=== PATIENT | female | born 1950 | race Caucasian/White ===

== ENCOUNTER 2017-03-01 23:53 | Emergency (ER) | payer SELFPAY ==
[2017-03-02 00:12] VITALS: BP 168/86; BMI 38.9
[2017-03-02] MEDS ORDERED: ZOFRAN TAB 4 MG PO ONE (00:45)
[2017-03-02] MEDS ORDERED: DUONEB 0.5 MG/3 MG NEB ONE (00:45)
--- NOTE | 2017-03-02 00:54 | DR.GENAD ---
HPI - PCP Primary Care Physician: beni - Complaint/Symptoms Chief Complaint Doctors Comments: Patient denies a history of cardiopulmonary disease. Denies fever but admits to nausea. Chief Complaint:: cough cold congestion, short of breath Self Treatment fo Chief Complaint: tussin dm, tylenol for fever - Source History Provided: Patient, Family Member - Mode of Arrival Mode of Arrival: Ambulatory - Timing Onset of Chief Complaint: 02/27/17 PMH - PMH Past Medical History: No Past Surgical History: Yes Surgical History: Appendectomy, Bowel Resection, Hysterectomy - Family History History of Family Medical Conditions: Yes Family Medical History: Diabetes Mellitus, Cancer, [place], Coronary Artery Disease, Hypertension - Social History Does patient currently use any type of tobacco product: No Have you used tobacco products in the last 12 months: No Type of Tobacco Use: Cigarettes Does any household member use tobacco: No Alcohol Use: None Do you use any recreational Drugs:: No Lives With: Family Lives Where: Home - infectious screening In the last 2 months have you had wt loss of >10#?: NO Have you had fever, night sweats or hemotysis?: No Have you traveled outside the country in the last 6 months?: No Isolation: Standard ROS - Review of Systems Eyes: No Symptoms Reported ENTM: No Symptoms Reported Respiratoy: No Symptoms Reported Cardiovascular: No Symptoms Reported Gastrointestinal/Abdominal: No Symptoms Reported Genitourinary: No Symptoms Reported Neurological: No Symptoms Reported Musculoskeletal: No Symptoms Reported Integumentary: No Symptoms Reported Hematologic/Lymphatic: No Symptoms Reported Endocrine: No Symptoms Reported Psychiatric: No Symptoms Reported All Other Systems: Reviewed and Negative PE - Vital Signs Vitals: Temperature 98.7 F Pulse Rate 84 Respiratory Rate 18 Blood Pressure 168/86 O2 Sat by Pulse Oximetry 96 - General Limitations: No Limitations General Appearance: Alert, In No Apparent Distress - Head Head Exam: Normal Inspection, Atraumatic - Eyes Eye exam: Normal Appearance, PERRL, Scleral Icterus - ENT ENT Exam: Normal Exam External Ear Exam: Normal External Inspection TM/Canal Exam: Bilateral Normal Nose Exam: Normal Nose Exam, Sinus Tenderness Mouth Exam: Normal Inspection, Drooling Throat Exam: Normal Inspection - Neck Neck Exam: Normal Inspection, Full ROM - Chest Chest Inspection: Normal Inspection - Respiratory Respiratory Exam: Normal Lung Sounds Bilat Respiratory Exam: Bilateral Rhonchi - Cardiovascular Cardiovascular Exam: Regular Rate, Normal Rhythm - Abdominal Exam Abdominal Exam: Normal Inspection Abdominal Tenderness: negative: RUQ, RLQ, LUQ, LLQ, Epigastrium, Suprapubic, Diffuse, Mild, Moderate, Severe, Other - Extremities Extremities Exam: Normal Inspection, Full ROM - Back Back Exam: Normal Inspection - Neurologic Neurological Exam: Alert, Oriented X3, CN II-XII Intact - Psychiatric Psychiatric Exam: Normal Affect, Normal Mood - Skin Skin Exam: Warm, Dry, Intact MDM - Differential Diagnosis Differential Diagnosis: CHF,COPD,PE ROR - Labs Reviewed Result Diagrams: 03/02/17 01:00 03/02/17 01:00 Laboratory: WBC 7.9 X10^3/uL (3.6-10.0) 03/02/17 01:00 RBC 4.58 X10^6/uL (3.5-5.4) 03/02/17 01:00 Hgb 10.7 g/dL (12.0-16.0) L 03/02/17 01:00 Hct 33.4 % (36.0-47.0) L 03/02/17 01:00 MCV 72.9 fL (80.0-100.0) L 03/02/17 01:00 MCH 23.4 pg (27.0-34.0) L 03/02/17 01:00 MCHC 32.0 g/dL (33.0-35.0) L 03/02/17 01:00 RDW 16.5 % (11.6-16.5) 03/02/17 01:00 Plt Count 114 X10^3/uL (150.0-450.0) L 03/02/17 01:00 Plt Count Comment Adequate (ADEQUATE) 03/02/17 01:00 MPV 9.2 fL (7.4-11.0) 03/02/17 01:00 Neut % 70.5 % (42.0-75.0) 03/02/17 01:00 Lymph % 19.2 % (21.0-51.0) L 03/02/17 01:00 [place] % 7.9 % (0.0-13.0) 03/02/17 01:00 Eos % 1.6 % (0.9-2.9) 03/02/17 01:00 Baso % 0.8 % (0.2-1.0) 03/02/17 01:00 Neut # 5.6 x10^3/uL (2.2-4.8) H 03/02/17 01:00 Lymph # 1.5 X10^3/uL (1.3-2.9) 03/02/17 01:00 [place] # 0.6 x10^3/uL (0.3-0.8) 03/02/17 01:00 Eos # 0.1 x10^3/uL (0.0-0.2) 03/02/17 01:00 Baso # 0.1 X10^3/uL (0.0-0.1) 03/02/17 01:00 Absolute Nucleated RBC 0.0 /100WBC 03/02/17 01:00 Plt Morphology Comment Normal (NORMAL) 03/02/17 01:00 RBC Morphology Abnormal (NORMAL) A 03/02/17 01:00 Hypochromasia 1+ A 03/02/17 01:00 Sodium 138 mmol/L (136-145) 03/02/17 01:00 Corrected Sodium TNP 03/02/17 01:00 Potassium 4.3 mmol/L (3.5-5.1) 03/02/17 01:00 Chloride 102 mmol/L (98-107) 03/02/17 01:00 Carbon Dioxide 27.7 mmol/L (21-32) 03/02/17 01:00 BUN 6 mg/dL (7-18) L 03/02/17 01:00 Creatinine 0.59 mg/dL (0.55-1.02) 03/02/17 01:00 Est GFR (MDRD) Af Amer > 60 (>60) 03/02/17 01:00 Est GFR (MDRD) Non-Af > 60 (>60) 03/02/17 01:00 Glucose 104 mg/dL (65-99) H 03/02/17 01:00 Calcium 9.2 mg/dL (8.5-10.1) 03/02/17 01:00 - XRAY XRAY Interpreted by: Radiologist (Chest: The trachea is midline. The cardiac silhouette is unremarkable. The lungs are clear without focal infiltrate or effusion. The bony thorax is unremarkable. Impression: No acute cardiopulmonary abnormality.) - Diagnosis Discharge Problem: Upper respiratory disease - Discharge Plan Condition: Stable - Follow ups/Referrals Follow ups/Referrals: YOLANDA NARAYAN [Primary Care Provider] - 3 days - Instructions
[2017-03-02] MEDS ORDERED: ZOFRAN TAB 4 MG PO PRN (00:55)
[2017-03-02] MEDS ORDERED: DUONEB 0.5 MG/3 MG NEB SCH (01:00)
[2017-03-02] MEDS ORDERED: DUONEB 0.5 MG/3 MG ONE (01:00)
[2017-03-02] MEDS ORDERED: ZOFRAN TAB 4 MG ONE (01:02)
[2017-03-02 01:09] LABS: BASOPHILS # (AUTO) 0.1 X10^3/uL (0.0-0.1); BASOPHILS % (AUTO) 0.8 % (0.2-1.0); EOSINOPHILS # (AUTO) 0.1 x10^3/uL (0.0-0.2); EOSINOPHILS % (AUTO) 1.6 % (0.9-2.9); HEMATOCRIT 33.4 % (36.0-47.0); HEMOGLOBIN 10.7 g/dL (12.0-16.0); LYMPHOCYTES # (AUTO) 1.5 X10^3/uL (1.3-2.9); LYMPHOCYTES % (AUTO) 19.2 % (21.0-51.0); MEAN CORPUSCULAR HEMOGLOBIN 23.4 pg (27.0-34.0); MEAN CORPUSCULAR VOLUME 72.9 fL (80.0-100.0); MEAN PLATELET VOLUME 9.2 fL (7.4-11.0); MONOCYTES # (AUTO) 0.6 x10^3/uL (0.3-0.8); MONOCYTES % (AUTO) 7.9 % (0.0-13.0); NEUTROPHILS # (AUTO) 5.6 x10^3/uL (2.2-4.8); NEUTROPHILS % (AUTO) 70.5 % (42.0-75.0); PLATELET COUNT 114 X10^3/uL (150.0-450.0); RED BLOOD COUNT 4.58 X10^6/uL (3.5-5.4); RED CELL DISTRIBUTION WIDTH 16.5 % (11.6-16.5); WHITE BLOOD COUNT 7.9 X10^3/uL (3.6-10.0)
[2017-03-02 01:16] LABS: BLOOD UREA NITROGEN 6 mg/dL (7-18); CALCIUM 9.2 mg/dL (8.5-10.1); CARBON DIOXIDE 27.7 mmol/L (21-32); CHLORIDE 102 mmol/L (98-107); CREATININE 0.59 mg/dL (0.55-1.02); SODIUM 138 mmol/L (136-145); eGFR BLACK RACES > 60 (>60); eGFR NON BLACK RACES > 60 (>60)
[2017-03-02 01:18] LABS: PLATELET MORPHOLOGY COMMENT NORMAL (NORMAL)
[2017-03-02 01:21] LABS: HYPOCHROMASIA 1+
--- NOTE | 2017-03-02 01:26 | RAD ---
AP Chest Indication: Cough Comparison: None available Findings: The trachea is midline. The cardiac silhouette is unremarkable. The lungs are clear without focal i nfiltrate or effusion. The bony thorax is unremarkable. IMPRESSION: 1. No acute cardiopulmonary abnormality. Reported By:
== END 2017-03-02 01:33 | disposition home or self-care (01) ==
LOC: ER 23:53
DX: J06.9 Acute upper respiratory infection, unspecified (principal)
CPT/HCPCS: 36415; 71010; 80048; 85025; 94640; 99281; 99282; 99283; S0181; J7620

== ENCOUNTER 2019-02-16 14:58 | Inpatient (IN) ==
[2019-02-16] MEDS ORDERED: NS 500 ML IV 500 ML IV ONE (18:33)
[2019-02-16 19:03] LABS: BASOPHILS % (AUTO) 0.7 % (0.2-1.0); EOSINOPHILS # (AUTO) 0.3 x10^3/uL (0.0-0.2); EOSINOPHILS % (AUTO) 5.2 % (0.9-2.9); HEMATOCRIT 22.2 % (36.0-47.0); HEMOGLOBIN 7.3 g/dL (12.0-16.0); LYMPHOCYTES # (AUTO) 1.2 X10^3/uL (1.3-2.9); LYMPHOCYTES % (AUTO) 23.9 % (21.0-51.0); MEAN CORPUSCULAR HEMOGLOBIN 25.5 pg (27.0-34.0); MEAN CORPUSCULAR VOLUME 77.3 fL (80.0-100.0); MEAN PLATELET VOLUME 8.6 fL (7.4-11.0); MONOCYTES # (AUTO) 0.4 x10^3/uL (0.3-0.8); NEUTROPHILS % (AUTO) 61.2 % (42.0-75.0); PLATELET COUNT 86 X10^3/uL (150.0-450.0); RED BLOOD COUNT 2.87 X10^6/uL (3.5-5.4); RED CELL DISTRIBUTION WIDTH 15.6 % (11.6-16.5); WHITE BLOOD COUNT 4.9 X10^3/uL (3.6-10.0)
[2019-02-16 19:12] LABS: PLATELET MORPHOLOGY COMMENT NORMAL (NORMAL)
[2019-02-16 19:13] LABS: ANISOCYTOSIS SLIGHT; HYPOCHROMASIA SLIGHT; MICROCYTOSIS SLIGHT
[2019-02-16 19:18] LABS: ALANINE AMINOTRANSFERASE 19 Units/L (12-78); ALBUMIN 2.9 g/dL (3.4-5.0); ALKALINE PHOSPHATASE 156 Units/L (46-116); ASPARTATE AMINO TRANSFERASE 39 Units/L (15-37); BLOOD UREA NITROGEN 11 mg/dL (7-18); CALCIUM 8.4 mg/dL (8.5-10.1); CARBON DIOXIDE 24.6 mmol/L (21-32); CHLORIDE 104 mmol/L (98-107); COR CA(FOR HYPOALB) 9.3 mg/dL (8.5-10.1); CREATININE 0.65 mg/dL (0.55-1.02); SODIUM 139 mmol/L (136-145); TOTAL PROTEIN 7.1 g/dL (6.4-8.2); eGFR NON BLACK RACES > 60 (>60)
[2019-02-16] MEDS: NS 1000 ML 1,000 ML IV SCH (19:35)
[2019-02-16 19:39] LABS: ERYTHROCYTE SEDIMENTATION RATE 62 MM/HOUR (0-20)
[2019-02-16] MEDS: PROTONIX INJ 40 MG VIAL IVP SCH (20:33)
[2019-02-16] MEDS: PEPCID 20 MG IV PREMIX* 20 MG/50 ML BAG IV SCH (20:33)
[2019-02-16] MEDS: TYLENOL 325 MG TAB PO PRN (21:24)
[2019-02-16] MEDS: BENADRYL INJ 50 MG VIAL IVP PRN (21:24)
[2019-02-16 21:35] VITALS: BMI 38.0
[2019-02-17 05:24] LABS: BASOPHILS % (AUTO) 0.8 % (0.2-1.0); EOSINOPHILS # (AUTO) 0.2 x10^3/uL (0.0-0.2); EOSINOPHILS % (AUTO) 5.8 % (0.9-2.9); HEMATOCRIT 24.8 % (36.0-47.0); HEMOGLOBIN 8.3 g/dL (12.0-16.0); LYMPHOCYTES % (AUTO) 27.6 % (21.0-51.0); MEAN CORPUSCULAR HEMOGLOBIN 26.3 pg (27.0-34.0); MEAN CORPUSCULAR HGB CONC 33.4 g/dL (33.0-35.0); MEAN PLATELET VOLUME 8.8 fL (7.4-11.0); MONOCYTES # (AUTO) 0.3 x10^3/uL (0.3-0.8); MONOCYTES % (AUTO) 9.1 % (0.0-13.0); NEUTROPHILS % (AUTO) 56.7 % (42.0-75.0); PLATELET COUNT 70 X10^3/uL (150.0-450.0); RED BLOOD COUNT 3.14 X10^6/uL (3.5-5.4); RED CELL DISTRIBUTION WIDTH 15.8 % (11.6-16.5); WHITE BLOOD COUNT 3.5 X10^3/uL (3.6-10.0)
[2019-02-17 05:41] LABS: ALANINE AMINOTRANSFERASE 19 Units/L (12-78); ALBUMIN 2.6 g/dL (3.4-5.0); ALKALINE PHOSPHATASE 140 Units/L (46-116); ASPARTATE AMINO TRANSFERASE 42 Units/L (15-37); BLOOD UREA NITROGEN 8 mg/dL (7-18); CALCIUM 8.3 mg/dL (8.5-10.1); CARBON DIOXIDE 25.8 mmol/L (21-32); CHLORIDE 107 mmol/L (98-107); COR CA(FOR HYPOALB) 9.4 mg/dL (8.5-10.1); CREATININE 0.59 mg/dL (0.55-1.02); SODIUM 142 mmol/L (136-145); TOTAL PROTEIN 6.6 g/dL (6.4-8.2); eGFR NON BLACK RACES > 60 (>60)
[2019-02-17] MEDS: PROTONIX INJ 40 MG VIAL IVP SCH ×2 (08:18→20:15)
[2019-02-17] MEDS: PEPCID 20 MG IV PREMIX* 20 MG/50 ML BAG IV SCH ×2 (08:18→20:15)
[2019-02-17] MEDS ORDERED: PHARMACY CONSULT - DOSE _____ XX SCH (09:00)
[2019-02-17 11:38] LABS: HEMATOCRIT 25.3 % (36.0-47.0); HEMOGLOBIN 8.4 g/dL (12.0-16.0)
[2019-02-17 14:24] LABS: IRON 22 ug/dL (50-175)
[2019-02-17 17:32] LABS: HEMATOCRIT 27.8 % (36.0-47.0); HEMOGLOBIN 9.2 g/dL (12.0-16.0)
[2019-02-17] MEDS: NS 1000 ML 1,000 ML IV SCH (20:16)
--- NOTE | 2019-02-17 20:51 | DR.CONSULT ---
Consult - Consultation for Day of: Date: 02/17/19 - Chief Complaint Chief Complaint: Patient referrred for anemia. Patient with no GI complaints. - History of Present Illness History of Present Illness: Patient is a 68 yo female who was referrred for anemia. Patient with no GI complaints. Patient denies dysphagia, dyspepsia, nausea, vomiting, abdominal pain, constipation, diarrhea, melena and hematochezia. Patinet states she had a colonoscopy in october of this year in [place] with 8 adenomatous polyps. PAtient states she had an EGD in 2011. Patient with a 7.3 hgb on arrival up to 8.4 after PRBC transfusion, Hct 25.3, Plt 70, BUN 8, Creatinine 0.59, Iron 22, T. Bili 0.5, AST 42, ALT 19, Alk Phos 140. Hemoccult negative. Patient states she does have a history of fatty liver. Patient has also had a colon resection due to diverticulitis. 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 Additional Surgical History: Colon resection, Partial hysterectomy - Family History Family Medical History: Diabetes Mellitus, Cancer, [place], Coronary Artery Disease, Heart Failure, Sudden Cardiac , Hypertension - Social History Does patient currently use any type of tobacco product: No Have you used tobacco products in the last 12 months: No Type of Tobacco Use: Cigarettes How many years tobacco product used: 40 Does any household member use tobacco: No Alcohol Use: None - Medications Home Medications: codeine Allergy (Verified 03/01/17 23:55) levofloxacin [From Levaquin] Allergy (Verified 03/01/17 23:55) Penicillins Allergy (Verified 03/01/17 23:55) Sulfa (Sulfonamide Antibiotics) [SULFA] Allergy (Verified 03/01/17 23:55) CONTINUE taking the following medications cyanocobalamin (vitamin B-12) 1,000 mcg IM .EVERY TWO WEEKS 02/17/19 [History] ergocalciferol (vitamin D2) 50,000 unit PO .TWICE WEEKLY 02/17/19 [History] meloxicam 15 mg PO DAILY 02/17/19 [History] - Review of Systems Gastrointestinal: denies: No Symptoms Reported, See HPI, Nausea, Vomiting, Abdominal Pain, Diarrhea, Constipation, Melena, Hematochezia, Other - Physical Exam Vital Signs: Temperature 98.1 F Pulse Rate [Right Brachial] 80 Pulse Rate 84 Respiratory Rate 24 Blood Pressure [Right Arm] 146/67 Blood Pressure 150/66 O2 Sat by Pulse Oximetry 97 Oriented: Normal Eyes: Normal Ear: Normal Nose: Normal Throat: Normal Respiratory: Clear Throughout Cardiovascular: Normal : Normal Auscultation: Bowel Sounds: Normal Palpation: Normal, Other (no distention). negative: Spleen Enlarged, Liver Enlarged, Mass Pulsatile Tenderness: Normal Skin: Normal Musculoskeletal: Normal Psychiatric: Normal Mood Description: Calm Affect: Normal Speech Pattern: Clear, Appropriate - Plan Plan: Assessment. 1. Anemia r/o GI loss. 2. Abnormal LFTs, Thrombocytopenia. Plan. 1. EGD in am, Monitor Hgb, Transfuse as needed. 2. Hepatitis Profile, Abnormal LFT Panel, Liver US. Plan reviewed with - Allergies Allergies/Adverse Reactions: Allergies Allergy/AdvReac Type Severity Reaction Status Date / Time codeine Allergy Verified 03/01/17 23:55 levofloxacin [From Levaquin] Allergy Verified 03/01/17 23:55 Penicillins Allergy Verified 03/01/17 23:55 Sulfa (Sulfonamide Allergy Verified 03/01/17 23:55 Antibiotics) [SULFA]
[2019-02-17] MEDS: REQUIP PO SCH (20:59)
[2019-02-17 22:56] LABS: HEMATOCRIT 24.3 % (36.0-47.0); HEMOGLOBIN 8.2 g/dL (12.0-16.0)
[2019-02-18 05:19] LABS: BASOPHILS % (AUTO) 0.7 % (0.2-1.0); EOSINOPHILS # (AUTO) 0.3 x10^3/uL (0.0-0.2); EOSINOPHILS % (AUTO) 5.4 % (0.9-2.9); HEMATOCRIT 25.8 % (36.0-47.0); HEMOGLOBIN 8.6 g/dL (12.0-16.0); MEAN CORPUSCULAR HEMOGLOBIN 26.1 pg (27.0-34.0); MEAN CORPUSCULAR HGB CONC 33.2 g/dL (33.0-35.0); MEAN CORPUSCULAR VOLUME 78.6 fL (80.0-100.0); MEAN PLATELET VOLUME 8.8 fL (7.4-11.0); MONOCYTES # (AUTO) 0.4 x10^3/uL (0.3-0.8); MONOCYTES % (AUTO) 8.2 % (0.0-13.0); NEUTROPHILS # (AUTO) 3.4 x10^3/uL (2.2-4.8); NEUTROPHILS % (AUTO) 66.7 % (42.0-75.0); PLATELET COUNT 84 X10^3/uL (150.0-450.0); RED BLOOD COUNT 3.29 X10^6/uL (3.5-5.4); RED CELL DISTRIBUTION WIDTH 15.8 % (11.6-16.5)
[2019-02-18 05:33] LABS: ALANINE AMINOTRANSFERASE 18 Units/L (12-78); ALBUMIN 2.8 g/dL (3.4-5.0); ALKALINE PHOSPHATASE 149 Units/L (46-116); ASPARTATE AMINO TRANSFERASE 44 Units/L (15-37); BLOOD UREA NITROGEN 6 mg/dL (7-18); CALCIUM 8.2 mg/dL (8.5-10.1); CARBON DIOXIDE 23.5 mmol/L (21-32); CHLORIDE 106 mmol/L (98-107); COR CA(FOR HYPOALB) 9.2 mg/dL (8.5-10.1); CREATININE 0.53 mg/dL (0.55-1.02); SODIUM 140 mmol/L (136-145); TOTAL PROTEIN 6.9 g/dL (6.4-8.2); eGFR NON BLACK RACES > 60 (>60)
--- NOTE | 2019-02-18 08:10 | US ---
HISTORY: Elevated LFTs Study: Ultrasound of the abdomen complete Comparison: No priors Technique: Multiple colon scale and color flow Doppler images of the abdomen were obtained. Findings: The liver is prominent in size measuring 17 cm in length. There is diffuse hepatic steatosis. No intraparenchymal mass or intrahepatic biliary ductal dilatation can be identified. The gallbladder is unremarkable in its appearance. The common bile duct is normal measuring 5.1 mm. Doppler studies of portal vein, hepatic vein and hepatic artery are all normal. The pancreas is normal. The spleen is enlarged measuring 18 cm in length. The right and left kidney are normal in echotexture and size. The right kidney measures 4.6 x 5.8 x 11 cm. Cortical thickness is 1.7 cm. Resistive index is 0.77.. The left kidney measures 4.6 x 6.0 x 14 cm. Cortical thickness is 1.8 cm. Resistive index is 0.76.. No mass, hydronephrosis, or stone can be identified. The visualized portions of the abdominal aorta are normal in size without aneurysmal dilatation. The inferior vena cava is unremarkable as well. IMPRESSION: Prominent liver with diffuse steatosis. No mass or ductal ectasia is seen. Splenomegaly. Elevated resistive indices of both kidneys. Reported By:
[2019-02-18] MEDS: PROTONIX INJ 40 MG VIAL IVP SCH (08:34)
[2019-02-18] MEDS: PEPCID 20 MG IV PREMIX* 20 MG/50 ML BAG IV SCH ×2 (08:34→20:15)
[2019-02-18] MEDS ORDERED: DIPRIVAN VIAL 20 ML ONE (13:41)
[2019-02-18] MEDS: HEMOCYTE-PLUS PO SCH (14:56)
[2019-02-18] MEDS: PROTONIX TAB 40 MG PO SCH ×2 (14:57→20:15)
[2019-02-18] MEDS: REQUIP PO SCH (20:16)
--- NOTE | 2019-02-18 20:53 | PCM.PROG ---
Progress Note - Progress Note for Day of Date of Exam: 02/17/19 - Subjective Subjective: WAS ADMITTED FOR TREATMENT OF ANEMIA. SHE RECEIVED TWO UNITS OF PACKED RED BLOOD CELLS ON ADMISSION. TODAY, SHE IS ALERT AND ORIENTED, LYING IN BED ON MORNING ROUNDS. SHE IS NOTED WITH COMPLAINTS OF GENERALIZED WEAKNESS. SHE REPORTS ABDOMINAL PAIN OVER THE PAST SEVERAL WEEKS, BUT DENIES PAIN AT THE PRESENT TIME. ON EXAMINATION, HEART IS REGULAR IN RATE AND RHYTHM. BILATERAL LUNGS ARE NOTED WITH DIMINISHED LUNG SOUNDS THROUGHOUT. ABDOMEN IS ROUND, SOFT, AND NON-TENDER WITH NORMAL BOWEL SOUNDS NOTED IN ALL QUADRANTS. HER VITALS THIS MORNING ARE: WBC 3.5, RBC 3.14, HGB 8.3, HCT 24.8, PLT COUNT 70, CALCIUM 8.3, AST 42, ALK PHOS 140, ALBUMIN 2.6. AN ANEMIA PANEL WAS OBTAINED AND REVEALED: IRON 22, FERRITIN 7. STOOLS WERE TESTED FOR OCCULT BLOOD AND WERE NEGATIVE. SHE IS CURRENTLY RECEIVING IV FLUIDS, IV PEPCID, AND IV PROTONIX. TODAY, WE WILL OBTAIN A PERIPHERAL SMEAR, ANTI-PLATELET ANTIBODIES, JAMARCUS PANEL, CEA LEVEL, AND AN ECHO. WE WILL MONITOR H&H Q6H. 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 OTHERWISE, WE WILL FOLLOW UP WITH AM LABS AND CONTINUE TO MONITOR. - Past Medical Family Social History Past Med/Fam/Surg Hx: No changes since H&P Allergies: Allergies codeine Allergy (Verified 03/01/17 23:55) levofloxacin [From Levaquin] Allergy (Verified 03/01/17 23:55) Penicillins Allergy (Verified 03/01/17 23:55) Sulfa (Sulfonamide Antibiotics) [SULFA] Allergy (Verified 03/01/17 23:55) - Review of Systems ROS: No change since H&P - Vital Signs and I&O's Vital Signs: Temperature 98.1 F Pulse Rate [Right Brachial] 80 Pulse Rate 74 Respiratory Rate 17 Blood Pressure [Right Arm] 146/67 Blood Pressure 127/60 O2 Sat by Pulse Oximetry 99 Intake and Output: Intake & Output 02/16/19 02/17/19 02/18/19 02/19/19 11:59 11:59 11:59 11:59 Intake Total 1979 2730 / 2730 1112 / 1112 Balance 1979 2730 / 2730 1112 / 1112 - Physical Exam Oriented: Normal Eyes: Normal Ear: Normal Nose: Normal Throat: Normal Respiratory: Generalized, Diminished Cardiovascular: Normal : Normal Auscultation: Bowel Sounds: Normal Palpation: Normal Tenderness: Normal Skin: Normal Musculoskeletal: Normal Psychiatric: Normal Mood Description: Calm Affect: Normal Speech Pattern: Clear, Appropriate - Laboratory and Diagnostics Result Diagrams: 02/18/19 04:50 02/18/19 04:50 Labs: Laboratory WBC 5.0 X10^3/uL (3.6-10.0) 02/18/19 04:50 RBC 3.29 X10^6/uL (3.5-5.4) L 02/18/19 04:50 Hgb 8.6 g/dL (12.0-16.0) L 02/18/19 04:50 Hct 25.8 % (36.0-47.0) L 02/18/19 04:50 MCV 78.6 fL (80.0-100.0) L 02/18/19 04:50 MCH 26.1 pg (27.0-34.0) L 02/18/19 04:50 MCHC 33.2 g/dL (33.0-35.0) 02/18/19 04:50 RDW 15.8 % (11.6-16.5) 02/18/19 04:50 Plt Count 84 X10^3/uL (150.0-450.0) L 02/18/19 04:50 Plt Count Comment Decreased (ADEQUATE) A 02/16/19 18:48 MPV 8.8 fL (7.4-11.0) 02/18/19 04:50 Neut % (Auto) 66.7 % (42.0-75.0) 02/18/19 04:50 Lymph % (Auto) 19.0 % (21.0-51.0) L 02/18/19 04:50 [place] % (Auto) 8.2 % (0.0-13.0) 02/18/19 04:50 Eos % (Auto) 5.4 % (0.9-2.9) H 02/18/19 04:50 Baso % (Auto) 0.7 % (0.2-1.0) 02/18/19 04:50 Neut # (Auto) 3.4 x10^3/uL (2.2-4.8) 02/18/19 04:50 Lymph # (Auto) 1.0 X10^3/uL (1.3-2.9) L 02/18/19 04:50 [place] # (Auto) 0.4 x10^3/uL (0.3-0.8) 02/18/19 04:50 Eos # (Auto) 0.3 x10^3/uL (0.0-0.2) H 02/18/19 04:50 Baso # (Auto) 0.0 X10^3/uL (0.0-0.1) 02/18/19 04:50 Absolute Nucleated RBC 0.0 /100WBC 02/18/19 04:50 Plt Morphology Comment Normal (NORMAL) 02/16/19 18:48 RBC Morphology Abnormal (NORMAL) A 02/16/19 18:48 Hypochromasia Slight A 02/16/19 18:48 Anisocytosis Slight A 02/16/19 18:48 Microcytosis Slight A 02/16/19 18:48 ESR 62 MM/HOUR (0-20) H 02/16/19 18:48 Sodium 140 mmol/L (136-145) 02/18/19 04:50 Corrected Sodium TNP 02/18/19 04:50 Potassium 4.0 mmol/L (3.5-5.1) 02/18/19 04:50 Chloride 106 mmol/L (98-107) 02/18/19 04:50 Carbon Dioxide 23.5 mmol/L (21-32) 02/18/19 04:50 BUN 6 mg/dL (7-18) L 02/18/19 04:50 Creatinine 0.53 mg/dL (0.55-1.02) L 02/18/19 04:50 Est GFR (MDRD) Af Amer > 60 (>60) 02/18/19 04:50 Est GFR (MDRD) Non-Af > 60 (>60) 02/18/19 04:50 Glucose 99 mg/dL (65-99) 02/18/19 04:50 Calcium 8.2 mg/dL (8.5-10.1) L 02/18/19 04:50 Corrected Calcium 9.2 mg/dL (8.5-10.1) 02/18/19 04:50 Iron 22 ug/dL (50-175) L 02/16/19 18:48 Transferrin 275 mg/dL (202-364) 02/16/19 18:48 Ferritin 7 ng/mL (8-252) L 02/16/19 18:48 Total Bilirubin 0.60 mg/dL (0.2-1.0) 02/18/19 04:50 AST 44 Units/L (15-37) H 02/18/19 04:50 ALT 18 Units/L (12-78) 02/18/19 04:50 Alkaline Phosphatase 149 Units/L (46-116) H 02/18/19 04:50 Total Protein 6.9 g/dL (6.4-8.2) 02/18/19 04:50 Albumin 2.8 g/dL (3.4-5.0) L 02/18/19 04:50 Globulin 4.1 g/dL (2.5-4.5) 02/18/19 04:50 Albumin/Globulin Ratio 0.7 Ratio (1.1-2.1) L 02/18/19 04:50 Vitamin B12 352 pg/mL (193-986) 02/16/19 18:48 Folate > 20.0 ng/mL (>8.6) 02/16/19 18:48 Stool Description 200g formed brown 02/17/19 10:25 Stl Occult Blood (IFOB) Negative (NEGATIVE) 02/17/19 10:25 Tissue Pathology To follow 02/18/19 13:51 Blood Type O POSITIVE 02/16/19 18:48 Antibody Screen Negative 02/16/19 18:48 Crossmatch See Detail 02/16/19 18:48 - Plan (1) Anemia Status: Acute Qualifiers: Anemia type: iron deficiency Iron deficiency anemia 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
--- NOTE | 2019-02-18 21:06 | DR.UPDATE ---
H&P Update History and Physical Update: History and Physical reviewed and patient examined. Changes noted: Yes with the following: WAS SEEN IN THE OFFICE FOR COMPLAINTS OF GENERALIZED WEAKNESS AND FATIGUE. OUTPATIENT LABS WERE OBTAINED AND REVEALED A HEMOGLOBIN OF 7.4. WE ADMITTED PATIENT FOR FURTHER EVALUATION AND TREATMENT OF ANEMIA. ON ADMISSION, WE WILL TYPE AND SCREEN FOR 2 UNITS OF PACKED RED BLOOD CELLS AND TRANSFUSE WHEN AVAILABLE. OTHERWISE, WE WILL FOLLOW UP WITH AM LABS AND CONTINUE TO MONITOR.
[2019-02-18] MEDS: NS 1000 ML 1,000 ML IV SCH (21:50)
[2019-02-19 06:37] LABS: BASOPHILS # (AUTO) 0.1 X10^3/uL (0.0-0.1); BASOPHILS % (AUTO) 1.2 % (0.2-1.0); EOSINOPHILS # (AUTO) 0.3 x10^3/uL (0.0-0.2); EOSINOPHILS % (AUTO) 6.2 % (0.9-2.9); HEMATOCRIT 24.7 % (36.0-47.0); HEMOGLOBIN 8.1 g/dL (12.0-16.0); LYMPHOCYTES % (AUTO) 22.2 % (21.0-51.0); MEAN CORPUSCULAR HEMOGLOBIN 26.2 pg (27.0-34.0); MEAN CORPUSCULAR HGB CONC 32.8 g/dL (33.0-35.0); MEAN CORPUSCULAR VOLUME 80.1 fL (80.0-100.0); MEAN PLATELET VOLUME 9.9 fL (7.4-11.0); MONOCYTES # (AUTO) 0.4 x10^3/uL (0.3-0.8); MONOCYTES % (AUTO) 9.9 % (0.0-13.0); NEUTROPHILS # (AUTO) 2.7 x10^3/uL (2.2-4.8); NEUTROPHILS % (AUTO) 60.5 % (42.0-75.0); PLATELET COUNT 74 X10^3/uL (150.0-450.0); RED BLOOD COUNT 3.09 X10^6/uL (3.5-5.4); RED CELL DISTRIBUTION WIDTH 16.1 % (11.6-16.5); WHITE BLOOD COUNT 4.4 X10^3/uL (3.6-10.0)
[2019-02-19 06:41] LABS: ALANINE AMINOTRANSFERASE 17 Units/L (12-78); ALBUMIN 2.5 g/dL (3.4-5.0); ALKALINE PHOSPHATASE 139 Units/L (46-116); ASPARTATE AMINO TRANSFERASE 39 Units/L (15-37); BLOOD UREA NITROGEN 5 mg/dL (7-18); CALCIUM 8.1 mg/dL (8.5-10.1); CARBON DIOXIDE 25.5 mmol/L (21-32); CHLORIDE 107 mmol/L (98-107); COR CA(FOR HYPOALB) 9.3 mg/dL (8.5-10.1); CREATININE 0.47 mg/dL (0.55-1.02); SODIUM 141 mmol/L (136-145); TOTAL PROTEIN 6.4 g/dL (6.4-8.2); eGFR NON BLACK RACES > 60 (>60)
[2019-02-19] MEDS: NS 1000 ML 1,000 ML IV SCH ×2 (08:04→13:32)
[2019-02-19] MEDS: HEMOCYTE-PLUS PO SCH (09:58)
[2019-02-19] MEDS: PROTONIX TAB 40 MG PO SCH ×2 (09:58→20:25)
[2019-02-19] MEDS: PEPCID 20 MG IV PREMIX* 20 MG/50 ML BAG IV SCH ×2 (09:58→20:25)
[2019-02-19] MEDS: ZOFRAN INJ 4 MG VIAL IVP PRN (12:23)
[2019-02-19] MEDS ORDERED: NS 250 ML IV 250 ML IV ONE (15:52)
[2019-02-19] MEDS: BENADRYL INJ 50 MG VIAL IVP PRN (15:58)
[2019-02-19] MEDS: TYLENOL 325 MG TAB PO PRN (15:58)
[2019-02-19] MEDS: REQUIP PO SCH (20:25)
[2019-02-20 01:09] LABS: HEMATOCRIT 30.1 % (36.0-47.0)
[2019-02-20] MEDS: NS 1000 ML 1,000 ML IV SCH ×2 (02:59→14:40)
[2019-02-20 06:29] LABS: BASOPHILS % (AUTO) 1.1 % (0.2-1.0); EOSINOPHILS # (AUTO) 0.3 x10^3/uL (0.0-0.2); EOSINOPHILS % (AUTO) 7.4 % (0.9-2.9); HEMATOCRIT 28.7 % (36.0-47.0); HEMOGLOBIN 9.5 g/dL (12.0-16.0); LYMPHOCYTES % (AUTO) 23.9 % (21.0-51.0); MEAN CORPUSCULAR HEMOGLOBIN 26.6 pg (27.0-34.0); MEAN CORPUSCULAR HGB CONC 33.1 g/dL (33.0-35.0); MEAN CORPUSCULAR VOLUME 80.3 fL (80.0-100.0); MEAN PLATELET VOLUME 9.4 fL (7.4-11.0); MONOCYTES # (AUTO) 0.4 x10^3/uL (0.3-0.8); MONOCYTES % (AUTO) 10.3 % (0.0-13.0); NEUTROPHILS # (AUTO) 2.3 x10^3/uL (2.2-4.8); NEUTROPHILS % (AUTO) 57.3 % (42.0-75.0); PLATELET COUNT 73 X10^3/uL (150.0-450.0); RED BLOOD COUNT 3.58 X10^6/uL (3.5-5.4); RED CELL DISTRIBUTION WIDTH 15.9 % (11.6-16.5)
[2019-02-20 06:38] LABS: ALANINE AMINOTRANSFERASE 16 Units/L (12-78); ALBUMIN 2.5 g/dL (3.4-5.0); ALKALINE PHOSPHATASE 141 Units/L (46-116); ASPARTATE AMINO TRANSFERASE 37 Units/L (15-37); BLOOD UREA NITROGEN 5 mg/dL (7-18); CALCIUM 8.3 mg/dL (8.5-10.1); CARBON DIOXIDE 25.7 mmol/L (21-32); CHLORIDE 107 mmol/L (98-107); COR CA(FOR HYPOALB) 9.5 mg/dL (8.5-10.1); CREATININE 0.55 mg/dL (0.55-1.02); SODIUM 141 mmol/L (136-145); TOTAL PROTEIN 6.4 g/dL (6.4-8.2); eGFR NON BLACK RACES > 60 (>60)
[2019-02-20] MEDS ORDERED: POTASSIUM CHL 60 MEQ/NS 0.45% 500 ML IV PRN (09:09)
[2019-02-20] MEDS ORDERED: KLOR-CON PO PRN (09:09)
[2019-02-20] MEDS ORDERED: K-DUR TAB 20 MEQ PO PRN (09:09)
[2019-02-20] MEDS ORDERED: K-RIDER 10 MEQ/NS 100 ML 10 MEQ/100 ML BAG IV PRN (09:09)
[2019-02-20] MEDS ORDERED: POTASSIUM CHLORIDE LIQ 20 MEQ UDC PO PRN (09:09)
[2019-02-20] MEDS ORDERED: POTASSIUM CHL 40 MEQ/NS 0.45% 500 ML IV PRN (09:09)
[2019-02-20] MEDS ORDERED: MICRO K EXTEN CAP 10 MEQ PO PRN (09:09)
[2019-02-20] MEDS: PEPCID 20 MG IV PREMIX* 20 MG/50 ML BAG IV SCH ×2 (09:17→21:00)
[2019-02-20] MEDS: PROTONIX TAB 40 MG PO SCH ×2 (09:18→20:59)
[2019-02-20] MEDS: HEMOCYTE-PLUS PO SCH (09:18)
[2019-02-20] MEDS: ZOFRAN INJ 4 MG VIAL IVP PRN (10:40)
[2019-02-20 10:59] LABS: HEPATITIS B SURFACE ANTIGEN Negative (Negative)
[2019-02-20 11:00] LABS: ANTI-NUCLEAR ANTIBODY TEST Detected (None Detected)
--- NOTE | 2019-02-20 13:32 | PCM.PROG ---
Progress Note - Progress Note for Day of Date of Exam: 02/18/19 - Subjective Subjective: WAS ADMITTED FOR TREATMENT OF ANEMIA. SHE RECEIVED TWO UNITS OF PACKED RED BLOOD CELLS ON ADMISSION. TODAY, SHE IS ALERT AND ORIENTED, LYING IN BED ON MORNING ROUNDS. SHE CONTINUES WITH COMPLAINTS OF GENERALIZED WEAKNESS TODAY. SHE ALSO REPORTS MILD ABDOMINAL PAIN TODAY. ON EXAMINATION, HEART IS REGULAR IN RATE AND RHYTHM. BILATERAL LUNGS ARE NOTED WITH DIMINISHED LUNG SOUNDS THROUGHOUT. ABDOMEN IS ROUND, SOFT, AND NON-TENDER WITH NORMAL BOWEL SOUNDS NOTED IN ALL QUADRANTS. HER VITALS THIS MORNING ARE: 98.7-76-21-98%-173/67. LABS WERE OBTAINED. ABNORMAL LAB VALUES INCLUDE THE FOLLOWING: RBC 3.29, HGB 8.6, HCT 25.8, PLT COUNT 84, BUN 6, CREATININE 0.53, CALCIUM 8.2, AST 44, ALK PHOS 149, ALBUMIN 2.8. SHE IS CURRENTLY RECEIVING IV FLUIDS, IV PEPCID, AND IV PROTONIX. CONSULTED AND PLANS FOR AN EGD TODAY. WE ARE IN AGREEMENT WITH PLAN. OTHERWISE, WE WILL CONTINUE WITH CURRENT PLAN OF CARE TODAY. WE WILL FOLLOW UP WITH AM LABS AND CONTINUE TO MONITOR. - Past Medical Family Social History Past Med/Fam/Surg Hx: No changes since H&P Allergies: Allergies codeine Allergy (Verified 03/01/17 23:55) levofloxacin [From Levaquin] Allergy (Verified 03/01/17 23:55) Penicillins Allergy (Verified 03/01/17 23:55) Sulfa (Sulfonamide Antibiotics) [SULFA] Allergy (Verified 03/01/17 23:55) - Review of Systems ROS: No change since H&P - Vital Signs and I&O's Vital Signs: Temperature 97.7 F Pulse Rate [Right Brachial] 80 Pulse Rate 73 Respiratory Rate 22 Blood Pressure [Right Arm] 146/67 Blood Pressure 143/63 O2 Sat by Pulse Oximetry 97 Intake and Output: Intake & Output 02/18/19 02/19/19 02/20/19 02/21/19 11:59 11:59 11:59 11:59 Intake Total 2730 / 2730 2752 / 2752 3629 / 3629 Balance 2730 / 2730 2752 / 2752 3629 / 3629 - Physical Exam Oriented: Normal Eyes: Normal Ear: Normal Nose: Normal Throat: Normal Respiratory: Generalized, Diminished Cardiovascular: Normal : Normal Auscultation: Bowel Sounds: Normal Palpation: Normal Tenderness: Normal Skin: Normal Musculoskeletal: Normal Psychiatric: Normal Mood Description: Calm Affect: Normal Speech Pattern: Clear, Appropriate - Laboratory and Diagnostics Result Diagrams: 02/20/19 05:14 02/20/19 05:14 Labs: Laboratory WBC 4.0 X10^3/uL (3.6-10.0) 02/20/19 05:14 RBC 3.58 X10^6/uL (3.5-5.4) 02/20/19 05:14 Hgb 9.5 g/dL (12.0-16.0) L 02/20/19 05:14 Hct 28.7 % (36.0-47.0) L 02/20/19 05:14 MCV 80.3 fL (80.0-100.0) 02/20/19 05:14 MCH 26.6 pg (27.0-34.0) L 02/20/19 05:14 MCHC 33.1 g/dL (33.0-35.0) 02/20/19 05:14 RDW 15.9 % (11.6-16.5) 02/20/19 05:14 Plt Count 73 X10^3/uL (150.0-450.0) L 02/20/19 05:14 Plt Count Comment Decreased (ADEQUATE) A 02/16/19 18:48 MPV 9.4 fL (7.4-11.0) 02/20/19 05:14 Neut % (Auto) 57.3 % (42.0-75.0) 02/20/19 05:14 Lymph % (Auto) 23.9 % (21.0-51.0) 02/20/19 05:14 [place] % (Auto) 10.3 % (0.0-13.0) 02/20/19 05:14 Eos % (Auto) 7.4 % (0.9-2.9) H 02/20/19 05:14 Baso % (Auto) 1.1 % (0.2-1.0) H 02/20/19 05:14 Neut # (Auto) 2.3 x10^3/uL (2.2-4.8) 02/20/19 05:14 Lymph # (Auto) 1.0 X10^3/uL (1.3-2.9) L 02/20/19 05:14 [place] # (Auto) 0.4 x10^3/uL (0.3-0.8) 02/20/19 05:14 Eos # (Auto) 0.3 x10^3/uL (0.0-0.2) H 02/20/19 05:14 Baso # (Auto) 0.0 X10^3/uL (0.0-0.1) 02/20/19 05:14 Absolute Nucleated RBC 0.1 /100WBC 02/20/19 05:14 Plt Morphology Comment Normal (NORMAL) 02/16/19 18:48 RBC Morphology Abnormal (NORMAL) A 02/16/19 18:48 Hypochromasia Slight A 02/16/19 18:48 Anisocytosis Slight A 02/16/19 18:48 Microcytosis Slight A 02/16/19 18:48 ESR 34 MM/HOUR (0-20) H 02/19/19 05:19 Sodium 141 mmol/L (136-145) 02/20/19 05:14 Corrected Sodium TNP 02/20/19 05:14 Potassium 3.7 mmol/L (3.5-5.1) 02/20/19 05:14 Chloride 107 mmol/L (98-107) 02/20/19 05:14 Carbon Dioxide 25.7 mmol/L (21-32) 02/20/19 05:14 BUN 5 mg/dL (7-18) L 02/20/19 05:14 Creatinine 0.55 mg/dL (0.55-1.02) 02/20/19 05:14 Est GFR (MDRD) Af Amer > 60 (>60) 02/20/19 05:14 Est GFR (MDRD) Non-Af > 60 (>60) 02/20/19 05:14 Glucose 90 mg/dL (65-99) 02/20/19 05:14 Calcium 8.3 mg/dL (8.5-10.1) L 02/20/19 05:14 Corrected Calcium 9.5 mg/dL (8.5-10.1) 02/20/19 05:14 Iron 22 ug/dL (50-175) L 02/16/19 18:48 Transferrin 275 mg/dL (202-364) 02/16/19 18:48 Ferritin 7 ng/mL (8-252) L 02/16/19 18:48 Total Bilirubin 0.50 mg/dL (0.2-1.0) 02/20/19 05:14 AST 37 Units/L (15-37) 02/20/19 05:14 ALT 16 Units/L (12-78) 02/20/19 05:14 Alkaline Phosphatase 141 Units/L (46-116) H 02/20/19 05:14 C-Reactive Protein 5.00 mg/L (0-3.0) H 02/19/19 05:19 Total Protein 6.4 g/dL (6.4-8.2) 02/20/19 05:14 Albumin 2.5 g/dL (3.4-5.0) L 02/20/19 05:14 Globulin 3.9 g/dL (2.5-4.5) 02/20/19 05:14 Albumin/Globulin Ratio 0.6 Ratio (1.1-2.1) L 02/20/19 05:14 Ozgyg-0-Nynroxmmrhi 169 mg/dL (90-200) 02/18/19 04:50 Ceruloplasmin 25 mg/dL (17-54) 02/18/19 04:50 Carcinoembryonic Ag 1.4 ng/mL (0.0-3.0) 02/17/19 11:18 Vitamin B12 352 pg/mL (193-986) 02/16/19 18:48 Folate > 20.0 ng/mL (>8.6) 02/16/19 18:48 Stool Description 200g formed brown 02/17/19 10:25 Stl Occult Blood (IFOB) Negative (NEGATIVE) 02/17/19 10:25 Copper 90.0 ug/dL (80.0-155.0) 02/18/19 04:50 JAMARCUS Screen Detected (None Detected) H 02/17/19 11:18 Anti-Mitochondrial Ab 3.4 Units (0.0-20.0) 02/18/19 04:50 Hepatitis A IgM Ab Negative (Negative) 02/18/19 04:50 Hep Bs Antigen Negative (Negative) 02/18/19 04:50 Hep Bs Ag Confirmation TNP 02/18/19 04:50 Hep B Core IgM Ab Negative (Negative) 02/18/19 04:50 Hepatitis C Ab Index 0.16 IV 02/18/19 04:50 Hepatitis C Interp Negative (Negative) 02/18/19 04:50 Hepatitis Interpret See note 02/18/19 04:50 Tissue Pathology To follow 02/18/19 13:51 Blood Type O POSITIVE 02/16/19 18:48 Antibody Screen Negative 02/16/19 18:48 Crossmatch See Detail 02/16/19 18:48 - Plan (1) Anemia Status: Acute Qualifiers: Anemia type: iron deficiency Iron deficiency anemia type: chronic blood loss 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
--- NOTE | 2019-02-20 15:20 | PCM.PROG ---
Progress Note - Progress Note for Day of Date of Exam: 02/19/19 - Subjective Subjective: WAS ADMITTED FOR TREATMENT OF ANEMIA. SHE RECEIVED TWO UNITS OF PACKED RED BLOOD CELLS ON ADMISSION. TODAY, SHE IS ALERT AND ORIENTED, LYING IN BED ON MORNING ROUNDS. SHE CONTINUES WITH COMPLAINTS OF GENERALIZED WEAKNESS TODAY. SHE ALSO CONTINUES WITH MILD ABDOMINAL PAIN TODAY. ON EXAMINATION, HEART IS REGULAR IN RATE AND RHYTHM. BILATERAL LUNGS ARE NOTED WITH DIMINISHED LUNG SOUNDS THROUGHOUT. ABDOMEN IS ROUND, SOFT, AND NON-TENDER WITH NORMAL BOWEL SOUNDS NOTED IN ALL QUADRANTS. HER VITALS THIS MORNING ARE: 97.7-74-21-95%-115/69. LABS WERE OBTAINED. ABNORMAL LAB VALUES INCLUDE THE FOLLOWING: RBC 3.09, HGB 8.1, HCT 24.7, PLT COUNT 74, BUN 5, CREATININE 0.47, AST 39, ALK PHOS 139, CRP 5.00, ALBUMIN 2.5. AN EGD WAS PERFORMED YESTERDAY AND REVEALED DISTAL ESOPHAGITIS, GASTRIC POLYPS, AND MODERATE GASTRITIS WITH EROSIONS. SHE IS CURRENTLY RECEIVING IV FLUIDS, IV PEPCID, AND IV PROTONIX. WE WILL TRANSFUSE 2 ADDITIONAL UNITS OF PRBC TODAY. OTHERWISE, WE WILL CONTINUE WITH CURRENT PLAN OF CARE. WE WILL FOLLOW UP WITH AM LABS AND CONTINUE TO MONITOR. - Past Medical Family Social History Past Med/Fam/Surg Hx: No changes since H&P Allergies: Allergies codeine Allergy (Verified 03/01/17 23:55) levofloxacin [From Levaquin] Allergy (Verified 03/01/17 23:55) Penicillins Allergy (Verified 03/01/17 23:55) Sulfa (Sulfonamide Antibiotics) [SULFA] Allergy (Verified 03/01/17 23:55) - Review of Systems ROS: No change since H&P - Vital Signs and I&O's Vital Signs: Temperature 97.7 F Pulse Rate [Right Brachial] 80 Pulse Rate 68 Respiratory Rate 15 Blood Pressure [Right Arm] 146/67 Blood Pressure 129/63 O2 Sat by Pulse Oximetry 97 Intake and Output: Intake & Output 02/18/19 02/19/19 02/20/19 02/21/19 11:59 11:59 11:59 11:59 Intake Total 2730 / 2730 2752 / 2752 3629 / 3629 Balance 2730 / 2730 2752 / 2752 3629 / 3629 - Physical Exam Oriented: Normal Eyes: Normal Ear: Normal Nose: Normal Throat: Normal Respiratory: Generalized, Diminished Cardiovascular: Normal : Normal Auscultation: Bowel Sounds: Normal Tenderness: Normal Skin: Normal Musculoskeletal: Normal Psychiatric: Normal Mood Description: Calm Affect: Normal Speech Pattern: Clear, Appropriate - Laboratory and Diagnostics Result Diagrams: 02/20/19 05:14 02/20/19 05:14 Labs: Laboratory WBC 4.0 X10^3/uL (3.6-10.0) 02/20/19 05:14 RBC 3.58 X10^6/uL (3.5-5.4) 02/20/19 05:14 Hgb 9.5 g/dL (12.0-16.0) L 02/20/19 05:14 Hct 28.7 % (36.0-47.0) L 02/20/19 05:14 MCV 80.3 fL (80.0-100.0) 02/20/19 05:14 MCH 26.6 pg (27.0-34.0) L 02/20/19 05:14 MCHC 33.1 g/dL (33.0-35.0) 02/20/19 05:14 RDW 15.9 % (11.6-16.5) 02/20/19 05:14 Plt Count 73 X10^3/uL (150.0-450.0) L 02/20/19 05:14 Plt Count Comment Decreased (ADEQUATE) A 02/16/19 18:48 MPV 9.4 fL (7.4-11.0) 02/20/19 05:14 Neut % (Auto) 57.3 % (42.0-75.0) 02/20/19 05:14 Lymph % (Auto) 23.9 % (21.0-51.0) 02/20/19 05:14 [place] % (Auto) 10.3 % (0.0-13.0) 02/20/19 05:14 Eos % (Auto) 7.4 % (0.9-2.9) H 02/20/19 05:14 Baso % (Auto) 1.1 % (0.2-1.0) H 02/20/19 05:14 Neut # (Auto) 2.3 x10^3/uL (2.2-4.8) 02/20/19 05:14 Lymph # (Auto) 1.0 X10^3/uL (1.3-2.9) L 02/20/19 05:14 [place] # (Auto) 0.4 x10^3/uL (0.3-0.8) 02/20/19 05:14 Eos # (Auto) 0.3 x10^3/uL (0.0-0.2) H 02/20/19 05:14 Baso # (Auto) 0.0 X10^3/uL (0.0-0.1) 02/20/19 05:14 Absolute Nucleated RBC 0.1 /100WBC 02/20/19 05:14 Plt Morphology Comment Normal (NORMAL) 02/16/19 18:48 RBC Morphology Abnormal (NORMAL) A 02/16/19 18:48 Hypochromasia Slight A 02/16/19 18:48 Anisocytosis Slight A 02/16/19 18:48 Microcytosis Slight A 02/16/19 18:48 ESR 34 MM/HOUR (0-20) H 02/19/19 05:19 Sodium 141 mmol/L (136-145) 02/20/19 05:14 Corrected Sodium TNP 02/20/19 05:14 Potassium 3.7 mmol/L (3.5-5.1) 02/20/19 05:14 Chloride 107 mmol/L (98-107) 02/20/19 05:14 Carbon Dioxide 25.7 mmol/L (21-32) 02/20/19 05:14 BUN 5 mg/dL (7-18) L 02/20/19 05:14 Creatinine 0.55 mg/dL (0.55-1.02) 02/20/19 05:14 Est GFR (MDRD) Af Amer > 60 (>60) 02/20/19 05:14 Est GFR (MDRD) Non-Af > 60 (>60) 02/20/19 05:14 Glucose 90 mg/dL (65-99) 02/20/19 05:14 Calcium 8.3 mg/dL (8.5-10.1) L 02/20/19 05:14 Corrected Calcium 9.5 mg/dL (8.5-10.1) 02/20/19 05:14 Iron 22 ug/dL (50-175) L 02/16/19 18:48 Transferrin 275 mg/dL (202-364) 02/16/19 18:48 Ferritin 7 ng/mL (8-252) L 02/16/19 18:48 Total Bilirubin 0.50 mg/dL (0.2-1.0) 02/20/19 05:14 AST 37 Units/L (15-37) 02/20/19 05:14 ALT 16 Units/L (12-78) 02/20/19 05:14 Alkaline Phosphatase 141 Units/L (46-116) H 02/20/19 05:14 C-Reactive Protein 5.00 mg/L (0-3.0) H 02/19/19 05:19 Total Protein 6.4 g/dL (6.4-8.2) 02/20/19 05:14 Albumin 2.5 g/dL (3.4-5.0) L 02/20/19 05:14 Globulin 3.9 g/dL (2.5-4.5) 02/20/19 05:14 Albumin/Globulin Ratio 0.6 Ratio (1.1-2.1) L 02/20/19 05:14 Avnrb-4-Hlriwxxeomj 169 mg/dL (90-200) 02/18/19 04:50 Ceruloplasmin 25 mg/dL (17-54) 02/18/19 04:50 Carcinoembryonic Ag 1.4 ng/mL (0.0-3.0) 02/17/19 11:18 Vitamin B12 352 pg/mL (193-986) 02/16/19 18:48 Folate > 20.0 ng/mL (>8.6) 02/16/19 18:48 Stool Description 200g formed brown 02/17/19 10:25 Stl Occult Blood (IFOB) Negative (NEGATIVE) 02/17/19 10:25 Copper 90.0 ug/dL (80.0-155.0) 02/18/19 04:50 JAMARCUS Screen Detected (None Detected) H 02/17/19 11:18 Anti-Mitochondrial Ab 3.4 Units (0.0-20.0) 02/18/19 04:50 Hepatitis A IgM Ab Negative (Negative) 02/18/19 04:50 Hep Bs Antigen Negative (Negative) 02/18/19 04:50 Hep Bs Ag Confirmation TNP 02/18/19 04:50 Hep B Core IgM Ab Negative (Negative) 02/18/19 04:50 Hepatitis C Ab Index 0.16 IV 02/18/19 04:50 Hepatitis C Interp Negative (Negative) 02/18/19 04:50 Hepatitis Interpret See note 02/18/19 04:50 Tissue Pathology To follow 02/18/19 13:51 Blood Type O POSITIVE 02/16/19 18:48 Antibody Screen Negative 02/16/19 18:48 Crossmatch See Detail 02/16/19 18:48 - Plan (1) Anemia Status: Acute Qualifiers: Anemia type: iron deficiency Iron deficiency anemia type: chronic blood loss Qualified Code(s): D50.0 - Iron deficiency anemia secondary to blood loss (chronic) Plan: TRANSFUSE 2 UNITS PRBC, IV PEPCID, IV PROTONIX, PERIPHERAL SMEAR FOR PATHOLOGY, CONTINUE TO MONITOR
[2019-02-20 17:46] LABS: HEMATOCRIT 31.1 % (36.0-47.0); HEMOGLOBIN 10.4 g/dL (12.0-16.0)
[2019-02-20] MEDS: REQUIP PO SCH (21:00)
[2019-02-21] MEDS: NS 1000 ML 1,000 ML IV SCH ×2 (00:15→20:55)
[2019-02-21 05:39] LABS: BASOPHILS % (AUTO) 0.7 % (0.2-1.0); EOSINOPHILS # (AUTO) 0.2 x10^3/uL (0.0-0.2); EOSINOPHILS % (AUTO) 5.5 % (0.9-2.9); HEMATOCRIT 29.3 % (36.0-47.0); HEMOGLOBIN 9.7 g/dL (12.0-16.0); LYMPHOCYTES % (AUTO) 24.6 % (21.0-51.0); MEAN CORPUSCULAR HEMOGLOBIN 26.8 pg (27.0-34.0); MEAN CORPUSCULAR HGB CONC 33.1 g/dL (33.0-35.0); MEAN PLATELET VOLUME 9.9 fL (7.4-11.0); MONOCYTES # (AUTO) 0.4 x10^3/uL (0.3-0.8); MONOCYTES % (AUTO) 9.5 % (0.0-13.0); NEUTROPHILS # (AUTO) 2.5 x10^3/uL (2.2-4.8); NEUTROPHILS % (AUTO) 59.7 % (42.0-75.0); PLATELET COUNT 70 X10^3/uL (150.0-450.0); RED BLOOD COUNT 3.62 X10^6/uL (3.5-5.4); RED CELL DISTRIBUTION WIDTH 16.5 % (11.6-16.5); WHITE BLOOD COUNT 4.1 X10^3/uL (3.6-10.0)
[2019-02-21 05:56] LABS: ALANINE AMINOTRANSFERASE 18 Units/L (12-78); ALBUMIN 2.6 g/dL (3.4-5.0); ALKALINE PHOSPHATASE 144 Units/L (46-116); ASPARTATE AMINO TRANSFERASE 39 Units/L (15-37); BLOOD UREA NITROGEN 5 mg/dL (7-18); CALCIUM 8.3 mg/dL (8.5-10.1); CARBON DIOXIDE 26.3 mmol/L (21-32); CHLORIDE 104 mmol/L (98-107); COR CA(FOR HYPOALB) 9.4 mg/dL (8.5-10.1); COR NA(FOR HYPERGLY) 138 mmol/L (136-145); CREATININE 0.58 mg/dL (0.55-1.02); SODIUM 138 mmol/L (136-145); TOTAL PROTEIN 6.5 g/dL (6.4-8.2); eGFR NON BLACK RACES > 60 (>60)
[2019-02-21] MEDS: HEMOCYTE-PLUS PO SCH (08:12)
[2019-02-21] MEDS: PROTONIX TAB 40 MG PO SCH ×2 (08:13→20:53)
[2019-02-21] MEDS: PEPCID 20 MG IV PREMIX* 20 MG/50 ML BAG IV SCH ×2 (08:13→20:54)
[2019-02-21 09:54] LABS: HEMATOCRIT 31.2 % (36.0-47.0); HEMOGLOBIN 10.2 g/dL (12.0-16.0)
--- NOTE | 2019-02-21 20:05 | PCM.PROG ---
Progress Note - Progress Note for Day of Date of Exam: 02/20/19 - Subjective Subjective: WAS ADMITTED FOR TREATMENT OF ANEMIA. SHE RECEIVED TWO UNITS OF PACKED RED BLOOD CELLS ON ADMISSION. TODAY, SHE IS ALERT AND ORIENTED, LYING IN BED ON MORNING ROUNDS. SHE CONTINUES WITH COMPLAINTS OF GENERALIZED WEAKNESS TODAY. SHE ALSO CONTINUES WITH MILD ABDOMINAL PAIN TODAY. ON EXAMINATION, HEART IS REGULAR IN RATE AND RHYTHM. BILATERAL LUNGS ARE NOTED WITH DIMINISHED LUNG SOUNDS THROUGHOUT. ABDOMEN IS ROUND, SOFT, AND NON-TENDER WITH NORMAL BOWEL SOUNDS NOTED IN ALL QUADRANTS. HER VITALS THIS MORNING ARE: 97.2-69-22-97%-127/55. LABS WERE OBTAINED. ABNORMAL LAB VALUES INCLUDE THE FOLLOWING: RBC 9.7, HCT 29.3, PLT COUNT 70, BUN 5, CALCIUM 8.3, ALK PHOS 141, ALBUMIN 2.5. JAMARCUS PANEL, HEPATITIS PANEL, AND ANTI-PLATELET ANTIBODIES LABS ARE PENDING. SHE IS CURRENTLY RECEIVING IV FLUIDS, IV PEPCID, AND IV PROTONIX. WE WILL MONITOR H&H AND TRANSFUSE 2 ADDITIONAL UNITS OF PRBC TODAY IF HEMOGLOBIN CONTINUES TO FALL. OTHERWISE, WE WILL CONTINUE WITH CURRENT PLAN OF CARE. WE W ILL FOLLOW UP WITH AM LABS AND CONTINUE TO MONITOR. - Past Medical Family Social History Past Med/Fam/Surg Hx: No changes since H&P Allergies: Allergies codeine Allergy (Verified 03/01/17 23:55) levofloxacin [From Levaquin] Allergy (Verified 03/01/17 23:55) Penicillins Allergy (Verified 03/01/17 23:55) Sulfa (Sulfonamide Antibiotics) [SULFA] Allergy (Verified 03/01/17 23:55) - Review of Systems ROS: No change since H&P - Vital Signs and I&O's Vital Signs: Temperature 98.6 F Pulse Rate [Right Brachial] 80 Pulse Rate 72 Respiratory Rate 21 Blood Pressure [Right Arm] 146/67 Blood Pressure 136/63 O2 Sat by Pulse Oximetry 100 Intake and Output: Intake & Output 02/19/19 02/20/19 02/21/19 02/22/19 11:59 11:59 11:59 11:59 Intake Total 2752 / 2752 3629 / 3629 3228 / 3228 196 / 196 Balance 2752 / 2752 3629 / 3629 3228 / 3228 / 196 - Physical Exam Oriented: Normal Eyes: Normal Ear: Normal Nose: Normal Throat: Normal Respiratory: Generalized, Diminished Cardiovascular: Normal : Normal Auscultation: Bowel Sounds: Normal Palpation: Normal Tenderness: Normal Skin: Normal Musculoskeletal: Normal Psychiatric: Normal Mood Description: Calm Affect: Normal Speech Pattern: Clear, Appropriate - Laboratory and Diagnostics Result Diagrams: 02/21/19 09:44 02/21/19 09:44 Labs: Laboratory WBC 4.1 X10^3/uL (3.6-10.0) 02/21/19 04:05 RBC 3.62 X10^6/uL (3.5-5.4) 02/21/19 04:05 Hgb 10.2 g/dL (12.0-16.0) L 02/21/19 09:44 Hct 31.2 % (36.0-47.0) L 02/21/19 09:44 MCV 81.0 fL (80.0-100.0) 02/21/19 04:05 MCH 26.8 pg (27.0-34.0) L 02/21/19 04:05 MCHC 33.1 g/dL (33.0-35.0) 02/21/19 04:05 RDW 16.5 % (11.6-16.5) 02/21/19 04:05 Plt Count 70 X10^3/uL (150.0-450.0) L 02/21/19 04:05 Plt Count Comment Decreased (ADEQUATE) A 02/16/19 18:48 MPV 9.9 fL (7.4-11.0) 02/21/19 04:05 Neut % (Auto) 59.7 % (42.0-75.0) 02/21/19 04:05 Lymph % (Auto) 24.6 % (21.0-51.0) 02/21/19 04:05 [place] % (Auto) 9.5 % (0.0-13.0) 02/21/19 04:05 Eos % (Auto) 5.5 % (0.9-2.9) H 02/21/19 04:05 Baso % (Auto) 0.7 % (0.2-1.0) 02/21/19 04:05 Neut # (Auto) 2.5 x10^3/uL (2.2-4.8) 02/21/19 04:05 Lymph # (Auto) 1.0 X10^3/uL (1.3-2.9) L 02/21/19 04:05 [place] # (Auto) 0.4 x10^3/uL (0.3-0.8) 02/21/19 04:05 Eos # (Auto) 0.2 x10^3/uL (0.0-0.2) 02/21/19 04:05 Baso # (Auto) 0.0 X10^3/uL (0.0-0.1) 02/21/19 04:05 Absolute Nucleated RBC 0.1 /100WBC 02/21/19 04:05 Plt Morphology Comment Normal (NORMAL) 02/16/19 18:48 RBC Morphology Abnormal (NORMAL) A 02/16/19 18:48 Hypochromasia Slight A 02/16/19 18:48 Anisocytosis Slight A 02/16/19 18:48 Microcytosis Slight A 02/16/19 18:48 ESR 34 MM/HOUR (0-20) H 02/19/19 05:19 Sodium 138 mmol/L (136-145) 02/21/19 04:05 Corrected Sodium 138 mmol/L (136-145) 02/21/19 04:05 Potassium 4.0 mmol/L (3.5-5.1) 02/21/19 09:44 Chloride 104 mmol/L (98-107) 02/21/19 04:05 Carbon Dioxide 26.3 mmol/L (21-32) 02/21/19 04:05 BUN 5 mg/dL (7-18) L 02/21/19 04:05 Creatinine 0.58 mg/dL (0.55-1.02) 02/21/19 04:05 Est GFR (MDRD) Af Amer > 60 (>60) 02/21/19 04:05 Est GFR (MDRD) Non-Af > 60 (>60) 02/21/19 04:05 Glucose 114 mg/dL (65-99) H 02/21/19 04:05 Calcium 8.3 mg/dL (8.5-10.1) L 02/21/19 04:05 Corrected Calcium 9.4 mg/dL (8.5-10.1) 02/21/19 04:05 Iron 22 ug/dL (50-175) L 02/16/19 18:48 Transferrin 275 mg/dL (202-364) 02/16/19 18:48 Ferritin 7 ng/mL (8-252) L 02/16/19 18:48 Total Bilirubin 0.50 mg/dL (0.2-1.0) 02/21/19 04:05 AST 39 Units/L (15-37) H 02/21/19 04:05 ALT 18 Units/L (12-78) 02/21/19 04:05 Alkaline Phosphatase 144 Units/L (46-116) H 02/21/19 04:05 C-Reactive Protein 5.00 mg/L (0-3.0) H 02/19/19 05:19 Total Protein 6.5 g/dL (6.4-8.2) 02/21/19 04:05 Albumin 2.6 g/dL (3.4-5.0) L 02/21/19 04:05 Globulin 3.9 g/dL (2.5-4.5) 02/21/19 04:05 Albumin/Globulin Ratio 0.7 Ratio (1.1-2.1) L 02/21/19 04:05 Opzji-3-Zkmuvdhpiel 169 mg/dL (90-200) 02/18/19 04:50 Ceruloplasmin 25 mg/dL (17-54) 02/18/19 04:50 Carcinoembryonic Ag 1.4 ng/mL (0.0-3.0) 02/17/19 11:18 Vitamin B12 352 pg/mL (193-986) 02/16/19 18:48 Folate > 20.0 ng/mL (>8.6) 02/16/19 18:48 Stool Description 200g formed brown 02/17/19 10:25 Stl Occult Blood (IFOB) Negative (NEGATIVE) 02/17/19 10:25 Copper 90.0 ug/dL (80.0-155.0) 02/18/19 04:50 JAMARCUS Screen Detected (None Detected) H 02/17/19 11:18 Anti-Mitochondrial Ab 3.4 Units (0.0-20.0) 02/18/19 04:50 Hepatitis A IgM Ab Negative (Negative) 02/18/19 04:50 Hep Bs Antigen Negative (Negative) 02/18/19 04:50 Hep Bs Ag Confirmation TNP 02/18/19 04:50 Hep B Core IgM Ab Negative (Negative) 02/18/19 04:50 Hepatitis C Ab Index 0.16 IV 02/18/19 04:50 Hepatitis C Interp Negative (Negative) 02/18/19 04:50 Hepatitis Interpret See note 02/18/19 04:50 Tissue Pathology To follow 02/18/19 13:51 Blood Type O POSITIVE 02/16/19 18:48 Antibody Screen Negative 02/16/19 18:48 Crossmatch See Detail 02/16/19 18:48 - Plan (1) Anemia Status: Acute Qualifiers: Anemia type: iron deficiency Iron deficiency 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
[2019-02-21 20:20] LABS: HEMATOCRIT 31.4 % (36.0-47.0); HEMOGLOBIN 10.4 g/dL (12.0-16.0)
[2019-02-21] MEDS: REQUIP PO SCH (20:54)
[2019-02-22 06:11] LABS: BASOPHILS # (AUTO) 0.1 X10^3/uL (0.0-0.1); BASOPHILS % (AUTO) 1.2 % (0.2-1.0); EOSINOPHILS # (AUTO) 0.3 x10^3/uL (0.0-0.2); EOSINOPHILS % (AUTO) 5.8 % (0.9-2.9); HEMATOCRIT 32.6 % (36.0-47.0); HEMOGLOBIN 10.8 g/dL (12.0-16.0); LYMPHOCYTES # (AUTO) 1.1 X10^3/uL (1.3-2.9); LYMPHOCYTES % (AUTO) 21.8 % (21.0-51.0); MEAN CORPUSCULAR HEMOGLOBIN 26.6 pg (27.0-34.0); MEAN CORPUSCULAR HGB CONC 33.2 g/dL (33.0-35.0); MEAN CORPUSCULAR VOLUME 80.1 fL (80.0-100.0); MONOCYTES # (AUTO) 0.5 x10^3/uL (0.3-0.8); MONOCYTES % (AUTO) 8.7 % (0.0-13.0); NEUTROPHILS # (AUTO) 3.3 x10^3/uL (2.2-4.8); NEUTROPHILS % (AUTO) 62.5 % (42.0-75.0); PLATELET COUNT 79 X10^3/uL (150.0-450.0); RED BLOOD COUNT 4.07 X10^6/uL (3.5-5.4); RED CELL DISTRIBUTION WIDTH 17.3 % (11.6-16.5); WHITE BLOOD COUNT 5.3 X10^3/uL (3.6-10.0)
[2019-02-22 06:35] LABS: ALANINE AMINOTRANSFERASE 17 Units/L (12-78); ALBUMIN 2.8 g/dL (3.4-5.0); ALKALINE PHOSPHATASE 162 Units/L (46-116); ASPARTATE AMINO TRANSFERASE 51 Units/L (15-37); BLOOD UREA NITROGEN 4 mg/dL (7-18); CALCIUM 8.8 mg/dL (8.5-10.1); CARBON DIOXIDE 25.6 mmol/L (21-32); CHLORIDE 103 mmol/L (98-107); COR CA(FOR HYPOALB) 9.8 mg/dL (8.5-10.1); CREATININE 0.51 mg/dL (0.55-1.02); SODIUM 137 mmol/L (136-145); TOTAL PROTEIN 7.1 g/dL (6.4-8.2); eGFR NON BLACK RACES > 60 (>60)
[2019-02-22] MEDS: NS 1000 ML 1,000 ML IV SCH ×2 (07:56→08:06)
[2019-02-22] MEDS ORDERED: ZOFRAN TAB 4 MG PO PRN (08:39)
[2019-02-22] MEDS: HEMOCYTE-PLUS PO SCH (09:22)
[2019-02-22] MEDS: PROTONIX TAB 40 MG PO SCH (09:22)
[2019-02-22] MEDS: PEPCID 20 MG IV PREMIX* 20 MG/50 ML BAG IV SCH (09:24)
[2019-02-22 11:16] VITALS: BP 132/63
--- NOTE | 2019-02-22 20:44 | PCM.PROG ---
Progress Note - Progress Note for Day of Date of Exam: 02/21/19 - Subjective Subjective: WAS ADMITTED FOR TREATMENT OF ANEMIA. SHE RECEIVED TWO UNITS OF PACKED RED BLOOD CELLS ON ADMISSION. TODAY, SHE IS ALERT AND ORIENTED, LYING IN BED ON MORNING ROUNDS. SHE CONTINUES WITH COMPLAINTS OF GENERALIZED WEAKNESS. ON EXAMINATION, HEART IS REGULAR IN RATE AND RHYTHM. BILATERAL LUNGS ARE NOTED WITH DIMINISHED LUNG SOUNDS THROUGHOUT. ABDOMEN IS ROUND, SOFT, AND NON-TENDER WITH NORMAL BOWEL SOUNDS NOTED IN ALL QUADRANTS. HER VITALS THIS MORNING ARE: 98.6-75-17-97%-116/56. LABS WERE OBTAINED. ABNORMAL LAB VALUES INCLUDE THE FOLLOWING: HGB 9.7, HCT 29.3, PLT COUNT 70, BUN 5, GLUCOSE 114, CALCIUM 8.3, AST 39, ALK PHOS 144, ALBUMIN 2.6. JAMARCUS PANEL, HEPATITIS PANEL, AND ANTI-PLATELET ANTIBODIES LABS ARE PENDING. SHE IS CURRENTLY RECEIVING IV FLUIDS, IV PEPCID, AND IV PROTONIX. WE WILL MONITOR H&H AND TRANSFUSE ADDITIONAL UNITS OF PRBC TODAY IF HEMOGLOBIN CONTINUES TO FALL. OTHERWISE, WE WILL CONTINUE WITH CURRENT PLAN OF CARE. WE WILL FOLLOW UP WITH AM LABS AND CONTINUE TO MONITOR. - Past Medical Family Social History Past Med/Fam/Surg Hx: No changes since H&P Allergies: Allergies codeine Allergy (Verified 03/01/17 23:55) levofloxacin [From Levaquin] Allergy (Verified 03/01/17 23:55) Penicillins Allergy (Verified 03/01/17 23:55) Sulfa (Sulfonamide Antibiotics) [SULFA] Allergy (Verified 03/01/17 23:55) - Review of Systems ROS: No change since H&P - Vital Signs and I&O's Vital Signs: Temperature 97.7 F Pulse Rate [Right Brachial] 80 Pulse Rate 74 Respiratory Rate 18 Blood Pressure [Right Arm] 146/67 Blood Pressure 132/63 O2 Sat by Pulse Oximetry 98 Intake and Output: Intake & Output 02/20/19 02/21/19 02/22/19 02/23/19 11:59 11:59 11:59 11:59 Intake Total 3629 / 3629 3228 / 3228 1382 / 1382 Balance 3629 / 3629 3228 / 3228 1382 / 1382 - Physical Exam Oriented: Normal Eyes: Normal Ear: Normal Nose: Normal Throat: Normal Respiratory: Generalized, Diminished Cardiovascular: Normal : Normal Auscultation: Bowel Sounds: Normal Tenderness: Normal Skin: Normal Musculoskeletal: Normal Psychiatric: Normal Mood Description: Calm Affect: Normal Speech Pattern: Clear, Appropriate - Laboratory and Diagnostics Result Diagrams: 02/22/19 05:50 02/22/19 05:50 Labs: Laboratory WBC 5.3 X10^3/uL (3.6-10.0) 02/22/19 05:50 RBC 4.07 X10^6/uL (3.5-5.4) 02/22/19 05:50 Hgb 10.8 g/dL (12.0-16.0) L 02/22/19 05:50 Hct 32.6 % (36.0-47.0) L 02/22/19 05:50 MCV 80.1 fL (80.0-100.0) 02/22/19 05:50 MCH 26.6 pg (27.0-34.0) L 02/22/19 05:50 MCHC 33.2 g/dL (33.0-35.0) 02/22/19 05:50 RDW 17.3 % (11.6-16.5) H 02/22/19 05:50 Plt Count 79 X10^3/uL (150.0-450.0) L 02/22/19 05:50 Plt Count Comment Decreased (ADEQUATE) A 02/16/19 18:48 MPV 9.0 fL (7.4-11.0) 02/22/19 05:50 Neut % (Auto) 62.5 % (42.0-75.0) 02/22/19 05:50 Lymph % (Auto) 21.8 % (21.0-51.0) 02/22/19 05:50 [place] % (Auto) 8.7 % (0.0-13.0) 02/22/19 05:50 Eos % (Auto) 5.8 % (0.9-2.9) H 02/22/19 05:50 Baso % (Auto) 1.2 % (0.2-1.0) H 02/22/19 05:50 Neut # (Auto) 3.3 x10^3/uL (2.2-4.8) 02/22/19 05:50 Lymph # (Auto) 1.1 X10^3/uL (1.3-2.9) L 02/22/19 05:50 [place] # (Auto) 0.5 x10^3/uL (0.3-0.8) 02/22/19 05:50 Eos # (Auto) 0.3 x10^3/uL (0.0-0.2) H 02/22/19 05:50 Baso # (Auto) 0.1 X10^3/uL (0.0-0.1) 02/22/19 05:50 Absolute Nucleated RBC 0.0 /100WBC 02/22/19 05:50 Plt Morphology Comment Normal (NORMAL) 02/16/19 18:48 RBC Morphology Abnormal (NORMAL) A 02/16/19 18:48 Hypochromasia Slight A 02/16/19 18:48 Anisocytosis Slight A 02/16/19 18:48 Microcytosis Slight A 02/16/19 18:48 Smear Path Review See note 02/17/19 11:18 ESR 34 MM/HOUR (0-20) H 02/19/19 05:19 Sodium 137 mmol/L (136-145) 02/22/19 05:50 Corrected Sodium TNP 02/22/19 05:50 Potassium 4.3 mmol/L (3.5-5.1) 02/22/19 05:50 Chloride 103 mmol/L (98-107) 02/22/19 05:50 Carbon Dioxide 25.6 mmol/L (21-32) 02/22/19 05:50 BUN 4 mg/dL (7-18) L 02/22/19 05:50 Creatinine 0.51 mg/dL (0.55-1.02) L 02/22/19 05:50 Est GFR (MDRD) Af Amer > 60 (>60) 02/22/19 05:50 Est GFR (MDRD) Non-Af > 60 (>60) 02/22/19 05:50 Glucose 91 mg/dL (65-99) 02/22/19 05:50 Calcium 8.8 mg/dL (8.5-10.1) 02/22/19 05:50 Corrected Calcium 9.8 mg/dL (8.5-10.1) 02/22/19 05:50 Iron 22 ug/dL (50-175) L 02/16/19 18:48 Transferrin 275 mg/dL (202-364) 02/16/19 18:48 Ferritin 7 ng/mL (8-252) L 02/16/19 18:48 Total Bilirubin 0.60 mg/dL (0.2-1.0) 02/22/19 05:50 AST 51 Units/L (15-37) H 02/22/19 05:50 ALT 17 Units/L (12-78) 02/22/19 05:50 Alkaline Phosphatase 162 Units/L (46-116) H 02/22/19 05:50 C-Reactive Protein 5.00 mg/L (0-3.0) H 02/19/19 05:19 Total Protein 7.1 g/dL (6.4-8.2) 02/22/19 05:50 Albumin 2.8 g/dL (3.4-5.0) L 02/22/19 05:50 Globulin 4.3 g/dL (2.5-4.5) 02/22/19 05:50 Albumin/Globulin Ratio 0.7 Ratio (1.1-2.1) L 02/22/19 05:50 Yjhnw-5-Wojwatjtcfb 169 mg/dL (90-200) 02/18/19 04:50 Ceruloplasmin 25 mg/dL (17-54) 02/18/19 04:50 Carcinoembryonic Ag 1.4 ng/mL (0.0-3.0) 02/17/19 11:18 Vitamin B12 352 pg/mL (193-986) 02/16/19 18:48 Folate > 20.0 ng/mL (>8.6) 02/16/19 18:48 Stool Description 200g formed brown 02/17/19 10:25 Stl Occult Blood (IFOB) Negative (NEGATIVE) 02/17/19 10:25 [place] 90.0 ug/dL (80.0-155.0) 02/18/19 04:50 JAMARCUS Screen Detected (None Detected) H 02/17/19 11:18 Anti-Mitochondrial Ab 3.4 Units (0.0-20.0) 02/18/19 04:50 Smooth Muscle Ab Titer 1:20 (<1:20) H 02/18/19 04:50 Hepatitis A IgM Ab Negative (Negative) 02/18/19 04:50 Hep Bs Antigen Negative (Negative) 02/18/19 04:50 Hep Bs Ag Confirmation TNP 02/18/19 04:50 Hep B Core IgM Ab Negative (Negative) 02/18/19 04:50 Hepatitis C Ab Index 0.16 IV 02/18/19 04:50 Hepatitis C Interp Negative (Negative) 02/18/19 04:50 Hepatitis Interpret See note 02/18/19 04:50 Tissue Pathology To follow 02/18/19 13:51 Blood Type O POSITIVE 02/16/19 18:48 Antibody Screen Negative 02/16/19 18:48 Crossmatch See Detail 02/16/19 18:48 - Plan (1) Anemia Status: Acute Qualifiers: Anemia type: iron deficiency Iron deficiency 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
[2019-03-02 07:20] LABS: ANA PATTERN SPECKLED
== END 2019-02-22 11:25 | disposition home or self-care (01) | DRG 812 ==
LOC: ICU 17:57
PROVIDERS: ADMIT Internal Medicine; ATTEND Internal Medicine
DX: K20.8 Other esophagitis; D50.0 Iron deficiency anemia secondary to blood loss (chronic); D69.6 Thrombocytopenia, unspecified; K29.00 Acute gastritis without bleeding; R79.82 Elevated C-reactive protein (CRP); K31.7 Polyp of stomach and duodenum; R94.5 Abnormal results of liver function studies; K76.0 Fatty (change of) liver, not elsewhere classified; R53.1 Weakness; E78.2 Mixed hyperlipidemia; R53.83 Other fatigue
CPT/HCPCS: 36415; 36430; 76700; 80053; 80074; 82103; 82270; 82378; 82390; 82525; 82607; 82728; 82746; 83516; 83540; 84132; 84466; 85014; 85018; 85025; 85060; 85652; 86022; 86038; 86039; 86140; 86256; 86308; 86850; 86900; 86901; 86922; 93306; A4216; A4222; C9113; P9016; S0028; J1200; J2405; J2704; J3490; J7030; J7040; J7050; S0119; S0181

== ENCOUNTER 2021-06-04 11:40 | Inpatient (IN) ==
[2021-06-04 11:48] VITALS: BMI 36.1
[2021-06-04] MEDS ORDERED: NS 500 ML IV 500 ML IV ONE ×2 (12:34→12:58)
--- NOTE | 2021-06-04 12:40 | DR.DIZZY ---
HPI Time seen Time Seen by Provider: 06/04/21 11:54 PCP Primary Care Physician: LEELA Complaint Chief Complaint Doctor Comments: 70 y/o female brought in via EMS with generalized weakness. Not feeling well for awhile. Was having lower ext edema, had her lasix/spironolactone increased. Edema better, but now weaker. Fell 3 days ago. Hurt low back. Pain of lumbar region. Pain dull, constant, does not radiate. Worse with moving , nothing makes it better. Denies head injury, LOC or neck pain. No cough, URI symptoms. Denies N/V, diarrhea or urinary issues. + malaise and fatigue. Chief Complaint:: PT STATES SHE FELL FRIDAY NIGHT D/T WEAKNESS AND HAS CONT TO HAVE WEAKNESS AND LETHARGY "THE LAST FEW WEEKS". PT STATES SHE IS "TREMBLING" FREQUENTLY AND DOESN'T KNOW WHY. 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 Family History History of Family Medical Conditions: Yes Family Medical History: Diabetes Mellitus, Cancer, DC, Coronary Artery Disease, Heart Failure, Sudden Cardiac and Hypertension Social History Type of Tobacco Use: None Alcohol Use: None Do you use any recreational Drugs:: No Lives With: Family Lives Where: Home Travel Risk Coronavirus risk:travel/contact w/high risk person: No Has patient experienced Coronavirus symptoms: No Infectious screening In the last 2 months have you had wt loss of >10#?: NO Have you had fever, night sweats or hemotysis?: No Have you traveled outside the country in the last 6 months?: No Isolation: Standard ROS Review of Systems Constitutional: Malaise, Weakness and Fatigue Eyes: No Symptoms Reported ENTM: No Symptoms Reported Respiratoy: No Symptoms Reported Cardiovascular: No Symptoms Reported Gastrointestinal/Abdominal: No Symptoms Reported Genitourinary: No Symptoms Reported Neurological: Weakness, Dizziness and Problems Walking Musculoskeletal: Back Pain Integumentary: No Symptoms Reported Hematologic/Lymphatic: No Symptoms Reported Psychiatric: No Symptoms Reported All Other Systems: Reviewed and Negative PE Vital Signs Vitals: Temperature 97.2 F Pulse Rate 77 Respiratory Rate 16 Blood Pressure [Right Arm] 146/67 Blood Pressure 116/56 O2 Sat by Pulse Oximetry 94 General Limitations: No Limitations General Appearance: Alert and In No Apparent Distress Head Head Exam: Normal Inspection, Atraumatic and Normocephalic Eyes Eye exam: Normal Appearance, PERRL and EOMI ENT ENT Exam: Normal Exam and Mucous Membranes Moist Neck Neck Exam: Normal Inspection and Full ROM; negative Tenderness Chest Chest Inspection: Normal Inspection Respiratory Respiratory Exam: Normal Lung Sounds Bilat; negative Accessory Muscle Use and Respiratory Distress Respiratory Exam: Bilateral: Clear to Auscultation Cardiovascular Cardiovascular Exam: Regular Rate, Normal Rhythm and Normal Heart Sounds Abdominal Exam Abdominal Exam: Normal Inspection, Normal Bowel Sounds and Soft; negative Tenderness Extremeties Extremities Exam: Normal Inspection; negative Tenderness and Edema Back Back Exam: Tenderness (lumbar midline) Neurologic Neurological Exam: Alert, Oriented X3, CN II-XII Intact and Other (symmetrical weakness, legs > arms.) Skin Skin Exam: Warm and Dry MDM Differential Diagnosis Differential Diagnosis: Dehydration and Electrolyte disorder Differential Diagnosis Comment: UTI, lumbar strain, compression fracture. COURSE Treatment Treatment: 70 y/o female having increasing malaise, fatigue since increasing diuretics. Also low back pain from fall 3 days ago. W/u initiated. 1531 - w/u shows labs to be acceptable. No significant dehydration. U/A with 1+ ketones, carmencita est. CXR without acute abnormalities. Lumbar spine - compression of T12, questionable age. Discussed with pt, family. Son concerned she has been weak, falling. He recalled she has had a prior compression fx. Will admit for observation, further hydration. Dr Dao approved. ROR Labs Reviewed Laboratory Results Reviewed?: Yes Result Diagrams: 06/04/21 13:08 06/04/21 13:08 Laboratory: WBC 3.7 X10^3/uL (3.6-10.0) 06/04/21 13:08 RBC 3.53 X10^6/uL (3.5-5.4) 06/04/21 13:08 Hgb 11.3 g/dL (12.0-16.0) L 06/04/21 13:08 Hct 33.3 % (36.0-47.0) L 06/04/21 13:08 MCV 94.3 fL (80.0-100.0) 06/04/21 13:08 MCH 32.1 pg (27.0-34.0) 06/04/21 13:08 MCHC 34.0 g/dL (33.0-35.0) 06/04/21 13:08 RDW 14.2 % (11.6-16.5) 06/04/21 13:08 Plt Count 50 X10^3/uL (150.0-450.0) L 06/04/21 13:08 MPV 9.5 fL (7.4-11.0) 06/04/21 13:08 Neut % (Auto) 67.6 % (42.0-75.0) 06/04/21 13:08 Lymph % (Auto) 17.3 % (21.0-51.0) L 06/04/21 13:08 [place] % (Auto) 11.1 % (0.0-13.0) 06/04/21 13:08 Eos % (Auto) 3.0 % (0.9-2.9) H 06/04/21 13:08 Baso % (Auto) 1.0 % (0.2-1.0) 06/04/21 13:08 Neut # (Auto) 2.5 x10^3/uL (2.2-4.8) 06/04/21 13:08 Lymph # (Auto) 0.6 X10^3/uL (1.3-2.9) L 06/04/21 13:08 [place] # (Auto) 0.4 x10^3/uL (0.3-0.8) 06/04/21 13:08 Eos # (Auto) 0.1 x10^3/uL (0.0-0.2) 06/04/21 13:08 Baso # (Auto) 0.0 X10^3/uL (0.0-0.1) 06/04/21 13:08 Absolute Nucleated RBC 0.1 /100WBC 06/04/21 13:08 Sodium 135 mmol/L (136-145) L 06/04/21 13:08 Corrected Sodium TNP 06/04/21 13:08 Potassium 4.6 mmol/L (3.5-5.1) 06/04/21 13:08 Chloride 101 mmol/L (98-107) 06/04/21 13:08 Carbon Dioxide 28.1 mmol/L (21-32) 06/04/21 13:08 BUN 17 mg/dL (7-18) 06/04/21 13:08 Creatinine 0.70 mg/dL (0.55-1.02) 06/04/21 13:08 Est GFR (MDRD) Af Amer > 60 (>60) 06/04/21 13:08 Est GFR (MDRD) Non-Af > 60 (>60) 06/04/21 13:08 Glucose 94 mg/dL (65-99) 06/04/21 13:08 Calcium 9.3 mg/dL (8.5-10.1) 06/04/21 13:08 Corrected Calcium 10.3 mg/dL (8.5-10.1) H 06/04/21 13:08 Total Bilirubin 2.00 mg/dL (0.2-1.0) H 06/04/21 13:08 AST 48 Units/L (15-37) H 06/04/21 13:08 ALT 14 Units/L (12-78) 06/04/21 13:08 Alkaline Phosphatase 136 Units/L (46-116) H 06/04/21 13:08 Creatine Kinase 59 Units/L (26-192) 06/04/21 13:08 CK-MB (CK-2) 1.0 ng/mL (0-4.0) 06/04/21 13:08 CK/CKMB % Calc 1.7 % (<4) 06/04/21 13:08 Troponin I < 0.02 ng/mL (0-1.5) 06/04/21 13:08 Total Protein 7.3 g/dL (6.4-8.2) 06/04/21 13:08 Albumin 2.8 g/dL (3.4-5.0) L 06/04/21 13:08 Globulin 4.5 g/dL (2.5-4.5) 06/04/21 13:08 Albumin/Globulin Ratio 0.6 Ratio (1.1-2.1) L 06/04/21 13:08 Lipase 183 Units/L (73-393) 06/04/21 13:08 Specimen Type Clean catch urine 06/04/21 14:55 Urine Color Yellow (YELLOW) 06/04/21 14:55 Urine Appearance Hazy (CLEAR) 06/04/21 14:55 Urine pH 6.0 (5.0 - 8.0) 06/04/21 14:55 Ur Specific [place] 1.020 (1.000-1.030) 06/04/21 14:55 Urine Protein 2+ (NEGATIVE) 06/04/21 14:55 Urine Glucose (UA) Negative (NEGATIVE) 06/04/21 14:55 Urine Ketones 1+ (NEGATIVE) 06/04/21 14:55 Urine Occult Blood 1+ (NEGATIVE) 06/04/21 14:55 Urine Nitrite Negative (NEGATIVE) 06/04/21 14:55 Urine Bilirubin 1+ (NEGATIVE) 06/04/21 14:55 Urine Urobilinogen 3+ (NORMAL) 06/04/21 14:55 Ur Leukocyte Esterase 1+ (NEGATIVE) 06/04/21 14:55 Other Results Comments: Labs overall acceptable. XRAY XRAY Interpreted by: Radiologist X-ray Results: + T12 compression fracture, questionable age. Opioid Opioid Risk Tool Age (Grupo box if 16-45): No History of Preadolescent Sexual Abuse: No Total: 0 Total Score Risk Category: Low Risk Copyright: John SIMON predicting aberrant behaviors Diagnosis Discharge Problem: Generalized weakness Compression fx, thoracic spine Qualifiers: Encounter type: initial encounter Thoracic vertebra fracture level: T12 Qualified Code(s): S22.080A - Wedge compression fracture of T11-T12 vertebra, initial encounter for closed fracture
[2021-06-04] MEDS ORDERED: NS 500 ML IV 0 ML IV ONE (13:00)
--- NOTE | 2021-06-04 13:19 | RAD ---
HISTORYWEAKNESS Relevant Clinical InformationSTUDYCHEST, 1 VIEWCOMPARISONNoneFINDINGSThe trachea is midline. The cardiac silhouette is unremarkable. There is elevation the right hemidiaphragm. The lungs are clear without focal infiltrate or effusion. The bony thorax is unremarkable.IMPRESSIONNo acute cardiopulmonary findings .Electronically signed by: RUDDY CONTRERAS (Jun 04, 2021 13:17:35)
[2021-06-04 13:28] LABS: EOSINOPHILS # (AUTO) 0.1 x10^3/uL (0.0-0.2); HEMATOCRIT 33.3 % (36.0-47.0); HEMOGLOBIN 11.3 g/dL (12.0-16.0); LYMPHOCYTES # (AUTO) 0.6 X10^3/uL (1.3-2.9); LYMPHOCYTES % (AUTO) 17.3 % (21.0-51.0); MEAN CORPUSCULAR HEMOGLOBIN 32.1 pg (27.0-34.0); MEAN CORPUSCULAR VOLUME 94.3 fL (80.0-100.0); MEAN PLATELET VOLUME 9.5 fL (7.4-11.0); MONOCYTES # (AUTO) 0.4 x10^3/uL (0.3-0.8); MONOCYTES % (AUTO) 11.1 % (0.0-13.0); NEUTROPHILS # (AUTO) 2.5 x10^3/uL (2.2-4.8); NEUTROPHILS % (AUTO) 67.6 % (42.0-75.0); PLATELET COUNT 50 X10^3/uL (150.0-450.0); RED BLOOD COUNT 3.53 X10^6/uL (3.5-5.4); RED CELL DISTRIBUTION WIDTH 14.2 % (11.6-16.5); WHITE BLOOD COUNT 3.7 X10^3/uL (3.6-10.0)
--- NOTE | 2021-06-04 13:40 | CT ---
HISTORYFall, back painSTUDYCT lumbar spine without contrastTechnique: Axial noncontrast images with coronal and sagittal reformats. Dose reduction procedures were used with mA/kv adjusted for body size.COMPARISONNoneFINDINGSThe alignment is normal. The lumbar vertebral bodies are of average height. There is a mild compression of T12 age indeterminate. The pedicles, spinous processes, and posterior elements appear intact. The sacrum is intact as are the SI joints. The disc levels are evaluated as follows:T12-L1 level: No evidence for compressive disc disease. The neural foramina are patent. Mild bilateral facet arthropathy is present.L1-2 level: There is loss of disc height with concentric disc bulging which effaces the thecal sac the neural foramina are patent. Mild facet arthropathy is present.L2-3 level: There is disc degeneration with vacuum phenomenon present and loss of disc height. Concentric disc bulging effaces the thecal sac. The neural foramina are patent. Mild bilateral facet arthropathy is present.L3-4 level: Concentric disc bulging effaces the thecal sac and contributes along with ligamentous hypertrophy and facet arthropathy to a relative spinal stenosis with lateral recess and foraminal narrowing bilaterally.L4-5 level: Concentric disc bulging effaces the thecal sac and contributes along with pedicular shortening, ligamentous hypertrophy, and facet arthropathy to a more severe spinal stenosis and at the level above with more severe lateral recess and foraminal narrowing bilaterally than at the level above.L5-S1 level: There is disc degeneration with vacuum phenomenon present. Broad-based disc protrusion partially calcified effaces the thecal sac and contributes along with spondylitic change and facet arthropathy to lateral recess and foraminal narrowing bilaterally more prominent than at the levels noted above and left worse than right.IMPRESSIONMild compression fracture of T12, age indeterminateEvaluation of the disc levels given in detail aboveElectronically signed by: BEN SPENCER (Jun 04, 2021 13:38:29)
[2021-06-04 13:55] LABS: ALANINE AMINOTRANSFERASE 14 Units/L (12-78); ALBUMIN 2.8 g/dL (3.4-5.0); ALKALINE PHOSPHATASE 136 Units/L (46-116); ASPARTATE AMINO TRANSFERASE 48 Units/L (15-37); BLOOD UREA NITROGEN 17 mg/dL (7-18); CALCIUM 9.3 mg/dL (8.5-10.1); CARBON DIOXIDE 28.1 mmol/L (21-32); CHLORIDE 101 mmol/L (98-107); CKMB % 1.7 % (<4); COR CA(FOR HYPOALB) 10.3 mg/dL (8.5-10.1); CREATINE KINASE 59 Units/L (26-192); LIPASE 183 Units/L (73-393); SODIUM 135 mmol/L (136-145); TOTAL PROTEIN 7.3 g/dL (6.4-8.2); TROPONIN I < 0.02 ng/mL (0-1.5); eGFR NON BLACK RACES > 60 (>60)
[2021-06-04 15:06] LABS: BILIRUBIN,URINE 1+ (NEGATIVE); BLOOD/HEMOGLOBIN,URINE 1+ (NEGATIVE); GLUCOSE, URINE NEGATIVE (NEGATIVE); KETONES,URINE 1+ (NEGATIVE); LEUKOCYTE ESTERASE ,URINE 1+ (NEGATIVE); NITRITES,URINE NEGATIVE (NEGATIVE); PROTEIN,URINE 2+ (NEGATIVE); UROBILINOGEN,URINE 3+ (NORMAL)
[2021-06-04 15:15] LABS: APPEARANCE,URINE HAZY (CLEAR); COLOR,URINE YELLOW (YELLOW)
[2021-06-05 05:25] LABS: EOSINOPHILS # (AUTO) 0.1 x10^3/uL (0.0-0.2); HEMATOCRIT 27.7 % (36.0-47.0); HEMOGLOBIN 9.7 g/dL (12.0-16.0); LYMPHOCYTES # (AUTO) 0.7 X10^3/uL (1.3-2.9); LYMPHOCYTES % (AUTO) 22.3 % (21.0-51.0); MEAN CORPUSCULAR HEMOGLOBIN 32.3 pg (27.0-34.0); MEAN CORPUSCULAR VOLUME 92.4 fL (80.0-100.0); MEAN PLATELET VOLUME 9.7 fL (7.4-11.0); MONOCYTES # (AUTO) 0.4 x10^3/uL (0.3-0.8); MONOCYTES % (AUTO) 12.1 % (0.0-13.0); NEUTROPHILS # (AUTO) 1.8 x10^3/uL (2.2-4.8); NEUTROPHILS % (AUTO) 60.6 % (42.0-75.0); PLATELET COUNT 46 X10^3/uL (150.0-450.0); RED CELL DISTRIBUTION WIDTH 14.4 % (11.6-16.5); WHITE BLOOD COUNT 2.9 X10^3/uL (3.6-10.0)
[2021-06-05 05:32] LABS: ALANINE AMINOTRANSFERASE 14 Units/L (12-78); ALBUMIN 2.4 g/dL (3.4-5.0); ALKALINE PHOSPHATASE 121 Units/L (46-116); ASPARTATE AMINO TRANSFERASE 48 Units/L (15-37); BLOOD UREA NITROGEN 15 mg/dL (7-18); CALCIUM 8.6 mg/dL (8.5-10.1); CARBON DIOXIDE 25.8 mmol/L (21-32); CHLORIDE 104 mmol/L (98-107); COR CA(FOR HYPOALB) 9.9 mg/dL (8.5-10.1); CREATININE 0.58 mg/dL (0.55-1.02); SODIUM 136 mmol/L (136-145); TOTAL PROTEIN 6.5 g/dL (6.4-8.2); eGFR NON BLACK RACES > 60 (>60)
[2021-06-05] MEDS ORDERED: NS 1,000 ML IV 1,000 ML IV SCH (10:00)
--- NOTE | 2021-06-05 14:19 | DR.H&P ---
H&P - History & Physical for Day of: H&P Date: 06/04/21 - Chief Complaint Chief Complaint: AMS, WEAKNESS, FATIGUE, FREQUENT FALL, LOWER BACK PAIN - History of Present Illness History of Present Illness: IS A 70 YEAR OLD PATIENT OF OURS. SHE PRESENTED TO THE ER VIA EMS WITH COMPLAINTS OF ALTERED MENTAL STATUS, GENERALIZED WEAKNESS, FATIGUE, FREQUENT FALLS, AND LOWER BACK PAIN. PATIENTS SPOUSE REPORTS THAT PATIENT HAS FALLEN MULTIPLE TIMES OVER THE PAST FEW WEEKS. HE REPORTS THAT PATIENT HAS HAD LOWER EXTREMITY WEAKNESS AND SWELLING. HER LASIX AND SPIRONOLACTONE WAS APPARENTLY INCREASED LAST WEEK. PATIENT DESCRIBES BACK PAIN CONSTANT, DULL, AND RATED IT A 6/10. PAIN DOES NOT RADIATE. IT IS WORSE WHEN MOVING. PATIENT DENIES HEAD INJURY, LOC, NECK PAIN, URI SYMPTOMS, COUGH, N/V. HER PMH INCLUDES CIRRHOSIS, ARTHRITIS, GERD, DYSLIPIDEMIA, BOWEL RESECTION, APPENDECTOMY, HYSTERECTOMY. PATIENT IS CURRENTLY BEING EVALUATED BY LIVER SPECIALIST TO DETERMINE IF SHE IS AN ELIGIBLE CANDIDATE FOR LIVER TRANSPLANT. ON ARRIVAL TO THE ER, VITALS WERE 97.2-77-16-94%-116/56. LABS WERE OBTAINED. ABNORMAL LAB VALUES INCLUDE THE FOLLOWING: HGB 11.3, HCT 33.3, PLT COUNT 50, SODIUM 135, TOTAL BILI 2.0, AST 48, ALK PHOS 136, ALBUMIN 2.8, AMMONIA 103. URINALYSIS (DIP) REVEALED: LEUKOCYTES 1+, OCCULT BLOOD 1+, BILIRUBIN 1+. COVID- [address]UM[address] SP[address] WITHOUT CONTRAST WAS OBTAINED AND REVEALED: Mild compression fracture of T12, age indeterminate. A CHEST XRAY WAS OBTAINED AND REVEALED: No acute cardiopulmonary findings. IN THE ER, SHE WAS GIVEN A NORMAL SALINE BOLUS. SHE WAS ADMITTED TO THE HOSPITAL FOR FURTHER EVALUATION AND TREATMENT OF HEPATIC ENCEPHALOPATHY, CIRRHOSIS, T12 COMPRESSION FRACTURE, UTI, AND GENERALIZED WEAKNESS. SHE WAS STARTED ON INVANZ 1G IV DAILY, LACTULOSE 30ML PO QID, TORADOL 15MG IV Q8H, FUROSEMIDE 40MG IV BID, SPIRONOLACTONE DAILY, PROTONIX 40MG PO DAILY, POTASSIUM CHLORIDE 10MEQ PO DAILY, ZOLOFT 50MG PO DAILY, AND TRAMADOL 50MG PO TID. FAMILY IS REQUESTING PLACEMENT AT HOSPITAL STAFF PHARMACIST CARE FOR PHYSICAL THERAPY AND REHAB. WE WILL DISCUSS WITH CASE MANAGEMENT. OTHERWISE, WE PLAN TO FOLLOW UP WITH AM LABS AND CONTINUE TO MONITOR. TIME SPENT ON CLINICAL ASSESSMENT, REVIEWING LABS AND IMAGING, DECISION MAKING, AND DOCUMENTATION GREATER THAN 75 MINUTES. - Past Medical History Past Medical History: Arthritis, Dyslipidemia, GERD Additional Medical History: CIRRHOSIS, Fatty liver, Diverticulitis - Past Surgical History Surgical History: Appendectomy, Bowel Resection, Hysterectomy Additional Surgical History: Colon resection, Partial hysterectomy - Family History Family Medical History: Diabetes Mellitus, Coronary Artery Disease - Social History Does patient currently use any type of tobacco product: No Have you used tobacco products in the last 12 months: No Type of Tobacco Use: Cigarettes How many years tobacco product used: 10 Does any household member use tobacco: No Alcohol Use: None Drug Use: None - Medications Home Medications: codeine Allergy (Verified 03/01/17 23:55) levofloxacin [From Levaquin] Allergy (Verified 03/01/17 23:55) Penicillins Allergy (Verified 03/01/17 23:55) Sulfa (Sulfonamide Antibiotics) [SULFA] Allergy (Verified 03/01/17 23:55) CONTINUE taking the following medications furosemide 60 mg PO DAILY 06/05/21 [History] pantoprazole 40 mg PO DAILY 06/05/21 [History] potassium chloride 10 meq PO DAILY 06/05/21 [History] sertraline 50 mg PO DAILY 06/05/21 [History] spironolactone 100 mg PO DAILY 06/05/21 [History] tramadol 50 mg PO TID 06/05/21 [History] - Review of Systems Constitutional: Weakness, Malaise Eyes: No Symptoms Reported ENT: No Symptoms Reported Respiratory: No Symptoms Reported Cardiovascular: No Symptoms Reported Gastrointestinal: No Symptoms Reported Genitourinary: No Symptoms Reported Musculoskeletal: Back Pain Skin: No Symptoms Reported Neurological: See HPI, Weakness, Confusion - Physical Exam Vital Signs: Temperature 98.2 F Pulse Rate [Bilateral Radial] 66 Pulse Rate 77 Respiratory Rate 18 Blood Pressure [Right Arm] 134/63 Blood Pressure 116/56 O2 Sat by Pulse Oximetry 93 Oriented: Person Eyes: Normal Ear: Normal Nose: Normal Throat: Normal Respiratory: Diminished Throughout Cardiovascular: Normal : Normal Auscultation: Bowel Sounds: Normal Palpation: Normal Tenderness: Normal Skin: Normal Musculoskeletal: Back:Lumbar Psychiatric: Other (DISORIENTED/CONFUSED ) Mood Description: Calm Affect: Normal Speech Pattern: Inappropriate - Assessment/Plan (1) Hepatic encephalopathy Status: Acute Plan: ADMIT, INVANZ 1G IV DAILY, LACTULOSE 30ML PO QID, TORADOL 15MG IV Q8H, FUROSEMIDE 40MG IV BID, SPIRONOLACTONE DAILY, PROTONIX 40MG PO DAILY, POTASSIUM CHLORIDE 10MEQ PO DAILY, ZOLOFT 50MG PO DAILY, AND TRAMADOL 50MG PO TID. 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 Status: Acute (3) Urinary tract infection Qualifiers: Urinary tract infection type: site unspecified Status: Acute (4) Compression fx, thoracic spine Qualifiers: Encounter type: initial encounter Thoracic vertebra fracture level: T12 Qualified Code(s): S22.080A - Wedge compression fracture of T11-T12 vertebra, initial encounter for closed fracture Status: Acute (5) Generalized weakness Status: Acute - Allergies Allergies/Adverse Reactions: Allergies Allergy/AdvReac Type Severity Reaction Status Date / Time codeine Allergy Verified 03/01/17 23:55 levofloxacin [From Levaquin] Allergy Verified 03/01/17 23:55 Penicillins Allergy Verified 03/01/17 23:55 Sulfa (Sulfonamide Allergy Verified 03/01/17 23:55 Antibiotics) [SULFA]
[2021-06-05] MEDS ORDERED: MICRO K EXTEN CAP 10 MEQ PO SCH (15:00)
[2021-06-05] MEDS ORDERED: LASIX PO SCH (15:00)
[2021-06-05] MEDS: ULTRAM PO SCH (15:00)
[2021-06-05] MEDS: INVANZ INJ 1 GM VIAL 1 GM in NS 100 ML IV + SPIKE MINIBAG* 100 ML IV SCH (15:00)
[2021-06-05] MEDS: ZOLOFT PO SCH (15:00)
[2021-06-05] MEDS: PROTONIX TAB 40 MG PO SCH (15:00)
[2021-06-05] MEDS: TORADOL 15 MG VIAL IVP SCH ×2 (15:06→17:26)
[2021-06-05] MEDS: CHRONULAC PO SCH ×2 (15:37→16:00)
[2021-06-05] MEDS: ALDACTONE TAB 25 MG PO SCH (16:00)
[2021-06-05] MEDS: LASIX IVP SCH (17:00)
[2021-06-05 20:23] LABS: APPEARANCE,URINE CLOUDY (CLEAR); BILIRUBIN,URINE NEGATIVE (NEGATIVE); BLOOD/HEMOGLOBIN,URINE 5+ (NEGATIVE); COLOR,URINE RED (YELLOW); GLUCOSE, URINE NEGATIVE (NEGATIVE); KETONES,URINE 1+ (NEGATIVE); LEUKOCYTE ESTERASE ,URINE 1+ (NEGATIVE); NITRITES,URINE NEGATIVE (NEGATIVE); PROTEIN,URINE 4+ (NEGATIVE); UROBILINOGEN,URINE NORMAL (NORMAL)
[2021-06-05 20:24] LABS: BACTERIA,URINE TRACE /HPF (NEGATIVE); RBC,URINE TNTC /HPF (0-3); SQUAMOUS EPITHELIAL CELL,UR FEW /HPF (NEGATIVE)
[2021-06-06] MEDS: CHRONULAC PO SCH ×5 (00:08→21:32)
[2021-06-06] MEDS: ULTRAM PO SCH ×4 (00:08→21:32)
[2021-06-06] MEDS: TORADOL 15 MG VIAL IVP SCH ×4 (02:12→17:03)
[2021-06-06 06:11] LABS: BASOPHILS % (AUTO) 0.9 % (0.2-1.0); EOSINOPHILS # (AUTO) 0.1 x10^3/uL (0.0-0.2); EOSINOPHILS % (AUTO) 3.9 % (0.9-2.9); HEMATOCRIT 30.6 % (36.0-47.0); HEMOGLOBIN 10.4 g/dL (12.0-16.0); LYMPHOCYTES # (AUTO) 0.6 X10^3/uL (1.3-2.9); LYMPHOCYTES % (AUTO) 18.8 % (21.0-51.0); MEAN CORPUSCULAR HEMOGLOBIN 32.1 pg (27.0-34.0); MEAN CORPUSCULAR VOLUME 94.4 fL (80.0-100.0); MEAN PLATELET VOLUME 9.3 fL (7.4-11.0); MONOCYTES # (AUTO) 0.3 x10^3/uL (0.3-0.8); MONOCYTES % (AUTO) 10.9 % (0.0-13.0); NEUTROPHILS % (AUTO) 65.5 % (42.0-75.0); PLATELET COUNT 42 X10^3/uL (150.0-450.0); RED BLOOD COUNT 3.24 X10^6/uL (3.5-5.4); RED CELL DISTRIBUTION WIDTH 14.3 % (11.6-16.5); WHITE BLOOD COUNT 3.1 X10^3/uL (3.6-10.0)
[2021-06-06 06:25] LABS: ALANINE AMINOTRANSFERASE 15 Units/L (12-78); ALBUMIN 2.6 g/dL (3.4-5.0); ALKALINE PHOSPHATASE 126 Units/L (46-116); ASPARTATE AMINO TRANSFERASE 48 Units/L (15-37); BLOOD UREA NITROGEN 17 mg/dL (7-18); CALCIUM 9.3 mg/dL (8.5-10.1); CARBON DIOXIDE 25.3 mmol/L (21-32); CHLORIDE 103 mmol/L (98-107); COR CA(FOR HYPOALB) 10.4 mg/dL (8.5-10.1); CREATININE 0.81 mg/dL (0.55-1.02); SODIUM 135 mmol/L (136-145); TOTAL PROTEIN 6.8 g/dL (6.4-8.2); eGFR NON BLACK RACES > 60 (>60)
[2021-06-06 06:27] LABS: AMMONIA 94 umol/L (11-32)
[2021-06-06] MEDS: ALDACTONE TAB 25 MG PO SCH (09:28)
[2021-06-06] MEDS: PROTONIX TAB 40 MG PO SCH (09:29)
[2021-06-06] MEDS: INVANZ INJ 1 GM VIAL 1 GM in NS 100 ML IV + SPIKE MINIBAG* 100 ML IV SCH (09:29)
[2021-06-06] MEDS: ZOLOFT PO SCH (09:30)
[2021-06-06] MEDS: LASIX IVP SCH ×2 (09:31→16:43)
--- NOTE | 2021-06-06 15:44 | PCM.PROG ---
Progress Note - Progress Note for Day of Date of Exam: 06/06/21 - Subjective Subjective: WAS ADMITTED FOR TREATMENT OF HEPATIC ENCEPHALOPATHY, NON-ALCOHOLIC CIRRHOSIS, UTI, T12 COMPRESSION FX, AND GENERALIZED WEAKNESS. TODAY, SHE IS ALERT, SITTING UP IN BED ON MORNING ROUNDS. STAFF REPORTS THAT SHE CONTINUES WITH CONFUSION AT TIMES. SHE DOES ANSWER QUESTIONS APPROPRIATELY THIS MORNING. ON EXAMINATION, HEART IS REGULAR IN RATE AND RHYTHM. BILATERAL LUNGS NOTED WITH DIMINISHED LUNG SOUNDS THOUGHOUT. ABDOMEN ROUND, SOFT, AND NON-TENDER WITH NORMAL BOWEL SOUNDS NOTED IN ALL QUADRANTS. TENDERNESS NOTED TO THORACIC SPINE. HER VITALS THIS MORNING ARE: 98.0-71-20-91%-115/58. LABS WERE OBTAINED. ABNORMAL LAB VALUES INCLUDE THE FOLLOWING: WBC 3.1, RBC 3.24, HGB 10.4, HCT 30.6, PLT COUNT 42, SODIUM 135, GLUCOSE 101, TOTAL BILIRUBIN 1.70, AST 48, ALK PHOS 126, AMMONIA 94, ALBUMIN 2.6. URINALYSIS REVEALED: RBC TNTC, WBC 3-5, LEUKOCYTES 1+, BACTERIA TRACE. URINE CULTURE IS PENDING. SHE IS CURRENTLY RECEIVING INVANZ 1G IV DAILY, LACTULOSE 30ML PO QID, TORADOL 15MG IV Q8H, FUROSEMIDE 40MG IV BID, SPIRONOLACTONE DAILY, PROTONIX 40MG PO DAILY, POTASSIUM CHLORIDE 10MEQ PO DAILY, ZOLOFT 50MG PO DAILY, AND TRAMADOL 50MG PO TID. PHYSICAL THERAPY HAS BEEN WORKING WITH PATIENT. WE WILL CONTINUE WITH CURRENT PLAN OF CARE TODAY. OTHERWISE, WE PLAN TO FOLLOW UP WITH AM LABS AND CONTINUE TO MONITOR. TIME SPENT ON CLINICAL ASSESSMENT, REVIEWING LABS AND IMAGING, DECISION MAKING, AND DOCUMENTATION GREATER THAN 45 MINUTES. - Past Medical Family Social History Past Med/Fam/Surg Hx: No changes since H&P Allergies: Allergies codeine Allergy (Verified 03/01/17 23:55) levofloxacin [From Levaquin] Allergy (Verified 03/01/17 23:55) Penicillins Allergy (Verified 03/01/17 23:55) Sulfa (Sulfonamide Antibiotics) [SULFA] Allergy (Verified 03/01/17 23:55) - Review of Systems ROS: No change since H&P - Vital Signs and I&O's Vital Signs: Temperature 97.9 F Pulse Rate [Bilateral Radial] 69 Pulse Rate 77 Respiratory Rate 20 Blood Pressure [Right Arm] 116/53 Blood Pressure 116/56 O2 Sat by Pulse Oximetry 92 Intake and Output: Intake & Output 06/04/21 06/05/21 06/06/21 06/07/21 11:59 11:59 11:59 11:59 Intake Total 980 / 980 1715 / 1715 Balance 980 / 980 1715 / 1715 - Physical Exam Oriented: Person Eyes: Normal Ear: Normal Nose: Normal Throat: Normal Respiratory: Generalized, Diminished Cardiovascular: Normal : Normal Auscultation: Bowel Sounds: Normal Palpation: Normal Tenderness: Normal Skin: Normal Musculoskeletal: Back:Lumbar Psychiatric: Other (DISORIENTED/CONFUSED ) Mood Description: Calm Affect: Normal Speech Pattern: Clear, Appropriate - Laboratory and Diagnostics Result Diagrams: 06/06/21 05:43 06/06/21 05:43 Labs: 06/05/21 19:30 Urine,Clean Catch Urine Culture - Preliminary Laboratory WBC 3.1 X10^3/uL (3.6-10.0) L 06/06/21 05:43 RBC 3.24 X10^6/uL (3.5-5.4) L 06/06/21 05:43 Hgb 10.4 g/dL (12.0-16.0) L 06/06/21 05:43 Hct 30.6 % (36.0-47.0) L 06/06/21 05:43 MCV 94.4 fL (80.0-100.0) 06/06/21 05:43 MCH 32.1 pg (27.0-34.0) 06/06/21 05:43 MCHC 34.0 g/dL (33.0-35.0) 06/06/21 05:43 RDW 14.3 % (11.6-16.5) 06/06/21 05:43 Plt Count 42 X10^3/uL (150.0-450.0) L 06/06/21 05:43 MPV 9.3 fL (7.4-11.0) 06/06/21 05:43 Neut % (Auto) 65.5 % (42.0-75.0) 06/06/21 05:43 Lymph % (Auto) 18.8 % (21.0-51.0) L 06/06/21 05:43 [place] % (Auto) 10.9 % (0.0-13.0) 06/06/21 05:43 Eos % (Auto) 3.9 % (0.9-2.9) H 06/06/21 05:43 Baso % (Auto) 0.9 % (0.2-1.0) 06/06/21 05:43 Neut # (Auto) 2.0 x10^3/uL (2.2-4.8) L 06/06/21 05:43 Lymph # (Auto) 0.6 X10^3/uL (1.3-2.9) L 06/06/21 05:43 [place] # (Auto) 0.3 x10^3/uL (0.3-0.8) 06/06/21 05:43 Eos # (Auto) 0.1 x10^3/uL (0.0-0.2) 06/06/21 05:43 Baso # (Auto) 0.0 X10^3/uL (0.0-0.1) 06/06/21 05:43 Absolute Nucleated RBC 0.0 /100WBC 06/06/21 05:43 Sodium 135 mmol/L (136-145) L 06/06/21 05:43 Corrected Sodium TNP 06/06/21 05:43 Potassium 4.4 mmol/L (3.5-5.1) 06/06/21 05:43 Chloride 103 mmol/L (98-107) 06/06/21 05:43 Carbon Dioxide 25.3 mmol/L (21-32) 06/06/21 05:43 BUN 17 mg/dL (7-18) 06/06/21 05:43 Creatinine 0.81 mg/dL (0.55-1.02) 06/06/21 05:43 Est GFR (MDRD) Af Amer > 60 (>60) 06/06/21 05:43 Est GFR (MDRD) Non-Af > 60 (>60) 06/06/21 05:43 Glucose 101 mg/dL (65-99) H 06/06/21 05:43 Calcium 9.3 mg/dL (8.5-10.1) 06/06/21 05:43 Corrected Calcium 10.4 mg/dL (8.5-10.1) H 06/06/21 05:43 Total Bilirubin 1.70 mg/dL (0.2-1.0) H 06/06/21 05:43 AST 48 Units/L (15-37) H 06/06/21 05:43 ALT 15 Units/L (12-78) 06/06/21 05:43 Alkaline Phosphatase 126 Units/L (46-116) H 06/06/21 05:43 Ammonia 94 umol/L (11-32) H 06/06/21 05:43 Creatine Kinase 59 Units/L (26-192) 06/04/21 13:08 CK-MB (CK-2) 1.0 ng/mL (0-4.0) 06/04/21 13:08 CK/CKMB % Calc 1.7 % (<4) 06/04/21 13:08 Troponin I < 0.02 ng/mL (0-1.5) 06/04/21 13:08 Total Protein 6.8 g/dL (6.4-8.2) 06/06/21 05:43 Albumin 2.6 g/dL (3.4-5.0) L 06/06/21 05:43 Globulin 4.2 g/dL (2.5-4.5) 06/06/21 05:43 Albumin/Globulin Ratio 0.6 Ratio (1.1-2.1) L 06/06/21 05:43 Lipase 183 Units/L (73-393) 06/04/21 13:08 Specimen Type Clean catch urine 06/05/21 19:30 Urine Color Red (YELLOW) 06/05/21 19: Urine Appearance Cloudy (CLEAR) 06/05/21 19:30 Urine pH 5.0 (5.0 - 8.0) 06/05/21 19:30 Ur Specific [place] 1.010 (1.000-1.030) 06/05/21 19:30 Urine Protein 4+ (NEGATIVE) 06/05/21 19: Urine Glucose (UA) Negative (NEGATIVE) 06/05/21 19: Urine Ketones 1+ (NEGATIVE) 06/05/21 19: Urine Occult Blood 5+ (NEGATIVE) 06/05/21 19: Urine Nitrite Negative (NEGATIVE) 06/05/21 19: Urine Bilirubin Negative (NEGATIVE) 06/05/21 19: Urine Urobilinogen Normal (NORMAL) 06/05/21 19:30 Ur Leukocyte Esterase 1+ (NEGATIVE) 06/05/21 19:30 Urine RBC Tntc /HPF (0-3) A 06/05/21 19:30 Urine WBC 3-5 /HPF (0-5) 06/05/21 19:30 Ur Squamous Epith Cells Few /HPF (NEGATIVE) 06/05/21 19:30 Urine Bacteria Trace /HPF (NEGATIVE) 06/05/21 19:30 Ur Culture Indicated? No/not indicated 06/05/21 19:30 Stool Description 100g brown formed 06/06/21 00:21 Stl Occult Blood (IFOB) Negative (NEGATIVE) 06/06/21 00:21 SARS CoV-2 RNA Rapid PRAVEENA Negative (NEGATIVE) 06/04/21 15:48 - Plan (1) Hepatic encephalopathy Status: Acute Plan: INVANZ 1G IV DAILY, LACTULOSE 30ML PO QID, TORADOL 15MG IV Q8H, FUROSEMIDE 40MG IV BID, SPIRONOLACTONE DAILY, PROTONIX 40MG PO DAILY, POTASSIUM CHLORIDE 10MEQ PO DAILY, ZOLOFT 50MG PO DAILY, AND TRAMADOL 50MG PO TID. 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
[2021-06-07] MEDS: TORADOL 15 MG VIAL IVP SCH ×3 (02:32→18:24)
[2021-06-07 05:02] LABS: BASOPHILS % (AUTO) 0.8 % (0.2-1.0); EOSINOPHILS # (AUTO) 0.2 x10^3/uL (0.0-0.2); EOSINOPHILS % (AUTO) 4.5 % (0.9-2.9); HEMATOCRIT 30.1 % (36.0-47.0); HEMOGLOBIN 10.4 g/dL (12.0-16.0); LYMPHOCYTES # (AUTO) 0.7 X10^3/uL (1.3-2.9); LYMPHOCYTES % (AUTO) 16.3 % (21.0-51.0); MEAN CORPUSCULAR HEMOGLOBIN 32.2 pg (27.0-34.0); MEAN CORPUSCULAR HGB CONC 34.7 g/dL (33.0-35.0); MEAN CORPUSCULAR VOLUME 92.8 fL (80.0-100.0); MEAN PLATELET VOLUME 9.6 fL (7.4-11.0); MONOCYTES # (AUTO) 0.4 x10^3/uL (0.3-0.8); MONOCYTES % (AUTO) 10.4 % (0.0-13.0); NEUTROPHILS # (AUTO) 2.8 x10^3/uL (2.2-4.8); PLATELET COUNT 57 X10^3/uL (150.0-450.0); RED BLOOD COUNT 3.24 X10^6/uL (3.5-5.4); RED CELL DISTRIBUTION WIDTH 14.3 % (11.6-16.5); WHITE BLOOD COUNT 4.2 X10^3/uL (3.6-10.0)
[2021-06-07 05:04] LABS: AMMONIA 61 umol/L (11-32)
[2021-06-07 05:20] LABS: ALANINE AMINOTRANSFERASE 15 Units/L (12-78); ALBUMIN 2.6 g/dL (3.4-5.0); ALKALINE PHOSPHATASE 129 Units/L (46-116); ASPARTATE AMINO TRANSFERASE 47 Units/L (15-37); BLOOD UREA NITROGEN 18 mg/dL (7-18); CARBON DIOXIDE 26.1 mmol/L (21-32); CHLORIDE 101 mmol/L (98-107); COR CA(FOR HYPOALB) 10.1 mg/dL (8.5-10.1); CREATININE 0.85 mg/dL (0.55-1.02); SODIUM 133 mmol/L (136-145); TOTAL PROTEIN 7.1 g/dL (6.4-8.2); eGFR NON BLACK RACES > 60 (>60)
[2021-06-07] MEDS: ULTRAM PO SCH ×3 (06:10→21:30)
[2021-06-07] MEDS: INVANZ INJ 1 GM VIAL 1 GM in NS 100 ML IV + SPIKE MINIBAG* 100 ML IV SCH (09:22)
[2021-06-07] MEDS: ALDACTONE TAB 25 MG PO SCH (09:22)
[2021-06-07] MEDS: CHRONULAC PO SCH ×4 (09:22→20:58)
[2021-06-07] MEDS: PROTONIX TAB 40 MG PO SCH (09:22)
[2021-06-07] MEDS: ZOLOFT PO SCH (09:23)
--- NOTE | 2021-06-07 10:11 | PCM.PROG ---
Progress Note - Progress Note for Day of Date of Exam: 06/07/21 - Subjective Subjective: WAS ADMITTED FOR TREATMENT OF HEPATIC ENCEPHALOPATHY, NON-ALCOHOLIC CIRRHOSIS, UTI, T12 COMPRESSION FX, AND GENERALIZED WEAKNESS. TODAY, SHE IS ALERT, SITTING UP IN BED ON MORNING ROUNDS. STAFF REPORTS THAT SHE CONTINUES WITH CONFUSION AT TIMES. SHE DOES ANSWER QUESTIONS AND FOLLOW COMMANDS APPROPRIATELY THIS MORNING. STAFF REPORTS THAT SHE REQUIRES ASSISTANCE WITH AMBULATION. ON EXAMINATION, HEART IS REGULAR IN RATE AND RHYTHM. BILATERAL LUNGS NOTED WITH DIMINISHED LUNG SOUNDS THOUGHOUT. ABDOMEN ROUND, SOFT, AND NON-TENDER WITH NORMAL BOWEL SOUNDS NOTED IN ALL QUADRANTS. TENDERNESS NOTED TO THORACIC SPINE. HER VITALS THIS MORNING ARE: 98.2-70-20-93%-113/56. LABS WERE OBTAINED. ABNORMAL LAB VALUES INCLUDE THE FOLLOWING: RBC 3.24, HGB 10.4, HCT 30.1, PLT COUNT 57, SODIUM 133, TOTAL BILI 1.90, ALK PHOS 129, AMMONIA 61, ALBUMIN 2.6. URINE CULTURE IS PENDING. SHE IS CURRENTLY RECEIVING INVANZ 1G IV DAILY, LACTULOSE 30ML PO QID, TORADOL 15MG IV Q8H, FUROSEMIDE 40MG IV BID, SPIRONOLACTONE DAILY, PROTONIX 40MG PO DAILY, POTASSIUM CHLORIDE 10MEQ PO DAILY, ZOLOFT 50MG PO DAILY, AND TRAMADOL 50MG PO TID. PHYSICAL THERAPY HAS BEEN WORKING WITH PATIENT. WE WILL CONTINUE WITH CURRENT PLAN OF CARE TODAY. OTHERWISE, WE PLAN TO FOLLOW UP WITH AM LABS AND CONTINUE TO MONITOR. TIME SPENT ON CLINICAL ASSESSMENT, REVIEWING LABS AND IMAGING, DECISION MAKING, AND DOCUMENTATION GREATER THAN 45 MINUTES. - Past Medical Family Social History Past Med/Fam/Surg Hx: No changes since H&P Allergies: Allergies codeine Allergy (Verified 03/01/17 23:55) levofloxacin [From Levaquin] Allergy (Verified 03/01/17 23:55) Penicillins Allergy (Verified 03/01/17 23:55) Sulfa (Sulfonamide Antibiotics) [SULFA] Allergy (Verified 03/01/17 23:55) - Review of Systems ROS: No change since H&P - Vital Signs and I&O's Vital Signs: Temperature 98.2 F Pulse Rate [Bilateral Radial] 70 Pulse Rate 77 Respiratory Rate 20 Blood Pressure [Right Arm] 113/56 Blood Pressure 116/56 O2 Sat by Pulse Oximetry 93 Intake and Output: Intake & Output 06/04/21 06/05/21 06/06/21 06/07/21 11:59 11:59 11:59 11:59 Intake Total 980 / 980 5 / 1715 1869 Balance 980 / 980 1715 / 1715 1869 - Physical Exam Oriented: Person Eyes: Normal Ear: Normal Nose: Normal Throat: Normal Respiratory: Generalized, Diminished Cardiovascular: Normal : Normal Auscultation: Bowel Sounds: Normal Tenderness: Normal Skin: Normal Musculoskeletal: Back:Lumbar Psychiatric: Other (DISORIENTED/CONFUSED ) Mood Description: Calm Affect: Normal Speech Pattern: Clear, Appropriate - Laboratory and Diagnostics Result Diagrams: 06/07/21 03:45 06/07/21 03:45 Labs: 06/05/21 19:30 Urine,Clean Catch Urine Culture - Final Laboratory WBC 4.2 X10^3/uL (3.6-10.0) 06/07/21 03:45 RBC 3.24 X10^6/uL (3.5-5.4) L 06/07/21 03:45 Hgb 10.4 g/dL (12.0-16.0) L 06/07/21 03:45 Hct 30.1 % (36.0-47.0) L 06/07/21 03:45 MCV 92.8 fL (80.0-100.0) 06/07/21 03:45 MCH 32.2 pg (27.0-34.0) 06/07/21 03:45 MCHC 34.7 g/dL (33.0-35.0) 06/07/21 03:45 RDW 14.3 % (11.6-16.5) 06/07/21 03:45 Plt Count 57 X10^3/uL (150.0-450.0) L 06/07/21 03:45 MPV 9.6 fL (7.4-11.0) 06/07/21 03:45 Neut % (Auto) 68.0 % (42.0-75.0) 06/07/21 03:45 Lymph % (Auto) 16.3 % (21.0-51.0) L 06/07/21 03:45 [place] % (Auto) 10.4 % (0.0-13.0) 06/07/21 03:45 Eos % (Auto) 4.5 % (0.9-2.9) H 06/07/21 03:45 Baso % (Auto) 0.8 % (0.2-1.0) 06/07/21 03:45 Neut # (Auto) 2.8 x10^3/uL (2.2-4.8) 06/07/21 03:45 Lymph # (Auto) 0.7 X10^3/uL (1.3-2.9) L 06/07/21 03:45 [place] # (Auto) 0.4 x10^3/uL (0.3-0.8) 06/07/21 03:45 Eos # (Auto) 0.2 x10^3/uL (0.0-0.2) 06/07/21 03:45 Baso # (Auto) 0.0 X10^3/uL (0.0-0.1) 06/07/21 03:45 Absolute Nucleated RBC 0.0 /100WBC 06/07/21 03:45 Sodium 133 mmol/L (136-145) L 06/07/21 03:45 Corrected Sodium TNP 06/07/21 03:45 Potassium 4.3 mmol/L (3.5-5.1) 06/07/21 03:45 Chloride 101 mmol/L (98-107) 06/07/21 03:45 Carbon Dioxide 26.1 mmol/L (21-32) 06/07/21 03:45 BUN 18 mg/dL (7-18) 06/07/21 03:45 Creatinine 0.85 mg/dL (0.55-1.02) 06/07/21 03:45 Est GFR (MDRD) Af Amer > 60 (>60) 06/07/21 03:45 Est GFR (MDRD) Non-Af > 60 (>60) 06/07/21 03:45 Glucose 92 mg/dL (65-99) 06/07/21 03:45 Calcium 9.0 mg/dL (8.5-10.1) 06/07/21 03:45 Corrected Calcium 10.1 mg/dL (8.5-10.1) 06/07/21 03:45 Total Bilirubin 1.90 mg/dL (0.2-1.0) H 06/07/21 03:45 AST 47 Units/L (15-37) H 06/07/21 03:45 ALT 15 Units/L (12-78) 06/07/21 03:45 Alkaline Phosphatase 129 Units/L (46-116) H 06/07/21 03:45 Ammonia 61 umol/L (11-32) H 06/07/21 03:45 Creatine Kinase 59 Units/L (26-192) 06/04/21 13:08 CK-MB (CK-2) 1.0 ng/mL (0-4.0) 06/04/21 13:08 CK/CKMB % Calc 1.7 % (<4) 06/04/21 13:08 Troponin I < 0.02 ng/mL (0-1.5) 06/04/21 13:08 Total Protein 7.1 g/dL (6.4-8.2) 06/07/21 03:45 Albumin 2.6 g/dL (3.4-5.0) L 06/07/21 03:45 Globulin 4.5 g/dL (2.5-4.5) 06/07/21 03:45 Albumin/Globulin Ratio 0.6 Ratio (1.1-2.1) L 06/07/21 03:45 Lipase 183 Units/L (73-393) 06/04/21 13:08 Specimen Type Clean catch urine 06/05/21 19:30 Urine Color Red (YELLOW) 06/05/21 19:30 Urine Appearance Cloudy (CLEAR) 06/05/21 19:30 Urine pH 5.0 (5.0 - 8.0) 06/05/21 19: Ur Specific [place] 1.010 (1.000-1.030) 06/05/21 19: Urine Protein 4+ (NEGATIVE) 06/05/21 19: Urine Glucose (UA) Negative (NEGATIVE) 06/05/21 19: Urine Ketones 1+ (NEGATIVE) 06/05/21 19: Urine Occult Blood 5+ (NEGATIVE) 06/05/21 19: Urine Nitrite Negative (NEGATIVE) 06/05/21 19: Urine Bilirubin Negative (NEGATIVE) 06/05/21 19: Urine Urobilinogen Normal (NORMAL) 06/05/21 19:30 Ur Leukocyte Esterase 1+ (NEGATIVE) 06/05/21 19:30 Urine RBC Tntc /HPF (0-3) A 06/05/21 19:30 Urine WBC 3-5 /HPF (0-5) 06/05/21 19:30 Ur Squamous Epith Cells Few /HPF (NEGATIVE) 06/05/21 19:30 Urine Bacteria Trace /HPF (NEGATIVE) 06/05/21 19:30 Ur Culture Indicated? No/not indicated 06/05/21 19:30 Stool Description 100g brown formed 06/06/21 00:21 Stl Occult Blood (IFOB) Negative (NEGATIVE) 06/06/21 00:21 SARS CoV-2 RNA Rapid PRAVEENA Negative (NEGATIVE) 06/04/21 15:48 - Plan (1) Hepatic encephalopathy Status: Acute Plan: INVANZ 1G IV DAILY, LACTULOSE 30ML PO QID, TORADOL 15MG IV Q8H, FUROSEMIDE 40MG IV BID, SPIRONOLACTONE DAILY, PROTONIX 40MG PO DAILY, POTASSIUM CHLORIDE 10MEQ PO DAILY, ZOLOFT 50MG PO DAILY, AND TRAMADOL 50MG PO TID. 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
[2021-06-08] MEDS: TORADOL 15 MG VIAL IVP SCH ×4 (03:08→16:27)
[2021-06-08 05:26] LABS: BASOPHILS % (AUTO) 0.9 % (0.2-1.0); EOSINOPHILS # (AUTO) 0.2 x10^3/uL (0.0-0.2); EOSINOPHILS % (AUTO) 4.4 % (0.9-2.9); HEMATOCRIT 29.6 % (36.0-47.0); HEMOGLOBIN 10.2 g/dL (12.0-16.0); LYMPHOCYTES # (AUTO) 0.7 X10^3/uL (1.3-2.9); LYMPHOCYTES % (AUTO) 17.6 % (21.0-51.0); MEAN CORPUSCULAR HGB CONC 34.6 g/dL (33.0-35.0); MEAN CORPUSCULAR VOLUME 92.4 fL (80.0-100.0); MEAN PLATELET VOLUME 9.7 fL (7.4-11.0); MONOCYTES # (AUTO) 0.4 x10^3/uL (0.3-0.8); MONOCYTES % (AUTO) 11.3 % (0.0-13.0); NEUTROPHILS # (AUTO) 2.6 x10^3/uL (2.2-4.8); NEUTROPHILS % (AUTO) 65.8 % (42.0-75.0); PLATELET COUNT 36 X10^3/uL (150.0-450.0); RED BLOOD COUNT 3.21 X10^6/uL (3.5-5.4); RED CELL DISTRIBUTION WIDTH 14.5 % (11.6-16.5); WHITE BLOOD COUNT 3.9 X10^3/uL (3.6-10.0)
[2021-06-08 05:32] LABS: AMMONIA 45 umol/L (11-32)
[2021-06-08 05:49] LABS: ALANINE AMINOTRANSFERASE 14 Units/L (12-78); ALBUMIN 2.6 g/dL (3.4-5.0); ALKALINE PHOSPHATASE 125 Units/L (46-116); ASPARTATE AMINO TRANSFERASE 45 Units/L (15-37); BLOOD UREA NITROGEN 24 mg/dL (7-18); CALCIUM 8.9 mg/dL (8.5-10.1); CARBON DIOXIDE 25.6 mmol/L (21-32); CHLORIDE 101 mmol/L (98-107); CREATININE 1.12 mg/dL (0.55-1.02); SODIUM 134 mmol/L (136-145); TOTAL PROTEIN 6.9 g/dL (6.4-8.2); eGFR NON BLACK RACES 51 (>60)
[2021-06-08] MEDS: ULTRAM PO SCH ×3 (05:59→21:11)
[2021-06-08] MEDS: INVANZ INJ 1 GM VIAL 1 GM in NS 100 ML IV + SPIKE MINIBAG* 100 ML IV SCH (08:39)
[2021-06-08] MEDS: CHRONULAC PO SCH ×4 (08:39→21:11)
[2021-06-08] MEDS: ALDACTONE TAB 25 MG PO SCH (08:39)
[2021-06-08] MEDS: PROTONIX TAB 40 MG PO SCH (08:40)
[2021-06-08] MEDS: ZOLOFT PO SCH (08:41)
[2021-06-08] MEDS ORDERED: ZOFRAN INJ 4 MG VIAL IVP PRN (08:46)
[2021-06-09] MEDS: TORADOL 15 MG VIAL IVP SCH (02:03)
[2021-06-09 05:23] LABS: AMMONIA 33 umol/L (11-32); BASOPHILS % (AUTO) 1.1 % (0.2-1.0); EOSINOPHILS # (AUTO) 0.3 x10^3/uL (0.0-0.2); HEMATOCRIT 30.2 % (36.0-47.0); HEMOGLOBIN 10.5 g/dL (12.0-16.0); LYMPHOCYTES # (AUTO) 0.7 X10^3/uL (1.3-2.9); MEAN CORPUSCULAR HEMOGLOBIN 32.3 pg (27.0-34.0); MEAN CORPUSCULAR HGB CONC 34.6 g/dL (33.0-35.0); MEAN CORPUSCULAR VOLUME 93.2 fL (80.0-100.0); MEAN PLATELET VOLUME 9.5 fL (7.4-11.0); MONOCYTES # (AUTO) 0.5 x10^3/uL (0.3-0.8); MONOCYTES % (AUTO) 12.6 % (0.0-13.0); NEUTROPHILS # (AUTO) 2.7 x10^3/uL (2.2-4.8); NEUTROPHILS % (AUTO) 63.3 % (42.0-75.0); PLATELET COUNT 33 X10^3/uL (150.0-450.0); RED BLOOD COUNT 3.24 X10^6/uL (3.5-5.4); RED CELL DISTRIBUTION WIDTH 14.4 % (11.6-16.5); WHITE BLOOD COUNT 4.3 X10^3/uL (3.6-10.0)
[2021-06-09 05:31] LABS: ALANINE AMINOTRANSFERASE 15 Units/L (12-78); ALBUMIN 2.6 g/dL (3.4-5.0); ALKALINE PHOSPHATASE 130 Units/L (46-116); ASPARTATE AMINO TRANSFERASE 45 Units/L (15-37); BLOOD UREA NITROGEN 32 mg/dL (7-18); CALCIUM 9.1 mg/dL (8.5-10.1); CARBON DIOXIDE 25.4 mmol/L (21-32); CHLORIDE 101 mmol/L (98-107); COR CA(FOR HYPOALB) 10.2 mg/dL (8.5-10.1); CREATININE 1.77 mg/dL (0.55-1.02); SODIUM 132 mmol/L (136-145); eGFR NON BLACK RACES 30 (>60)
[2021-06-09] MEDS: ULTRAM PO SCH ×3 (06:42→21:17)
[2021-06-09] MEDS: CHRONULAC PO SCH ×2 (08:15→21:17)
[2021-06-09] MEDS: INVANZ INJ 1 GM VIAL 1 GM in NS 100 ML IV + SPIKE MINIBAG* 100 ML IV SCH (08:15)
[2021-06-09] MEDS: ALDACTONE TAB 25 MG PO SCH (08:15)
[2021-06-09] MEDS: ZOLOFT PO SCH (08:16)
[2021-06-09] MEDS: PROTONIX TAB 40 MG PO SCH (08:16)
[2021-06-09] MEDS: NS 1,000 ML IV 1,000 ML IV SCH (13:14)
[2021-06-10 05:54] LABS: EOSINOPHILS # (AUTO) 0.2 x10^3/uL (0.0-0.2); EOSINOPHILS % (AUTO) 5.2 % (0.9-2.9); HEMATOCRIT 30.7 % (36.0-47.0); HEMOGLOBIN 10.7 g/dL (12.0-16.0); LYMPHOCYTES # (AUTO) 0.5 X10^3/uL (1.3-2.9); LYMPHOCYTES % (AUTO) 14.7 % (21.0-51.0); MEAN CORPUSCULAR HEMOGLOBIN 32.3 pg (27.0-34.0); MEAN CORPUSCULAR HGB CONC 34.9 g/dL (33.0-35.0); MEAN CORPUSCULAR VOLUME 92.8 fL (80.0-100.0); MONOCYTES # (AUTO) 0.4 x10^3/uL (0.3-0.8); MONOCYTES % (AUTO) 12.8 % (0.0-13.0); NEUTROPHILS # (AUTO) 2.3 x10^3/uL (2.2-4.8); NEUTROPHILS % (AUTO) 66.3 % (42.0-75.0); PLATELET COUNT 25 X10^3/uL (150.0-450.0); RED BLOOD COUNT 3.31 X10^6/uL (3.5-5.4); RED CELL DISTRIBUTION WIDTH 14.2 % (11.6-16.5); WHITE BLOOD COUNT 3.4 X10^3/uL (3.6-10.0)
[2021-06-10 05:58] LABS: ALANINE AMINOTRANSFERASE 14 Units/L (12-78); ALBUMIN 2.5 g/dL (3.4-5.0); ALKALINE PHOSPHATASE 130 Units/L (46-116); ASPARTATE AMINO TRANSFERASE 44 Units/L (15-37); BLOOD UREA NITROGEN 32 mg/dL (7-18); CARBON DIOXIDE 27.5 mmol/L (21-32); CHLORIDE 100 mmol/L (98-107); COR CA(FOR HYPOALB) 10.2 mg/dL (8.5-10.1); CREATININE 1.08 mg/dL (0.55-1.02); SODIUM 130 mmol/L (136-145); TOTAL PROTEIN 6.7 g/dL (6.4-8.2); eGFR NON BLACK RACES 54 (>60)
[2021-06-10] MEDS: ULTRAM PO SCH ×2 (06:01→13:04)
[2021-06-10] MEDS: NS 1,000 ML IV 1,000 ML IV SCH ×2 (06:01→15:51)
[2021-06-10 06:03] LABS: AMMONIA 36 umol/L (11-32)
[2021-06-10] MEDS: ALDACTONE TAB 25 MG PO SCH (08:13)
[2021-06-10] MEDS: INVANZ INJ 1 GM VIAL 1 GM in NS 100 ML IV + SPIKE MINIBAG* 100 ML IV SCH (08:17)
[2021-06-10] MEDS: CHRONULAC PO SCH ×2 (08:18→20:40)
[2021-06-10] MEDS: ZOLOFT PO SCH (08:18)
[2021-06-10] MEDS: PROTONIX TAB 40 MG PO SCH (08:18)
[2021-06-10] MEDS ORDERED: ULTRAM PO PRN (16:37)
[2021-06-11] MEDS ORDERED: NS 500 ML IV 500 ML IV SCH (02:01)
[2021-06-11 05:08] LABS: BASOPHILS % (AUTO) 0.8 % (0.2-1.0); EOSINOPHILS # (AUTO) 0.2 x10^3/uL (0.0-0.2); EOSINOPHILS % (AUTO) 5.2 % (0.9-2.9); HEMATOCRIT 28.8 % (36.0-47.0); HEMOGLOBIN 9.9 g/dL (12.0-16.0); LYMPHOCYTES # (AUTO) 0.6 X10^3/uL (1.3-2.9); LYMPHOCYTES % (AUTO) 21.7 % (21.0-51.0); MEAN CORPUSCULAR HEMOGLOBIN 32.2 pg (27.0-34.0); MEAN CORPUSCULAR HGB CONC 34.3 g/dL (33.0-35.0); MEAN CORPUSCULAR VOLUME 93.8 fL (80.0-100.0); MEAN PLATELET VOLUME 9.4 fL (7.4-11.0); MONOCYTES # (AUTO) 0.3 x10^3/uL (0.3-0.8); MONOCYTES % (AUTO) 11.7 % (0.0-13.0); NEUTROPHILS # (AUTO) 1.8 x10^3/uL (2.2-4.8); NEUTROPHILS % (AUTO) 60.6 % (42.0-75.0); PLATELET COUNT 26 X10^3/uL (150.0-450.0); RED BLOOD COUNT 3.08 X10^6/uL (3.5-5.4); RED CELL DISTRIBUTION WIDTH 14.2 % (11.6-16.5); WHITE BLOOD COUNT 2.9 X10^3/uL (3.6-10.0)
[2021-06-11 05:19] LABS: ALANINE AMINOTRANSFERASE 15 Units/L (12-78); ALBUMIN 2.3 g/dL (3.4-5.0); ALKALINE PHOSPHATASE 122 Units/L (46-116); ASPARTATE AMINO TRANSFERASE 46 Units/L (15-37); BLOOD UREA NITROGEN 21 mg/dL (7-18); CALCIUM 8.7 mg/dL (8.5-10.1); CARBON DIOXIDE 27.2 mmol/L (21-32); CHLORIDE 101 mmol/L (98-107); COR CA(FOR HYPOALB) 10.1 mg/dL (8.5-10.1); CREATININE 0.65 mg/dL (0.55-1.02); SODIUM 130 mmol/L (136-145); TOTAL PROTEIN 6.3 g/dL (6.4-8.2); eGFR NON BLACK RACES > 60 (>60)
[2021-06-11 05:30] LABS: AMMONIA 47 umol/L (11-32)
[2021-06-11] MEDS: CHRONULAC PO SCH (09:20)
[2021-06-11] MEDS: ALDACTONE TAB 25 MG PO SCH (09:20)
[2021-06-11] MEDS: INVANZ INJ 1 GM VIAL 1 GM in NS 100 ML IV + SPIKE MINIBAG* 100 ML IV SCH (09:20)
[2021-06-11] MEDS: PROTONIX TAB 40 MG PO SCH (09:21)
[2021-06-11] MEDS: ZOLOFT PO SCH (09:21)
[2021-06-11 12:48] VITALS: BP 108/55
== END 2021-06-11 12:39 | disposition swing bed (61) | DRG 442 ==
LOC: ER 11:40 → MED/SURG 11:40
PROVIDERS: ADMIT Internal Medicine; ATTEND Internal Medicine
DX: W18.39XA Other fall on same level, initial encounter; R62.7 Adult failure to thrive; N28.9 Disorder of kidney and ureter, unspecified; R29.6 Repeated falls; K72.90 Hepatic failure, unspecified without coma; S22.080A Wedge compression fracture of T11-T12 vertebra, initial encounter for closed fracture; M54.59 Other low back pain; K74.69 Other cirrhosis of liver; K21.9 Gastro-esophageal reflux disease without esophagitis; E86.0 Dehydration; E78.2 Mixed hyperlipidemia; R26.89 Other abnormalities of gait and mobility; N39.0 Urinary tract infection, site not specified; R53.1 Weakness

== ENCOUNTER 2021-06-11 12:52 | Inpatient (IN) ==
[2021-06-11] MEDS ORDERED: ULTRAM PO PRN (13:39)
--- NOTE | 2021-06-11 15:49 | PT/OTEVAL ---
PT/OT OBJECTIVES - HISTORY Prescription: OT consult Diagnosis: Weakness, Compression fx Precautions: fall risk PMH: Arthritis, dyslipidemia Prior Level of Function: Independent Other, comment: Lives with 2 daughters - COGNITION Mental Status: Alert, Oriented, Name, Place, Purpose Communication Status: Verbal Ability to Follow Directions: 1 Step - PAIN Back Pain Scale: No Pain - BED MOBILITY Rolling: Supervision Scooting: Supervision Bridging: Supervision - TRANSFERS Supine to Sit: Minimal Sit to Stand: Minimal Sit or Stand Pivot: Minimal - ADL'S Feeding: Setup Grooming: Setup Upper Body ADL: Minimum Lower Body ADL: N/A Toileting: Setup - BALANCE Dynamic Sitting: Good Standing: Fair Static Sitting: Good Standing: Good - NEUROMOTOR/SENSATION Javier. Lower Ext Sensation: WFL Coordination: WFL Javier. Upper Ext Sensation: WFL Coordination: WFL Proprioception: WFL - ROM Bilateral UE Muscle Tone: WFL - STRENGTH Bilateral UE Strength Number: 3 Other comment: 3+/5 Bilateral LE Strength Number: 3 Other comment: 3+/5 PT/OT ASSESSMENT - OT Problem List: Decreased Mobility ADL's, Decreased Dressing, Decreased UE Strength, Other Other, comment: Decreased activity tolerance - OT GOALS Short Term Goals Days: 5 Mobility for ADL's: Will improve functional transfers around room to Supv. Dressing: Will don UB and LB clothing with Mod. Ind. Upper Ext. Strength/Use: Will improve BUE strength to +1/2 MMT grade. Other: Will demonstrate F.A.T. to at least 10 minutes for BADLs. 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 Dressing: Will don UB and LB clothing Ind. Upper Ext. Strength/Use: Will improve BUE strength to +1 MMT grade. Other: Will demonstrate F.A.T. to at least 15 minutes for BADLs. - PATIENT GOALS Patient/Family Goals: To go home Goals Discussed with Patient/Family: Yes Rehabilitation Potential: Good Justification for Potential: Motivated, good caregiver support Weakness and Barriers: None - PLAN Suggested Treatment Plan: Therapeutic Activity, Self Care Training, Therapeutic Ex with HEP, Patient Education - FREQUENCY AND DURATION OT: 5x/wk x hospital stay Expected Continuation of Care at Discharge: Home
--- NOTE | 2021-06-11 16:40 | PT/OTEVAL ---
PT/OT OBJECTIVES - HISTORY Prescription: PT consult Diagnosis: Weakness, Compression fx Precautions: Falls PMH: Arthritis, dyslipidemia Prior Level of Function: Independent - COGNITION Mental Status: Alert, Oriented, Name, Place, Purpose, Decreased Safety Awarenes Communication Status: Verbal Ability to Follow Directions: 2 Step - PAIN Back Pain Scale: No Pain Comments: 08/16 no change in reports of pain throughout session - BED MOBILITY Rolling: Moderate Scooting: Moderate Bridging: Moderate - TRANSFERS Supine to Sit: Moderate Sit to Stand: Moderate Sit or Stand Pivot: Moderate - BALANCE Dynamic Sitting: Fair Standing: Poor Static Sitting: Fair Standing: Poor - NEUROMOTOR/SENSATION Javier. Lower Ext Sensation: WFL Coordination: WFL Javier. Upper Ext Sensation: WFL Coordination: WFL Proprioception: WFL - STRENGTH Bilateral UE Strength Number: 3 Other comment: 3+/5 Bilateral LE Strength Number: 3 Other comment: 3-/5 - GAIT Comments: NA d/t safety concerns PT/OT ASSESSMENT - PT Problem List: Decreased Bed Mobility, Decreased Transfers, Decreased Gait, Decreased Balance, Decreased Safety, Decreased LE Strength - OT GOALS Short Term Goals Days: 5 Mobility for ADL's: Will improve functional transfers around room to Supv. Dressing: Will don UB and LB clothing with Mod. Ind. Upper Ext. Strength/Use: Will improve BUE strength to +1/2 MMT grade. Other: Will demonstrate F.A.T. to at least 10 minutes for BADLs. Sewer Hand Goals Days: 10 Mobility for ADL's: Will improve functional transfers around room to Ind. Dressing: Will don UB and LB clothing Ind. Upper Ext. Strength/Use: Will improve BUE strength to +1 MMT grade. Other: Will demonstrate F.A.T. to at least 15 minutes for BADLs. - PATIENT GOALS Goals Discussed with Patient/Family: Yes Rehabilitation Potential: Good - PLAN Suggested Treatment Plan: Bed Mobility Training, Therapeutic Activity, Gait Training, Neuro Re-education, Therapeutic Ex with HEP, Home Management, Patient Education, Family Education - FREQUENCY AND DURATION PT: 5x Expected Continuation of Care at Discharge: Determined on Progress
[2021-06-11] MEDS: CHRONULAC PO SCH (20:13)
[2021-06-12] MEDS: NS 500 ML IV 500 ML IV SCH ×2 (04:07→04:34)
[2021-06-12] MEDS ORDERED: ZOLOFT PO ONE (07:00)
[2021-06-12] MEDS ORDERED: ALDACTONE TAB 25 MG ONE (07:00)
[2021-06-12] MEDS ORDERED: PROTONIX TAB 40 MG PO ONE (07:00)
[2021-06-12] MEDS ORDERED: INVanz INJ 1 GRAM VIAL ONE (07:01)
[2021-06-12] MEDS ORDERED: NS 100 ML IV + SPIKE MINIBAG* 100 ML IV ONE (07:01)
[2021-06-12] MEDS: INVanz INJ 1 GRAM VIAL 1 G in NS 100 ML IV + SPIKE MINIBAG* 100 ML IV SCH (08:28)
[2021-06-12] MEDS: CHRONULAC PO SCH ×2 (08:28→20:14)
[2021-06-12] MEDS: PROTONIX TAB 40 MG PO SCH (08:28)
[2021-06-12] MEDS: ZOLOFT PO SCH (08:28)
[2021-06-12] MEDS: ALDACTONE TAB 25 MG PO SCH (08:29)
--- NOTE | 2021-06-12 09:28 | SP.EVAL ---
SPEECH EVALUATION - History Prescription: Refer to EMR PMH: Refer to EMR hx - Objective Prior level of function: Independent - Cognition Mental Status: Alert, Oriented Ability to Follow Directions: 3 Step Memory Loss: None - Communication Status Communication Status: Verbal Automatized Sequences: Within Functional Limit Sentence Completion: Within Functional Limit Produces Sentences: Within Functional Limit - Verbal Expression Names Objects: WFL Names Pictures: WFL Names Body Parts: WFL - Oral/Motor Examination Comments: Patient reports having some coughing and behaviors her entire lifetime; daughter at bedside confirming. - Rehabilitation Weakness and Barriers: None - Suggested Treatment Plan Treatment Comment: No tx at this date; refer back with any changes - Discharge Plan Expected Discharge Disposition: To Be Determined Comments: Nsg to downgrade as needed; pt reported to have symptoms since lifetime.
--- NOTE | 2021-06-12 09:59 | DR.UPDATE ---
H&P Update History and Physical Update: History and Physical reviewed and patient examined. PATIENT WAS CHANGED TO SWINGBED STATUS FOR PHYSICAL THERAPY. Changes noted: No Yes with the following: H&P Reviewed: Yes Patient was examined?: Yes
[2021-06-13 06:44] LABS: EOSINOPHILS # (AUTO) 0.1 x10^3/uL (0.0-0.2); HEMATOCRIT 28.2 % (36.0-47.0); HEMOGLOBIN 9.8 g/dL (12.0-16.0); LYMPHOCYTES # (AUTO) 0.7 X10^3/uL (1.3-2.9); LYMPHOCYTES % (AUTO) 23.3 % (21.0-51.0); MEAN CORPUSCULAR HEMOGLOBIN 32.3 pg (27.0-34.0); MEAN CORPUSCULAR HGB CONC 34.8 g/dL (33.0-35.0); MEAN CORPUSCULAR VOLUME 92.8 fL (80.0-100.0); MEAN PLATELET VOLUME 8.8 fL (7.4-11.0); MONOCYTES # (AUTO) 0.3 x10^3/uL (0.3-0.8); MONOCYTES % (AUTO) 10.6 % (0.0-13.0); NEUTROPHILS # (AUTO) 1.7 x10^3/uL (2.2-4.8); NEUTROPHILS % (AUTO) 60.1 % (42.0-75.0); RED BLOOD COUNT 3.04 X10^6/uL (3.5-5.4); RED CELL DISTRIBUTION WIDTH 13.9 % (11.6-16.5); WHITE BLOOD COUNT 2.9 X10^3/uL (3.6-10.0)
[2021-06-13 07:02] LABS: ALANINE AMINOTRANSFERASE 18 Units/L (12-78); ALBUMIN 2.2 g/dL (3.4-5.0); ALKALINE PHOSPHATASE 125 Units/L (46-116); ASPARTATE AMINO TRANSFERASE 59 Units/L (15-37); BLOOD UREA NITROGEN 10 mg/dL (7-18); CALCIUM 8.9 mg/dL (8.5-10.1); CARBON DIOXIDE 25.5 mmol/L (21-32); CHLORIDE 104 mmol/L (98-107); COR CA(FOR HYPOALB) 10.3 mg/dL (8.5-10.1); CREATININE 0.58 mg/dL (0.55-1.02); SODIUM 135 mmol/L (136-145); eGFR NON BLACK RACES > 60 (>60)
[2021-06-13 07:14] LABS: AMMONIA 35 umol/L (11-32)
[2021-06-13] MEDS: INVanz INJ 1 GRAM VIAL 1 G in NS 100 ML IV + SPIKE MINIBAG* 100 ML IV SCH (08:22)
[2021-06-13] MEDS: CHRONULAC PO SCH ×2 (08:22→20:55)
[2021-06-13] MEDS: ALDACTONE TAB 25 MG PO SCH (08:22)
[2021-06-13] MEDS: ZOLOFT PO SCH (08:22)
[2021-06-13] MEDS: PROTONIX TAB 40 MG PO SCH (08:22)
[2021-06-13] MEDS: NS 500 ML IV 500 ML IV SCH (08:26)
[2021-06-14] MEDS: ALDACTONE TAB 25 MG PO SCH (08:19)
[2021-06-14] MEDS: CHRONULAC PO SCH ×2 (08:19→21:29)
[2021-06-14] MEDS: INVanz INJ 1 GRAM VIAL 1 G in NS 100 ML IV + SPIKE MINIBAG* 100 ML IV SCH (08:19)
[2021-06-14] MEDS: PROTONIX TAB 40 MG PO SCH (08:20)
[2021-06-14] MEDS: ZOLOFT PO SCH (08:22)
--- NOTE | 2021-06-14 11:53 | PCM.PROG ---
Progress Note - Progress Note for Day of Date of Exam: 06/14/21 - Subjective Subjective: WAS ADMITTED TO [facility] FOR PHYSICAL THERAPY AND REHAB. SHE IS ALSO STILL RECEIVING TREATMENT FOR UTI, PAIN MANAGEMENT FOR COMPRESSION FRACTURE, AND FOR NON-ALCOHOLIC CIRRHOSIS. TODAY, SHE IS ALERT, SITTING UP IN BED ON MORNING ROUNDS. STAFF REPORTS THAT SHE CONTINUES WITH CONFUSION AT TIMES. SHE DOES ANSWER QUESTIONS AND FOLLOW COMMANDS APPROPRIATELY THIS MORNING. STAFF REPORTS THAT SHE REQUIRES ASSISTANCE WITH AMBULATION. PATIENT HAS BEEN COMPLIANT WITH PHYSICAL THERAPY. ON EXAMINATION, HEART IS REGULAR IN RATE AND RHYTHM. BILATERAL LUNGS NOTED WITH DIMINISHED LUNG SOUNDS THOUGHOUT. ABDOMEN ROUND, SOFT, AND NON-TENDER WITH NORMAL BOWEL SOUNDS NOTED IN ALL QUADRANTS. TENDERNESS NOTED TO THORACIC SPINE. HER VITALS THIS MORNING ARE: 98.6-73-20-92%-113/56. LABS WERE OBTAINED YESTERDAY. ABNORMAL LAB VALUES INCLUDE THE FOLLOWING: WBC 2.9, RBC 3.04, HGB 9.8, HCT 28.2, PLT COUNT 29, SODIUM 135, TOTAL BILI 1.40, AST 59, ALK PHOS 125, AMMONIA 35, TOTAL PRTOEIN 6.0, ALBUMIN 2.2. URINE CULTURE IS PENDING. SHE IS CURRENTLY RECEIVING INVANZ 1G IV DAILY, LACTULOSE 30ML PO QID, SPIRONOLACTONE DAILY, PROTONIX 40MG PO DAILY, ZOLOFT 50MG PO DAILY, AND TRAMADOL 50MG PO TID. WE WILL CONTINUE WITH CURRENT PLAN OF CARE TODAY. TIME SPENT ON CLINICAL ASSESSMENT, REVIEWING LABS AND IMAGING, DECISION MAKING, AND DOCUMENTATION GREATER THAN 45 MINUTES. - Past Medical Family Social History Past Med/Fam/Surg Hx: No changes since H&P Allergies: Allergies codeine Allergy (Verified 03/01/17 23:55) levofloxacin [From Levaquin] Allergy (Verified 03/01/17 23:55) Penicillins Allergy (Verified 03/01/17 23:55) Sulfa (Sulfonamide Antibiotics) [SULFA] Allergy (Verified 03/01/17 23:55) - Review of Systems ROS: No change since H&P - Vital Signs and I&O's Vital Signs: Temperature 98.6 F Pulse Rate [Right Brachial] 73 Respiratory Rate 20 Blood Pressure [Right Arm] 113/56 O2 Sat by Pulse Oximetry 92 Intake and Output: Intake & Output 01/03/06/12/21 06/13/21 06/14/21 11:59 11:59 11:59 11:59 Intake Total 0 / 0 810 / 810 1490 / 1490 Balance 2200 / 2200 810 / 810 1490 / 1490 - Physical Exam Oriented: Normal Eyes: Normal Ear: Normal Nose: Normal Throat: Normal Respiratory: Generalized, Diminished Cardiovascular: Normal : Normal Auscultation: Bowel Sounds: Normal Palpation: Normal Tenderness: Normal Skin: Normal Musculoskeletal: Back:Thoracic, Tender Psychiatric: Normal Mood Description: Calm Affect: Normal Speech Pattern: Clear, Appropriate - Laboratory and Diagnostics Result Diagrams: 06/13/21 06:00 06/13/21 06:00 Labs: Laboratory WBC 2.9 X10^3/uL (3.6-10.0) L 06/13/21 06:00 RBC 3.04 X10^6/uL (3.5-5.4) L 06/13/21 06:00 Hgb 9.8 g/dL (12.0-16.0) L 06/13/21 06:00 Hct 28.2 % (36.0-47.0) L 06/13/21 06:00 MCV 92.8 fL (80.0-100.0) 06/13/21 06:00 MCH 32.3 pg (27.0-34.0) 06/13/21 06:00 MCHC 34.8 g/dL (33.0-35.0) 06/13/21 06:00 RDW 13.9 % (11.6-16.5) 06/13/21 06:00 Plt Count 29 X10^3/uL (150.0-450.0) L 06/13/21 06:00 MPV 8.8 fL (7.4-11.0) 06/13/21 06:00 Neut % (Auto) 60.1 % (42.0-75.0) 06/13/21 06:00 Lymph % (Auto) 23.3 % (21.0-51.0) 06/13/21 06:00 [place] % (Auto) 10.6 % (0.0-13.0) 06/13/21 06:00 Eos % (Auto) 5.0 % (0.9-2.9) H 06/13/21 06:00 Baso % (Auto) 1.0 % (0.2-1.0) 06/13/21 06:00 Neut # (Auto) 1.7 x10^3/uL (2.2-4.8) L 06/13/21 06:00 Lymph # (Auto) 0.7 X10^3/uL (1.3-2.9) L 06/13/21 06:00 [place] # (Auto) 0.3 x10^3/uL (0.3-0.8) 06/13/21 06:00 Eos # (Auto) 0.1 x10^3/uL (0.0-0.2) 06/13/21 06:00 Baso # (Auto) 0.0 X10^3/uL (0.0-0.1) 06/13/21 06:00 Absolute Nucleated RBC 0.2 /100WBC 06/13/21 06:00 Sodium 135 mmol/L (136-145) L 06/13/21 06:00 Corrected Sodium TNP 06/13/21 06:00 Potassium 4.3 mmol/L (3.5-5.1) 06/13/21 06:00 Chloride 104 mmol/L (98-107) 06/13/21 06:00 Carbon Dioxide 25.5 mmol/L (21-32) 06/13/21 06:00 BUN 10 mg/dL (7-18) 06/13/21 06:00 Creatinine 0.58 mg/dL (0.55-1.02) 06/13/21 06:00 Est GFR (MDRD) Af Amer > 60 (>60) 06/13/21 06:00 Est GFR (MDRD) Non-Af > 60 (>60) 06/13/21 06:00 Glucose 77 mg/dL (65-99) 06/13/21 06:00 Calcium 8.9 mg/dL (8.5-10.1) 06/13/21 06:00 Corrected Calcium 10.3 mg/dL (8.5-10.1) H 06/13/21 06:00 Total Bilirubin 1.40 mg/dL (0.2-1.0) H 06/13/21 06:00 AST 59 Units/L (15-37) H 06/13/21 06:00 ALT 18 Units/L (12-78) 06/13/21 06:00 Alkaline Phosphatase 125 Units/L (46-116) H 06/13/21 06:00 Ammonia 35 umol/L (11-32) H 06/13/21 06:00 Total Protein 6.0 g/dL (6.4-8.2) L 06/13/21 06:00 Albumin 2.2 g/dL (3.4-5.0) L 06/13/21 06:00 Globulin 3.8 g/dL (2.5-4.5) 06/13/21 06:00 Albumin/Globulin Ratio 0.6 Ratio (1.1-2.1) L 06/13/21 06:00 - Plan (1) Urinary tract infection Status: Acute Qualifiers: Urinary tract infection type: acute cystitis Hematuria presence: without hematuria Qualified Code(s): N30.00 - Acute cystitis without hematuria (2) Compression fx, thoracic spine Status: Acute Qualifiers: Thoracic vertebra fracture level: T12 Fracture healing: with routine healing (3) Generalized weakness Status: Acute (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
[2021-06-14] MEDS: NS 500 ML IV 500 ML IV SCH (13:59)
[2021-06-15 06:24] LABS: BASOPHILS % (AUTO) 0.7 % (0.2-1.0); EOSINOPHILS # (AUTO) 0.1 x10^3/uL (0.0-0.2); EOSINOPHILS % (AUTO) 4.2 % (0.9-2.9); HEMATOCRIT 27.1 % (36.0-47.0); HEMOGLOBIN 9.5 g/dL (12.0-16.0); LYMPHOCYTES # (AUTO) 0.7 X10^3/uL (1.3-2.9); LYMPHOCYTES % (AUTO) 22.7 % (21.0-51.0); MEAN CORPUSCULAR HEMOGLOBIN 32.8 pg (27.0-34.0); MEAN CORPUSCULAR HGB CONC 34.9 g/dL (33.0-35.0); MEAN PLATELET VOLUME 9.6 fL (7.4-11.0); MONOCYTES # (AUTO) 0.3 x10^3/uL (0.3-0.8); MONOCYTES % (AUTO) 10.5 % (0.0-13.0); NEUTROPHILS # (AUTO) 1.9 x10^3/uL (2.2-4.8); NEUTROPHILS % (AUTO) 61.9 % (42.0-75.0); RED BLOOD COUNT 2.88 X10^6/uL (3.5-5.4); RED CELL DISTRIBUTION WIDTH 14.1 % (11.6-16.5); WHITE BLOOD COUNT 3.1 X10^3/uL (3.6-10.0)
[2021-06-15 06:43] LABS: ALANINE AMINOTRANSFERASE 23 Units/L (12-78); ALBUMIN 2.1 g/dL (3.4-5.0); ALKALINE PHOSPHATASE 128 Units/L (46-116); ASPARTATE AMINO TRANSFERASE 72 Units/L (15-37); BLOOD UREA NITROGEN 8 mg/dL (7-18); CALCIUM 8.4 mg/dL (8.5-10.1); CARBON DIOXIDE 24.8 mmol/L (21-32); CHLORIDE 106 mmol/L (98-107); COR CA(FOR HYPOALB) 9.9 mg/dL (8.5-10.1); CREATININE 0.54 mg/dL (0.55-1.02); SODIUM 135 mmol/L (136-145); TOTAL PROTEIN 5.8 g/dL (6.4-8.2); eGFR NON BLACK RACES > 60 (>60)
[2021-06-15 07:17] LABS: AMMONIA 40 umol/L (11-32)
[2021-06-15] MEDS: NS 500 ML IV 500 ML IV SCH ×2 (09:42→22:20)
[2021-06-15] MEDS: CHRONULAC PO SCH ×2 (09:43→20:40)
[2021-06-15] MEDS: ZOLOFT PO SCH (09:43)
[2021-06-15] MEDS: ALDACTONE TAB 25 MG PO SCH (09:43)
[2021-06-15] MEDS: PROTONIX TAB 40 MG PO SCH (09:44)
[2021-06-15] MEDS: INVanz INJ 1 GRAM VIAL 1 G in NS 100 ML IV + SPIKE MINIBAG* 100 ML IV SCH (09:44)
[2021-06-16] MEDS: NS 500 ML IV 500 ML IV SCH (05:11)
[2021-06-16] MEDS: ALDACTONE TAB 25 MG PO SCH (07:59)
[2021-06-16] MEDS: INVanz INJ 1 GRAM VIAL 1 G in NS 100 ML IV + SPIKE MINIBAG* 100 ML IV SCH (08:00)
[2021-06-16] MEDS: ZOLOFT PO SCH (08:00)
[2021-06-16] MEDS: PROTONIX TAB 40 MG PO SCH (08:00)
[2021-06-16] MEDS: CHRONULAC PO SCH ×2 (08:01→21:55)
[2021-06-17] MEDS: NS 500 ML IV 500 ML IV SCH ×2 (06:18→06:35)
[2021-06-17] MEDS: PROTONIX TAB 40 MG PO SCH (08:54)
[2021-06-17] MEDS: ALDACTONE TAB 25 MG PO SCH (08:54)
[2021-06-17] MEDS: ZOLOFT PO SCH (08:54)
[2021-06-17] MEDS: INVanz INJ 1 GRAM VIAL 1 G in NS 100 ML IV + SPIKE MINIBAG* 100 ML IV SCH (08:55)
[2021-06-17] MEDS: CHRONULAC PO SCH ×2 (09:00→20:06)
--- NOTE | 2021-06-17 10:52 | PCM.PROG ---
Progress Note Progress Note for Day of Date of Exam: 06/17/21 Subjective Subjective: WAS ADMITTED TO [facility] FOR PHYSICAL THERAPY AND REHAB. SHE IS ALSO STILL RECEIVING TREATMENT FOR UTI, PAIN MANAGEMENT FOR COMPRESSION FRACTURE, AND FOR NON-ALCOHOLIC CIRRHOSIS. THIS MORNING SHE IS SITTING COMFORTABLY IN THE RECLINER. NO ACUTE CONCERNS OR QUESTIONS. STAFF REPORTS THAT SHE REQUIRES ASSISTANCE WITH AMBULATION. PATIENT HAS BEEN COMPLIANT WITH PHYSICAL THERAPY. ON EXAMINATION, HEART IS REGULAR IN RATE AND RHYTHM. BILATERAL LUNGS NOTED WITH DIMINISHED LUNG SOUNDS THOUGHOUT. ABDOMEN ROUND, SOFT, AND NON-TENDER WITH NORMAL BOWEL SOUNDS NOTED IN ALL QUADRANTS. TENDERNESS NOTED TO THORACIC SPINE. URINE CULTURE INCONCLUSIVE. SHE IS CURRENTLY RECEIVING INVANZ 1G IV DAILY, LACTULOSE 30ML PO QID, SPIRONOLACTONE DAILY, PROTONIX 40MG PO DAILY, ZOLOFT 50MG PO DAILY, AND TRAMADOL 50MG PO TID. WE WILL CONTINUE WITH CURRENT PLAN OF CARE TODAY. Past Medical Family Social History Past Med/Fam/Surg Hx: No changes since H&P Allergies: Allergies codeine Allergy (Verified 03/01/17 23:55) levofloxacin [From Levaquin] Allergy (Verified 03/01/17 23:55) Penicillins Allergy (Verified 03/01/17 23:55) Sulfa (Sulfonamide Antibiotics) [SULFA] Allergy (Verified 03/01/17 23:55) Review of Systems ROS: No change since H&P Vital Signs and I&O's Vital Signs: Temperature 98.5 F Pulse Rate [Left Brachial] 79 Pulse Rate [Right Brachial] 77 Respiratory Rate 18 Blood Pressure [Left Arm] 125/58 Blood Pressure [Right Arm] 123/58 O2 Sat by Pulse Oximetry 92 Intake and Output: Intake & Output 06/14/21 06/15/21 06/16/21 06/17/21 23:59 23:59 23:59 23:59 Intake Total 1060 / 1060 1562 / 1562 934 / 934 990 / 990 Balance 1060 / 1060 1562 / 1562 934 / 934 990 / 990 Physical Exam Oriented: Normal Eyes: Normal Ear: Normal Nose: Normal Throat: Normal Respiratory: Generalized and Diminished Cardiovascular: Normal : Normal Auscultation: Bowel Sounds: Normal Tenderness: Normal Skin: Normal Musculoskeletal: Back:Thoracic and Tender Psychiatric: Normal Mood Description: Calm Affect: Normal Speech Pattern: Clear and Appropriate Laboratory and Diagnostics Result Diagrams: 06/15/21 05:00 06/15/21 05:51 Labs: Laboratory WBC 3.1 X10^3/uL (3.6-10.0) L 06/15/21 05:00 RBC 2.88 X10^6/uL (3.5-5.4) L 06/15/21 05:00 Hgb 9.5 g/dL (12.0-16.0) L 06/15/21 05:00 Hct 27.1 % (36.0-47.0) L 06/15/21 05:00 MCV 94.0 fL (80.0-100.0) 06/15/21 05:00 MCH 32.8 pg (27.0-34.0) 06/15/21 05:00 MCHC 34.9 g/dL (33.0-35.0) 06/15/21 05:00 RDW 14.1 % (11.6-16.5) 06/15/21 05:00 Plt Count 32 X10^3/uL (150.0-450.0) L 06/15/21 05:00 MPV 9.6 fL (7.4-11.0) 06/15/21 05:00 Neut % (Auto) 61.9 % (42.0-75.0) 06/15/21 05:00 Lymph % (Auto) 22.7 % (21.0-51.0) 06/15/21 05:00 [place] % (Auto) 10.5 % (0.0-13.0) 06/15/21 05:00 Eos % (Auto) 4.2 % (0.9-2.9) H 06/15/21 05:00 Baso % (Auto) 0.7 % (0.2-1.0) 06/15/21 05:00 Neut # (Auto) 1.9 x10^3/uL (2.2-4.8) L 06/15/21 05:00 Lymph # (Auto) 0.7 X10^3/uL (1.3-2.9) L 06/15/21 05:00 [place] # (Auto) 0.3 x10^3/uL (0.3-0.8) 06/15/21 05:00 Eos # (Auto) 0.1 x10^3/uL (0.0-0.2) 06/15/21 05:00 Baso # (Auto) 0.0 X10^3/uL (0.0-0.1) 06/15/21 05:00 Absolute Nucleated RBC 0.0 /100WBC 06/15/21 05:00 Sodium 135 mmol/L (136-145) L 06/15/21 05:51 Corrected Sodium TNP 06/15/21 05:51 Potassium 4.2 mmol/L (3.5-5.1) 06/15/21 05:51 Chloride 106 mmol/L (98-107) 06/15/21 05:51 Carbon Dioxide 24.8 mmol/L (21-32) 06/15/21 05:51 BUN 8 mg/dL (7-18) 06/15/21 05:51 Creatinine 0.54 mg/dL (0.55-1.02) L 06/15/21 05:51 Est GFR (MDRD) Af Amer > 60 (>60) 06/15/21 05:51 Est GFR (MDRD) Non-Af > 60 (>60) 06/15/21 05:51 Glucose 78 mg/dL (65-99) 06/15/21 05:51 Calcium 8.4 mg/dL (8.5-10.1) L 06/15/21 05:51 Corrected Calcium 9.9 mg/dL (8.5-10.1) 06/15/21 05:51 Total Bilirubin 1.40 mg/dL (0.2-1.0) H 06/15/21 05:51 AST 72 Units/L (15-37) H 06/15/21 05:51 ALT 23 Units/L (12-78) 06/15/21 05:51 Alkaline Phosphatase 128 Units/L (46-116) H 06/15/21 05:51 Ammonia 40 umol/L (11-32) H 06/15/21 05:51 Total Protein 5.8 g/dL (6.4-8.2) L 06/15/21 05:51 Albumin 2.1 g/dL (3.4-5.0) L 06/15/21 05:51 Globulin 3.7 g/dL (2.5-4.5) 06/15/21 05:51 Albumin/Globulin Ratio 0.6 Ratio (1.1-2.1) L 06/15/21 05:51 Plan (1) Urinary tract infection: Status: Acute Qualifiers: Hematuria presence: without hematuria Urinary tract infection type: acute cystitis Qualified Code(s): N30.00 - Acute cystitis without hematuria (2) Compression fx, thoracic spine: Status: Acute Qualifiers: Fracture healing: with routine healing Thoracic vertebra fracture level: T12 (3) Generalized weakness: Status: Acute (4) Cirrhosis of liver not due to alcohol: Status: Acute
[2021-06-18] MEDS: NS 500 ML IV 500 ML IV SCH (05:08)
[2021-06-18 06:27] LABS: BASOPHILS % (AUTO) 0.9 % (0.2-1.0); EOSINOPHILS # (AUTO) 0.1 x10^3/uL (0.0-0.2); EOSINOPHILS % (AUTO) 4.3 % (0.9-2.9); HEMATOCRIT 26.6 % (36.0-47.0); HEMOGLOBIN 9.5 g/dL (12.0-16.0); LYMPHOCYTES # (AUTO) 0.7 X10^3/uL (1.3-2.9); LYMPHOCYTES % (AUTO) 23.8 % (21.0-51.0); MEAN CORPUSCULAR HEMOGLOBIN 33.3 pg (27.0-34.0); MEAN CORPUSCULAR HGB CONC 35.8 g/dL (33.0-35.0); MEAN CORPUSCULAR VOLUME 93.1 fL (80.0-100.0); MEAN PLATELET VOLUME 9.2 fL (7.4-11.0); MONOCYTES # (AUTO) 0.3 x10^3/uL (0.3-0.8); MONOCYTES % (AUTO) 9.5 % (0.0-13.0); NEUTROPHILS # (AUTO) 1.8 x10^3/uL (2.2-4.8); NEUTROPHILS % (AUTO) 61.5 % (42.0-75.0); RED BLOOD COUNT 2.86 X10^6/uL (3.5-5.4); RED CELL DISTRIBUTION WIDTH 14.3 % (11.6-16.5); WHITE BLOOD COUNT 2.9 X10^3/uL (3.6-10.0)
[2021-06-18 06:41] LABS: AMMONIA 38 umol/L (11-32)
[2021-06-18 06:43] LABS: ALANINE AMINOTRANSFERASE 32 Units/L (12-78); ALKALINE PHOSPHATASE 132 Units/L (46-116); ASPARTATE AMINO TRANSFERASE 81 Units/L (15-37); BLOOD UREA NITROGEN 8 mg/dL (7-18); CALCIUM 8.3 mg/dL (8.5-10.1); CARBON DIOXIDE 25.4 mmol/L (21-32); CHLORIDE 107 mmol/L (98-107); COR CA(FOR HYPOALB) 9.9 mg/dL (8.5-10.1); CREATININE 0.55 mg/dL (0.55-1.02); SODIUM 139 mmol/L (136-145); TOTAL PROTEIN 5.8 g/dL (6.4-8.2); eGFR NON BLACK RACES > 60 (>60)
[2021-06-18] MEDS: ALDACTONE TAB 25 MG PO SCH (08:58)
[2021-06-18] MEDS: PROTONIX TAB 40 MG PO SCH (08:59)
[2021-06-18] MEDS: ZOLOFT PO SCH (08:59)
[2021-06-18] MEDS: INVanz INJ 1 GRAM VIAL 1 G in NS 100 ML IV + SPIKE MINIBAG* 100 ML IV SCH (08:59)
[2021-06-18] MEDS: CHRONULAC PO SCH ×2 (09:00→20:40)
[2021-06-18 14:51] VITALS: BMI 35.9
[2021-06-18] MEDS ORDERED: ULTRAM ONE (19:21)
[2021-06-18] MEDS: ULTRAM PO SCH ×2 (20:20→20:40)
[2021-06-18] MEDS: ZOFRAN INJ 4 MG VIAL IVP PRN (20:30)
[2021-06-19] MEDS: NS 500 ML IV 500 ML IV SCH (05:12)
[2021-06-19] MEDS: INVanz INJ 1 GRAM VIAL 1 G in NS 100 ML IV + SPIKE MINIBAG* 100 ML IV SCH (10:03)
[2021-06-19] MEDS: ALDACTONE TAB 25 MG PO SCH (10:05)
[2021-06-19] MEDS: ULTRAM PO SCH ×2 (10:06→20:08)
[2021-06-19] MEDS: PROTONIX TAB 40 MG PO SCH (10:06)
[2021-06-19] MEDS: CHRONULAC PO SCH ×2 (10:07→20:07)
[2021-06-19] MEDS: ZOLOFT PO SCH (10:07)
[2021-06-19] MEDS: ZOFRAN INJ 4 MG VIAL IVP PRN (20:19)
[2021-06-20] MEDS: NS 500 ML IV 500 ML IV SCH (02:58)
[2021-06-20 06:58] LABS: BASOPHILS % (AUTO) 0.9 % (0.2-1.0); EOSINOPHILS # (AUTO) 0.1 x10^3/uL (0.0-0.2); EOSINOPHILS % (AUTO) 4.1 % (0.9-2.9); HEMATOCRIT 26.4 % (36.0-47.0); HEMOGLOBIN 9.2 g/dL (12.0-16.0); LYMPHOCYTES # (AUTO) 0.6 X10^3/uL (1.3-2.9); LYMPHOCYTES % (AUTO) 23.9 % (21.0-51.0); MEAN CORPUSCULAR HEMOGLOBIN 32.2 pg (27.0-34.0); MEAN CORPUSCULAR HGB CONC 34.7 g/dL (33.0-35.0); MEAN PLATELET VOLUME 8.9 fL (7.4-11.0); MONOCYTES # (AUTO) 0.2 x10^3/uL (0.3-0.8); MONOCYTES % (AUTO) 9.3 % (0.0-13.0); NEUTROPHILS # (AUTO) 1.6 x10^3/uL (2.2-4.8); NEUTROPHILS % (AUTO) 61.8 % (42.0-75.0); RED BLOOD COUNT 2.84 X10^6/uL (3.5-5.4); RED CELL DISTRIBUTION WIDTH 14.1 % (11.6-16.5); WHITE BLOOD COUNT 2.7 X10^3/uL (3.6-10.0)
[2021-06-20 07:21] LABS: ALANINE AMINOTRANSFERASE 34 Units/L (12-78); ALKALINE PHOSPHATASE 130 Units/L (46-116); ASPARTATE AMINO TRANSFERASE 75 Units/L (15-37); BLOOD UREA NITROGEN 8 mg/dL (7-18); CALCIUM 8.1 mg/dL (8.5-10.1); CARBON DIOXIDE 27.1 mmol/L (21-32); CHLORIDE 106 mmol/L (98-107); COR CA(FOR HYPOALB) 9.7 mg/dL (8.5-10.1); SODIUM 138 mmol/L (136-145); TOTAL PROTEIN 5.8 g/dL (6.4-8.2); eGFR NON BLACK RACES > 60 (>60)
[2021-06-20] MEDS: INVanz INJ 1 GRAM VIAL 1 G in NS 100 ML IV + SPIKE MINIBAG* 100 ML IV SCH (09:42)
[2021-06-20] MEDS: PROTONIX TAB 40 MG PO SCH (09:43)
[2021-06-20] MEDS: ZOLOFT PO SCH (09:43)
[2021-06-20] MEDS: ALDACTONE TAB 25 MG PO SCH (09:48)
[2021-06-20] MEDS: CHRONULAC PO SCH ×2 (09:49→20:52)
[2021-06-20] MEDS: ULTRAM PO SCH ×2 (09:49→20:52)
--- NOTE | 2021-06-20 12:29 | PCM.PROG ---
Progress Note - Progress Note for Day of Date of Exam: 06/20/21 - Subjective Subjective: WAS ADMITTED TO [facility] FOR PHYSICAL THERAPY AND REHAB. SHE IS ALSO STILL RECEIVING TREATMENT FOR UTI, PAIN MANAGEMENT FOR COMPRESSION FRACTURE, AND FOR NON-ALCOHOLIC CIRRHOSIS. TODAY, SHE IS ALERT, AMBULATING IN THE ROOM WITH ASSISTANCE OF PHYSICAL THERAPIST. SHE DOES ANSWER QUESTIONS AND FOLLOW COMMANDS APPROPRIATELY THIS MORNING. STAFF REPORTS THAT SHE REQUIRES ASSISTANCE WITH AMBULATION. PATIENT HAS BEEN COMPLIANT WITH PHYSICAL THERAPY. ON EXAMINATION, HEART IS REGULAR IN RATE AND RHYTHM. BILATERAL LUNGS NOTED WITH DIMINISHED LUNG SOUNDS THOUGHOUT. ABDOMEN ROUND, SOFT, AND NON-TENDER WITH NORMAL BOWEL SOUNDS NOTED IN ALL QUADRANTS. TENDERNESS NOTED TO THORACIC S [place]. HER VITALS THIS MORNING ARE: 98.5-76-18-92%-119/51. LABS WERE OBTAINED THIS MORNING. ABNORMAL LAB VALUES INCLUDE THE FOLLOWING: WBC 2.7, RBC 2.84, HGB 9.2, HCT 26.4, PLT COUNT 27, CALCIUM 8.1, TOTAL BILI 1.20, AST 75, ALK PHOS 130, TOTAL PROTEIN 5.8, ALBUMIN 2.0. URINE CULTURE IS PENDING. SHE IS CURRENTLY RECEIVING INVANZ 1G IV DAILY, LACTULOSE 30ML PO BID, SPIRONOLACTONE 100MG PO DAILY, PROTONIX 40MG PO DAILY, ZOLOFT 50MG PO DAILY, AND TRAMADOL 50MG PO BID. WE WILL CONTINUE WITH CURRENT PLAN OF CARE TODAY. TIME SPENT ON CLINICAL ASSESSMENT, REVIEWING LABS AND IMAGING, DECISION MAKING, AND DOCUMENTATION GREATER THAN 45 MINUTES. - Past Medical Family Social History Past Med/Fam/Surg Hx: No changes since H&P Allergies: Allergies codeine Allergy (Verified 03/01/17 23:55) levofloxacin [From Levaquin] Allergy (Verified 03/01/17 23:55) Penicillins Allergy (Verified 03/01/17 23:55) Sulfa (Sulfonamide Antibiotics) [SULFA] Allergy (Verified 03/01/17 23:55) - Review of Systems ROS: No change since H&P - Vital Signs and I&O's Vital Signs: Temperature 98.5 F Pulse Rate [Left Brachial] 76 Pulse Rate [Right Brachial] 77 Respiratory Rate 20 Blood Pressure [Left Arm] 119/51 Blood Pressure [Right Arm] 123/58 O2 Sat by Pulse Oximetry 92 Intake and Output: Intake & Output 06/18/21 06/19/21 06/20/21 06/21/21 11:59 11:59 11:59 11:59 Intake Total 1410 / 1410 1130 / 1130 1821 Balance 1410 / 1410 1130 / 1130 1821 - Physical Exam Oriented: Normal Eyes: Normal Ear: Normal Nose: Normal Throat: Normal Respiratory: Generalized, Diminished Cardiovascular: Normal : Normal Auscultation: Bowel Sounds: Normal Tenderness: Normal Skin: Normal Musculoskeletal: Back:Thoracic, Tender Psychiatric: Normal Mood Description: Calm Affect: Normal Speech Pattern: Clear, Appropriate - Laboratory and Diagnostics Result Diagrams: 06/20/21 05:26 06/20/21 05:26 Labs: Laboratory WBC 2.7 X10^3/uL (3.6-10.0) L 06/20/21 05:26 RBC 2.84 X10^6/uL (3.5-5.4) L 06/20/21 05:26 Hgb 9.2 g/dL (12.0-16.0) L 06/20/21 05:26 Hct 26.4 % (36.0-47.0) L 06/20/21 05:26 MCV 93.0 fL (80.0-100.0) 06/20/21 05:26 MCH 32.2 pg (27.0-34.0) 06/20/21 05:26 MCHC 34.7 g/dL (33.0-35.0) 06/20/21 05:26 RDW 14.1 % (11.6-16.5) 06/20/21 05:26 Plt Count 27 X10^3/uL (150.0-450.0) L 06/20/21 05:26 MPV 8.9 fL (7.4-11.0) 06/20/21 05:26 Neut % (Auto) 61.8 % (42.0-75.0) 06/20/21 05:26 Lymph % (Auto) 23.9 % (21.0-51.0) 06/20/21 05:26 [place] % (Auto) 9.3 % (0.0-13.0) 06/20/21 05:26 Eos % (Auto) 4.1 % (0.9-2.9) H 06/20/21 05:26 Baso % (Auto) 0.9 % (0.2-1.0) 06/20/21 05:26 Neut # (Auto) 1.6 x10^3/uL (2.2-4.8) L 06/20/21 05:26 Lymph # (Auto) 0.6 X10^3/uL (1.3-2.9) L 06/20/21 05:26 [place] # (Auto) 0.2 x10^3/uL (0.3-0.8) L 06/20/21 05:26 Eos # (Auto) 0.1 x10^3/uL (0.0-0.2) 06/20/21 05:26 Baso # (Auto) 0.0 X10^3/uL (0.0-0.1) 06/20/21 05:26 Absolute Nucleated RBC 0.2 /100WBC 06/20/21 05:26 Sodium 138 mmol/L (136-145) 06/20/21 05:26 Corrected Sodium TNP 06/20/21 05:26 Potassium 4.2 mmol/L (3.5-5.1) 06/20/21 05:26 Chloride 106 mmol/L (98-107) 06/20/21 05:26 Carbon Dioxide 27.1 mmol/L (21-32) 06/20/21 05:26 BUN 8 mg/dL (7-18) 06/20/21 05:26 Creatinine 0.60 mg/dL (0.55-1.02) 06/20/21 05:26 Est GFR (MDRD) Af Amer > 60 (>60) 06/20/21 05:26 Est GFR (MDRD) Non-Af > 60 (>60) 06/20/21 05:26 Glucose 72 mg/dL (65-99) 06/20/21 05:26 Calcium 8.1 mg/dL (8.5-10.1) L 06/20/21 05:26 Corrected Calcium 9.7 mg/dL (8.5-10.1) 06/20/21 05:26 Total Bilirubin 1.20 mg/dL (0.2-1.0) H 06/20/21 05:26 AST 75 Units/L (15-37) H 06/20/21 05:26 ALT 34 Units/L (12-78) 06/20/21 05:26 Alkaline Phosphatase 130 Units/L (46-116) H 06/20/21 05:26 Ammonia 38 umol/L (11-32) H 06/18/21 06:00 Total Protein 5.8 g/dL (6.4-8.2) L 06/20/21 05:26 Albumin 2.0 g/dL (3.4-5.0) L 06/20/21 05:26 Globulin 3.8 g/dL (2.5-4.5) 06/20/21 05:26 Albumin/Globulin Ratio 0.5 Ratio (1.1-2.1) L 06/20/21 05:26 - Plan (1) Urinary tract infection Status: Acute Qualifiers: Urinary tract infection type: acute cystitis Hematuria presence: without hematuria Qualified Code(s): N30.00 - Acute cystitis without hematuria (2) Compression fx, thoracic spine Status: Acute Qualifiers: Thoracic vertebra fracture level: T12 Fracture healing: with routine healing (3) Generalized weakness Status: Acute (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
[2021-06-21] MEDS: NS 500 ML IV 500 ML IV SCH (02:11)
[2021-06-21] MEDS: ZOLOFT PO SCH (09:58)
[2021-06-21] MEDS: PROTONIX TAB 40 MG PO SCH (09:59)
[2021-06-21] MEDS: ALDACTONE TAB 25 MG PO SCH (09:59)
[2021-06-21] MEDS: ULTRAM PO SCH ×2 (09:59→20:30)
[2021-06-21] MEDS: CHRONULAC PO SCH ×2 (10:00→20:30)
[2021-06-21] MEDS: INVanz INJ 1 GRAM VIAL 1 G in NS 100 ML IV + SPIKE MINIBAG* 100 ML IV SCH (10:01)
[2021-06-21] MEDS ORDERED: MORPHINE SULFATE INJ 2 MG INJ IVP PRN (12:25)
--- NOTE | 2021-06-21 13:48 | RAD ---
HISTORYNontraumatic right knee painSTUDYRight knee two viewsCOMPARISONNoneFINDINGSThere is no acute bone or acute joint abnormality. No fracture, lytic, or blastic lesion is identified. No joint effusion or joint erosion is present. No periarticular soft tissue swelling is identified. There is moderate tricompartmental degenerative joint disease in the form of tricompartmental joint space narrowing. Calcific densities medial to the medial femoral condyle could be ligamentous in origin or could be intra-articular loose bodies.IMPRESSIONModerate tricompartmental degenerative joint diseaseCalcific densities medial to the medial femoral condyle could be within the joint or could be ligamentous in locationElectronically signed by: BEN SPENCER (Jun 21, 2021 13:47:11)
[2021-06-22] MEDS: NS 500 ML IV 500 ML IV SCH ×2 (02:44→05:00)
[2021-06-22 06:06] LABS: BASOPHILS % (AUTO) 0.8 % (0.2-1.0); EOSINOPHILS # (AUTO) 0.1 x10^3/uL (0.0-0.2); EOSINOPHILS % (AUTO) 4.2 % (0.9-2.9); HEMATOCRIT 26.5 % (36.0-47.0); HEMOGLOBIN 9.2 g/dL (12.0-16.0); LYMPHOCYTES # (AUTO) 0.7 X10^3/uL (1.3-2.9); LYMPHOCYTES % (AUTO) 26.4 % (21.0-51.0); MEAN CORPUSCULAR HEMOGLOBIN 32.3 pg (27.0-34.0); MEAN CORPUSCULAR HGB CONC 34.6 g/dL (33.0-35.0); MEAN CORPUSCULAR VOLUME 93.4 fL (80.0-100.0); MEAN PLATELET VOLUME 9.8 fL (7.4-11.0); MONOCYTES # (AUTO) 0.3 x10^3/uL (0.3-0.8); MONOCYTES % (AUTO) 10.6 % (0.0-13.0); NEUTROPHILS # (AUTO) 1.5 x10^3/uL (2.2-4.8); RED BLOOD COUNT 2.84 X10^6/uL (3.5-5.4); WHITE BLOOD COUNT 2.5 X10^3/uL (3.6-10.0)
[2021-06-22 06:12] LABS: AMMONIA 33 umol/L (11-32)
[2021-06-22 06:20] LABS: ALANINE AMINOTRANSFERASE 33 Units/L (12-78); ALBUMIN 2.1 g/dL (3.4-5.0); ALKALINE PHOSPHATASE 132 Units/L (46-116); ASPARTATE AMINO TRANSFERASE 66 Units/L (15-37); BLOOD UREA NITROGEN 6 mg/dL (7-18); CALCIUM 8.3 mg/dL (8.5-10.1); CARBON DIOXIDE 27.1 mmol/L (21-32); CHLORIDE 105 mmol/L (98-107); COR CA(FOR HYPOALB) 9.8 mg/dL (8.5-10.1); CREATININE 0.56 mg/dL (0.55-1.02); SODIUM 135 mmol/L (136-145); TOTAL PROTEIN 5.8 g/dL (6.4-8.2); eGFR NON BLACK RACES > 60 (>60)
[2021-06-22] MEDS: INVanz INJ 1 GRAM VIAL 1 G in NS 100 ML IV + SPIKE MINIBAG* 100 ML IV SCH (08:11)
[2021-06-22] MEDS: PROTONIX TAB 40 MG PO SCH (08:11)
[2021-06-22] MEDS: ALDACTONE TAB 25 MG PO SCH (08:11)
[2021-06-22] MEDS: ZOLOFT PO SCH (08:12)
[2021-06-22] MEDS: ULTRAM PO SCH ×2 (08:12→20:36)
[2021-06-22] MEDS: CHRONULAC PO SCH ×2 (08:12→20:35)
[2021-06-22] MEDS: TAB-A-VITE PO SCH (13:22)
[2021-06-22] MEDS: ZINC SULFATE PO SCH (13:23)
[2021-06-22] MEDS: VITAMIN D3 125 mcg (5,000 UNITS) PO SCH (13:23)
[2021-06-23] MEDS: NS 500 ML IV 500 ML IV SCH ×2 (06:13→20:26)
[2021-06-23] MEDS: ALDACTONE TAB 25 MG PO SCH (09:47)
[2021-06-23] MEDS: ZINC SULFATE PO SCH (09:50)
[2021-06-23] MEDS: VITAMIN D3 125 mcg (5,000 UNITS) PO SCH (09:51)
[2021-06-23] MEDS: ZOLOFT PO SCH (09:51)
[2021-06-23] MEDS: ULTRAM PO SCH ×2 (09:51→20:23)
[2021-06-23] MEDS: TAB-A-VITE PO SCH (09:52)
[2021-06-23] MEDS: INVanz INJ 1 GRAM VIAL 1 G in NS 100 ML IV + SPIKE MINIBAG* 100 ML IV SCH (09:53)
[2021-06-23] MEDS: PROTONIX TAB 40 MG PO SCH (09:53)
[2021-06-23] MEDS: CHRONULAC PO SCH ×2 (09:53→20:22)
[2021-06-24] MEDS: NS 500 ML IV 500 ML IV SCH (06:20)
[2021-06-24] MEDS: VITAMIN D3 125 mcg (5,000 UNITS) PO SCH (08:04)
[2021-06-24] MEDS: TAB-A-VITE PO SCH (08:05)
[2021-06-24] MEDS: ZINC SULFATE PO SCH (08:05)
[2021-06-24] MEDS: PROTONIX TAB 40 MG PO SCH (08:05)
[2021-06-24] MEDS: ALDACTONE TAB 25 MG PO SCH (08:05)
[2021-06-24] MEDS: ZOLOFT PO SCH (08:07)
[2021-06-24] MEDS: ULTRAM PO SCH ×2 (08:07→20:48)
[2021-06-24] MEDS: CHRONULAC PO SCH ×3 (08:10→20:48)
[2021-06-24] MEDS: OMNICEF CAP 300 MG PO SCH ×2 (10:38→20:47)
[2021-06-25 05:37] LABS: BASOPHILS % (AUTO) 0.7 % (0.2-1.0); EOSINOPHILS # (AUTO) 0.1 x10^3/uL (0.0-0.2); EOSINOPHILS % (AUTO) 4.9 % (0.9-2.9); HEMOGLOBIN 9.2 g/dL (12.0-16.0); LYMPHOCYTES # (AUTO) 0.6 X10^3/uL (1.3-2.9); LYMPHOCYTES % (AUTO) 23.2 % (21.0-51.0); MEAN CORPUSCULAR HEMOGLOBIN 31.7 pg (27.0-34.0); MEAN CORPUSCULAR HGB CONC 34.1 g/dL (33.0-35.0); MEAN CORPUSCULAR VOLUME 92.8 fL (80.0-100.0); MEAN PLATELET VOLUME 9.8 fL (7.4-11.0); MONOCYTES # (AUTO) 0.3 x10^3/uL (0.3-0.8); MONOCYTES % (AUTO) 11.5 % (0.0-13.0); NEUTROPHILS # (AUTO) 1.5 x10^3/uL (2.2-4.8); NEUTROPHILS % (AUTO) 59.7 % (42.0-75.0); RED BLOOD COUNT 2.91 X10^6/uL (3.5-5.4); RED CELL DISTRIBUTION WIDTH 14.2 % (11.6-16.5); WHITE BLOOD COUNT 2.4 X10^3/uL (3.6-10.0)
[2021-06-25 05:43] LABS: ALANINE AMINOTRANSFERASE 29 Units/L (12-78); ALKALINE PHOSPHATASE 139 Units/L (46-116); ASPARTATE AMINO TRANSFERASE 56 Units/L (15-37); BLOOD UREA NITROGEN 7 mg/dL (7-18); CALCIUM 8.3 mg/dL (8.5-10.1); CARBON DIOXIDE 27.3 mmol/L (21-32); CHLORIDE 105 mmol/L (98-107); COR CA(FOR HYPOALB) 9.9 mg/dL (8.5-10.1); CREATININE 0.52 mg/dL (0.55-1.02); SODIUM 137 mmol/L (136-145); TOTAL PROTEIN 5.7 g/dL (6.4-8.2); eGFR NON BLACK RACES > 60 (>60)
[2021-06-25 05:58] LABS: PLATELET MORPHOLOGY COMMENT NORMAL (NORMAL)
[2021-06-25] MEDS: PROTONIX TAB 40 MG PO SCH (08:54)
[2021-06-25] MEDS: ALDACTONE TAB 25 MG PO SCH (08:54)
[2021-06-25] MEDS: TAB-A-VITE PO SCH (08:54)
[2021-06-25] MEDS: OMNICEF CAP 300 MG PO SCH ×2 (08:55→20:37)
[2021-06-25] MEDS: CHRONULAC PO SCH ×2 (08:55→20:37)
[2021-06-25] MEDS: ZOLOFT PO SCH (08:55)
[2021-06-25] MEDS: ZINC SULFATE PO SCH (08:55)
[2021-06-25] MEDS: ULTRAM PO SCH ×2 (08:55→20:37)
[2021-06-25] MEDS: VITAMIN D3 125 mcg (5,000 UNITS) PO SCH (08:55)
--- NOTE | 2021-06-25 09:31 | PCM.PROG ---
Progress Note - Progress Note for Day of Date of Exam: 06/25/21 - Subjective Subjective: WAS ADMITTED TO [facility] FOR PHYSICAL THERAPY AND REHAB. SHE IS ALSO STILL RECEIVING TREATMENT FOR UTI, PAIN MANAGEMENT FOR COMPRESSION FRACTURE, AND FOR NON-ALCOHOLIC CIRRHOSIS. TODAY, SHE IS ALERT AND ORIENTED, SITTING UP IN BED ON MORNING ROUNDS. SHE DOES ANSWER QUESTIONS AND FOLLOW COMMANDS APPROPRIATELY THIS MORNING. STAFF REPORTS THAT SHE REQUIRES ASSISTANCE WITH AMBULATION. PATIENT HAS BEEN COMPLIANT WITH PHYSICAL THERAPY. ON EXAMINATION, HEART IS REGULAR IN RATE AND RHYTHM. BILATERAL LUNGS NOTED WITH DIMINISHED LUNG SOUNDS THOUGHOUT. ABDOMEN ROUND, SOFT, AND NON-TENDER WITH NORMAL BOWEL SOUNDS NOTED IN ALL QUADRANTS. TENDERNESS NOTED TO THORACIC SPINE. HER VITALS THIS MORNING ARE: 98.5-66-18-92%-108/51. LABS WERE OBTAINED THIS MORNING. ABNORMAL LAB VALUES INCLUDE THE FOLLOWING: WBC 2.4, RBC 2.91, HGB 9.2, HCT 27.0, PLT COUNT 27, CREATININE 0.52, CALCIUM 8.3, TOTAL BILI 1.40, ALK PHOS 139, TOTAL PROTEIN 5.7, ALBUMIN 2.0. URINE CULTURE IS PENDING. SHE IS CURRENTLY RECEIVING CEFDINIR 300MG PO Q12H, LACTULOSE 30ML PO BID, SPIRONOLACTONE 100MG PO DAILY, PROTONIX 40MG PO DAILY, ZOLOFT 50MG PO DAILY, AND TRAMADOL 50MG PO BID. WE WILL CONTINUE WITH CURRENT PLAN OF CARE TODAY. TIME SPENT ON CLINICAL ASSESSMENT, REVIEWING LABS AND IMAGING, DECISION MAKING, AND DOCUMENTATION GREATER THAN 45 MINUTES. - Past Medical Family Social History Past Med/Fam/Surg Hx: No changes since H&P Allergies: Allergies codeine Allergy (Verified 03/01/17 23:55) levofloxacin [From Levaquin] Allergy (Verified 03/01/17 23:55) Penicillins Allergy (Verified 03/01/17 23:55) Sulfa (Sulfonamide Antibiotics) [SULFA] Allergy (Verified 03/01/17 23:55) - Review of Systems ROS: No change since H&P - Vital Signs and I&O's Vital Signs: Temperature 98.5 F Pulse Rate [Left Brachial] 66 Pulse Rate [Right Brachial] 69 Respiratory Rate 20 Blood Pressure [Left Arm] 108/51 Blood Pressure [Right Arm] 123/58 O2 Sat by Pulse Oximetry 92 Intake and Output: Intake & Output 06/22/21 06/23/21 06/24/21 06/25/21 11:59 11:59 11:59 11:59 Intake Total 1620 / 1620 2471 / 2471 1176 / 1176 1360 / 1360 Balance 1620 / 1620 2471 / 2471 1176 / 1176 1360 / 1360 - Physical Exam Oriented: Normal Eyes: Normal Ear: Normal Nose: Normal Throat: Normal Respiratory: Generalized, Diminished Cardiovascular: Normal : Normal Auscultation: Bowel Sounds: Normal Palpation: Normal Tenderness: Normal Skin: Normal Musculoskeletal: Back:Thoracic, Tender Psychiatric: Normal Mood Description: Calm Affect: Normal Speech Pattern: Clear, Appropriate - Laboratory and Diagnostics Result Diagrams: 06/25/21 04:55 06/25/21 04:55 Labs: Laboratory WBC 2.4 X10^3/uL (3.6-10.0) L 06/25/21 04:55 RBC 2.91 X10^6/uL (3.5-5.4) L 06/25/21 04:55 Hgb 9.2 g/dL (12.0-16.0) L 06/25/21 04:55 Hct 27.0 % (36.0-47.0) L 06/25/21 04:55 MCV 92.8 fL (80.0-100.0) 06/25/21 04:55 MCH 31.7 pg (27.0-34.0) 06/25/21 04:55 MCHC 34.1 g/dL (33.0-35.0) 06/25/21 04:55 RDW 14.2 % (11.6-16.5) 06/25/21 04:55 Plt Count 27 X10^3/uL (150.0-450.0) L 06/25/21 04:55 Plt Count Comment Decreased (ADEQUATE) A 06/25/21 04:55 MPV 9.8 fL (7.4-11.0) 06/25/21 04:55 Neut % (Auto) 59.7 % (42.0-75.0) 06/25/21 04:55 Lymph % (Auto) 23.2 % (21.0-51.0) 06/25/21 04:55 [place] % (Auto) 11.5 % (0.0-13.0) 06/25/21 04:55 Eos % (Auto) 4.9 % (0.9-2.9) H 06/25/21 04:55 Baso % (Auto) 0.7 % (0.2-1.0) 06/25/21 04:55 Neut # (Auto) 1.5 x10^3/uL (2.2-4.8) L 06/25/21 04:55 Lymph # (Auto) 0.6 X10^3/uL (1.3-2.9) L 06/25/21 04:55 [place] # (Auto) 0.3 x10^3/uL (0.3-0.8) 06/25/21 04:55 Eos # (Auto) 0.1 x10^3/uL (0.0-0.2) 06/25/21 04:55 Baso # (Auto) 0.0 X10^3/uL (0.0-0.1) 06/25/21 04:55 Absolute Nucleated RBC 0.1 /100WBC 06/25/21 04:55 Total Counted 100 06/25/21 04:55 Neutrophils % (Manual) 62 % (39-76) 06/25/21 04:55 Lymphocytes % (Manual) 26 % (13-43) 06/25/21 04:55 Monocytes % (Manual) 8 % (4-9) 06/25/21 04:55 Eosinophils % (Manual) 4 % (0-6) 06/25/21 04:55 Plt Morphology Comment Normal (NORMAL) 06/25/21 04:55 RBC Morphology Normal (NORMAL) 06/25/21 04:55 Sodium 137 mmol/L (136-145) 06/25/21 04:55 Corrected Sodium TNP 06/25/21 04:55 Potassium 4.5 mmol/L (3.5-5.1) 06/25/21 04:55 Chloride 105 mmol/L (98-107) 06/25/21 04:55 Carbon Dioxide 27.3 mmol/L (21-32) 06/25/21 04:55 BUN 7 mg/dL (7-18) 06/25/21 04:55 Creatinine 0.52 mg/dL (0.55-1.02) L 06/25/21 04:55 Est GFR (MDRD) Af Amer > 60 (>60) 06/25/21 04:55 Est GFR (MDRD) Non-Af > 60 (>60) 06/25/21 04:55 Glucose 74 mg/dL (65-99) 06/25/21 04:55 Calcium 8.3 mg/dL (8.5-10.1) L 06/25/21 04:55 Corrected Calcium 9.9 mg/dL (8.5-10.1) 06/25/21 04:55 Total Bilirubin 1.40 mg/dL (0.2-1.0) H 06/25/21 04:55 AST 56 Units/L (15-37) H 06/25/21 04:55 ALT 29 Units/L (12-78) 06/25/21 04:55 Alkaline Phosphatase 139 Units/L (46-116) H 06/25/21 04:55 Ammonia 33 umol/L (11-32) H 06/22/21 05:16 Total Protein 5.7 g/dL (6.4-8.2) L 06/25/21 04:55 Albumin 2.0 g/dL (3.4-5.0) L 06/25/21 04:55 Globulin 3.7 g/dL (2.5-4.5) 06/25/21 04:55 Albumin/Globulin Ratio 0.5 Ratio (1.1-2.1) L 06/25/21 04:55 - Plan (1) Urinary tract infection Status: Acute Qualifiers: Urinary tract infection type: acute cystitis Hematuria presence: without hematuria Qualified Code(s): N30.00 - Acute cystitis without hematuria (2) Compression fx, thoracic spine Status: Acute Qualifiers: Thoracic vertebra fracture level: T12 Fracture healing: with routine healing (3) Generalized weakness Status: Acute (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
[2021-06-26] MEDS: OMNICEF CAP 300 MG PO SCH ×2 (10:00→20:53)
[2021-06-26] MEDS: VITAMIN D3 125 mcg (5,000 UNITS) PO SCH (10:00)
[2021-06-26] MEDS: ZOLOFT PO SCH (10:00)
[2021-06-26] MEDS: ULTRAM PO SCH ×2 (10:00→20:52)
[2021-06-26] MEDS: ZINC SULFATE PO SCH (10:00)
[2021-06-26] MEDS: ALDACTONE TAB 25 MG PO SCH (10:00)
[2021-06-26] MEDS: PROTONIX TAB 40 MG PO SCH (10:00)
[2021-06-26] MEDS: CHRONULAC PO SCH ×2 (10:00→20:52)
[2021-06-26] MEDS: TAB-A-VITE PO SCH (10:00)
[2021-06-27 06:11] LABS: BASOPHILS % (AUTO) 0.8 % (0.2-1.0); EOSINOPHILS # (AUTO) 0.1 x10^3/uL (0.0-0.2); EOSINOPHILS % (AUTO) 5.1 % (0.9-2.9); HEMATOCRIT 26.7 % (36.0-47.0); HEMOGLOBIN 9.2 g/dL (12.0-16.0); LYMPHOCYTES # (AUTO) 0.6 X10^3/uL (1.3-2.9); LYMPHOCYTES % (AUTO) 25.9 % (21.0-51.0); MEAN CORPUSCULAR HEMOGLOBIN 32.1 pg (27.0-34.0); MEAN CORPUSCULAR HGB CONC 34.4 g/dL (33.0-35.0); MEAN CORPUSCULAR VOLUME 93.3 fL (80.0-100.0); MONOCYTES # (AUTO) 0.3 x10^3/uL (0.3-0.8); MONOCYTES % (AUTO) 13.1 % (0.0-13.0); NEUTROPHILS # (AUTO) 1.3 x10^3/uL (2.2-4.8); NEUTROPHILS % (AUTO) 55.1 % (42.0-75.0); RED BLOOD COUNT 2.86 X10^6/uL (3.5-5.4); RED CELL DISTRIBUTION WIDTH 14.5 % (11.6-16.5); WHITE BLOOD COUNT 2.4 X10^3/uL (3.6-10.0)
[2021-06-27 06:40] LABS: ALANINE AMINOTRANSFERASE 29 Units/L (12-78); ALBUMIN 2.1 g/dL (3.4-5.0); ALKALINE PHOSPHATASE 146 Units/L (46-116); ASPARTATE AMINO TRANSFERASE 55 Units/L (15-37); BLOOD UREA NITROGEN 9 mg/dL (7-18); CALCIUM 8.3 mg/dL (8.5-10.1); CARBON DIOXIDE 28.8 mmol/L (21-32); CHLORIDE 106 mmol/L (98-107); COR CA(FOR HYPOALB) 9.8 mg/dL (8.5-10.1); CREATININE 0.64 mg/dL (0.55-1.02); SODIUM 139 mmol/L (136-145); TOTAL PROTEIN 5.8 g/dL (6.4-8.2); eGFR NON BLACK RACES > 60 (>60)
[2021-06-27 07:00] LABS: PLATELET MORPHOLOGY COMMENT NORMAL (NORMAL)
[2021-06-27] MEDS: ZOLOFT PO SCH (09:10)
[2021-06-27] MEDS: ULTRAM PO SCH (09:10)
[2021-06-27] MEDS: ZINC SULFATE PO SCH (09:10)
[2021-06-27] MEDS: OMNICEF CAP 300 MG PO SCH ×2 (09:10→20:43)
[2021-06-27] MEDS: TAB-A-VITE PO SCH (09:10)
[2021-06-27] MEDS: VITAMIN D3 125 mcg (5,000 UNITS) PO SCH (09:10)
[2021-06-27] MEDS: ALDACTONE TAB 25 MG PO SCH (09:10)
[2021-06-27] MEDS: PROTONIX TAB 40 MG PO SCH (09:10)
[2021-06-27] MEDS: CHRONULAC PO SCH ×2 (09:10→20:42)
[2021-06-27] MEDS ORDERED: BUTT CREAM (COMPOUND) ONE (15:37)
[2021-06-27] MEDS ORDERED: BUTT CREAM (COMPOUND) TOP PRN (16:30)
[2021-06-27] MEDS ORDERED: ULTRAM PO PRN (19:53)
[2021-06-28] MEDS: TAB-A-VITE PO SCH (08:48)
[2021-06-28] MEDS: PROTONIX TAB 40 MG PO SCH (08:48)
[2021-06-28] MEDS: CHRONULAC PO SCH ×2 (08:48→22:08)
[2021-06-28] MEDS: OMNICEF CAP 300 MG PO SCH ×2 (08:48→22:08)
[2021-06-28] MEDS: ALDACTONE TAB 25 MG PO SCH (08:48)
[2021-06-28] MEDS: VITAMIN D3 125 mcg (5,000 UNITS) PO SCH (08:49)
[2021-06-28] MEDS: ZINC SULFATE PO SCH (08:49)
[2021-06-28] MEDS: ZOLOFT PO SCH (08:49)
--- NOTE | 2021-06-28 08:51 | PCM.PROG ---
Progress Note - Progress Note for Day of Date of Exam: 06/28/21 - Subjective Subjective: WAS ADMITTED TO [facility] FOR PHYSICAL THERAPY AND REHAB. SHE IS ALSO STILL RECEIVING TREATMENT FOR UTI, PAIN MANAGEMENT FOR COMPRESSION FRACTURE, AND FOR NON-ALCOHOLIC CIRRHOSIS. TODAY, SHE IS ALERT AND ORIENTED, SITTING UP IN BED ON MORNING ROUNDS. SHE DOES ANSWER QUESTIONS AND FOLLOW COMMANDS APPROPRIATELY THIS MORNING. STAFF REPORTS THAT SHE CONTINUES TO REQUIRES ASSISTANCE WITH AMBULATION. PATIENT HAS BEEN COMPLIANT WITH PHYSICAL THERAPY. ON EXAMINATION, HEART IS REGULAR IN RATE AND RHYTHM. BILATERAL LUNGS NOTED WITH DIMINISHED LUNG SOUNDS THOUGHOUT. ABDOMEN ROUND, SOFT, AND NON-TENDER WITH NORMAL BOWEL SOUNDS NOTED IN ALL QUADRANTS. TENDERNESS NOTED TO THORACIC SPINE. HER VITALS THIS MORNING ARE: 98.4-68-18-93%-99/50. LABS WERE OBTAINED THIS MORNING. ABNORMAL LAB VALUES INCLUDE THE FOLLOWING: WBC 2.4, RBC 2.86, HGB 9.2, HCT 26.7, PLT COUNT 27, CALCIUM 8.3, TOTAL BILI 1.40, AST 55, ALK PHOS 146, TOTAL PROTEIN 5.8, ALBUMIN 2.1. URINE CULTURE IS PENDING. SHE IS CURRENTLY RECEIVING CEFDINIR 300MG PO Q12H, LACTULOSE 30ML PO BID, SPIRONOLACTONE 100MG PO DAILY, PROTONIX 40MG PO DAILY, ZOLOFT 50MG PO DAILY, AND TRAMADOL 50MG PO BID PRN. WE WILL CONTINUE WITH CURRENT PLAN OF CARE TODAY. TIME SPENT ON CLINICAL ASSESSMENT, REVIEWING LABS AND IMAGING, DECISION MAKING, AND DOCUMENTATION GREATER THAN 45 MINUTES. - Past Medical Family Social History Past Med/Fam/Surg Hx: No changes since H&P Allergies: Allergies codeine Allergy (Verified 03/01/17 23:55) levofloxacin [From Levaquin] Allergy (Verified 03/01/17 23:55) Penicillins Allergy (Verified 03/01/17 23:55) Sulfa (Sulfonamide Antibiotics) [SULFA] Allergy (Verified 03/01/17 23:55) - Review of Systems ROS: No change since H&P - Vital Signs and I&O's Vital Signs: Temperature 98.4 F Pulse Rate [Left Brachial] 68 Pulse Rate [Right Brachial] 69 Respiratory Rate 18 Blood Pressure [Left Arm] 99/50 Blood Pressure [Right Arm] 123/58 O2 Sat by Pulse Oximetry 93 Intake and Output: Intake & Output 01/17/22 01/18/22 01/19/22 01/20/22 11:59 11:59 11:59 11:59 Intake Total 1360 / 1360 1380 / 1380 2019 1440 / 1440 Balance 1360 / 1360 1380 / 1380 2019 1440 / 1440 - Physical Exam Oriented: Normal Eyes: Normal Ear: Normal Nose: Normal Throat: Normal Respiratory: Generalized, Diminished Cardiovascular: Normal : Normal Auscultation: Bowel Sounds: Normal Palpation: Normal Tenderness: Normal Skin: Normal Musculoskeletal: Back:Thoracic, Tender Psychiatric: Normal Mood Description: Calm Affect: Normal Speech Pattern: Clear, Appropriate - Laboratory and Diagnostics Result Diagrams: 06/27/21 05:09 06/27/21 05:09 Labs: Laboratory WBC 2.4 X10^3/uL (3.6-10.0) L 06/27/21 05:09 RBC 2.86 X10^6/uL (3.5-5.4) L 06/27/21 05:09 Hgb 9.2 g/dL (12.0-16.0) L 06/27/21 05:09 Hct 26.7 % (36.0-47.0) L 06/27/21 05:09 MCV 93.3 fL (80.0-100.0) 06/27/21 05:09 MCH 32.1 pg (27.0-34.0) 06/27/21 05:09 MCHC 34.4 g/dL (33.0-35.0) 06/27/21 05:09 RDW 14.5 % (11.6-16.5) 06/27/21 05:09 Plt Count 27 X10^3/uL (150.0-450.0) L 06/27/21 05:09 Plt Count Comment Decreased (ADEQUATE) A 06/27/21 05:09 MPV 10.0 fL (7.4-11.0) 06/27/21 05:09 Neut % (Auto) 55.1 % (42.0-75.0) 06/27/21 05:09 Lymph % (Auto) 25.9 % (21.0-51.0) 06/27/21 05:09 [place] % (Auto) 13.1 % (0.0-13.0) H 06/27/21 05:09 Eos % (Auto) 5.1 % (0.9-2.9) H 06/27/21 05:09 Baso % (Auto) 0.8 % (0.2-1.0) 06/27/21 05:09 Neut # (Auto) 1.3 x10^3/uL (2.2-4.8) L 06/27/21 05:09 Lymph # (Auto) 0.6 X10^3/uL (1.3-2.9) L 06/27/21 05:09 [place] # (Auto) 0.3 x10^3/uL (0.3-0.8) 06/27/21 05:09 Eos # (Auto) 0.1 x10^3/uL (0.0-0.2) 06/27/21 05:09 Baso # (Auto) 0.0 X10^3/uL (0.0-0.1) 06/27/21 05:09 Absolute Nucleated RBC 0.0 /100WBC 06/27/21 05:09 Total Counted 25 06/27/21 05:09 Neutrophils % (Manual) 54 % (39-76) 06/27/21 05:09 Lymphocytes % (Manual) 35 % (13-43) 06/27/21 05:09 Monocytes % (Manual) 12 % (4-9) H 06/27/21 05:09 Eosinophils % (Manual) 4 % (0-6) 06/25/21 04:55 Plt Morphology Comment Normal (NORMAL) 06/27/21 05:09 RBC Morphology Normal (NORMAL) 06/27/21 05:09 Sodium 139 mmol/L (136-145) 06/27/21 05:09 Corrected Sodium TNP 06/27/21 05:09 Potassium 4.5 mmol/L (3.5-5.1) 06/27/21 05:09 Chloride 106 mmol/L (98-107) 06/27/21 05:09 Carbon Dioxide 28.8 mmol/L (21-32) 06/27/21 05:09 BUN 9 mg/dL (7-18) 06/27/21 05:09 Creatinine 0.64 mg/dL (0.55-1.02) 06/27/21 05:09 Est GFR (MDRD) Af Amer > 60 (>60) 06/27/21 05:09 Est GFR (MDRD) Non-Af > 60 (>60) 06/27/21 05:09 Glucose 72 mg/dL (65-99) 06/27/21 05:09 Calcium 8.3 mg/dL (8.5-10.1) L 06/27/21 05:09 Corrected Calcium 9.8 mg/dL (8.5-10.1) 06/27/21 05:09 Total Bilirubin 1.40 mg/dL (0.2-1.0) H 06/27/21 05:09 AST 55 Units/L (15-37) H 06/27/21 05:09 ALT 29 Units/L (12-78) 06/27/21 05:09 Alkaline Phosphatase 146 Units/L (46-116) H 06/27/21 05:09 Ammonia 33 umol/L (11-32) H 06/22/21 05:16 Total Protein 5.8 g/dL (6.4-8.2) L 06/27/21 05:09 Albumin 2.1 g/dL (3.4-5.0) L 06/27/21 05:09 Globulin 3.7 g/dL (2.5-4.5) 06/27/21 05:09 Albumin/Globulin Ratio 0.6 Ratio (1.1-2.1) L 06/27/21 05:09 - Plan (1) Urinary tract infection Status: Acute Qualifiers: Urinary tract infection type: acute cystitis Hematuria presence: without hematuria Qualified Code(s): N30.00 - Acute cystitis without hematuria (2) Compression fx, thoracic spine Status: Acute Qualifiers: Thoracic vertebra fracture level: T12 Fracture healing: with routine healing (3) Generalized weakness Status: Acute (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
[2021-06-29] MEDS: TAB-A-VITE PO SCH (08:59)
[2021-06-29] MEDS: PROTONIX TAB 40 MG PO SCH (08:59)
[2021-06-29] MEDS: OMNICEF CAP 300 MG PO SCH ×2 (08:59→21:28)
[2021-06-29] MEDS: ALDACTONE TAB 25 MG PO SCH (08:59)
[2021-06-29] MEDS: ZINC SULFATE PO SCH (08:59)
[2021-06-29] MEDS: CHRONULAC PO SCH ×2 (09:00→21:27)
[2021-06-29] MEDS: ZOLOFT PO SCH (09:00)
[2021-06-29] MEDS: VITAMIN D3 125 mcg (5,000 UNITS) PO SCH (09:00)
[2021-06-30] MEDS ORDERED: TAB-A-VITE PO ONE (09:00)
[2021-06-30] MEDS ORDERED: VITAMIN D3 125 mcg (5,000 UNITS) PO ONE (09:00)
[2021-06-30] MEDS ORDERED: OMNICEF CAP 300 MG PO ONE (09:00)
[2021-06-30] MEDS: ALDACTONE TAB 25 MG PO SCH (14:59)
[2021-06-30] MEDS: CHRONULAC PO SCH ×2 (14:59→21:47)
[2021-06-30] MEDS: OMNICEF CAP 300 MG PO SCH ×2 (14:59→21:48)
[2021-06-30] MEDS: ZOLOFT PO SCH (15:00)
[2021-06-30] MEDS: VITAMIN D3 125 mcg (5,000 UNITS) PO SCH (15:00)
[2021-06-30] MEDS: PROTONIX TAB 40 MG PO SCH (15:00)
[2021-06-30] MEDS: TAB-A-VITE PO SCH (15:00)
[2021-06-30] MEDS: ZINC SULFATE PO SCH (15:00)
[2021-07-01] MEDS: ALDACTONE TAB 25 MG PO SCH (08:12)
[2021-07-01] MEDS: TAB-A-VITE PO SCH (08:13)
[2021-07-01] MEDS: OMNICEF CAP 300 MG PO SCH ×2 (08:13→20:52)
[2021-07-01] MEDS: CHRONULAC PO SCH ×2 (08:13→20:52)
[2021-07-01] MEDS: ZOLOFT PO SCH (08:13)
[2021-07-01] MEDS: PROTONIX TAB 40 MG PO SCH (08:13)
[2021-07-01] MEDS: VITAMIN D3 125 mcg (5,000 UNITS) PO SCH (08:13)
[2021-07-01] MEDS: ZINC SULFATE PO SCH (08:13)
[2021-07-02 06:01] LABS: BASOPHILS % (AUTO) 1.1 % (0.2-1.0); EOSINOPHILS # (AUTO) 0.1 x10^3/uL (0.0-0.2); EOSINOPHILS % (AUTO) 5.4 % (0.9-2.9); HEMATOCRIT 26.4 % (36.0-47.0); HEMOGLOBIN 9.2 g/dL (12.0-16.0); LYMPHOCYTES # (AUTO) 0.7 X10^3/uL (1.3-2.9); LYMPHOCYTES % (AUTO) 26.4 % (21.0-51.0); MEAN CORPUSCULAR HEMOGLOBIN 32.1 pg (27.0-34.0); MEAN CORPUSCULAR HGB CONC 34.6 g/dL (33.0-35.0); MEAN CORPUSCULAR VOLUME 92.8 fL (80.0-100.0); MEAN PLATELET VOLUME 10.6 fL (7.4-11.0); MONOCYTES # (AUTO) 0.4 x10^3/uL (0.3-0.8); MONOCYTES % (AUTO) 13.6 % (0.0-13.0); NEUTROPHILS # (AUTO) 1.4 x10^3/uL (2.2-4.8); NEUTROPHILS % (AUTO) 53.5 % (42.0-75.0); RED BLOOD COUNT 2.85 X10^6/uL (3.5-5.4); RED CELL DISTRIBUTION WIDTH 14.6 % (11.6-16.5); WHITE BLOOD COUNT 2.6 X10^3/uL (3.6-10.0)
[2021-07-02 06:03] LABS: AMMONIA 79 umol/L (11-32)
[2021-07-02 06:05] LABS: BLOOD UREA NITROGEN 11 mg/dL (7-18); CALCIUM 8.4 mg/dL (8.5-10.1); CARBON DIOXIDE 26.5 mmol/L (21-32); CHLORIDE 106 mmol/L (98-107); CREATININE 0.65 mg/dL (0.55-1.02); SODIUM 138 mmol/L (136-145); eGFR NON BLACK RACES > 60 (>60)
[2021-07-02 06:44] LABS: ALANINE AMINOTRANSFERASE 28 Units/L (12-78); ALKALINE PHOSPHATASE 146 Units/L (46-116); ASPARTATE AMINO TRANSFERASE 60 Units/L (15-37); TOTAL PROTEIN 5.7 g/dL (6.4-8.2)
[2021-07-02] MEDS: ALDACTONE TAB 25 MG PO SCH (09:11)
[2021-07-02] MEDS: CHRONULAC PO SCH ×2 (09:11→20:28)
[2021-07-02] MEDS: OMNICEF CAP 300 MG PO SCH ×2 (09:12→20:28)
[2021-07-02] MEDS: VITAMIN D3 125 mcg (5,000 UNITS) PO SCH (09:12)
[2021-07-02] MEDS: ZINC SULFATE PO SCH (09:12)
[2021-07-02] MEDS: ZOLOFT PO SCH (09:12)
[2021-07-02] MEDS: TAB-A-VITE PO SCH (09:12)
[2021-07-02] MEDS: PROTONIX TAB 40 MG PO SCH (09:12)
--- NOTE | 2021-07-02 15:11 | PCM.PROG ---
Progress Note - Progress Note for Day of Date of Exam: 07/02/21 - Subjective Subjective: WAS ADMITTED TO [facility] FOR PHYSICAL THERAPY AND REHAB. SHE IS ALSO RECEIVING TREATMENT FOR PAIN MANAGEMENT FOR COMPRESSION FRACTURE, AND FOR NON-ALCOHOLIC CIRRHOSIS. TODAY, SHE IS ALERT AND ORIENTED, SITTING UP IN BED ON MORNING ROUNDS. SHE DOES ANSWER QUESTIONS AND FOLLOW COMMANDS APPROPRIATELY THIS MORNING. STAFF REPORTS THAT SHE CONTINUES TO REQUIRES ASSISTANCE WITH AMBULATION. PATIENT HAS BEEN COMPLIANT WITH PHYSICAL THERAPY. ON EXAMINATION, HEART IS REGULAR IN RATE AND RHYTHM. BILATERAL LUNGS NOTED WITH DIMINISHED LUNG SOUNDS THOUGHOUT. ABDOMEN ROUND, SOFT, AND NON-TENDER WITH NORMAL BOWEL SOUNDS NOTED IN ALL QUADRANTS. TENDERNESS NOTED TO THORACIC SPINE. HER VITALS THIS MORNING ARE: 98.2-72-20-93%-115/58. LABS WERE OBTAINED THIS MORNING. ABNORMAL LAB VALUES INCLUDE THE FOLLOWING: WBC 2.6, RBC 2.85, HGB 9.2, HCT 26.4, PLT COUNT 35, CALCIUM 8.4, TOTAL BILI 1.50, AST 60, ALK PHOS 146, AMMONIA 79, TOTAL PROTEIN 5.7, ALBUMIN 2.0. URINE CULTURE IS PENDING. SHE IS CURRENTLY RECEIVING CEFDINIR 300MG PO Q12H, LACTULOSE 30ML PO BID, SPIRONOLACTONE 100MG PO DAILY, PROTONIX 40MG PO DAILY, ZOLOFT 50MG PO DAILY, AND TRAMADOL 50MG PO BID PRN. WE WILL CONTINUE WITH CURRENT PLAN OF CARE TODAY. TIME SPENT ON CLINICAL ASSESSMENT, REVIEWING LABS AND IMAGING, DECISION MAKING, AND DOCUMENTATION GREATER THAN 45 MINUTES. - Past Medical Family Social History Past Med/Fam/Surg Hx: No changes since H&P Allergies: Allergies codeine Allergy (Verified 03/01/17 23:55) levofloxacin [From Levaquin] Allergy (Verified 03/01/17 23:55) Penicillins Allergy (Verified 03/01/17 23:55) Sulfa (Sulfonamide Antibiotics) [SULFA] Allergy (Verified 03/01/17 23:55) - Review of Systems ROS: No change since H&P - Vital Signs and I&O's Vital Signs: Temperature 98.2 F Pulse Rate [Left Brachial] 72 Pulse Rate [Right Brachial] 68 Respiratory Rate 20 Blood Pressure [Left Arm] 115/58 Blood Pressure [Right Arm] 102/50 O2 Sat by Pulse Oximetry 93 Intake and Output: Intake & Output 01/22/22 01/23/22 01/24/22 01/25/22 11:59 11:59 11:59 11:59 Intake Total 480 / 480 1440 / 1440 1040 / 1040 Balance 480 / 480 1440 / 1440 1040 / 1040 - Physical Exam Oriented: Normal Eyes: Normal Ear: Normal Nose: Normal Throat: Normal Respiratory: Generalized, Diminished Cardiovascular: Normal : Normal Auscultation: Bowel Sounds: Normal Tenderness: Normal Skin: Normal Musculoskeletal: Back:Thoracic, Tender Psychiatric: Normal Mood Description: Calm Affect: Normal Speech Pattern: Clear, Appropriate - Laboratory and Diagnostics Result Diagrams: 07/02/21 05:30 07/02/21 05:30 Labs: Laboratory WBC 2.6 X10^3/uL (3.6-10.0) L 07/02/21 05:30 RBC 2.85 X10^6/uL (3.5-5.4) L 07/02/21 05:30 Hgb 9.2 g/dL (12.0-16.0) L 07/02/21 05:30 Hct 26.4 % (36.0-47.0) L 07/02/21 05:30 MCV 92.8 fL (80.0-100.0) 07/02/21 05:30 MCH 32.1 pg (27.0-34.0) 07/02/21 05:30 MCHC 34.6 g/dL (33.0-35.0) 07/02/21 05:30 RDW 14.6 % (11.6-16.5) 07/02/21 05:30 Plt Count 35 X10^3/uL (150.0-450.0) L 07/02/21 05:30 Plt Count Comment Decreased (ADEQUATE) A 06/27/21 05:09 MPV 10.6 fL (7.4-11.0) 07/02/21 05:30 Neut % (Auto) 53.5 % (42.0-75.0) 07/02/21 05:30 Lymph % (Auto) 26.4 % (21.0-51.0) 07/02/21 05:30 [place] % (Auto) 13.6 % (0.0-13.0) H 07/02/21 05:30 Eos % (Auto) 5.4 % (0.9-2.9) H 07/02/21 05:30 Baso % (Auto) 1.1 % (0.2-1.0) H 07/02/21 05:30 Neut # (Auto) 1.4 x10^3/uL (2.2-4.8) L 07/02/21 05:30 Lymph # (Auto) 0.7 X10^3/uL (1.3-2.9) L 07/02/21 05:30 [place] # (Auto) 0.4 x10^3/uL (0.3-0.8) 07/02/21 05:30 Eos # (Auto) 0.1 x10^3/uL (0.0-0.2) 07/02/21 05:30 Baso # (Auto) 0.0 X10^3/uL (0.0-0.1) 07/02/21 05:30 Absolute Nucleated RBC 0.4 /100WBC 07/02/21 05:30 Total Counted 25 06/27/21 05:09 Neutrophils % (Manual) 54 % (39-76) 06/27/21 05:09 Lymphocytes % (Manual) 35 % (13-43) 06/27/21 05:09 Monocytes % (Manual) 12 % (4-9) H 06/27/21 05:09 Eosinophils % (Manual) 4 % (0-6) 06/25/21 04:55 Plt Morphology Comment Normal (NORMAL) 06/27/21 05:09 RBC Morphology Normal (NORMAL) 06/27/21 05:09 Sodium 138 mmol/L (136-145) 07/02/21 05:30 Corrected Sodium TNP 07/02/21 05:30 Potassium 4.9 mmol/L (3.5-5.1) 07/02/21 05:30 Chloride 106 mmol/L (98-107) 07/02/21 05:30 Carbon Dioxide 26.5 mmol/L (21-32) 07/02/21 05:30 BUN 11 mg/dL (7-18) 07/02/21 05:30 Creatinine 0.65 mg/dL (0.55-1.02) 07/02/21 05:30 Est GFR (MDRD) Af Amer > 60 (>60) 07/02/21 05:30 Est GFR (MDRD) Non-Af > 60 (>60) 07/02/21 05:30 Glucose 80 mg/dL (65-99) 07/02/21 05:30 Calcium 8.4 mg/dL (8.5-10.1) L 07/02/21 05:30 Corrected Calcium 10.0 mg/dL (8.5-10.1) 07/02/21 05:30 Total Bilirubin 1.50 mg/dL (0.2-1.0) H 07/02/21 05:30 AST 60 Units/L (15-37) H 07/02/21 05:30 ALT 28 Units/L (12-78) 07/02/21 05:30 Alkaline Phosphatase 146 Units/L (46-116) H 07/02/21 05:30 Ammonia 79 umol/L (11-32) H 07/02/21 05:30 Total Protein 5.7 g/dL (6.4-8.2) L 07/02/21 05:30 Albumin 2.0 g/dL (3.4-5.0) L 07/02/21 05:30 Globulin 3.7 g/dL (2.5-4.5) 07/02/21 05:30 Albumin/Globulin Ratio 0.5 Ratio (1.1-2.1) L 07/02/21 05:30 - Plan (1) Urinary tract infection Status: Acute Qualifiers: Urinary tract infection type: acute cystitis Hematuria presence: without hematuria Qualified Code(s): N30.00 - Acute cystitis without hematuria (2) Compression fx, thoracic spine Status: Acute Qualifiers: Thoracic vertebra fracture level: T12 Fracture healing: with routine healing (3) Generalized weakness Status: Acute (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
[2021-07-03] MEDS: VITAMIN D3 125 mcg (5,000 UNITS) PO SCH (09:31)
[2021-07-03] MEDS: TAB-A-VITE PO SCH (09:32)
[2021-07-03] MEDS: ZINC SULFATE PO SCH (09:32)
[2021-07-03] MEDS: ZOLOFT PO SCH (09:32)
[2021-07-03] MEDS: PROTONIX TAB 40 MG PO SCH (09:33)
[2021-07-03] MEDS: OMNICEF CAP 300 MG PO SCH (09:33)
[2021-07-03] MEDS: CHRONULAC PO SCH ×3 (09:33→21:09)
[2021-07-03] MEDS: ALDACTONE TAB 25 MG PO SCH (09:34)
[2021-07-04] MEDS: CHRONULAC PO SCH ×2 (06:23→13:11)
[2021-07-04 06:37] LABS: BASOPHILS % (AUTO) 0.9 % (0.2-1.0); EOSINOPHILS # (AUTO) 0.1 x10^3/uL (0.0-0.2); HEMATOCRIT 26.9 % (36.0-47.0); HEMOGLOBIN 9.5 g/dL (12.0-16.0); LYMPHOCYTES # (AUTO) 0.7 X10^3/uL (1.3-2.9); LYMPHOCYTES % (AUTO) 22.9 % (21.0-51.0); MEAN CORPUSCULAR HEMOGLOBIN 32.1 pg (27.0-34.0); MEAN CORPUSCULAR HGB CONC 35.1 g/dL (33.0-35.0); MEAN CORPUSCULAR VOLUME 91.4 fL (80.0-100.0); MEAN PLATELET VOLUME 9.5 fL (7.4-11.0); MONOCYTES # (AUTO) 0.5 x10^3/uL (0.3-0.8); MONOCYTES % (AUTO) 14.2 % (0.0-13.0); NEUTROPHILS # (AUTO) 1.9 x10^3/uL (2.2-4.8); RED BLOOD COUNT 2.94 X10^6/uL (3.5-5.4); RED CELL DISTRIBUTION WIDTH 14.4 % (11.6-16.5); WHITE BLOOD COUNT 3.2 X10^3/uL (3.6-10.0)
[2021-07-04 06:55] LABS: AMMONIA 43 umol/L (11-32)
[2021-07-04 07:07] LABS: ALANINE AMINOTRANSFERASE 26 Units/L (12-78); ALKALINE PHOSPHATASE 145 Units/L (46-116); ASPARTATE AMINO TRANSFERASE 61 Units/L (15-37); BLOOD UREA NITROGEN 10 mg/dL (7-18); CALCIUM 8.3 mg/dL (8.5-10.1); CARBON DIOXIDE 25.9 mmol/L (21-32); CHLORIDE 107 mmol/L (98-107); COR CA(FOR HYPOALB) 9.9 mg/dL (8.5-10.1); CREATININE 0.66 mg/dL (0.55-1.02); SODIUM 140 mmol/L (136-145); TOTAL PROTEIN 5.8 g/dL (6.4-8.2); eGFR NON BLACK RACES > 60 (>60)
[2021-07-04 08:41] VITALS: BP 119/56
[2021-07-04] MEDS ORDERED: MEGACE PO SCH (09:00)
[2021-07-04] MEDS: ZOLOFT PO SCH (10:05)
[2021-07-04] MEDS: ALDACTONE TAB 25 MG PO SCH (10:32)
[2021-07-04] MEDS: TAB-A-VITE PO SCH (10:33)
[2021-07-04] MEDS: VITAMIN D3 125 mcg (5,000 UNITS) PO SCH (10:33)
[2021-07-04] MEDS: ZINC SULFATE PO SCH (10:33)
[2021-07-04] MEDS: PROTONIX TAB 40 MG PO SCH (10:33)
== END 2021-07-04 16:20 | DRG 552 ==
LOC: MED/SURG 13:03
PROVIDERS: ADMIT Internal Medicine; ATTEND Internal Medicine

== ENCOUNTER 2021-09-04 14:57 | Inpatient (IN) ==
[2021-09-04 17:56] LABS: EOSINOPHILS # (AUTO) 0.2 x10^3/uL (0.0-0.2); HEMOGLOBIN 9.9 g/dL (12.0-16.0); MEAN CORPUSCULAR HGB CONC 34.6 g/dL (33.0-35.0); MONOCYTES # (AUTO) 0.5 x10^3/uL (0.3-0.8); RED CELL DISTRIBUTION WIDTH 17.7 % (11.6-16.5)
[2021-09-04 18:00] LABS: BASOPHILS % (AUTO) 0.6 % (0.2-1.0); EOSINOPHILS % (AUTO) 2.8 % (0.9-2.9); HEMATOCRIT 28.6 % (36.0-47.0); LYMPHOCYTES # (AUTO) 1.9 X10^3/uL (1.3-2.9); LYMPHOCYTES % (AUTO) 29.3 % (21.0-51.0); MEAN CORPUSCULAR VOLUME 89.6 fL (80.0-100.0); MEAN PLATELET VOLUME 9.3 fL (7.4-11.0); MONOCYTES % (AUTO) 7.4 % (0.0-13.0); NEUTROPHILS # (AUTO) 3.8 x10^3/uL (2.2-4.8); NEUTROPHILS % (AUTO) 59.9 % (42.0-75.0); RED BLOOD COUNT 3.19 X10^6/uL (3.5-5.4); WHITE BLOOD COUNT 6.4 X10^3/uL (3.6-10.0)
[2021-09-04 18:09] LABS: ALANINE AMINOTRANSFERASE 18 Units/L (12-78); ALBUMIN 2.4 g/dL (3.4-5.0); ALKALINE PHOSPHATASE 185 Units/L (46-116); ASPARTATE AMINO TRANSFERASE 66 Units/L (15-37); BLOOD UREA NITROGEN 13 mg/dL (7-18); CALCIUM 8.2 mg/dL (8.5-10.1); CARBON DIOXIDE 24.3 mmol/L (21-32); CHLORIDE 101 mmol/L (98-107); COR CA(FOR HYPOALB) 9.5 mg/dL (8.5-10.1); CREATININE 0.86 mg/dL (0.55-1.02); SODIUM 131 mmol/L (136-145); TOTAL PROTEIN 6.9 g/dL (6.4-8.2); eGFR NON BLACK RACES > 60 (>60)
[2021-09-04 18:14] LABS: AMMONIA 99 umol/L (11-32)
[2021-09-04 18:18] LABS: PLATELET MORPHOLOGY COMMENT NORMAL (NORMAL)
[2021-09-04 19:58] LABS: CKMB % 1.7 % (<4); CREATINE KINASE 59 Units/L (26-192); CREATINE KINASE MB < 1.0 ng/mL (0-4.0)
[2021-09-04] MEDS ORDERED: PHARMACY CONSULT - IVERMECTIN XX SCH (20:00)
[2021-09-04] MEDS: LASIX IVP SCH (21:43)
[2021-09-04] MEDS: LUVOX PO SCH (21:44)
[2021-09-04] MEDS: VITAMIN C PO SCH (21:44)
[2021-09-04] MEDS: ZINC SULFATE PO SCH (21:44)
[2021-09-04] MEDS: ALBUMIN HUMAN 25%- 100 ML 100 ML IV SCH (21:45)
[2021-09-05] MEDS: VITAMIN C PO SCH ×4 (04:13→21:04)
--- NOTE | 2021-09-05 05:45 | RAD ---
PROCEDURE: Chest X-ray 1 View .HISTORY: Dyspnea and COVID-19.TECHNIQUE: AP view .COMPARISON: 06/04/2021.TECHNICAL QUALITY: Satisfactory .FINDINGS:Normal size heart .Mediastinum and hilar regions show no masses or lymphadenopathy .Normal central vascularity .No pulmonary consolidation, masses, pleural fluid, or pneumothorax. Unchanged mildly elevated right hemidiaphragm.No acute bony abnormality .IMPRESSION:Unchanged elevated right hemidiaphragm with no other evidence of active disease.Electronically signed by: Dhruv Monreal (Sep 05, 2021 05:45:34)
[2021-09-05] MEDS ORDERED: NS 100 ML IV 100 ML ONE (06:14)
[2021-09-05 06:32] LABS: EOSINOPHILS # (AUTO) 0.1 x10^3/uL (0.0-0.2); HEMOGLOBIN 7.9 g/dL (12.0-16.0)
[2021-09-05 06:40] LABS: BASOPHILS % (AUTO) 0.5 % (0.2-1.0); HEMATOCRIT 23.8 % (36.0-47.0); LYMPHOCYTES # (AUTO) 0.6 X10^3/uL (1.3-2.9); MEAN CORPUSCULAR HEMOGLOBIN 29.6 pg (27.0-34.0); MEAN CORPUSCULAR HGB CONC 33.1 g/dL (33.0-35.0); MEAN CORPUSCULAR VOLUME 89.4 fL (80.0-100.0); MEAN PLATELET VOLUME 9.1 fL (7.4-11.0); MONOCYTES # (AUTO) 0.4 x10^3/uL (0.3-0.8); MONOCYTES % (AUTO) 11.5 % (0.0-13.0); NEUTROPHILS # (AUTO) 2.4 x10^3/uL (2.2-4.8); RED BLOOD COUNT 2.66 X10^6/uL (3.5-5.4); RED CELL DISTRIBUTION WIDTH 17.7 % (11.6-16.5); WHITE BLOOD COUNT 3.6 X10^3/uL (3.6-10.0)
[2021-09-05 07:03] LABS: ALANINE AMINOTRANSFERASE 13 Units/L (12-78); ALBUMIN 2.2 g/dL (3.4-5.0); ALKALINE PHOSPHATASE 143 Units/L (46-116); ASPARTATE AMINO TRANSFERASE 46 Units/L (15-37); BLOOD UREA NITROGEN 12 mg/dL (7-18); CALCIUM 8.3 mg/dL (8.5-10.1); CHLORIDE 103 mmol/L (98-107); COR CA(FOR HYPOALB) 9.7 mg/dL (8.5-10.1); CREATININE 0.79 mg/dL (0.55-1.02); SODIUM 135 mmol/L (136-145); TOTAL PROTEIN 5.8 g/dL (6.4-8.2); eGFR NON BLACK RACES > 60 (>60)
[2021-09-05] MEDS ORDERED: IVERMECTIN ONE (07:22)
--- NOTE | 2021-09-05 08:28 | CT ---
HISTORYBilateral lower extremity edemaSTUDYCTA chest with contrast for pulmonary emboliTechnique: Axial post-contrast images with coronal, sagittal, and 3 dimensional maximum intensity projection images obtained and evaluated. Dose reduction procedures were used with mA/kv adjusted for body size.COMPARISONNoneFINDINGSThere is no evidence for acute pulmonary thromboembolic disease. Examination of the mediastinum demonstrated no evidence for mediastinal masses, enlarged mediastinal or enlarged hilar adenopathy or significant aortic abnormality. Coronary artery calcifications are present. No pleural effusions are identified. No chest wall or axillary abnormality is identified. Those portions of the upper abdominal organs visualized demonstrated large amount of ascites to be present. The liver suggest a cirrhotic morphology and the spleen is prominent although not grossly enlarged. Portal hypertension may be present. No lytic or blastic skeletal lesions of significance are identified. The right hemidiaphragm is elevated. Examination of the lung chavarria demonstrated changes of centrilobular emphysema. No significant nodules, masses, alveolar infiltrates, areas of consolidation, peribronchial thickening, or bronchiectasis identified. There is a benign calcified granuloma in the right lower lobe.IMPRESSIONNo evidence for acute pulmonary thromboembolic diseaseLungs clearLarge amount of ascitesLiver suggests cirrhotic morphology and the spleen is prominent although not grossly enlarged. Portal hypertension may be present.Centrilobular emphysemaElectronically signed by: BEN SPENCER (Sep 05, 2021 08:28:14)
[2021-09-05] MEDS ORDERED: IVERMECTIN PO SCH (09:00)
[2021-09-05] MEDS: LUVOX PO SCH (10:48)
[2021-09-05] MEDS: ALBUMIN HUMAN 25%- 100 ML 100 ML IV SCH ×2 (10:48→21:02)
[2021-09-05] MEDS: ZINC SULFATE PO SCH ×2 (10:48→21:04)
[2021-09-05] MEDS: LASIX IVP SCH ×2 (10:49→16:52)
--- NOTE | 2021-09-05 12:58 | DR.H&P ---
H&P - History & Physical for Day of: H&P Date: 09/04/21 - Chief Complaint Chief Complaint: GENERALIZED SWELLING, SOB, FATIGUE, WEAKNESS - History of Present Illness History of Present Illness: IS A 71 YEAR OLD PATIENT OF OURS. SHE P RESENTED TO THE OFFICE WITH COMPLAINTS OF SWELLING ALL OVER, INCREASED SHORTNESS OF BREATH, FATIGUE, AND INCREASED WEAKNESS. PATIENT DOES HAVE A PMH OF CHF, CIRRHOSIS, LIVER DISEASE, ANEMIA, GERD, GI BLEED, DEPRESSION, APPENDECTOMY, HYSTERECTOMY, AND BOWEL RESECTION. EXAMINATION REVEALED DIFFUSE SWELLING OF UPPER AND LOWER EXTREMITIES AND ABDOMEN. SHE WAS ADMITTED TO THE HOSPITAL FOR FURTHER EVALUATION AND TREATMENT OF CHF, ANASARCA, AND CIRRHOSIS. ON ARRIVAL, VITALS WERE 97.7-82-20-100%-117/58. LABS WERE OBTAINED. WBC 6.4, RBC 3.19, HGB 9.9, HCT 28.6, PLT COUNT 68, D-DIMER 11.13, SODIUM 131, POTASSIUM 3.9, BUN 13, CREATININE 0.86, GLUCOSE 95, CALCIUM 8.2, TOTAL BILI 3.60, AST 66, ALK PHOS 185, AMMONIA 99, BNP 82.1, CRP 21.90, TOTAL PROTEIN 6.9, ALBUMIN 2.4. CARDIAC ENZYMES WERE WITHIN NORMAL LIMITS. EKG REVEALED: SINUS RHYTHM WITH HR 82. COVID-19 POSITIVE. A CHEST XRAY WAS OBTAINED AND REVEALED: Unchanged elevated right hemidiaphragm with no other evidence of active disease. A CHEST CTA WAS OBTAINED TO RULE OUT PE DUE TO ELEVATED D-DIMER. IT REVEALED: No evidence for acute pulmonary thromboembolic disease. Lungs clear. Large amount of ascites. Liver suggests cirrhotic morphology and the spleen is prominent although not grossly enlarged. Portal hypertension may be present. Centrilobular emphysema. PATIENT REPORT FIRST TESTING POSITIVE FOR COVID-19 3 WEEKS AGO. SHE WAS STARTED ON FUROSEMIDE 40MG IV BID, ALBUMIN 25% IV BID, ASCORBID ACID 1000MG PO Q6H, TESSALON PERLES 200MG PO TID, AND ZINC SULFATE 220MG PO BID. WE WILL RESUME HER HOME MEDICATIONS OF XIFAXAN, TRAMADOL, ROPINIROLE, MEGACE, PROTONIX, POTASSIUM CHLORIDE, FLONASE, AND LACTULOSE. OTHERWISE, WE PLAN TO FOLLOW UP WITH AM LABS AND CONTINUE TO MONITOR. TIME SPENT ON CLINICAL ASSESSMENT, REVIEWING LABS AND IMAGING, DECISION MAKING, AND DOCUMENTATION GREATER THAN 75 MINUTES. - Past Medical History Past Medical History: Anemia, Anxiety, Arthritis, CHF, Depression, Dyslipidemia, GERD Additional Medical History: CIRRHOSIS, Fatty liver, Diverticulitis - Past Surgical History Surgical History: Appendectomy, Bowel Resection, Hysterectomy Additional Surgical History: Colon resection, Partial hysterectomy - Family History Family Medical History: Diabetes Mellitus, Coronary Artery Disease - Social History Does patient currently use any type of tobacco product: No Have you used tobacco products in the last 12 months: No Type of Tobacco Use: None Does any household member use tobacco: No Alcohol Use: None Drug Use: None - Medications Home Medications: codeine Allergy (Verified 03/01/17 23:55) levofloxacin [From Levaquin] Allergy (Verified 03/01/17 23:55) Penicillins Allergy (Verified 03/01/17 23:55) Sulfa (Sulfonamide Antibiotics) [SULFA] Allergy (Verified 03/01/17 23:55) CONTINUE taking the following medications furosemide 60 mg PO DAILY 09/04/21 [History] rifaximin [Xifaxan] 550 mg PO BID 09/04/21 [History] fluticasone propionate [Flonase] 1 mcg INTRANASAL BID 09/05/21 [History] lactulose 20 g PO BID 09/05/21 [History] mometasone [Asmanex Twisthaler] 2 inh INHALATION HS 09/05/21 [History] potassium chloride 10 meq PO DAILY 09/05/21 [History] ropinirole 0.5 mg PO HS 09/05/21 [History] tramadol 50 mg PO TID MDD 2 09/05/21 [History] - Review of Systems Constitutional: Weakness, Other (FATIGUE) Eyes: No Symptoms Reported ENT: No Symptoms Reported Respiratory: See HPI, Cough, Shortness of Breath, SOB with Excertion Cardiovascular: Edema Gastrointestinal: No Symptoms Reported Genitourinary: No Symptoms Reported Musculoskeletal: No Symptoms Reported Skin: No Symptoms Reported Neurological: Weakness - Physical Exam Vital Signs: Temperature 98.2 F Pulse Rate [Right Brachial] 83 Respiratory Rate 22 Blood Pressure [Left Arm] 119/59 O2 Sat by Pulse Oximetry 98 Oriented: Normal Eyes: Normal Ear: Normal Nose: Normal Throat: Normal Respiratory: Diminished Throughout Cardiovascular: Edema (GENERALIZED EDEMA ) : Normal Auscultation: Bowel Sounds: Normal Palpation: Normal Tenderness: Normal Skin: Normal Musculoskeletal: Right, Left, Arm, Leg, Swelling Psychiatric: Normal Mood Description: Calm Affect: Normal Speech Pattern: Clear - Assessment/Plan (1) CHF (congestive heart failure) Qualifiers: Heart failure type: unspecified Heart failure chronicity: acute on chronic Qualified Code(s): I50.9 - Heart failure, unspecified Status: Acute Plan: ADMIT, FUROSEMIDE 40MG IV BID, ALBUMIN 25% IV BID, ASCORBID ACID 1000MG PO Q6H, TESSALON PERLES 200MG PO TID, AND ZINC SULFATE 220MG PO BID, RESUME HOME MEDS (2) Anasarca Status: Acute (3) Cirrhosis of liver Qualifiers: Hepatic cirrhosis type: unspecified hepatic cirrhosis Ascites presence: with ascites Qualified Code(s): K74.60 - Unspecified cirrhosis of liver; R18.8 - Other ascites Status: Acute (4) Hypoalbuminemia Status: Acute (5) COVID-19 Status: Acute (6) Anemia Qualifiers: Anemia type: unspecified type Qualified Code(s): D64.9 - Anemia, unspecified Status: Chronic (7) GERD (gastroesophageal reflux disease) Qualifiers: Esophagitis presence: esophagitis presence not specified Qualified Code(s): K21.9 - Gastro-esophageal reflux disease without esophagitis Status: Chronic - Allergies Allergies/Adverse Reactions: Allergies Allergy/AdvReac Type Severity Reaction Status Date / Time codeine Allergy Verified 03/01/17 23:55 levofloxacin [From Levaquin] Allergy Verified 03/01/17 23:55 Penicillins Allergy Verified 03/01/17 23:55 Sulfa (Sulfonamide Allergy Verified 03/01/17 23:55 Antibiotics) [SULFA]
[2021-09-05] MEDS: TESSALON PERLES PO SCH ×3 (14:00→21:04)
[2021-09-05] MEDS: MICRO K EXTEN CAP 10 MEQ PO SCH (14:00)
[2021-09-05] MEDS: PROTONIX TAB 40 MG PO SCH (14:00)
[2021-09-05] MEDS: ULTRAM PO SCH ×2 (14:00→21:04)
[2021-09-05] MEDS: XIFAXAN PO SCH ×2 (14:00→21:04)
[2021-09-05] MEDS: MEGACE PO SCH ×2 (14:00→21:03)
[2021-09-05] MEDS: CHRONULAC PO SCH ×2 (15:28→21:03)
[2021-09-05] MEDS: FLONASE NASAL SPRAY ENOSTRIL SCH ×2 (16:52→21:03)
[2021-09-05] MEDS ORDERED: MOMETASONE IN SCH (21:00)
[2021-09-05] MEDS ORDERED: [UNRECOGNIZED DRUG - OTHER] IN SCH (21:00)
[2021-09-05] MEDS: REQUIP PO SCH (21:03)
[2021-09-06] MEDS: ULTRAM PO SCH ×3 (05:08→21:25)
[2021-09-06] MEDS: TESSALON PERLES PO SCH ×3 (05:08→21:25)
[2021-09-06] MEDS: VITAMIN C PO SCH ×4 (05:08→20:44)
--- NOTE | 2021-09-06 05:53 | RAD ---
PROCEDURE: Chest X-ray 1 View .HISTORY: Dyspnea.TECHNIQUE: AP view .COMPARISON: 09/05/2021.TECHNICAL QUALITY: Satisfactory .FINDINGS:Normal size heart .Mediastinum and hilar regions show no masses or lymphadenopathy .Normal central vascularity .No pulmonary consolidation, masses, pleural fluid, or pneumothorax. Unchanged elevated right hemidiaphragm.No acute bony abnormality .IMPRESSION:Stable chest.Electronically signed by: Dhruv Monreal (Sep 06, 2021 05:53:20)
[2021-09-06 06:11] LABS: BASOPHILS % (AUTO) 0.9 % (0.2-1.0); EOSINOPHILS # (AUTO) 0.1 x10^3/uL (0.0-0.2); EOSINOPHILS % (AUTO) 3.4 % (0.9-2.9); HEMOGLOBIN 7.7 g/dL (12.0-16.0); LYMPHOCYTES # (AUTO) 0.6 X10^3/uL (1.3-2.9); LYMPHOCYTES % (AUTO) 17.6 % (21.0-51.0); MEAN CORPUSCULAR HEMOGLOBIN 31.4 pg (27.0-34.0); MEAN CORPUSCULAR VOLUME 89.5 fL (80.0-100.0); MEAN PLATELET VOLUME 9.2 fL (7.4-11.0); MONOCYTES # (AUTO) 0.3 x10^3/uL (0.3-0.8); MONOCYTES % (AUTO) 10.1 % (0.0-13.0); NEUTROPHILS # (AUTO) 2.3 x10^3/uL (2.2-4.8); RED BLOOD COUNT 2.46 X10^6/uL (3.5-5.4); RED CELL DISTRIBUTION WIDTH 17.5 % (11.6-16.5); WHITE BLOOD COUNT 3.4 X10^3/uL (3.6-10.0)
[2021-09-06 06:30] LABS: ALANINE AMINOTRANSFERASE 12 Units/L (12-78); ALBUMIN 2.8 g/dL (3.4-5.0); ALKALINE PHOSPHATASE 134 Units/L (46-116); ASPARTATE AMINO TRANSFERASE 44 Units/L (15-37); BLOOD UREA NITROGEN 10 mg/dL (7-18); CALCIUM 8.3 mg/dL (8.5-10.1); CARBON DIOXIDE 28.5 mmol/L (21-32); CHLORIDE 106 mmol/L (98-107); COR CA(FOR HYPOALB) 9.3 mg/dL (8.5-10.1); CREATININE 0.77 mg/dL (0.55-1.02); SODIUM 140 mmol/L (136-145); TOTAL PROTEIN 5.9 g/dL (6.4-8.2); eGFR NON BLACK RACES > 60 (>60)
[2021-09-06 06:56] LABS: AMMONIA 58 umol/L (11-32)
[2021-09-06] MEDS: ALBUMIN HUMAN 25%- 100 ML 100 ML IV SCH ×2 (08:21→20:43)
[2021-09-06] MEDS: LASIX IVP SCH ×2 (08:22→17:45)
[2021-09-06] MEDS: ZINC SULFATE PO SCH ×2 (08:23→20:45)
[2021-09-06] MEDS: MEGACE PO SCH ×2 (08:23→20:44)
[2021-09-06] MEDS: MICRO K EXTEN CAP 10 MEQ PO SCH (08:23)
[2021-09-06] MEDS: PROTONIX TAB 40 MG PO SCH (08:24)
[2021-09-06] MEDS: XIFAXAN PO SCH ×2 (08:24→20:44)
[2021-09-06] MEDS: FLONASE NASAL SPRAY ENOSTRIL SCH ×2 (10:00→20:44)
[2021-09-06] MEDS: CHRONULAC PO SCH ×2 (11:40→20:44)
--- NOTE | 2021-09-06 12:28 | PCM.PROG ---
Progress Note - Progress Note for Day of Date of Exam: 09/06/21 - Subjective Subjective: WAS ADMITTED FOR TREATMENT OF CHF, CIRRHOSIS OF LIVER, ANASARCA, THROMBOCYTOPENIA, HYPOALBUMINEMIA, COVID-19, ANEMIA, AND GERD. SHE FIRST TESTED POSITIVE FOR COVID APPROXIMATELY 3 WEEKS AGO. SHE CONTINUES WITH COMPLAINTS OF SHORTNESS OF BREATH, WEAKNESS, AND GENERALIZED SWELLING TODAY. SHE DENIES SIGNIFICANT SYMPTOMS SINCE ADMISSION. ON EXAMINATION, HEART IS REGULAR IN RATE AND RHYTHM. BILATERAL LUNGS NOTED WITH DIMINISHED LUNG SOUNDS THROUGHOUT. ABDOMEN IS ROUND, SOFT, AND NOTED WITH MILD DIFFUSE TENDERNESS. DIFFUSE 4+ PITTING EDEMA TO UPPER AND LOWER EXTREMITIES NOTED. HER VITALS THIS MORNING ARE: 98.1-79-20-95%-107/58. LABS WERE OBTAINED. WBC 3.4, RBC 2.46, HGB 7.7, HCT 22.0, PLT COUNT 44, SODIUM 140, POTASSIUM 4.0, CHLORIDE 106, BUN 10, CREATININE 0.77, GLUCOSE 85, CALCIUM 8.3, TOTAL BILI 3.10, ALK PHOS 134, AMMONIA 58, CRP 18.20, BNP 167, TOTAL PROTEIN 5.9, ALBUMIN 2.8. A CHEST XRAY WAS REPEATED THIS MORNING AND IS STABLE. SHE IS CURRENTLY RECEIVING FUROSEMIDE 40MG IV BID, ALBUMIN 25% IV BID, ASCORBID ACID 1000MG PO Q6H, TESSALON PERLES 200MG PO TID, AND ZINC SULFATE 220MG PO BID. WE WILL RESUME HER HOME MEDICATIONS OF XIFAXAN, TRAMADOL, ROPINIROLE, MEGACE, PROTONIX, POTASSIUM CHLORIDE, FLONASE, AND LACTULOSE. WE WILL CONTINUE WITH CURRENT PLAN OF CARE TODAY. OTHERWISE, WE PLAN TO FOLLOW UP WITH AM LABS AND CONTINUE TO MONITOR. TIME SPENT ON CLINICAL ASSESSMENT, REVIEWING LABS AND IMAGING, DECISION MAKING, AND DOCUMENTATION GREATER THAN 45 MINUTES. - Past Medical Family Social History Past Med/Fam/Surg Hx: No changes since H&P Allergies: Allergies codeine Allergy (Verified 03/01/17 23:55) levofloxacin [From Levaquin] Allergy (Verified 03/01/17 23:55) Penicillins Allergy (Verified 03/01/17 23:55) Sulfa (Sulfonamide Antibiotics) [SULFA] Allergy (Verified 03/01/17 23:55) - Review of Systems ROS: No change since H&P - Vital Signs and I&O's Vital Signs: Temperature 98.1 F Pulse Rate [Right Brachial] 79 Respiratory Rate 20 Blood Pressure [Left Arm] 107/58 O2 Sat by Pulse Oximetry 95 Intake and Output: Intake & Output 09/04/21 09/05/21 09/06/21 09/07/21 11:59 11:59 11:59 11:59 Intake Total 1220 / 1220 590 / 590 Output Total 100 / 100 Balance 1120 / 1120 590 / 590 - Physical Exam Oriented: Normal Eyes: Normal Ear: Normal Nose: Normal Throat: Normal Cardiovascular: Edema (GENERALIZED EDEMA, 4+ PITTING EDEMA TO UPPER AND LOWER EXTREMITIES) : Normal Auscultation: Bowel Sounds: Normal Palpation: Normal Tenderness: Normal Skin: Normal Musculoskeletal: Right, Left, Arm, Leg, Swelling Psychiatric: Normal Mood Description: Calm Affect: Normal Speech Pattern: Clear, Appropriate - Laboratory and Diagnostics Result Diagrams: 09/06/21 05:36 09/06/21 05:56 Labs: Laboratory WBC 3.4 X10^3/uL (3.6-10.0) L 09/06/21 05:36 RBC 2.46 X10^6/uL (3.5-5.4) L 09/06/21 05:36 Hgb 7.7 g/dL (12.0-16.0) L 09/06/21 05:36 Hct 22.0 % (36.0-47.0) L 09/06/21 05:36 MCV 89.5 fL (80.0-100.0) 09/06/21 05:36 MCH 31.4 pg (27.0-34.0) 09/06/21 05:36 MCHC 35.0 g/dL (33.0-35.0) 09/06/21 05:36 RDW 17.5 % (11.6-16.5) H 09/06/21 05:36 Plt Count 44 X10^3/uL (150.0-450.0) L 09/06/21 05:36 Plt Count Comment Decreased (ADEQUATE) A 09/04/21 17:46 MPV 9.2 fL (7.4-11.0) 09/06/21 05:36 Neut % (Auto) 68.0 % (42.0-75.0) 09/06/21 05:36 Lymph % (Auto) 17.6 % (21.0-51.0) L 09/06/21 05:36 [place] % (Auto) 10.1 % (0.0-13.0) 09/06/21 05:36 Eos % (Auto) 3.4 % (0.9-2.9) H 09/06/21 05:36 Baso % (Auto) 0.9 % (0.2-1.0) 09/06/21 05:36 Neut # (Auto) 2.3 x10^3/uL (2.2-4.8) 09/06/21 05:36 Lymph # (Auto) 0.6 X10^3/uL (1.3-2.9) L 09/06/21 05:36 [place] # (Auto) 0.3 x10^3/uL (0.3-0.8) 09/06/21 05:36 Eos # (Auto) 0.1 x10^3/uL (0.0-0.2) 09/06/21 05:36 Baso # (Auto) 0.0 X10^3/uL (0.0-0.1) 09/06/21 05:36 Absolute Nucleated RBC 0.2 /100WBC 09/06/21 05:36 Plt Morphology Comment Normal (NORMAL) 09/04/21 17:46 RBC Morphology Normal (NORMAL) 09/04/21 17:46 D-Dimer 11.13 ug/ml (0.0-0.57) H* 09/04/21 19:45 Sodium 140 mmol/L (136-145) 09/06/21 05:56 Corrected Sodium TNP 09/06/21 05:56 Potassium 4.0 mmol/L (3.5-5.1) 09/06/21 05:56 Chloride 106 mmol/L (98-107) 09/06/21 05:56 Carbon Dioxide 28.5 mmol/L (21-32) 09/06/21 05:56 BUN 10 mg/dL (7-18) 09/06/21 05:56 Creatinine 0.77 mg/dL (0.55-1.02) 09/06/21 05:56 Est GFR (MDRD) Af Amer > 60 (>60) 09/06/21 05:56 Est GFR (MDRD) Non-Af > 60 (>60) 09/06/21 05:56 Glucose 85 mg/dL (65-99) 09/06/21 05:56 Calcium 8.3 mg/dL (8.5-10.1) L 09/06/21 05:56 Corrected Calcium 9.3 mg/dL (8.5-10.1) 09/06/21 05:56 Total Bilirubin 3.10 mg/dL (0.2-1.0) H 09/06/21 05:56 AST 44 Units/L (15-37) H 09/06/21 05:56 ALT 12 Units/L (12-78) 09/06/21 05:56 Alkaline Phosphatase 134 Units/L (46-116) H 09/06/21 05:56 Ammonia 58 umol/L (11-32) H 09/06/21 05:56 Creatine Kinase 59 Units/L (26-192) 09/04/21 17:46 CK-MB (CK-2) < 1.0 ng/mL (0-4.0) 09/04/21 17:46 CK/CKMB % Calc 1.7 % (<4) 09/04/21 17:46 Troponin I High Sens 12.6 ng/L (4.0-60.0) 09/04/21 17:46 C-Reactive Protein 18.20 mg/L (0-3.0) H 09/06/21 05:56 B-Natriuretic Peptide 167 pg/mL (0-79) H 09/06/21 05:56 Total Protein 5.9 g/dL (6.4-8.2) L 09/06/21 05:56 Albumin 2.8 g/dL (3.4-5.0) L 09/06/21 05:56 Globulin 3.1 g/dL (2.5-4.5) 09/06/21 05:56 Albumin/Globulin Ratio 0.9 Ratio (1.1-2.1) L 09/06/21 05:56 SARS CoV-2 RNA Rapid PRAVEENA Positive (NEGATIVE) A 09/04/21 18:05 - Plan (1) CHF (congestive heart failure) Status: Acute Qualifiers: Heart failure type: unspecified Heart failure chronicity: acute on chronic Qualified Code(s): I50.9 - Heart failure, unspecified Plan: FUROSEMIDE 40MG IV BID, ALBUMIN 25% IV BID, ASCORBID ACID 1000MG PO Q6H, TESSALON PERLES 200MG PO TID, AND ZINC SULFATE 220MG PO BID, RESUME HOME MEDS (2) Anasarca Status: Acute (3) Cirrhosis of liver Status: Acute Qualifiers: Hepatic cirrhosis type: unspecified hepatic cirrhosis Ascites presence: with ascites Qualified Code(s): K74.60 - Unspecified cirrhosis of liver; R18.8 - Other ascites (4) Hypoalbuminemia Status: Acute (5) COVID-19 Status: Acute (6) Anemia Status: Chronic Qualifiers: Anemia type: unspecified type Qualified Code(s): D64.9 - Anemia, un specified (7) GERD (gastroesophageal reflux disease) Status: Chronic Qualifiers: Esophagitis presence: esophagitis presence not specified Qualified Code(s): K21.9 - Gastro-esophageal reflux disease without esophagitis
[2021-09-06] MEDS: REQUIP PO SCH (20:44)
[2021-09-07] MEDS: TESSALON PERLES PO SCH ×3 (05:31→23:06)
[2021-09-07] MEDS: VITAMIN C PO SCH ×4 (05:31→23:09)
[2021-09-07] MEDS: ULTRAM PO SCH ×3 (05:31→23:08)
--- NOTE | 2021-09-07 05:46 | RAD ---
PROCEDURE: Chest X-ray 1 View .HISTORY: Dyspnea.TECHNIQUE: AP view .COMPARISON: 09/06/2021.TECHNICAL QUALITY: Satisfactory .FINDINGS:Normal size heart .Mediastinum and hilar regions show no masses or lymphadenopathy .Normal central vascularity .Continued patchy consolidation left base suspicious for mild pneumonia. Unchanged elevated right hemidiaphragm. Remainder of the lungs are clear. No pleural fluid.No acute bony abnormality .IMPRESSION:Continued mild pneumonia left base.Electronically signed by: Dhruv Monreal (Sep 07, 2021 05:45:49)
[2021-09-07 06:33] LABS: AMMONIA 55 umol/L (11-32); BASOPHILS % (AUTO) 0.6 % (0.2-1.0); EOSINOPHILS # (AUTO) 0.1 x10^3/uL (0.0-0.2); EOSINOPHILS % (AUTO) 4.6 % (0.9-2.9); HEMATOCRIT 21.5 % (36.0-47.0); HEMOGLOBIN 7.6 g/dL (12.0-16.0); LYMPHOCYTES # (AUTO) 0.6 X10^3/uL (1.3-2.9); MEAN CORPUSCULAR HGB CONC 35.1 g/dL (33.0-35.0); MEAN CORPUSCULAR VOLUME 88.4 fL (80.0-100.0); MEAN PLATELET VOLUME 9.7 fL (7.4-11.0); MONOCYTES # (AUTO) 0.3 x10^3/uL (0.3-0.8); MONOCYTES % (AUTO) 10.2 % (0.0-13.0); NEUTROPHILS # (AUTO) 2.1 x10^3/uL (2.2-4.8); NEUTROPHILS % (AUTO) 66.6 % (42.0-75.0); RED BLOOD COUNT 2.43 X10^6/uL (3.5-5.4); RED CELL DISTRIBUTION WIDTH 17.7 % (11.6-16.5); WHITE BLOOD COUNT 3.1 X10^3/uL (3.6-10.0)
[2021-09-07 06:35] LABS: ALANINE AMINOTRANSFERASE 11 Units/L (12-78); ALKALINE PHOSPHATASE 129 Units/L (46-116); ASPARTATE AMINO TRANSFERASE 39 Units/L (15-37); BLOOD UREA NITROGEN 12 mg/dL (7-18); CALCIUM 8.5 mg/dL (8.5-10.1); CARBON DIOXIDE 28.5 mmol/L (21-32); CHLORIDE 105 mmol/L (98-107); COR CA(FOR HYPOALB) 9.3 mg/dL (8.5-10.1); CREATININE 0.81 mg/dL (0.55-1.02); SODIUM 141 mmol/L (136-145); TOTAL PROTEIN 6.1 g/dL (6.4-8.2); eGFR NON BLACK RACES > 60 (>60)
[2021-09-07] MEDS: ALBUMIN HUMAN 25%- 100 ML 100 ML IV SCH ×2 (08:19→23:03)
[2021-09-07] MEDS: MEGACE PO SCH ×2 (08:20→23:08)
[2021-09-07] MEDS: MICRO K EXTEN CAP 10 MEQ PO SCH (08:20)
[2021-09-07] MEDS: FLONASE NASAL SPRAY ENOSTRIL SCH ×2 (08:20→23:12)
[2021-09-07] MEDS: CHRONULAC PO SCH ×2 (08:20→23:06)
[2021-09-07] MEDS: PROTONIX TAB 40 MG PO SCH (08:21)
[2021-09-07] MEDS: ZINC SULFATE PO SCH ×2 (08:21→23:08)
[2021-09-07] MEDS: XIFAXAN PO SCH ×2 (08:21→23:11)
[2021-09-07] MEDS: LASIX IVP SCH ×2 (08:23→18:27)
--- NOTE | 2021-09-07 13:17 | PCM.PROG ---
Progress Note - Progress Note for Day of Date of Exam: 09/07/21 - Subjective Subjective: WAS ADMITTED FOR TREATMENT OF CHF, CIRRHOSIS OF LIVER, ANASARCA, THROMBOCYTOPENIA, HYPOALBUMINEMIA, COVID-19, ANEMIA, AND GERD. SHE FIRST TESTED POSITIVE FOR COVID APPROXIMATELY 3 WEEKS AGO. SHE CONTINUES WITH COMPLAINTS OF SHORTNESS OF BREATH, WEAKNESS, AND GENERALIZED SWELLING TODAY. SHE REPORTS SLIGHT IMPROVEMENT IN SYMPTOMS TODAY. ON EXAMINATION, HEART IS REGULAR IN RATE AND RHYTHM. BILATERAL LUNGS NOTED WITH DIMINISHED LUNG SOUNDS THROUGHOUT. ABDOMEN IS ROUND, SOFT, AND NOTED WITH MILD DIFFUSE TENDERNESS. DIFFUSE 3+ PITTING EDEMA TO UPPER AND LOWER EXTREMITIES NOTED. HER VITALS THIS MORNING ARE: 98.4-78-22-98%RA-117/57. LABS WERE OBTAINED. ABNORMAL LAB VALUES INCLUDE THE FOLLOWING: WBC 3.1, RBC 2.43, HGB 7.6, HCT 21.5, TOTAL BILI 2.80, AST 39, ALT 11, ALK PHOS 129, AMMONIA 55, CRP 20.20, BNP 223, TOTAL PROTEIN 6.1, ALBUMIN 3.0. A CHEST XRAY WAS REPEATED THIS MORNING AND IS STABLE. SHE IS CURRENTLY RECEIVING FUROSEMIDE 40MG IV BID, ALBUMIN 25% IV BID, ASCORBID ACID 1000MG PO Q6H, TESSALON PERLES 200MG PO TID, AND ZINC SULFATE 220MG PO BID. WE RESUMED HER HOME MEDICATIONS OF XIFAXAN, TRAMADOL, ROPINIROLE, MEGACE, PROTONIX, POTASSIUM CHLORIDE, FLONASE, AND LACTULOSE. WE WILL CONTINUE WITH CURRENT PLAN OF CARE TODAY. OTHERWISE, WE PLAN TO FOLLOW UP WITH AM LABS AND CONTINUE TO MONITOR. TIME SPENT ON CLINICAL ASSESSMENT, REVIEWING LABS AND IMAGING, DECISION MAKING, AND DOCUMENTATION GREATER THAN 45 MINUTES. - Past Medical Family Social History Past Med/Fam/Surg Hx: No changes since H&P Allergies: Allergies codeine Allergy (Verified 03/01/17 23:55) levofloxacin [From Levaquin] Allergy (Verified 03/01/17 23:55) Penicillins Allergy (Verified 03/01/17 23:55) Sulfa (Sulfonamide Antibiotics) [SULFA] Allergy (Verified 03/01/17 23:55) - Review of Systems ROS: No change since H&P - Vital Signs and I&O's Vital Signs: Temperature 98.1 F Pulse Rate [Right Brachial] 78 Respiratory Rate 20 Blood Pressure [Left Arm] 112/52 O2 Sat by Pulse Oximetry 97 Intake and Output: Intake & Output 09/05/21 09/06/21 09/07/21 09/08/21 11:59 11:59 11:59 11:59 Intake Total 1220 / 1220 590 / 590 1610 / 1610 Output Total 100 / 100 Balance 1120 / 1120 590 / 590 1610 / 1610 - Physical Exam Oriented: Normal Eyes: Normal Ear: Normal Nose: Normal Throat: Normal Cardiovascular: Edema (GENERALIZED EDEMA, 4+ PITTING EDEMA TO UPPER AND LOWER EXTREMITIES) : Normal Auscultation: Bowel Sounds: Normal Tenderness: Normal Skin: Normal Musculoskeletal: Right, Left, Arm, Leg, Swelling Psychiatric: Normal Mood Description: Calm Affect: Normal Speech Pattern: Clear, Appropriate - Laboratory and Diagnostics Result Diagrams: 09/07/21 05:48 09/07/21 05:48 Labs: Laboratory WBC 3.1 X10^3/uL (3.6-10.0) L 09/07/21 05:48 RBC 2.43 X10^6/uL (3.5-5.4) L 09/07/21 05:48 Hgb 7.6 g/dL (12.0-16.0) L 09/07/21 05:48 Hct 21.5 % (36.0-47.0) L 09/07/21 05:48 MCV 88.4 fL (80.0-100.0) 09/07/21 05:48 MCH 31.0 pg (27.0-34.0) 09/07/21 05:48 MCHC 35.1 g/dL (33.0-35.0) H 09/07/21 05:48 RDW 17.7 % (11.6-16.5) H 09/07/21 05:48 Plt Count 39 X10^3/uL (150.0-450.0) L 09/07/21 05:48 Plt Count Comment Decreased (ADEQUATE) A 09/04/21 17:46 MPV 9.7 fL (7.4-11.0) 09/07/21 05:48 Neut % (Auto) 66.6 % (42.0-75.0) 09/07/21 05:48 Lymph % (Auto) 18.0 % (21.0-51.0) L 09/07/21 05:48 [place] % (Auto) 10.2 % (0.0-13.0) 09/07/21 05:48 Eos % (Auto) 4.6 % (0.9-2.9) H 09/07/21 05:48 Baso % (Auto) 0.6 % (0.2-1.0) 09/07/21 05:48 Neut # (Auto) 2.1 x10^3/uL (2.2-4.8) L 09/07/21 05:48 Lymph # (Auto) 0.6 X10^3/uL (1.3-2.9) L 09/07/21 05:48 [place] # (Auto) 0.3 x10^3/uL (0.3-0.8) 09/07/21 05:48 Eos # (Auto) 0.1 x10^3/uL (0.0-0.2) 09/07/21 05:48 Baso # (Auto) 0.0 X10^3/uL (0.0-0.1) 09/07/21 05:48 Absolute Nucleated RBC 0.0 /100WBC 09/07/21 05:48 Plt Morphology Comment Normal (NORMAL) 09/04/21 17:46 RBC Morphology Normal (NORMAL) 09/04/21 17:46 D-Dimer 11.13 ug/ml (0.0-0.57) H* 09/04/21 19:45 Sodium 141 mmol/L (136-145) 09/07/21 05:48 Corrected Sodium TNP 09/07/21 05:48 Potassium 3.6 mmol/L (3.5-5.1) 09/07/21 05:48 Chloride 105 mmol/L (98-107) 09/07/21 05:48 Carbon Dioxide 28.5 mmol/L (21-32) 09/07/21 05:48 BUN 12 mg/dL (7-18) 09/07/21 05:48 Creatinine 0.81 mg/dL (0.55-1.02) 09/07/21 05:48 Est GFR (MDRD) Af Amer > 60 (>60) 09/07/21 05:48 Est GFR (MDRD) Non-Af > 60 (>60) 09/07/21 05:48 Glucose 87 mg/dL (65-99) 09/07/21 05:48 Calcium 8.5 mg/dL (8.5-10.1) 09/07/21 05:48 Corrected Calcium 9.3 mg/dL (8.5-10.1) 09/07/21 05:48 Total Bilirubin 2.80 mg/dL (0.2-1.0) H 09/07/21 05:48 AST 39 Units/L (15-37) H 09/07/21 05:48 ALT 11 Units/L (12-78) L 09/07/21 05:48 Alkaline Phosphatase 129 Units/L (46-116) H 09/07/21 05:48 Ammonia 55 umol/L (11-32) H 09/07/21 05:48 Creatine Kinase 59 Units/L (26-192) 09/04/21 17:46 CK-MB (CK-2) < 1.0 ng/mL (0-4.0) 09/04/21 17:46 CK/CKMB % Calc 1.7 % (<4) 09/04/21 17:46 Troponin I High Sens 12.6 ng/L (4.0-60.0) 09/04/21 17:46 C-Reactive Protein 20.20 mg/L (0-3.0) H 09/07/21 05:48 B-Natriuretic Peptide 223 pg/mL (0-79) H 09/07/21 05:48 Total Protein 6.1 g/dL (6.4-8.2) L 09/07/21 05:48 Albumin 3.0 g/dL (3.4-5.0) L 09/07/21 05:48 Globulin 3.1 g/dL (2.5-4.5) 09/07/21 05:48 Albumin/Globulin Ratio 1.0 Ratio (1.1-2.1) L 09/07/21 05:48 SARS CoV-2 RNA Rapid PRAVEENA Positive (NEGATIVE) A 09/04/21 18:05 - Plan (1) CHF (congestive heart failure) Status: Acute Qualifiers: Heart failure type: unspecified Heart failure chronicity: acute on chronic Qualified Code(s): I50.9 - Heart failure, unspecified Plan: FUROSEMIDE 40MG IV BID, ALBUMIN 25% IV BID, ASCORBID ACID 1000MG PO Q6H, TESSALON PERLES 200MG PO TID, AND ZINC SULFATE 220MG PO BID, RESUME HOME MEDS (2) Anasarca Status: Acute (3) Cirrhosis of liver Status: Acute Qualifiers: Hepatic cirrhosis type: unspecified hepatic cirrhosis Ascites presence: with ascites Qualified Code(s): K74.60 - Unspecified cirrhosis of liver; R18.8 - Other ascites (4) Hypoalbuminemia Status: Acute (5) COVID-19 Status: Acute (6) Anemia Status: Chronic Qualifiers: Anemia type: unspecified type Qualified Code(s): D64.9 - Anemia, unspecified (7) GERD (gastroesophageal reflux disease) Status: Chronic Qualifiers: Esophagitis presence: esophagitis presence not specified Qualified Code(s): K21.9 - Gastro-esophageal reflux disease without esophagitis
[2021-09-07] MEDS: REQUIP PO SCH (23:07)
[2021-09-08] MEDS: VITAMIN C PO SCH ×4 (03:07→21:03)
[2021-09-08 06:08] LABS: BASOPHILS % (AUTO) 1.1 % (0.2-1.0); EOSINOPHILS # (AUTO) 0.2 x10^3/uL (0.0-0.2); EOSINOPHILS % (AUTO) 5.2 % (0.9-2.9); HEMATOCRIT 20.8 % (36.0-47.0); HEMOGLOBIN 7.2 g/dL (12.0-16.0); LYMPHOCYTES # (AUTO) 0.6 X10^3/uL (1.3-2.9); LYMPHOCYTES % (AUTO) 19.2 % (21.0-51.0); MEAN CORPUSCULAR HEMOGLOBIN 31.1 pg (27.0-34.0); MEAN CORPUSCULAR HGB CONC 34.7 g/dL (33.0-35.0); MEAN CORPUSCULAR VOLUME 89.7 fL (80.0-100.0); MEAN PLATELET VOLUME 9.5 fL (7.4-11.0); MONOCYTES # (AUTO) 0.3 x10^3/uL (0.3-0.8); MONOCYTES % (AUTO) 10.2 % (0.0-13.0); NEUTROPHILS # (AUTO) 1.9 x10^3/uL (2.2-4.8); NEUTROPHILS % (AUTO) 64.3 % (42.0-75.0); RED BLOOD COUNT 2.32 X10^6/uL (3.5-5.4); RED CELL DISTRIBUTION WIDTH 17.6 % (11.6-16.5)
--- NOTE | 2021-09-08 06:11 | RAD ---
HISTORYSOB HX: COLON RESECTIONSTUDYCHEST, 1 [id number] trachea is midline. The cardiac silhouette is unremarkable. There is persistent elevation of the right hemidiaphragm. Patchy consolidation left lung base unchanged. No pneumothorax.. The bony thorax is unremarkable.IMPRESSIONStable portable chest.Electronically signed by: Darnell Lubin (Sep 08, 2021 06:11:45)
[2021-09-08 06:12] LABS: ALANINE AMINOTRANSFERASE 10 Units/L (12-78); ALBUMIN 3.1 g/dL (3.4-5.0); ALKALINE PHOSPHATASE 120 Units/L (46-116); ASPARTATE AMINO TRANSFERASE 41 Units/L (15-37); BLOOD UREA NITROGEN 12 mg/dL (7-18); CALCIUM 8.3 mg/dL (8.5-10.1); CARBON DIOXIDE 29.5 mmol/L (21-32); CHLORIDE 105 mmol/L (98-107); CREATININE 0.73 mg/dL (0.55-1.02); SODIUM 139 mmol/L (136-145); eGFR NON BLACK RACES > 60 (>60)
[2021-09-08] MEDS: ULTRAM PO SCH ×3 (06:18→21:04)
[2021-09-08] MEDS: TESSALON PERLES PO SCH ×3 (06:18→21:03)
[2021-09-08 06:34] LABS: AMMONIA 54 umol/L (11-32)
[2021-09-08] MEDS: ZINC SULFATE PO SCH ×2 (08:46→21:03)
[2021-09-08] MEDS: FLONASE NASAL SPRAY ENOSTRIL SCH ×2 (08:46→21:15)
[2021-09-08] MEDS: ALBUMIN HUMAN 25%- 100 ML 100 ML IV SCH ×2 (08:46→21:04)
[2021-09-08] MEDS: XIFAXAN PO SCH ×2 (08:47→21:03)
[2021-09-08] MEDS: PROTONIX TAB 40 MG PO SCH (08:47)
[2021-09-08] MEDS: MICRO K EXTEN CAP 10 MEQ PO SCH (08:48)
[2021-09-08] MEDS: MEGACE PO SCH ×2 (08:48→21:03)
[2021-09-08] MEDS: LASIX IVP SCH ×2 (08:48→16:35)
[2021-09-08] MEDS: CHRONULAC PO SCH ×2 (08:59→21:04)
--- NOTE | 2021-09-08 10:07 | PCM.PROG ---
Progress Note - Progress Note for Day of Date of Exam: 09/08/21 - Subjective Subjective: WAS ADMITTED FOR TREATMENT OF CHF, CIRRHOSIS OF LIVER, ANASARCA, THROMBOCYTOPENIA, HYPOALBUMINEMIA, COVID-19, ANEMIA, AND GERD. SHE FIRST TESTED POSITIVE FOR COVID APPROXIMATELY 3 WEEKS AGO. SHE CONTINUES WITH COMPLAINTS OF SHORTNESS OF BREATH, WEAKNESS, AND GENERALIZED SWELLING TODAY. ON EXAMINATION, HEART IS REGULAR IN RATE AND RHYTHM. BILATERAL LUNGS NOTED WITH DIMINISHED LUNG SOUNDS THROUGHOUT. ABDOMEN IS ROUND, SOFT, AND NOTED WITH MILD DIFFUSE TENDERNESS. DIFFUSE 3+ PITTING EDEMA TO UPPER AND LOWER EXTREMITIES NOTED. HER VITALS THIS MORNING ARE: 98.7-76-20-96%-110/55. LABS WERE OBTAINED. ABNORMAL LAB VALUES INCLUDE THE FOLLOWING: WBC 3.0, RBC 2.32, HGB 7.2, HCT 20.8, PLT COUNT 35, CALCIUM 8.3, TOTAL BILI 2.70, AST 41, ALT 10, ALK PHOS 120, AMMONIA 54, CRP 18.70, BNP 156, TOTAL PROTEIN 6.0, ALBUMIN 3.1. A CHEST XRAY WAS REPEATED THIS MORNING AND IS STABLE. SHE IS CURRENTLY RECEIVING FUROSEMIDE 40MG IV BID, ALBUMIN 25% IV BID, ASCORBID ACID 1000MG PO Q6H, TESSALON PERLES 200MG PO TID, AND ZINC SULFATE 220MG PO BID. WE RESUMED HER HOME MEDICATIONS OF XIFAXAN, TRAMADOL, ROPINIROLE, MEGACE, PROTONIX, POTASSIUM CHLORIDE, FLONASE, AND LACTULOSE. WE WILL CONTINUE WITH CURRENT PLAN OF CARE TODAY. OTHERWISE, WE PLAN TO FOLLOW UP WITH AM LABS AND CONTINUE TO MONITOR. TIME SPENT ON CLINICAL ASSESSMENT, REVIEWING LABS AND IMAGING, DECISION MAKING, AND DOCUMENTATION G REATER THAN 45 MINUTES. - Past Medical Family Social History Past Med/Fam/Surg Hx: No changes since H&P Allergies: Allergies codeine Allergy (Verified 03/01/17 23:55) levofloxacin [From Levaquin] Allergy (Verified 03/01/17 23:55) Penicillins Allergy (Verified 03/01/17 23:55) Sulfa (Sulfonamide Antibiotics) [SULFA] Allergy (Verified 03/01/17 23:55) - Review of Systems ROS: No change since H&P - Vital Signs and I&O's Vital Signs: Temperature 98.7 F Pulse Rate [Right Brachial] 76 Respiratory Rate 20 Blood Pressure [Left Arm] 110/55 O2 Sat by Pulse Oximetry 96 Intake and Output: Intake & Output 09/05/21 09/06/21 09/07/21 09/08/21 11:59 11:59 11:59 11:59 Intake Total 1220 / 1220 590 / 590 1610 / 1610 1590 / 1590 Output Total 100 / 100 Balance 1120 / 1120 590 / 590 1610 / 1610 1590 / 1590 - Physical Exam Oriented: Normal Eyes: Normal Ear: Normal Nose: Normal Throat: Normal Cardiovascular: Edema (GENERALIZED EDEMA, 4+ PITTING EDEMA TO UPPER AND LOWER EXTREMITIES) : Normal Auscultation: Bowel Sounds: Normal Tenderness: Normal Skin: Normal Musculoskeletal: Right, Left, Arm, Leg, Swelling Psychiatric: Normal Mood Description: Calm Affect: Normal Speech Pattern: Clear, Appropriate - Laboratory and Diagnostics Result Diagrams: 09/08/21 05:44 09/08/21 05:44 Labs: Laboratory WBC 3.0 X10^3/uL (3.6-10.0) L 09/08/21 05:44 RBC 2.32 X10^6/uL (3.5-5.4) L 09/08/21 05:44 Hgb 7.2 g/dL (12.0-16.0) L 09/08/21 05:44 Hct 20.8 % (36.0-47.0) L 09/08/21 05:44 MCV 89.7 fL (80.0-100.0) 09/08/21 05:44 MCH 31.1 pg (27.0-34.0) 09/08/21 05:44 MCHC 34.7 g/dL (33.0-35.0) 09/08/21 05:44 RDW 17.6 % (11.6-16.5) H 09/08/21 05:44 Plt Count 35 X10^3/uL (150.0-450.0) L 09/08/21 05:44 Plt Count Comment Decreased (ADEQUATE) A 09/04/21 17:46 MPV 9.5 fL (7.4-11.0) 09/08/21 05:44 Neut % (Auto) 64.3 % (42.0-75.0) 09/08/21 05:44 Lymph % (Auto) 19.2 % (21.0-51.0) L 09/08/21 05:44 [place] % (Auto) 10.2 % (0.0-13.0) 09/08/21 05:44 Eos % (Auto) 5.2 % (0.9-2.9) H 09/08/21 05:44 Baso % (Auto) 1.1 % (0.2-1.0) H 09/08/21 05:44 Neut # (Auto) 1.9 x10^3/uL (2.2-4.8) L 09/08/21 05:44 Lymph # (Auto) 0.6 X10^3/uL (1.3-2.9) L 09/08/21 05:44 [place] # (Auto) 0.3 x10^3/uL (0.3-0.8) 09/08/21 05:44 Eos # (Auto) 0.2 x10^3/uL (0.0-0.2) 09/08/21 05:44 Baso # (Auto) 0.0 X10^3/uL (0.0-0.1) 09/08/21 05:44 Absolute Nucleated RBC 0.0 /100WBC 09/08/21 05:44 Plt Morphology Comment Normal (NORMAL) 09/04/21 17:46 RBC Morphology Normal (NORMAL) 09/04/21 17:46 D-Dimer 11.13 ug/ml (0.0-0.57) H* 09/04/21 19:45 Sodium 139 mmol/L (136-145) 09/08/21 05:44 Corrected Sodium TNP 09/08/21 05:44 Potassium 3.5 mmol/L (3.5-5.1) 09/08/21 05:44 Chloride 105 mmol/L (98-107) 09/08/21 05:44 Carbon Dioxide 29.5 mmol/L (21-32) 09/08/21 05:44 BUN 12 mg/dL (7-18) 09/08/21 05:44 Creatinine 0.73 mg/dL (0.55-1.02) 09/08/21 05:44 Est GFR (MDRD) Af Amer > 60 (>60) 09/08/21 05:44 Est GFR (MDRD) Non-Af > 60 (>60) 09/08/21 05:44 Glucose 87 mg/dL (65-99) 09/08/21 05:44 Calcium 8.3 mg/dL (8.5-10.1) L 09/08/21 05:44 Corrected Calcium 9.0 mg/dL (8.5-10.1) 09/08/21 05:44 Total Bilirubin 2.70 mg/dL (0.2-1.0) H 09/08/21 05:44 AST 41 Units/L (15-37) H 09/08/21 05:44 ALT 10 Units/L (12-78) L 09/08/21 05:44 Alkaline Phosphatase 120 Units/L (46-116) H 09/08/21 05:44 Ammonia 54 umol/L (11-32) H 09/08/21 05:44 Creatine Kinase 59 Units/L (26-192) 09/04/21 17:46 CK-MB (CK-2) < 1.0 ng/mL (0-4.0) 09/04/21 17:46 CK/CKMB % Calc 1.7 % (<4) 09/04/21 17:46 Troponin I High Sens 12.6 ng/L (4.0-60.0) 09/04/21 17:46 C-Reactive Protein 18.70 mg/L (0-3.0) H 09/08/21 05:44 B-Natriuretic Peptide 156 pg/mL (0-79) H 09/08/21 05:44 Total Protein 6.0 g/dL (6.4-8.2) L 09/08/21 05:44 Albumin 3.1 g/dL (3.4-5.0) L 09/08/21 05:44 Globulin 2.9 g/dL (2.5-4.5) 09/08/21 05:44 Albumin/Globulin Ratio 1.1 Ratio (1.1-2.1) 09/08/21 05:44 SARS CoV-2 RNA Rapid PRAVEENA Positive (NEGATIVE) A 09/04/21 18:05 - Plan (1) CHF (congestive heart failure) Status: Acute Qualifiers: Heart failure type: unspecified Heart failure chronicity: acute on chronic Qualified Code(s): I50.9 - Heart failure, unspecified Plan: FUROSEMIDE 40MG IV BID, ALBUMIN 25% IV BID, ASCORBID ACID 1000MG PO Q6H, TESSALON PERLES 200MG PO TID, AND ZINC SULFATE 220MG PO BID, RESUME HOME MEDS (2) Anasarca Status: Acute (3) Cirrhosis of liver Status: Acute Qualifiers: Hepatic cirrhosis type: unspecified hepatic cirrhosis Ascites presence: with ascites Qualified Code(s): K74.60 - Unspecified cirrhosis of liver; R18.8 - Other ascites (4) Hypoalbuminemia Status: Acute (5) COVID-19 Status: Acute (6) Anemia Status: Chronic Qualifiers: Anemia type: unspecified type Qualified Code(s): D64.9 - Anemia, unspecified (7) GERD (gastroesophageal reflux disease) Status: Chronic Qualifiers: Esophagitis presence: esophagitis presence not specified Qualified Code(s): K21.9 - Gastro-esophageal reflux disease without esophagitis
[2021-09-08] MEDS: REQUIP PO SCH (21:03)
[2021-09-09 05:23] LABS: AMMONIA 68 umol/L (11-32)
[2021-09-09 05:26] LABS: EOSINOPHILS # (AUTO) 0.1 x10^3/uL (0.0-0.2); EOSINOPHILS % (AUTO) 5.4 % (0.9-2.9); HEMATOCRIT 20.5 % (36.0-47.0); HEMOGLOBIN 7.2 g/dL (12.0-16.0); LYMPHOCYTES # (AUTO) 0.5 X10^3/uL (1.3-2.9); MEAN CORPUSCULAR HEMOGLOBIN 31.6 pg (27.0-34.0); MEAN CORPUSCULAR HGB CONC 35.2 g/dL (33.0-35.0); MEAN CORPUSCULAR VOLUME 89.7 fL (80.0-100.0); MEAN PLATELET VOLUME 9.4 fL (7.4-11.0); MONOCYTES # (AUTO) 0.3 x10^3/uL (0.3-0.8); MONOCYTES % (AUTO) 9.8 % (0.0-13.0); NEUTROPHILS # (AUTO) 1.7 x10^3/uL (2.2-4.8); NEUTROPHILS % (AUTO) 63.8 % (42.0-75.0); RED BLOOD COUNT 2.28 X10^6/uL (3.5-5.4); RED CELL DISTRIBUTION WIDTH 17.3 % (11.6-16.5); WHITE BLOOD COUNT 2.7 X10^3/uL (3.6-10.0)
[2021-09-09] MEDS: VITAMIN C PO SCH ×4 (05:36→21:14)
[2021-09-09 05:37] LABS: ALANINE AMINOTRANSFERASE 13 Units/L (12-78); ALBUMIN 3.3 g/dL (3.4-5.0); ALKALINE PHOSPHATASE 115 Units/L (46-116); ASPARTATE AMINO TRANSFERASE 37 Units/L (15-37); BLOOD UREA NITROGEN 11 mg/dL (7-18); CALCIUM 8.3 mg/dL (8.5-10.1); CARBON DIOXIDE 29.8 mmol/L (21-32); CHLORIDE 105 mmol/L (98-107); COR CA(FOR HYPOALB) 8.9 mg/dL (8.5-10.1); SODIUM 139 mmol/L (136-145); eGFR NON BLACK RACES > 60 (>60)
[2021-09-09] MEDS: ULTRAM PO SCH ×3 (06:09→21:14)
[2021-09-09] MEDS: TESSALON PERLES PO SCH ×3 (06:09→21:14)
--- NOTE | 2021-09-09 06:27 | RAD ---
HISTORYSOB SX: COLON RESECTIONSTUDYCHEST, 1 [id number] trachea is midline. The cardiac silhouette is unremarkable. Suboptimal inspiratory effort. Patchy consolidation at the left lung base unchanged. No pneumothorax.. The bony thorax is unremarkable.IMPRESSIONStable portable chest.Electronically signed by: Darnell Lubin (Sep 09, 2021 06:27:12)
[2021-09-09] MEDS: MEGACE PO SCH ×2 (08:04→21:15)
[2021-09-09] MEDS: PROTONIX TAB 40 MG PO SCH (08:04)
[2021-09-09] MEDS: MICRO K EXTEN CAP 10 MEQ PO SCH (08:04)
[2021-09-09] MEDS: XIFAXAN PO SCH ×2 (08:04→21:14)
[2021-09-09] MEDS: ZINC SULFATE PO SCH ×2 (08:04→21:14)
[2021-09-09] MEDS: ALBUMIN HUMAN 25%- 100 ML 100 ML IV SCH ×2 (08:06→21:16)
[2021-09-09] MEDS: FLONASE NASAL SPRAY ENOSTRIL SCH ×2 (08:06→21:14)
[2021-09-09] MEDS: CHRONULAC PO SCH (08:06)
[2021-09-09] MEDS: LASIX IVP SCH ×2 (08:10→16:36)
[2021-09-09] MEDS ORDERED: NS 500 ML IV 500 ML IV ONE (08:51)
[2021-09-09] MEDS: TYLENOL 325 MG TAB PO PRN (11:45)
[2021-09-09] MEDS: BENADRYL INJ 50 MG VIAL IVP PRN (11:45)
[2021-09-09] MEDS ORDERED: NS 250 ML IV 250 ML IV ONE (11:59)
[2021-09-09] MEDS: REQUIP PO SCH (21:15)
[2021-09-09 22:17] LABS: HEMATOCRIT 26.9 % (36.0-47.0)
[2021-09-09 22:18] LABS: HEMOGLOBIN 9.3 g/dL (12.0-16.0)
[2021-09-10] MEDS: VITAMIN C PO SCH ×4 (03:35→21:37)
[2021-09-10] MEDS: TESSALON PERLES PO SCH ×3 (05:20→21:47)
[2021-09-10] MEDS: ULTRAM PO SCH ×2 (05:20→13:18)
[2021-09-10 05:54] LABS: AMMONIA 80 umol/L (11-32)
[2021-09-10 05:56] LABS: BASOPHILS % (AUTO) 0.5 % (0.2-1.0); EOSINOPHILS # (AUTO) 0.2 x10^3/uL (0.0-0.2); EOSINOPHILS % (AUTO) 4.8 % (0.9-2.9); HEMATOCRIT 26.9 % (36.0-47.0); HEMOGLOBIN 9.4 g/dL (12.0-16.0); LYMPHOCYTES # (AUTO) 0.6 X10^3/uL (1.3-2.9); LYMPHOCYTES % (AUTO) 19.4 % (21.0-51.0); MEAN CORPUSCULAR HEMOGLOBIN 30.8 pg (27.0-34.0); MEAN CORPUSCULAR HGB CONC 34.9 g/dL (33.0-35.0); MEAN CORPUSCULAR VOLUME 88.2 fL (80.0-100.0); MEAN PLATELET VOLUME 9.8 fL (7.4-11.0); MONOCYTES # (AUTO) 0.4 x10^3/uL (0.3-0.8); MONOCYTES % (AUTO) 11.2 % (0.0-13.0); NEUTROPHILS % (AUTO) 64.1 % (42.0-75.0); RED BLOOD COUNT 3.05 X10^6/uL (3.5-5.4); RED CELL DISTRIBUTION WIDTH 16.8 % (11.6-16.5); WHITE BLOOD COUNT 3.2 X10^3/uL (3.6-10.0)
[2021-09-10 06:04] LABS: ALANINE AMINOTRANSFERASE 10 Units/L (12-78); ALBUMIN 3.4 g/dL (3.4-5.0); ALKALINE PHOSPHATASE 109 Units/L (46-116); ASPARTATE AMINO TRANSFERASE 36 Units/L (15-37); BLOOD UREA NITROGEN 12 mg/dL (7-18); CALCIUM 8.6 mg/dL (8.5-10.1); CARBON DIOXIDE 28.7 mmol/L (21-32); CHLORIDE 104 mmol/L (98-107); CREATININE 0.62 mg/dL (0.55-1.02); SODIUM 140 mmol/L (136-145); eGFR NON BLACK RACES > 60 (>60)
[2021-09-10] MEDS: ALBUMIN HUMAN 25%- 100 ML 100 ML IV SCH ×2 (08:09→21:32)
[2021-09-10] MEDS: MEGACE PO SCH ×2 (08:10→21:41)
[2021-09-10] MEDS: ZINC SULFATE PO SCH ×2 (08:10→21:36)
[2021-09-10] MEDS: XIFAXAN PO SCH ×2 (08:10→21:36)
[2021-09-10] MEDS: MICRO K EXTEN CAP 10 MEQ PO SCH (08:10)
[2021-09-10] MEDS: LASIX IVP SCH ×2 (08:10→16:11)
[2021-09-10] MEDS: PROTONIX TAB 40 MG PO SCH (08:10)
[2021-09-10] MEDS: FLONASE NASAL SPRAY ENOSTRIL SCH ×2 (08:16→21:35)
--- NOTE | 2021-09-10 10:03 | PCM.PROG ---
Progress Note - Progress Note for Day of Date of Exam: 09/09/21 - Subjective Subjective: WAS ADMITTED FOR TREATMENT OF CHF, CIRRHOSIS OF LIVER, ANASARCA, THROMBOCYTOPENIA, HYPOALBUMINEMIA, COVID-19, ANEMIA, AND GERD. SHE FIRST TESTED POSITIVE FOR COVID APPROXIMATELY 3 WEEKS AGO. SHE CONTINUES WITH COMPLAINTS OF SHORTNESS OF BREATH, WEAKNESS, AND GENERALIZED SWELLING TODAY. ON EXAMINATION, HEART IS REGULAR IN RATE AND RHYTHM. BILATERAL LUNGS NOTED WITH DIMINISHED LUNG SOUNDS THROUGHOUT. ABDOMEN IS ROUND, SOFT, AND NOTED WITH MILD DIFFUSE TENDERNESS. DIFFUSE 2+ PITTING EDEMA TO UPPER AND LOWER EXTREMITIES NOTED. HER VITALS THIS MORNING ARE: 98.3-76-20-97%-123/54. LABS WERE OBTAINED. ABNORMAL LAB VALUES INCLUDE THE FOLLOWING: WBC 2.7, RB 2.28, HGB 7.2, HCT 20.5, CALCIUM 8.3, TOTAL BILI 2.80, AMMONIA 68, CRP 17.20, BNP 167, TOTAL PROTEIN 6.0, ALBUMIN 3.3. A CHEST XRAY WAS REPEATED THIS MORNING AND IS STABLE. SHE IS CURRENTLY RECEIVING FUROSEMIDE 40MG IV BID, ALBUMIN 25% IV BID, ASCORBID ACID 1000MG PO Q6H, TESSALON PERLES 200MG PO TID, AND ZINC SULFATE 220MG PO BID. WE RESUMED HER HOME MEDICATIONS OF XIFAXAN, TRAMADOL, ROPINIROLE, MEGACE, PROTONIX, POTASSIUM CHLORIDE, FLONASE. STAFF REPORTS THAT SHE HAS BEEN REFUSING THE LACTULOSE. DUE TO ANEMIA, WE WILL TRANSFUSE 2 UNITS OF PACKED RED BLOOD CELLS TODAY AND ADMINISTER LASIX 40MG IV X 1 DOSE IN BETWEEN UNITS. OTHERWISE, WE WILL CONTINUE WITH CURRENT PLAN OF CARE TODAY. WE PLAN TO FOLLOW UP WITH AM LABS AND CONTINUE TO MONITOR. TIME SPENT ON CLINICAL ASSESSMENT, REVIEWING LABS AND IMAGING, DECISION MAKING, AND DOCUMENTATION GREATER THAN 45 MINUTES. - Past Medical Family Social History Past Med/Fam/Surg Hx: No changes since H&P Allergies: Allergies codeine Allergy (Verified 03/01/17 23:55) levofloxacin [From Levaquin] Allergy (Verified 03/01/17 23:55) Penicillins Allergy (Verified 03/01/17 23:55) Sulfa (Sulfonamide Antibiotics) [SULFA] Allergy (Verified 03/01/17 23:55) - Review of Systems ROS: No change since H&P - Vital Signs and I&O's Vital Signs: Temperature 98.5 F Pulse Rate [Right Brachial] 78 Respiratory Rate 18 Blood Pressure [Right Arm] 114/54 Blood Pressure [Left Arm] 116/58 O2 Sat by Pulse Oximetry 96 Intake and Output: Intake & Output 09/07/21 09/08/21 09/09/21 09/10/21 11:59 11:59 11:59 11:59 Intake Total 1610 / 1610 1590 / 1590 1438 / 1438 1937 Balance 1610 / 1610 1590 / 1590 1438 / 1438 1937 - Physical Exam Oriented: Normal Eyes: Normal Ear: Normal Nose: Normal Throat: Normal Cardiovascular: Edema (GENERALIZED EDEMA, 2+ PITTING EDEMA TO UPPER AND LOWER EXTREMITIES) : Normal Auscultation: Bowel Sounds: Normal Tenderness: Normal Skin: Normal Musculoskeletal: Right, Left, Arm, Leg, Swelling Psychiatric: Normal Mood Description: Calm Affect: Normal Speech Pattern: Clear, Appropriate - Laboratory and Diagnostics Result Diagrams: 09/10/21 05:20 09/10/21 05:20 Labs: Laboratory WBC 3.2 X10^3/uL (3.6-10.0) L 09/10/21 05:20 RBC 3.05 X10^6/uL (3.5-5.4) L 09/10/21 05:20 Hgb 9.4 g/dL (12.0-16.0) L 09/10/21 05:20 Hct 26.9 % (36.0-47.0) L 09/10/21 05:20 MCV 88.2 fL (80.0-100.0) 09/10/21 05:20 MCH 30.8 pg (27.0-34.0) 09/10/21 05:20 MCHC 34.9 g/dL (33.0-35.0) 09/10/21 05:20 RDW 16.8 % (11.6-16.5) H 09/10/21 05:20 Plt Count 40 X10^3/uL (150.0-450.0) L 09/10/21 05:20 Plt Count Comment Decreased (ADEQUATE) A 09/04/21 17:46 MPV 9.8 fL (7.4-11.0) 09/10/21 05:20 Neut % (Auto) 64.1 % (42.0-75.0) 09/10/21 05:20 Lymph % (Auto) 19.4 % (21.0-51.0) L 09/10/21 05:20 [place] % (Auto) 11.2 % (0.0-13.0) 09/10/21 05:20 Eos % (Auto) 4.8 % (0.9-2.9) H 09/10/21 05:20 Baso % (Auto) 0.5 % (0.2-1.0) 09/10/21 05:20 Neut # (Auto) 2.0 x10^3/uL (2.2-4.8) L 09/10/21 05:20 Lymph # (Auto) 0.6 X10^3/uL (1.3-2.9) L 09/10/21 05:20 [place] # (Auto) 0.4 x10^3/uL (0.3-0.8) 09/10/21 05:20 Eos # (Auto) 0.2 x10^3/uL (0.0-0.2) 09/10/21 05:20 Baso # (Auto) 0.0 X10^3/uL (0.0-0.1) 09/10/21 05:20 Absolute Nucleated RBC 0.3 /100WBC 09/10/21 05:20 Plt Morphology Comment Normal (NORMAL) 09/04/21 17:46 RBC Morphology Normal (NORMAL) 09/04/21 17:46 D-Dimer 11.13 ug/ml (0.0-0.57) H* 09/04/21 19:45 Sodium 140 mmol/L (136-145) 09/10/21 05:20 Corrected Sodium TNP 09/10/21 05:20 Potassium 3.7 mmol/L (3.5-5.1) 09/10/21 05:20 Chloride 104 mmol/L (98-107) 09/10/21 05:20 Carbon Dioxide 28.7 mmol/L (21-32) 09/10/21 05:20 BUN 12 mg/dL (7-18) 09/10/21 05:20 Creatinine 0.62 mg/dL (0.55-1.02) 09/10/21 05:20 Est GFR (MDRD) Af Amer > 60 (>60) 09/10/21 05:20 Est GFR (MDRD) Non-Af > 60 (>60) 09/10/21 05:20 Glucose 85 mg/dL (65-99) 09/10/21 05:20 Calcium 8.6 mg/dL (8.5-10.1) 09/10/21 05:20 Corrected Calcium TNP 09/10/21 05:20 Total Bilirubin 5.10 mg/dL (0.2-1.0) H 09/10/21 05:20 AST 36 Units/L (15-37) 09/10/21 05:20 ALT 10 Units/L (12-78) L 09/10/21 05:20 Alkaline Phosphatase 109 Units/L (46-116) 09/10/21 05:20 Ammonia 80 umol/L (11-32) H 09/10/21 05:20 Creatine Kinase 59 Units/L (26-192) 09/04/21 17:46 CK-MB (CK-2) < 1.0 ng/mL (0-4.0) 09/04/21 17:46 CK/CKMB % Calc 1.7 % (<4) 09/04/21 17:46 Troponin I High Sens 12.6 ng/L (4.0-60.0) 09/04/21 17:46 C-Reactive Protein 17.20 mg/L (0-3.0) H 09/09/21 05:05 B-Natriuretic Peptide 167 pg/mL (0-79) H 09/09/21 05:05 Total Protein 6.0 g/dL (6.4-8.2) L 09/10/21 05:20 Albumin 3.4 g/dL (3.4-5.0) 09/10/21 05:20 Globulin 2.6 g/dL (2.5-4.5) 09/10/21 05:20 Albumin/Globulin Ratio 1.3 Ratio (1.1-2.1) 09/10/21 05:20 SARS CoV-2 RNA Rapid PRAVEENA Positive (NEGATIVE) A 09/04/21 18:05 Blood Type O POSITIVE 09/09/21 09:23 Antibody Screen Negative 09/09/21 09:23 Crossmatch See Detail 09/09/21 09:23 - Plan (1) CHF (congestive heart failure) Status: Acute Qualifiers: Heart failure type: unspecified Heart failure chronicity: acute on chronic Qualified Code(s): I50.9 - Heart failure, unspecified Plan: FUROSEMIDE 40MG IV BID, ALBUMIN 25% IV BID, ASCORBID ACID 1000MG PO Q6H, TESSALON PERLES 200MG PO TID, AND ZINC SULFATE 220MG PO BID, RESUME HOME MEDS (2) Anasarca Status: Acute (3) Cirrhosis of liver Status: Acute Qualifiers: Hepatic cirrhosis type: unspecified hepatic cirrhosis Ascites presence: with ascites Qualified Code(s): K74.60 - Unspecified cirrhosis of liver; R18.8 - Other ascites (4) Hypoalbuminemia Status: Acute (5) COVID-19 Status: Acute (6) Anemia Status: Chronic Qualifiers: Anemia type: unspecified type Qualified Code(s): D64.9 - Anemia, unspecified Plan: TRANSFUSE 2 UNITS PRBC (7) GERD (gastroesophageal reflux disease) Status: Chronic Qualifiers: Esophagitis presence: esophagitis presence not specified Qualified Code(s): K21.9 - Gastro-esophageal reflux disease without esophagitis
--- NOTE | 2021-09-10 10:10 | PCM.PROG ---
Progress Note - Progress Note for Day of Date of Exam: 09/10/21 - Subjective Subjective: WAS ADMITTED FOR TREATMENT OF CHF, CIRRHOSIS OF LIVER, ANASARCA, THROMBOCYTOPENIA, HYPOALBUMINEMIA, COVID-19, ANEMIA, AND GERD. SHE FIRST TESTED POSITIVE FOR COVID APPROXIMATELY 3 WEEKS AGO. SHE RECEIVED TWO UNITS OF PACKED RED BLOOD CELLS YESTERDAY. SHE CONTINUES WITH COMPLAINTS OF SHORTNESS OF BREATH, WEAKNESS, AND GENERALIZED SWELLING TODAY. ON EXAMINATION, HEART IS REGULAR IN RATE AND RHYTHM. BILATERAL LUNGS NOTED WITH DIMINISHED LUNG SOUNDS THROUGHOUT. ABDOMEN IS ROUND, SOFT, AND NOTED WITH MILD DIFFUSE TENDERNESS. DIFFUSE 2+ PITTING EDEMA TO UPPER AND LOWER EXTREMITIES NOTED. HER VITALS THIS MORNING ARE: 98.5-78-18-96%-114/54. LABS WERE OBTAINED. ABNORMAL LAB VALUES INCLUDE THE FOLLOWING: WBC 3.2. RBC 3.05, HGB 9.4, HCT 26.9, TOTAL BILI 5.10, ALT 10, AMMONIA 80, TOTAL PROTEIN 6.0. A CHEST XRAY WAS REPEATED THIS MORNING AND IS STABLE. SHE IS CURRENTLY RECEIVING FUROSEMIDE 40MG IV BID, ALBUMIN 25% IV BID, ASCORBID ACID 1000MG PO Q6H, TESSALON PERLES 200MG PO TID, AND ZINC SULFATE 220MG PO BID. WE RESUMED HER HOME MEDICATIONS OF XIFAXAN, TRAMADOL, ROPINIROLE, MEGACE, PROTONIX, POTASSIUM CHLORIDE, FLONASE. STAFF REPORTS THAT SHE HAS BEEN REFUSING THE LACTULOSE DUE TO NAUSEA. WE ENCOURAGED PATIENT TO TAKE LACTULOSE TODAY DUE TO INCREASED AMMONIA LEVELS. WE WILL ADD PROMETHAZINE 25MG IM Q6H PRN AND ZOFRAN 4MG IV Q4H PRN FOR NAUSEA. OTHERWISE, WE WILL CONTINUE WITH CURRENT PLAN OF CARE TODAY. WE PLAN TO FOLLOW UP WITH AM LABS AND CONTINUE TO MONITOR. TIME SPENT ON CLINICAL ASSESSMENT, REVIEWING LABS AND IMAGING, DECISION MAKING, AND DOCUMENTATION GREATER THAN 45 MINUTES. - Past Medical Family Social History Past Med/Fam/Surg Hx: No changes since H&P Allergies: Allergies codeine Allergy (Verified 03/01/17 23:55) levofloxacin [From Levaquin] Allergy (Verified 03/01/17 23:55) Penicillins Allergy (Verified 03/01/17 23:55) Sulfa (Sulfonamide Antibiotics) [SULFA] Allergy (Verified 03/01/17 23:55) - Review of Systems ROS: No change since H&P - Vital Signs and I&O's Vital Signs: Temperature 98.5 F Pulse Rate [Right Brachial] 78 Respiratory Rate 18 Blood Pressure [Right Arm] 114/54 Blood Pressure [Left Arm] 116/58 O2 Sat by Pulse Oximetry 96 Intake and Output: Intake & Output 09/07/21 09/08/21 09/09/21 09/10/21 11:59 11:59 11:59 11:59 Intake Total 1610 / 1610 1590 / 1590 1438 / 1438 1937 Balance 1610 / 1610 1590 / 1590 1438 / 1438 1937 - Physical Exam Oriented: Normal Eyes: Normal Ear: Normal Nose: Normal Throat: Normal Cardiovascular: Edema (GENERALIZED EDEMA, 2+ PITTING EDEMA TO UPPER AND LOWER EXTREMITIES) : Normal Auscultation: Bowel Sounds: Normal Tenderness: Normal Skin: Normal Musculoskeletal: Right, Left, Arm, Leg, Swelling Psychiatric: Normal Mood Description: Calm Affect: Normal Speech Pattern: Clear, Appropriate - Laboratory and Diagnostics Result Diagrams: 09/10/21 05:20 09/10/21 05:20 Labs: Laboratory WBC 3.2 X10^3/uL (3.6-10.0) L 09/10/21 05:20 RBC 3.05 X10^6/uL (3.5-5.4) L 09/10/21 05:20 Hgb 9.4 g/dL (12.0-16.0) L 09/10/21 05:20 Hct 26.9 % (36.0-47.0) L 09/10/21 05:20 MCV 88.2 fL (80.0-100.0) 09/10/21 05:20 MCH 30.8 pg (27.0-34.0) 09/10/21 05:20 MCHC 34.9 g/dL (33.0-35.0) 09/10/21 05:20 RDW 16.8 % (11.6-16.5) H 09/10/21 05:20 Plt Count 40 X10^3/uL (150.0-450.0) L 09/10/21 05:20 Plt Count Comment Decreased (ADEQUATE) A 09/04/21 17:46 MPV 9.8 fL (7.4-11.0) 09/10/21 05:20 Neut % (Auto) 64.1 % (42.0-75.0) 09/10/21 05:20 Lymph % (Auto) 19.4 % (21.0-51.0) L 09/10/21 05:20 [place] % (Auto) 11.2 % (0.0-13.0) 09/10/21 05:20 Eos % (Auto) 4.8 % (0.9-2.9) H 09/10/21 05:20 Baso % (Auto) 0.5 % (0.2-1.0) 09/10/21 05:20 Neut # (Auto) 2.0 x10^3/uL (2.2-4.8) L 09/10/21 05:20 Lymph # (Auto) 0.6 X10^3/uL (1.3-2.9) L 09/10/21 05:20 [place] # (Auto) 0.4 x10^3/uL (0.3-0.8) 09/10/21 05:20 Eos # (Auto) 0.2 x10^3/uL (0.0-0.2) 09/10/21 05:20 Baso # (Auto) 0.0 X10^3/uL (0.0-0.1) 09/10/21 05:20 Absolute Nucleated RBC 0.3 /100WBC 09/10/21 05:20 Plt Morphology Comment Normal (NORMAL) 09/04/21 17:46 RBC Morphology Normal (NORMAL) 09/04/21 17:46 D-Dimer 11.13 ug/ml (0.0-0.57) H* 09/04/21 19:45 Sodium 140 mmol/L (136-145) 09/10/21 05:20 Corrected Sodium TNP 09/10/21 05:20 Potassium 3.7 mmol/L (3.5-5.1) 09/10/21 05:20 Chloride 104 mmol/L (98-107) 09/10/21 05:20 Carbon Dioxide 28.7 mmol/L (21-32) 09/10/21 05:20 BUN 12 mg/dL (7-18) 09/10/21 05:20 Creatinine 0.62 mg/dL (0.55-1.02) 09/10/21 05:20 Est GFR (MDRD) Af Amer > 60 (>60) 09/10/21 05:20 Est GFR (MDRD) Non-Af > 60 (>60) 09/10/21 05:20 Glucose 85 mg/dL (65-99) 09/10/21 05:20 Calcium 8.6 mg/dL (8.5-10.1) 09/10/21 05:20 Corrected Calcium TNP 09/10/21 05:20 Total Bilirubin 5.10 mg/dL (0.2-1.0) H 09/10/21 05:20 AST 36 Units/L (15-37) 09/10/21 05:20 ALT 10 Units/L (12-78) L 09/10/21 05:20 Alkaline Phosphatase 109 Units/L (46-116) 09/10/21 05:20 Ammonia 80 umol/L (11-32) H 09/10/21 05:20 Creatine Kinase 59 Units/L (26-192) 09/04/21 17:46 CK-MB (CK-2) < 1.0 ng/mL (0-4.0) 09/04/21 17:46 CK/CKMB % Calc 1.7 % (<4) 09/04/21 17:46 Troponin I High Sens 12.6 ng/L (4.0-60.0) 09/04/21 17:46 C-Reactive Protein 17.20 mg/L (0-3.0) H 09/09/21 05:05 B-Natriuretic Peptide 167 pg/mL (0-79) H 09/09/21 05:05 Total Protein 6.0 g/dL (6.4-8.2) L 09/10/21 05:20 Albumin 3.4 g/dL (3.4-5.0) 09/10/21 05:20 Globulin 2.6 g/dL (2.5-4.5) 09/10/21 05:20 Albumin/Globulin Ratio 1.3 Ratio (1.1-2.1) 09/10/21 05:20 SARS CoV-2 RNA Rapid PRAVEENA Positive (NEGATIVE) A 09/04/21 18:05 Blood Type O POSITIVE 09/09/21 09:23 Antibody Screen Negative 09/09/21 09:23 Crossmatch See Detail 09/09/21 09:23 - Plan (1) CHF (congestive heart failure) Status: Acute Qualifiers: Heart failure type: unspecified Heart failure chronicity: acute on chronic Qualified Code(s): I50.9 - Heart failure, unspecified Plan: FUROSEMIDE 40MG IV BID, ALBUMIN 25% IV BID, ASCORBID ACID 1000MG PO Q6H, TESSALON PERLES 200MG PO TID, SULFATE 220MG PO BID, PROMETHAZINE 25MG IM Q6H PRN, ZOFRAN 4MG IV Q4H PRN, CONTINUE TO MONITOR. (2) Anasarca Status: Acute (3) Cirrhosis of liver Status: Acute Qualifiers: Hepatic cirrhosis type: unspecified hepatic cirrhosis Ascites presence: with ascites Qualified Code(s): K74.60 - Unspecified cirrhosis of liver; R18.8 - Other ascites (4) Hypoalbuminemia Status: Acute (5) Hyperbilirubinemia Status: Acute (6) COVID-19 Status: Acute (7) Anemia Status: Chronic Qualifiers: Anemia type: unspecified type Qualified Code(s): D64.9 - Anemia, unspecified (8) GERD (gastroesophageal reflux disease) Status: Chronic Qualifiers: Esophagitis presence: esophagitis presence not specified Qualified Code(s): K21.9 - Gastro-esophageal reflux disease without esophagitis
[2021-09-10] MEDS: CHRONULAC PO SCH ×2 (11:21→21:51)
[2021-09-10] MEDS: PHENERGAN INJ 25 MG IM PRN ×2 (11:21→21:34)
[2021-09-10] MEDS: ZOFRAN INJ 4 MG VIAL IVP PRN (14:30)
[2021-09-10] MEDS: REQUIP PO SCH (21:43)
[2021-09-11] MEDS: TESSALON PERLES PO SCH ×3 (05:03→21:23)
[2021-09-11] MEDS: VITAMIN C PO SCH ×4 (05:03→21:23)
[2021-09-11 06:23] LABS: EOSINOPHILS # (AUTO) 0.2 x10^3/uL (0.0-0.2); HEMATOCRIT 27.2 % (36.0-47.0); HEMOGLOBIN 9.4 g/dL (12.0-16.0); LYMPHOCYTES # (AUTO) 0.7 X10^3/uL (1.3-2.9); LYMPHOCYTES % (AUTO) 18.2 % (21.0-51.0); MEAN CORPUSCULAR HEMOGLOBIN 30.8 pg (27.0-34.0); MEAN CORPUSCULAR HGB CONC 34.7 g/dL (33.0-35.0); MEAN CORPUSCULAR VOLUME 88.8 fL (80.0-100.0); MEAN PLATELET VOLUME 9.5 fL (7.4-11.0); MONOCYTES # (AUTO) 0.4 x10^3/uL (0.3-0.8); MONOCYTES % (AUTO) 10.5 % (0.0-13.0); NEUTROPHILS # (AUTO) 2.6 x10^3/uL (2.2-4.8); NEUTROPHILS % (AUTO) 65.3 % (42.0-75.0); RED BLOOD COUNT 3.07 X10^6/uL (3.5-5.4); WHITE BLOOD COUNT 3.9 X10^3/uL (3.6-10.0)
[2021-09-11 06:46] LABS: ALANINE AMINOTRANSFERASE 8 Units/L (12-78); ALBUMIN 3.3 g/dL (3.4-5.0); ALKALINE PHOSPHATASE 110 Units/L (46-116); ASPARTATE AMINO TRANSFERASE 35 Units/L (15-37); BLOOD UREA NITROGEN 10 mg/dL (7-18); CALCIUM 8.6 mg/dL (8.5-10.1); CARBON DIOXIDE 31.4 mmol/L (21-32); CHLORIDE 103 mmol/L (98-107); COR CA(FOR HYPOALB) 9.2 mg/dL (8.5-10.1); CREATININE 0.62 mg/dL (0.55-1.02); MAGNESIUM 1.8 mg/dL (1.7-2.9); SODIUM 139 mmol/L (136-145); eGFR NON BLACK RACES > 60 (>60)
[2021-09-11] MEDS: PHENERGAN INJ 25 MG IM PRN (08:04)
[2021-09-11] MEDS: ALBUMIN HUMAN 25%- 100 ML 100 ML IV SCH ×2 (08:04→21:21)
[2021-09-11] MEDS: LASIX IVP SCH ×2 (08:04→16:58)
[2021-09-11] MEDS: CHRONULAC PO SCH ×2 (08:05→21:22)
[2021-09-11] MEDS: MEGACE PO SCH ×2 (08:05→21:22)
[2021-09-11] MEDS: MICRO K EXTEN CAP 10 MEQ PO SCH (08:05)
[2021-09-11] MEDS: XIFAXAN PO SCH ×2 (08:05→21:23)
[2021-09-11] MEDS: ZINC SULFATE PO SCH ×2 (08:05→21:23)
[2021-09-11] MEDS: PROTONIX TAB 40 MG PO SCH (08:05)
[2021-09-11] MEDS: FLONASE NASAL SPRAY ENOSTRIL SCH ×2 (08:18→21:22)
[2021-09-11] MEDS: ALDACTONE TAB 25 MG PO SCH (10:08)
--- NOTE | 2021-09-11 13:01 | RAD ---
HISTORYCENTRAL LINE PLACEMENTSTUDYCHEST, 1 [id number]/2022FINDINGSThe cardiomediastinal silhouette is stable. Right-sided central venous catheter placement with tip overlying the right atrium. Similar elevation of the right hemidiaphragm. Similar left basilar opacities. No acute airspace disease. No pneumothorax or effusion. The bony thorax appears intact.IMPRESSIONExpected positioning of right-sided central venous catheter with tip overlying the right atrium.Electronically signed by: BEN SPENCER (Sep 11, 2021 13:01:03)
--- NOTE | 2021-09-11 16:56 | PCM.PROG ---
Progress Note - Progress Note for Day of Date of Exam: 09/11/21 - Subjective Subjective: WAS ADMITTED FOR TREATMENT OF CHF, CIRRHOSIS OF LIVER, ANASARCA, THROMBOCYTOPENIA, HYPOALBUMINEMIA, COVID-19, ANEMIA, AND GERD. SHE FIRST TESTED POSITIVE FOR COVID APPROXIMATELY 3 WEEKS AGO. SHE RECEIVED TWO UNITS OF PACKED RED BLOOD CELLS ON 09/09/21. SHE CONTINUES WITH COMPLAINTS OF SHORTNESS OF BREATH, WEAKNESS, AND GENERALIZED SWELLING TODAY. ON EXAMINATION, HEART IS REGULAR IN RATE AND RHYTHM. BILATERAL LUNGS NOTED WITH DIMINISHED LUNG SOUNDS THROUGHOUT. ABDOMEN IS ROUND, SOFT, AND NOTED WITH MILD DIFFUSE TENDERNESS. DIFFUSE 2+ PITTING EDEMA TO UPPER AND LOWER EXTREMITIES NOTED. HER VITALS THIS MORNING ARE: 98.6-72-18-96%-113/53. LABS WERE OBTAINED. ABNORMAL LAB VALUES INCLUDE THE FOLLOWING: RBC 3.07, HGB 9.4, HCT 27.2, TOTAL BILI 4.40, ALT 8, AMMONIA 82, CRP 19.20, BNP 138, TOTAL PROTEIN 6.0, ALBUMIN 3.3. A CHEST XRAY WAS REPEATED THIS MORNING AND REVEALED: Expected positioning of right-sided central venous catheter with tip overlying the right atrium. SHE IS CURRENTLY RECEIVING FUROSEMIDE 40MG IV BID, ALBUMIN 25% IV BID, ASCORBID ACID 1000MG PO Q6H, TESSALON PERLES 200MG PO TID, AND ZINC SULFATE 220MG PO BID. WE RESUMED HER HOME MEDICATIONS OF XIFAXAN, TRAMADOL, ROPINIROLE, MEGACE, PROTONIX, POTASSIUM CHLORIDE, FLONASE. STAFF REPORTS THAT SHE TOLERATED TAKING THE LACTULOSE YESTERDAY, WITHOUT EPISODES OF NAUSEA OR VOMITING. WE ENCOURAGED PATIENT TO CONTINUE LACTULOSE TODAY. WE WILL ADD ALDACTONE 25MG PO DAILY. OTHERWISE, WE WILL CONTINUE WITH CURRENT PLAN OF CARE. WE PLAN TO FOLLOW UP WITH AM LABS AND CONTINUE TO MONITOR. TIME SPENT ON CLINICAL ASSESSMENT, REVIEWING LABS AND IMAGING, DECISION MAKING, AND DOCUMENTATION GREATER THAN 45 MINUTES. - Past Medical Family Social History Past Med/Fam/Surg Hx: No changes since H&P Allergies: Allergies codeine Allergy (Verified 03/01/17 23:55) levofloxacin [From Levaquin] Allergy (Verified 03/01/17 23:55) Penicillins Allergy (Verified 03/01/17 23:55) Sulfa (Sulfonamide Antibiotics) [SULFA] Allergy (Verified 03/01/17 23:55) - Review of Systems ROS: No change since H&P - Vital Signs and I&O's Vital Signs: Temperature 99.0 F Pulse Rate [Right Brachial] 76 Respiratory Rate 20 Blood Pressure [Right Arm] 105/51 Blood Pressure [Left Arm] 122/56 O2 Sat by Pulse Oximetry 96 Intake and Output: Intake & Output 09/09/21 09/10/21 09/11/21 09/12/21 11:59 11:59 11:59 11:59 Intake Total 1438 / 1438 1937 709 / 709 340 / 340 Balance 1438 / 1438 1937 709 / 709 340 / 340 - Physical Exam Oriented: Normal Eyes: Normal Ear: Normal Nose: Normal Throat: Normal Respiratory: Generalized, Diminished Cardiovascular: Edema (GENERALIZED EDEMA, 2+ PITTING EDEMA TO UPPER AND LOWER EXTREMITIES) : Normal Auscultation: Bowel Sounds: Normal Tenderness: Normal Skin: Normal Musculoskeletal: Right, Left, Arm, Leg, Swelling Psychiatric: Normal Mood Description: Calm Affect: Normal Speech Pattern: Clear, Delayed - Laboratory and Diagnostics Result Diagrams: 09/11/21 05:59 09/11/21 05:59 Labs: Laboratory WBC 3.9 X10^3/uL (3.6-10.0) 09/11/21 05:59 RBC 3.07 X10^6/uL (3.5-5.4) L 09/11/21 05:59 Hgb 9.4 g/dL (12.0-16.0) L 09/11/21 05:59 Hct 27.2 % (36.0-47.0) L 09/11/21 05:59 MCV 88.8 fL (80.0-100.0) 09/11/21 05:59 MCH 30.8 pg (27.0-34.0) 09/11/21 05:59 MCHC 34.7 g/dL (33.0-35.0) 09/11/21 05:59 RDW 17.0 % (11.6-16.5) H 09/11/21 05:59 Plt Count 41 X10^3/uL (150.0-450.0) L 09/11/21 05:59 Plt Count Comment Decreased (ADEQUATE) A 09/04/21 17:46 MPV 9.5 fL (7.4-11.0) 09/11/21 05:59 Neut % (Auto) 65.3 % (42.0-75.0) 09/11/21 05:59 Lymph % (Auto) 18.2 % (21.0-51.0) L 09/11/21 05:59 [place] % (Auto) 10.5 % (0.0-13.0) 09/11/21 05:59 Eos % (Auto) 5.0 % (0.9-2.9) H 09/11/21 05:59 Baso % (Auto) 1.0 % (0.2-1.0) 09/11/21 05:59 Neut # (Auto) 2.6 x10^3/uL (2.2-4.8) 09/11/21 05:59 Lymph # (Auto) 0.7 X10^3/uL (1.3-2.9) L 09/11/21 05:59 [place] # (Auto) 0.4 x10^3/uL (0.3-0.8) 09/11/21 05:59 Eos # (Auto) 0.2 x10^3/uL (0.0-0.2) 09/11/21 05:59 Baso # (Auto) 0.0 X10^3/uL (0.0-0.1) 09/11/21 05:59 Absolute Nucleated RBC 0.1 /100WBC 09/11/21 05:59 Plt Morphology Comment Normal (NORMAL) 09/04/21 17:46 RBC Morphology Normal (NORMAL) 09/04/21 17:46 D-Dimer 11.13 ug/ml (0.0-0.57) H* 09/04/21 19:45 Sodium 139 mmol/L (136-145) 09/11/21 05:59 Corrected Sodium TNP 09/11/21 05:59 Potassium 3.5 mmol/L (3.5-5.1) 09/11/21 05:59 Chloride 103 mmol/L (98-107) 09/11/21 05:59 Carbon Dioxide 31.4 mmol/L (21-32) 09/11/21 05:59 BUN 10 mg/dL (7-18) 09/11/21 05:59 Creatinine 0.62 mg/dL (0.55-1.02) 09/11/21 05:59 Est GFR (MDRD) Af Amer > 60 (>60) 09/11/21 05:59 Est GFR (MDRD) Non-Af > 60 (>60) 09/11/21 05:59 Glucose 87 mg/dL (65-99) 09/11/21 05:59 Calcium 8.6 mg/dL (8.5-10.1) 09/11/21 05:59 Corrected Calcium 9.2 mg/dL (8.5-10.1) 09/11/21 05:59 Magnesium 1.8 mg/dL (1.7-2.9) 09/11/21 05:59 Total Bilirubin 4.40 mg/dL (0.2-1.0) H 09/11/21 05:59 AST 35 Units/L (15-37) 09/11/21 05:59 ALT 8 Units/L (12-78) L 09/11/21 05:59 Alkaline Phosphatase 110 Units/L (46-116) 09/11/21 05:59 Ammonia 82 umol/L (11-32) H 09/11/21 10:04 Creatine Kinase 59 Units/L (26-192) 09/04/21 17:46 CK-MB (CK-2) < 1.0 ng/mL (0-4.0) 09/04/21 17:46 CK/CKMB % Calc 1.7 % (<4) 09/04/21 17:46 Troponin I High Sens 12.6 ng/L (4.0-60.0) 09/04/21 17:46 C-Reactive Protein 19.20 mg/L (0-3.0) H 09/11/21 05:59 B-Natriuretic Peptide 138 pg/mL (0-79) H 09/11/21 05:59 Total Protein 6.0 g/dL (6.4-8.2) L 09/11/21 05:59 Albumin 3.3 g/dL (3.4-5.0) L 09/11/21 05:59 Globulin 2.7 g/dL (2.5-4.5) 09/11/21 05:59 Albumin/Globulin Ratio 1.2 Ratio (1.1-2.1) 09/11/21 05:59 SARS CoV-2 RNA Rapid PRAVEENA Positive (NEGATIVE) A 09/04/21 18:05 Blood Type O POSITIVE 09/09/21 09:23 Antibody Screen Negative 09/09/21 09:23 Crossmatch See Detail 09/09/21 09:23 - Plan (1) CHF (congestive heart failure) Status: Acute Qualifiers: Heart failure type: unspecified Heart failure chronicity: acute on chronic Qualified Code(s): I50.9 - Heart failure, unspecified Plan: FUROSEMIDE 40MG IV BID, ALDACTONE 25MG PO DAILY, ALBUMIN 25% IV BID, LACTULOSE 30ML PO BID, ASCORBIC ACID 1000MG PO Q6H, TESSALON PERLES 200MG PO TID, SULFATE 220MG PO BID, PROMETHAZINE 25MG IM Q6H PRN, ZOFRAN 4MG IV Q4H PRN, CONTINUE TO MONITOR. (2) Anasarca Status: Acute (3) Cirrhosis of liver Status: Acute Qualifiers: Hepatic cirrhosis type: unspecified hepatic cirrhosis Ascites presence: with ascites Qualified Code(s): K74.60 - Unspecified cirrhosis of liver; R18.8 - Other ascites (4) Hypoalbuminemia Status: Acute (5) Hyperbilirubinemia Status: Acute (6) COVID-19 Status: Acute (7) Anemia Status: Chronic Qualifiers: Anemia type: unspecified type Qualified Code(s): D64.9 - Anemia, unspecified Plan: TRANSFUSE 2 UNITS PRBC (8) GERD (gastroesophageal reflux disease) Status: Chronic Qualifiers: Esophagitis presence: esophagitis presence not specified Qualified Code(s): K21.9 - Gastro-esophageal reflux disease without esophagitis
[2021-09-11] MEDS: REQUIP PO SCH (21:22)
[2021-09-11] MEDS: ZOFRAN INJ 4 MG VIAL IVP PRN (21:25)
[2021-09-12 04:38] LABS: AMMONIA 64 umol/L (11-32)
[2021-09-12 04:46] LABS: BASOPHILS % (AUTO) 0.8 % (0.2-1.0); EOSINOPHILS # (AUTO) 0.2 x10^3/uL (0.0-0.2); EOSINOPHILS % (AUTO) 4.7 % (0.9-2.9); HEMATOCRIT 25.2 % (36.0-47.0); HEMOGLOBIN 8.8 g/dL (12.0-16.0); LYMPHOCYTES # (AUTO) 0.7 X10^3/uL (1.3-2.9); LYMPHOCYTES % (AUTO) 21.3 % (21.0-51.0); MEAN CORPUSCULAR HEMOGLOBIN 31.2 pg (27.0-34.0); MEAN CORPUSCULAR VOLUME 89.1 fL (80.0-100.0); MEAN PLATELET VOLUME 9.9 fL (7.4-11.0); MONOCYTES # (AUTO) 0.4 x10^3/uL (0.3-0.8); MONOCYTES % (AUTO) 11.7 % (0.0-13.0); NEUTROPHILS % (AUTO) 61.5 % (42.0-75.0); RED BLOOD COUNT 2.83 X10^6/uL (3.5-5.4); WHITE BLOOD COUNT 3.2 X10^3/uL (3.6-10.0)
[2021-09-12 04:48] LABS: ALANINE AMINOTRANSFERASE 6 Units/L (12-78); ALBUMIN 3.4 g/dL (3.4-5.0); ALKALINE PHOSPHATASE 104 Units/L (46-116); ASPARTATE AMINO TRANSFERASE 33 Units/L (15-37); BLOOD UREA NITROGEN 10 mg/dL (7-18); CALCIUM 8.7 mg/dL (8.5-10.1); CARBON DIOXIDE 29.9 mmol/L (21-32); CHLORIDE 102 mmol/L (98-107); CREATININE 0.68 mg/dL (0.55-1.02); SODIUM 139 mmol/L (136-145); TOTAL PROTEIN 5.9 g/dL (6.4-8.2); eGFR NON BLACK RACES > 60 (>60)
[2021-09-12] MEDS: TESSALON PERLES PO SCH ×3 (05:08→21:23)
[2021-09-12] MEDS: VITAMIN C PO SCH ×4 (05:08→21:24)
[2021-09-12] MEDS: CHRONULAC PO SCH ×2 (08:38→21:23)
[2021-09-12] MEDS: XIFAXAN PO SCH ×2 (08:38→21:24)
[2021-09-12] MEDS: ZINC SULFATE PO SCH ×2 (08:39→21:24)
[2021-09-12] MEDS: ALDACTONE TAB 25 MG PO SCH (08:39)
[2021-09-12] MEDS: MEGACE PO SCH ×2 (08:39→21:24)
[2021-09-12] MEDS: PROTONIX TAB 40 MG PO SCH (08:39)
[2021-09-12] MEDS: MICRO K EXTEN CAP 10 MEQ PO SCH (08:40)
[2021-09-12] MEDS: ALBUMIN HUMAN 25%- 100 ML 100 ML IV SCH ×2 (08:50→21:22)
[2021-09-12] MEDS: FLONASE NASAL SPRAY ENOSTRIL SCH ×2 (10:39→21:33)
[2021-09-12] MEDS: LASIX IVP SCH ×2 (10:40→17:38)
[2021-09-12] MEDS: ZOFRAN INJ 4 MG VIAL IVP PRN (14:27)
[2021-09-12] MEDS: REQUIP PO SCH (21:23)
--- NOTE | 2021-09-12 23:16 | PCM.PROG ---
Progress Note - Progress Note for Day of Date of Exam: 09/12/21 - Subjective Subjective: WAS ADMITTED FOR TREATMENT OF CHF, CIRRHOSIS OF LIVER, ANASARCA, THROMBOCYTOPENIA, HYPOALBUMINEMIA, COVID-19, ANEMIA, AND GERD. SHE FIRST TESTED POSITIVE FOR COVID APPROXIMATELY 3 WEEKS AGO. SHE RECEIVED TWO UNITS OF PACKED RED BLOOD CELLS ON 09/09/21. SHE CONTINUES WITH COMPLAINTS OF SHORTNESS OF BREATH, WEAKNESS, AND GENERALIZED SWELLING TODAY. ON EXAMINATION, HEART IS REGULAR IN RATE AND RHYTHM. BILATERAL LUNGS NOTED WITH DIMINISHED LUNG SOUNDS THROUGHOUT. ABDOMEN IS ROUND, SOFT, AND NOTED WITH MILD DIFFUSE TENDERNESS. DIFFUSE 2+ PITTING EDEMA TO UPPER AND LOWER EXTREMITIES NOTED. HER VITALS THIS MORNING ARE: 98.4-75-20-94%-117/58. LABS WERE OBTAINED. ABNORMAL LAB VALUES INCLUDE THE FOLLOWING: WBC 3.2, RBC 2.83, HGB 8.8, HCT 25.2, PLT COUNT 36, TOTAL BILI 4.00, ALT 6, AMMONIA 64, CRP 19.60, BNP 113, TOTAL PROTEIN 5.9. SHE IS CURRENTLY RECEIVING FUROSEMIDE 40MG IV BID, ALBUMIN 25% IV BID, ALDACTONE 25MG PO DAILY, ASCORBIC ACID 1000MG PO Q6H, TESSALON PERLES 200MG PO TID, AND ZINC SULFATE 220MG PO BID. WE RESUMED HER HOME MEDICATIONS OF LACTULOSE, XIFAXAN, TRAMADOL, ROPINIROLE, MEGACE, PROTONIX, POTASSIUM CHLORIDE, FLONASE. WE WILL CONTINUE WITH CURRENT PLAN OF CARE. OTHERWISE, WE PLAN TO FOLLOW UP WITH AM LABS AND CONTINUE TO MONITOR. TIME SPENT ON CLINICAL ASSESSMENT, REVIEWING LABS AND IMAGING, DECISION MAKING, AND DOCUMENTATION GREATER THAN 45 MINUTES. - Past Medical Family Social History Past Med/Fam/Surg Hx: No changes since H&P Allergies: Allergies codeine Allergy (Verified 03/01/17 23:55) levofloxacin [From Levaquin] Allergy (Verified 03/01/17 23:55) Penicillins Allergy (Verified 03/01/17 23:55) Sulfa (Sulfonamide Antibiotics) [SULFA] Allergy (Verified 03/01/17 23:55) - Review of Systems ROS: No change since H&P - Vital Signs and I&O's Vital Signs: Temperature 98.4 F Pulse Rate [Right Brachial] 75 Respiratory Rate 20 Blood Pressure [Right Arm] 117/58 Blood Pressure [Left Arm] 114/53 O2 Sat by Pulse Oximetry 94 Intake and Output: Intake & Output 09/10/21 09/11/21 09/12/21 09/13/21 11:59 11:59 11:59 11:59 Intake Total 1937 709 / 709 930 / 930 340 / 340 Balance 1937 709 / 709 930 / 930 340 / 340 - Physical Exam Oriented: Normal Eyes: Normal Ear: Normal Nose: Normal Throat: Normal Respiratory: Generalized, Diminished Cardiovascular: Edema (GENERALIZED EDEMA, 2+ PITTING EDEMA TO UPPER AND LOWER EXTREMITIES) : Normal Auscultation: Bowel Sounds: Normal Tenderness: Normal Skin: Normal Musculoskeletal: Right, Left, Arm, Leg, Swelling Psychiatric: Normal Mood Description: Calm Affect: Normal Speech Pattern: Clear - Laboratory and Diagnostics Result Diagrams: 09/12/21 03:40 09/12/21 03:40 Labs: Laboratory WBC 3.2 X10^3/uL (3.6-10.0) L 09/12/21 03:40 RBC 2.83 X10^6/uL (3.5-5.4) L 09/12/21 03:40 Hgb 8.8 g/dL (12.0-16.0) L 09/12/21 03:40 Hct 25.2 % (36.0-47.0) L 09/12/21 03:40 MCV 89.1 fL (80.0-100.0) 09/12/21 03:40 MCH 31.2 pg (27.0-34.0) 09/12/21 03:40 MCHC 35.0 g/dL (33.0-35.0) 09/12/21 03:40 RDW 17.0 % (11.6-16.5) H 09/12/21 03:40 Plt Count 36 X10^3/uL (150.0-450.0) L 09/12/21 03:40 Plt Count Comment Decreased (ADEQUATE) A 09/04/21 17:46 MPV 9.9 fL (7.4-11.0) 09/12/21 03:40 Neut % (Auto) 61.5 % (42.0-75.0) 09/12/21 03:40 Lymph % (Auto) 21.3 % (21.0-51.0) 09/12/21 03:40 [place] % (Auto) 11.7 % (0.0-13.0) 09/12/21 03:40 Eos % (Auto) 4.7 % (0.9-2.9) H 09/12/21 03:40 Baso % (Auto) 0.8 % (0.2-1.0) 09/12/21 03:40 Neut # (Auto) 2.0 x10^3/uL (2.2-4.8) L 09/12/21 03:40 Lymph # (Auto) 0.7 X10^3/uL (1.3-2.9) L 09/12/21 03:40 [place] # (Auto) 0.4 x10^3/uL (0.3-0.8) 09/12/21 03:40 Eos # (Auto) 0.2 x10^3/uL (0.0-0.2) 09/12/21 03:40 Baso # (Auto) 0.0 X10^3/uL (0.0-0.1) 09/12/21 03:40 Absolute Nucleated RBC 0.2 /100WBC 09/12/21 03:40 Plt Morphology Comment Normal (NORMAL) 09/04/21 17:46 RBC Morphology Normal (NORMAL) 09/04/21 17:46 D-Dimer 11.13 ug/ml (0.0-0.57) H* 09/04/21 19:45 Sodium 139 mmol/L (136-145) 09/12/21 03:40 Corrected Sodium TNP 09/12/21 03:40 Potassium 3.5 mmol/L (3.5-5.1) 09/12/21 03:40 Chloride 102 mmol/L (98-107) 09/12/21 03:40 Carbon Dioxide 29.9 mmol/L (21-32) 09/12/21 03:40 BUN 10 mg/dL (7-18) 09/12/21 03:40 Creatinine 0.68 mg/dL (0.55-1.02) 09/12/21 03:40 Est GFR (MDRD) Af Amer > 60 (>60) 09/12/21 03:40 Est GFR (MDRD) Non-Af > 60 (>60) 09/12/21 03:40 Glucose 84 mg/dL (65-99) 09/12/21 03:40 Calcium 8.7 mg/dL (8.5-10.1) 09/12/21 03:40 Corrected Calcium TNP 09/12/21 03:40 Magnesium 1.8 mg/dL (1.7-2.9) 09/11/21 05:59 Total Bilirubin 4.00 mg/dL (0.2-1.0) H 09/12/21 03:40 AST 33 Units/L (15-37) 09/12/21 03:40 ALT 6 Units/L (12-78) L 09/12/21 03:40 Alkaline Phosphatase 104 Units/L (46-116) 09/12/21 03:40 Ammonia 64 umol/L (11-32) H 09/12/21 03:40 Creatine Kinase 59 Units/L (26-192) 09/04/21 17:46 CK-MB (CK-2) < 1.0 ng/mL (0-4.0) 09/04/21 17:46 CK/CKMB % Calc 1.7 % (<4) 09/04/21 17:46 Troponin I High Sens 12.6 ng/L (4.0-60.0) 09/04/21 17:46 C-Reactive Protein 19.60 mg/L (0-3.0) H 09/12/21 03:40 B-Natriuretic Peptide 113 pg/mL (0-79) H 09/12/21 03:40 Total Protein 5.9 g/dL (6.4-8.2) L 09/12/21 03:40 Albumin 3.4 g/dL (3.4-5.0) 09/12/21 03:40 Globulin 2.5 g/dL (2.5-4.5) 09/12/21 03:40 Albumin/Globulin Ratio 1.4 Ratio (1.1-2.1) 09/12/21 03:40 SARS CoV-2 RNA Rapid PRAVEENA Positive (NEGATIVE) A 09/04/21 18:05 Blood Type O POSITIVE 09/09/21 09:23 Antibody Screen Negative 09/09/21 09:23 Crossmatch See Detail 09/09/21 09:23 - Plan (1) CHF (congestive heart failure) Status: Acute Qualifiers: Heart failure type: unspecified Heart failure chronicity: acute on chronic Qualified Code(s): I50.9 - Heart failure, unspecified Plan: FUROSEMIDE 40MG IV BID, ALDACTONE 25MG PO DAILY, ALBUMIN 25% IV BID, LACTULOSE 30ML PO BID, ASCORBIC ACID 1000MG PO Q6H, TESSALON PERLES 200MG PO TID, SULFATE 220MG PO BID, PROMETHAZINE 25MG IM Q6H PRN, ZOFRAN 4MG IV Q4H PRN, CONTINUE TO MONITOR. (2) Anasarca Status: Acute (3) Cirrhosis of liver Status: Acute Qualifiers: Hepatic cirrhosis type: unspecified hepatic cirrhosis Ascites presence: with ascites Qualified Code(s): K74.60 - Unspecified cirrhosis of liver; R18.8 - Other ascites (4) Hypoalbuminemia Status: Acute (5) Hyperbilirubinemia Status: Acute (6) COVID-19 Status: Acute (7) Anemia Status: Chronic Qualifiers: Anemia type: unspecified type Qualified Code(s): D64.9 - Anemia, unspecified Plan: TRANSFUSE 2 UNITS PRBC (8) GERD (gastroesophageal reflux disease) Status: Chronic Qualifiers: Esophagitis presence: esophagitis presence not specified Qualified Code(s): K21.9 - Gastro-esophageal reflux disease without esophagitis
[2021-09-13] MEDS: VITAMIN C PO SCH ×4 (04:52→21:11)
[2021-09-13] MEDS: TESSALON PERLES PO SCH ×3 (05:07→21:12)
[2021-09-13 06:11] LABS: BASOPHILS % (AUTO) 0.8 % (0.2-1.0); EOSINOPHILS # (AUTO) 0.2 x10^3/uL (0.0-0.2); EOSINOPHILS % (AUTO) 5.2 % (0.9-2.9); HEMATOCRIT 27.2 % (36.0-47.0); HEMOGLOBIN 9.5 g/dL (12.0-16.0); LYMPHOCYTES # (AUTO) 0.8 X10^3/uL (1.3-2.9); LYMPHOCYTES % (AUTO) 20.8 % (21.0-51.0); MEAN CORPUSCULAR HEMOGLOBIN 31.1 pg (27.0-34.0); MEAN CORPUSCULAR VOLUME 89.1 fL (80.0-100.0); MEAN PLATELET VOLUME 9.6 fL (7.4-11.0); MONOCYTES # (AUTO) 0.5 x10^3/uL (0.3-0.8); MONOCYTES % (AUTO) 12.1 % (0.0-13.0); NEUTROPHILS # (AUTO) 2.5 x10^3/uL (2.2-4.8); NEUTROPHILS % (AUTO) 61.1 % (42.0-75.0); RED BLOOD COUNT 3.05 X10^6/uL (3.5-5.4); RED CELL DISTRIBUTION WIDTH 16.9 % (11.6-16.5); WHITE BLOOD COUNT 4.1 X10^3/uL (3.6-10.0)
[2021-09-13 06:20] LABS: ALANINE AMINOTRANSFERASE 8 Units/L (12-78); ALKALINE PHOSPHATASE 113 Units/L (46-116); ASPARTATE AMINO TRANSFERASE 35 Units/L (15-37); BLOOD UREA NITROGEN 10 mg/dL (7-18); CALCIUM 9.2 mg/dL (8.5-10.1); CARBON DIOXIDE 29.6 mmol/L (21-32); CHLORIDE 102 mmol/L (98-107); CREATININE 0.72 mg/dL (0.55-1.02); SODIUM 139 mmol/L (136-145); TOTAL PROTEIN 6.6 g/dL (6.4-8.2); eGFR NON BLACK RACES > 60 (>60)
[2021-09-13 06:46] LABS: AMMONIA 87 umol/L (11-32)
[2021-09-13] MEDS: MEGACE PO SCH ×2 (09:46→21:12)
[2021-09-13] MEDS: ALDACTONE TAB 25 MG PO SCH (09:47)
[2021-09-13] MEDS: ALBUMIN HUMAN 25%- 100 ML 100 ML IV SCH ×2 (09:47→21:10)
[2021-09-13] MEDS: LASIX IVP SCH ×2 (09:47→16:06)
[2021-09-13] MEDS: ZINC SULFATE PO SCH ×2 (09:47→21:12)
[2021-09-13] MEDS: PROTONIX TAB 40 MG PO SCH (09:48)
[2021-09-13] MEDS: CHRONULAC PO SCH ×2 (09:48→21:13)
[2021-09-13] MEDS: FLONASE NASAL SPRAY ENOSTRIL SCH ×2 (09:48→21:12)
[2021-09-13] MEDS: MICRO K EXTEN CAP 10 MEQ PO SCH (09:48)
[2021-09-13] MEDS: XIFAXAN PO SCH ×2 (09:49→21:12)
[2021-09-13] MEDS: ULTRAM PO PRN (21:11)
[2021-09-13] MEDS: REQUIP PO SCH (21:12)
[2021-09-14] MEDS: VITAMIN C PO SCH ×4 (05:16→21:02)
[2021-09-14] MEDS: TESSALON PERLES PO SCH ×3 (05:23→21:01)
[2021-09-14 05:38] LABS: ALBUMIN 3.9 g/dL (3.4-5.0); ALKALINE PHOSPHATASE 97 Units/L (46-116); ASPARTATE AMINO TRANSFERASE 30 Units/L (15-37); BLOOD UREA NITROGEN 10 mg/dL (7-18); CALCIUM 8.7 mg/dL (8.5-10.1); CARBON DIOXIDE 31.3 mmol/L (21-32); CHLORIDE 102 mmol/L (98-107); CREATININE 0.67 mg/dL (0.55-1.02); MAGNESIUM 1.8 mg/dL (1.7-2.9); SODIUM 139 mmol/L (136-145); TOTAL PROTEIN 6.2 g/dL (6.4-8.2); eGFR NON BLACK RACES > 60 (>60)
[2021-09-14 05:42] LABS: BASOPHILS % (AUTO) 1.2 % (0.2-1.0); EOSINOPHILS # (AUTO) 0.2 x10^3/uL (0.0-0.2); EOSINOPHILS % (AUTO) 5.2 % (0.9-2.9); HEMATOCRIT 24.6 % (36.0-47.0); HEMOGLOBIN 8.6 g/dL (12.0-16.0); LYMPHOCYTES # (AUTO) 0.6 X10^3/uL (1.3-2.9); LYMPHOCYTES % (AUTO) 21.7 % (21.0-51.0); MEAN CORPUSCULAR HEMOGLOBIN 31.3 pg (27.0-34.0); MEAN CORPUSCULAR HGB CONC 34.8 g/dL (33.0-35.0); MEAN PLATELET VOLUME 10.1 fL (7.4-11.0); MONOCYTES # (AUTO) 0.3 x10^3/uL (0.3-0.8); NEUTROPHILS # (AUTO) 1.8 x10^3/uL (2.2-4.8); NEUTROPHILS % (AUTO) 60.9 % (42.0-75.0); RED BLOOD COUNT 2.73 X10^6/uL (3.5-5.4); WHITE BLOOD COUNT 2.9 X10^3/uL (3.6-10.0)
[2021-09-14 05:46] LABS: AMMONIA 78 umol/L (11-32)
[2021-09-14 06:04] LABS: ALANINE AMINOTRANSFERASE 6 Units/L (12-78)
[2021-09-14 08:47] VITALS: BMI 39.3
[2021-09-14] MEDS: XIFAXAN PO SCH ×2 (09:17→21:01)
[2021-09-14] MEDS: MICRO K EXTEN CAP 10 MEQ PO SCH (09:17)
[2021-09-14] MEDS: ALDACTONE TAB 25 MG PO SCH (09:17)
[2021-09-14] MEDS: ZINC SULFATE PO SCH ×2 (09:18→21:01)
[2021-09-14] MEDS: PROTONIX TAB 40 MG PO SCH (09:18)
[2021-09-14] MEDS: MEGACE PO SCH ×2 (09:18→21:01)
[2021-09-14] MEDS: ALBUMIN HUMAN 25%- 100 ML 100 ML IV SCH ×2 (09:19→21:00)
[2021-09-14] MEDS: CHRONULAC PO SCH ×2 (09:19→21:02)
[2021-09-14] MEDS: FLONASE NASAL SPRAY ENOSTRIL SCH ×2 (09:29→21:03)
[2021-09-14] MEDS: LASIX IVP SCH (09:32)
[2021-09-14] MEDS: ZOFRAN INJ 4 MG VIAL IVP PRN (10:21)
[2021-09-14] MEDS: ULTRAM PO PRN (21:01)
[2021-09-14] MEDS: REQUIP PO SCH (21:01)
[2021-09-15] MEDS: VITAMIN C PO SCH ×4 (04:36→21:16)
[2021-09-15] MEDS: TESSALON PERLES PO SCH ×3 (05:35→21:15)
[2021-09-15 05:52] LABS: AMMONIA 56 umol/L (11-32)
[2021-09-15 05:54] LABS: ALANINE AMINOTRANSFERASE 7 Units/L (12-78); ALBUMIN 4.1 g/dL (3.4-5.0); ALKALINE PHOSPHATASE 92 Units/L (46-116); ASPARTATE AMINO TRANSFERASE 31 Units/L (15-37); BLOOD UREA NITROGEN 11 mg/dL (7-18); CARBON DIOXIDE 29.4 mmol/L (21-32); CHLORIDE 103 mmol/L (98-107); CREATININE 0.71 mg/dL (0.55-1.02); MAGNESIUM 1.8 mg/dL (1.7-2.9); SODIUM 139 mmol/L (136-145); TOTAL PROTEIN 6.2 g/dL (6.4-8.2); eGFR NON BLACK RACES > 60 (>60)
[2021-09-15 05:56] LABS: BASOPHILS % (AUTO) 0.9 % (0.2-1.0); EOSINOPHILS # (AUTO) 0.2 x10^3/uL (0.0-0.2); EOSINOPHILS % (AUTO) 5.1 % (0.9-2.9); HEMATOCRIT 23.5 % (36.0-47.0); HEMOGLOBIN 8.2 g/dL (12.0-16.0); LYMPHOCYTES # (AUTO) 0.6 X10^3/uL (1.3-2.9); LYMPHOCYTES % (AUTO) 21.6 % (21.0-51.0); MEAN CORPUSCULAR HEMOGLOBIN 30.7 pg (27.0-34.0); MEAN CORPUSCULAR HGB CONC 34.8 g/dL (33.0-35.0); MEAN CORPUSCULAR VOLUME 88.1 fL (80.0-100.0); MEAN PLATELET VOLUME 9.9 fL (7.4-11.0); MONOCYTES # (AUTO) 0.3 x10^3/uL (0.3-0.8); MONOCYTES % (AUTO) 10.2 % (0.0-13.0); NEUTROPHILS # (AUTO) 1.8 x10^3/uL (2.2-4.8); NEUTROPHILS % (AUTO) 62.2 % (42.0-75.0); RED BLOOD COUNT 2.67 X10^6/uL (3.5-5.4); RED CELL DISTRIBUTION WIDTH 17.3 % (11.6-16.5)
[2021-09-15] MEDS: LASIX IVP SCH ×2 (08:50→17:01)
[2021-09-15] MEDS: ALBUMIN HUMAN 25%- 100 ML 100 ML IV SCH ×2 (08:50→21:15)
[2021-09-15] MEDS: ZINC SULFATE PO SCH ×2 (08:51→21:15)
[2021-09-15] MEDS: FLONASE NASAL SPRAY ENOSTRIL SCH ×2 (08:52→21:17)
[2021-09-15] MEDS: ALDACTONE TAB 25 MG PO SCH (08:52)
[2021-09-15] MEDS: MICRO K EXTEN CAP 10 MEQ PO SCH (08:52)
[2021-09-15] MEDS: PROTONIX TAB 40 MG PO SCH (08:52)
[2021-09-15] MEDS: XIFAXAN PO SCH ×2 (08:52→21:15)
[2021-09-15] MEDS: MEGACE PO SCH ×2 (08:52→21:15)
[2021-09-15] MEDS: ZOFRAN INJ 4 MG VIAL IVP PRN ×2 (09:14→18:00)
[2021-09-15] MEDS: CHRONULAC PO SCH ×2 (09:15→21:16)
[2021-09-15] MEDS: ULTRAM PO PRN (21:15)
[2021-09-15] MEDS: REQUIP PO SCH (21:15)
[2021-09-16] MEDS: VITAMIN C PO SCH ×4 (03:24→20:45)
[2021-09-16] MEDS: TESSALON PERLES PO SCH ×3 (05:08→22:00)
[2021-09-16 05:49] LABS: BASOPHILS % (AUTO) 0.7 % (0.2-1.0); EOSINOPHILS # (AUTO) 0.1 x10^3/uL (0.0-0.2); EOSINOPHILS % (AUTO) 4.6 % (0.9-2.9); HEMATOCRIT 23.1 % (36.0-47.0); LYMPHOCYTES # (AUTO) 0.6 X10^3/uL (1.3-2.9); LYMPHOCYTES % (AUTO) 20.9 % (21.0-51.0); MEAN CORPUSCULAR HEMOGLOBIN 30.8 pg (27.0-34.0); MEAN CORPUSCULAR HGB CONC 34.7 g/dL (33.0-35.0); MEAN CORPUSCULAR VOLUME 88.6 fL (80.0-100.0); MEAN PLATELET VOLUME 10.5 fL (7.4-11.0); MONOCYTES # (AUTO) 0.3 x10^3/uL (0.3-0.8); MONOCYTES % (AUTO) 9.7 % (0.0-13.0); NEUTROPHILS % (AUTO) 64.1 % (42.0-75.0); RED BLOOD COUNT 2.61 X10^6/uL (3.5-5.4); RED CELL DISTRIBUTION WIDTH 17.5 % (11.6-16.5)
[2021-09-16 05:52] LABS: AMMONIA 54 umol/L (11-32)
[2021-09-16 05:58] LABS: ALANINE AMINOTRANSFERASE 7 Units/L (12-78); ALBUMIN 4.4 g/dL (3.4-5.0); ALKALINE PHOSPHATASE 97 Units/L (46-116); ASPARTATE AMINO TRANSFERASE 30 Units/L (15-37); BLOOD UREA NITROGEN 12 mg/dL (7-18); CALCIUM 9.2 mg/dL (8.5-10.1); CARBON DIOXIDE 29.6 mmol/L (21-32); CHLORIDE 101 mmol/L (98-107); CREATININE 0.73 mg/dL (0.55-1.02); SODIUM 138 mmol/L (136-145); TOTAL PROTEIN 6.6 g/dL (6.4-8.2); eGFR NON BLACK RACES > 60 (>60)
[2021-09-16] MEDS ORDERED: POTASSIUM CHL 60 MEQ/NS 0.45% 500 ML IV PRN (07:59)
[2021-09-16] MEDS ORDERED: POTASSIUM CHL 40 MEQ/NS 0.45% 500 ML IV PRN (07:59)
[2021-09-16] MEDS ORDERED: POTASSIUM CHLORIDE LIQ 20 MEQ UDC PO PRN (07:59)
[2021-09-16] MEDS ORDERED: MICRO K EXTEN CAP 10 MEQ PO PRN (07:59)
[2021-09-16] MEDS ORDERED: KLOR-CON PO PRN (07:59)
[2021-09-16] MEDS: ZOFRAN INJ 4 MG VIAL IVP PRN (08:00)
[2021-09-16] MEDS: MICRO K EXTEN CAP 10 MEQ PO SCH (08:55)
[2021-09-16] MEDS: ULTRAM PO PRN (08:56)
[2021-09-16] MEDS: CHRONULAC PO SCH ×2 (08:57→20:46)
[2021-09-16] MEDS: ALDACTONE TAB 25 MG PO SCH (08:57)
[2021-09-16] MEDS: XIFAXAN PO SCH ×2 (08:57→20:51)
[2021-09-16] MEDS: PROTONIX TAB 40 MG PO SCH (08:57)
[2021-09-16] MEDS: LASIX IVP SCH ×2 (08:57→16:53)
[2021-09-16] MEDS: ALBUMIN HUMAN 25%- 100 ML 100 ML IV SCH ×2 (08:57→20:42)
[2021-09-16] MEDS: MEGACE PO SCH ×2 (08:57→20:44)
[2021-09-16] MEDS: FLONASE NASAL SPRAY ENOSTRIL SCH ×2 (08:58→20:44)
[2021-09-16] MEDS: ZINC SULFATE PO SCH ×2 (08:59→20:47)
[2021-09-16] MEDS: MAGNESIUM SULFATE 1 GRAM/100 mL PREMIX 1 G/100 ML BAG IV PRN ×2 (11:17→13:12)
[2021-09-16] MEDS ORDERED: AQUA-MEPHYTON ADULT INJ SC ONE (20:14)
[2021-09-16] MEDS ORDERED: AQUA-MEPHYTON ADULT INJ ONE (20:32)
[2021-09-16] MEDS: REQUIP PO SCH (20:44)
[2021-09-17] MEDS: ULTRAM PO PRN (01:29)
[2021-09-17] MEDS: ZOFRAN INJ 4 MG VIAL IVP PRN ×4 (01:30→21:38)
[2021-09-17] MEDS: VITAMIN C PO SCH ×4 (03:08→21:38)
[2021-09-17 05:32] LABS: BASOPHILS % (AUTO) 0.2 % (0.2-1.0); EOSINOPHILS % (AUTO) 0.3 % (0.9-2.9); HEMATOCRIT 22.8 % (36.0-47.0); HEMOGLOBIN 7.9 g/dL (12.0-16.0); LYMPHOCYTES # (AUTO) 0.3 X10^3/uL (1.3-2.9); LYMPHOCYTES % (AUTO) 5.5 % (21.0-51.0); MEAN CORPUSCULAR HEMOGLOBIN 30.7 pg (27.0-34.0); MEAN CORPUSCULAR HGB CONC 34.5 g/dL (33.0-35.0); MEAN PLATELET VOLUME 10.4 fL (7.4-11.0); MONOCYTES # (AUTO) 0.5 x10^3/uL (0.3-0.8); MONOCYTES % (AUTO) 8.6 % (0.0-13.0); NEUTROPHILS # (AUTO) 4.9 x10^3/uL (2.2-4.8); NEUTROPHILS % (AUTO) 85.4 % (42.0-75.0); RED BLOOD COUNT 2.56 X10^6/uL (3.5-5.4); RED CELL DISTRIBUTION WIDTH 17.3 % (11.6-16.5); WHITE BLOOD COUNT 5.7 X10^3/uL (3.6-10.0)
[2021-09-17 05:44] LABS: AMMONIA 41 umol/L (11-32)
[2021-09-17 05:52] LABS: ALANINE AMINOTRANSFERASE 9 Units/L (12-78); ALBUMIN 4.4 g/dL (3.4-5.0); ALKALINE PHOSPHATASE 92 Units/L (46-116); ASPARTATE AMINO TRANSFERASE 36 Units/L (15-37); BLOOD UREA NITROGEN 16 mg/dL (7-18); CALCIUM 9.5 mg/dL (8.5-10.1); CARBON DIOXIDE 24.9 mmol/L (21-32); CHLORIDE 100 mmol/L (98-107); CREATININE 0.88 mg/dL (0.55-1.02); SODIUM 135 mmol/L (136-145); TOTAL PROTEIN 6.6 g/dL (6.4-8.2); eGFR NON BLACK RACES > 60 (>60)
[2021-09-17] MEDS: TESSALON PERLES PO SCH ×3 (06:09→21:38)
[2021-09-17] MEDS: LASIX IVP SCH ×2 (09:11→16:53)
[2021-09-17] MEDS: ALBUMIN HUMAN 25%- 100 ML 100 ML IV SCH ×2 (09:12→21:36)
[2021-09-17] MEDS: CHRONULAC PO SCH ×2 (09:12→22:16)
[2021-09-17] MEDS: ALDACTONE TAB 25 MG PO SCH (09:13)
[2021-09-17] MEDS: ZINC SULFATE PO SCH ×2 (09:13→21:38)
[2021-09-17] MEDS: MICRO K EXTEN CAP 10 MEQ PO SCH (09:13)
[2021-09-17] MEDS: MEGACE PO SCH ×2 (09:13→21:37)
[2021-09-17] MEDS: XIFAXAN PO SCH ×2 (09:14→21:37)
[2021-09-17] MEDS: PROTONIX TAB 40 MG PO SCH (09:14)
[2021-09-17] MEDS: FLONASE NASAL SPRAY ENOSTRIL SCH ×2 (09:15→21:37)
[2021-09-17] MEDS: PHENERGAN INJ 25 MG IM PRN ×2 (11:07→23:16)
[2021-09-17 13:03] LABS: LACTIC ACID 1.9 mmol/L (0.4-2.0)
[2021-09-17] MEDS: TYLENOL 325 MG TAB PO PRN (19:37)
[2021-09-17] MEDS: REQUIP PO SCH (21:37)
[2021-09-17 21:51] LABS: BILIRUBIN,URINE NEGATIVE (NEGATIVE); BLOOD/HEMOGLOBIN,URINE 1+ (NEGATIVE); GLUCOSE, URINE NEGATIVE (NEGATIVE); KETONES,URINE NEGATIVE (NEGATIVE); LEUKOCYTE ESTERASE ,URINE NEGATIVE (NEGATIVE); NITRITES,URINE NEGATIVE (NEGATIVE); PH,URINE 6.5 (5.0 - 8.0); PROTEIN,URINE 3+ (NEGATIVE); UROBILINOGEN,URINE 1+ (NORMAL)
[2021-09-17 21:54] LABS: APPEARANCE,URINE CLEAR (CLEAR); BACTERIA,URINE TRACE /HPF (NEGATIVE); COLOR,URINE YELLOW (YELLOW); SQUAMOUS EPITHELIAL CELL,UR MODERATE /HPF (NEGATIVE)
--- NOTE | 2021-09-17 22:57 | PCM.PROG ---
Progress Note - Progress Note for Day of Date of Exam: 09/13/21 - Subjective Subjective: WAS ADMITTED FOR TREATMENT OF CHF, CIRRHOSIS OF LIVER, ANASARCA, THROMBOCYTOPENIA, HYPOALBUMINEMIA, COVID-19, ANEMIA, AND GERD. SHE FIRST TESTED POSITIVE FOR COVID APPROXIMATELY 3 WEEKS AGO. SHE RECEIVED TWO UNITS OF PACKED RED BLOOD CELLS ON 09/09/21. SHE CONTINUES WITH COMPLAINTS OF SHORTNESS OF BREATH, WEAKNESS, AND GENERALIZED SWELLING TODAY. SWELLING HAS DECREASED. ON EXAMINATION, HEART IS REGULAR IN RATE AND RHYTHM. BILATERAL LUNGS NOTED WITH DIMINISHED LUNG SOUNDS THROUGHOUT. ABDOMEN IS ROUND, SOFT, AND NOTED WITH MILD DIFFUSE TENDERNESS. DIFFUSE 1+ PITTING EDEMA TO UPPER AND LOWER EXTREMITIES NOTED. HER VITALS THIS MORNING ARE: 99.2-79-20-95%-117/57. LABS WERE OBTAINED. ABNORMAL LAB VALUES INCLUDE THE FOLLOWING: RBC 3.05, HGB 9.5, HCT 27.2, PLT COUNT 36, POTASSIUM 3.4, TOTAL BILI 3.90, ALT 6, AMMONIA 64, CRP 19.60, BNP 113, TOTAL PROTEIN 5.9. SHE IS CURRENTLY RECEIVING FUROSEMIDE 40MG IV BID, ALBUMIN 25% IV BID, ALDACTONE 25MG PO DAILY, ASCORBIC ACID 1000MG PO Q6H, TESSALON PERLES 200MG PO TID, AND ZINC SULFATE 220MG PO BID. WE RESUMED HER HOME MEDICATIONS OF LACTULOSE, XIFAXAN, TRAMADOL, ROPINIROLE, MEGACE, PROTONIX, POTASSIUM CHLORIDE, FLONASE. WE WILL CONTINUE WITH CURRENT PLAN OF CARE. OTHERWISE, WE PLAN TO FOLLOW UP WITH AM LABS AND CONTINUE TO MONITOR. TIME SPENT ON CLINICAL ASSESSMENT, REVIEWING LABS AND IMAGING, DECISION MAKING, AND DOCUMENTATION GREATER THAN 45 MINUTES. - Past Medical Family Social History Past Med/Fam/Surg Hx: No changes since H&P Allergies: Allergies codeine Allergy (Verified 03/01/17 23:55) levofloxacin [From Levaquin] Allergy (Verified 03/01/17 23:55) Penicillins Allergy (Verified 03/01/17 23:55) Sulfa (Sulfonamide Antibiotics) [SULFA] Allergy (Verified 03/01/17 23:55) - Review of Systems ROS: No change since H&P - Vital Signs and I&O's Vital Signs: Temperature 101.9 F Pulse Rate [Left Brachial] 127 Pulse Rate [Right Brachial] 97 Respiratory Rate 20 Blood Pressure [Right Arm] 124/58 Blood Pressure [Left Arm] 124/59 O2 Sat by Pulse Oximetry 91 Intake and Output: Intake & Output 09/15/21 09/16/21 09/17/21 09/18/21 11:59 11:59 11:59 11:59 Intake Total 1931 / 2157 2355 / 2355 260 / 260 Output Total 1100 / 1100 Balance 1931 1255 / 1255 260 / 260 - Physical Exam Oriented: Normal Eyes: Normal Ear: Normal Nose: Normal Throat: Normal Respiratory: Generalized, Diminished Cardiovascular: Edema (GENERALIZED EDEMA, 1+ PITTING EDEMA TO UPPER AND LOWER EXTREMITIES) : Normal Auscultation: Bowel Sounds: Normal Palpation: Normal Tenderness: Normal Skin: Normal Musculoskeletal: Right, Left, Arm, Leg, Swelling Psychiatric: Normal Mood Description: Calm Affect: Normal Speech Pattern: Clear, Appropriate - Laboratory and Diagnostics Result Diagrams: 09/17/21 05:08 09/17/21 05:08 Labs: Laboratory WBC 5.7 X10^3/uL (3.6-10.0) 09/17/21 05:08 RBC 2.56 X10^6/uL (3.5-5.4) L 09/17/21 05:08 Hgb 7.9 g/dL (12.0-16.0) L 09/17/21 05:08 Hct 22.8 % (36.0-47.0) L 09/17/21 05:08 MCV 89.0 fL (80.0-100.0) 09/17/21 05:08 MCH 30.7 pg (27.0-34.0) 09/17/21 05:08 MCHC 34.5 g/dL (33.0-35.0) 09/17/21 05:08 RDW 17.3 % (11.6-16.5) H 09/17/21 05:08 Plt Count 28 X10^3/uL (150.0-450.0) L 09/17/21 05:08 Plt Count Comment Decreased (ADEQUATE) A 09/04/21 17:46 MPV 10.4 fL (7.4-11.0) 09/17/21 05:08 Neut % (Auto) 85.4 % (42.0-75.0) H 09/17/21 05:08 Lymph % (Auto) 5.5 % (21.0-51.0) L 09/17/21 05:08 [place] % (Auto) 8.6 % (0.0-13.0) 09/17/21 05:08 Eos % (Auto) 0.3 % (0.9-2.9) L 09/17/21 05:08 Baso % (Auto) 0.2 % (0.2-1.0) 09/17/21 05:08 Neut # (Auto) 4.9 x10^3/uL (2.2-4.8) H 09/17/21 05:08 Lymph # (Auto) 0.3 X10^3/uL (1.3-2.9) L 09/17/21 05:08 [place] # (Auto) 0.5 x10^3/uL (0.3-0.8) 09/17/21 05:08 Eos # (Auto) 0.0 x10^3/uL (0.0-0.2) 09/17/21 05:08 Baso # (Auto) 0.0 X10^3/uL (0.0-0.1) 09/17/21 05:08 Absolute Nucleated RBC 0.0 /100WBC 09/17/21 05:08 Plt Morphology Comment Normal (NORMAL) 09/04/21 17:46 RBC Morphology Normal (NORMAL) 09/04/21 17:46 PT 27.4 SECONDS (11.8-14.3) 09/16/21 19:43 INR Target Range - 09/16/21 19:43 INR 2.69 (0.8-1.3) H 09/16/21 19:43 D-Dimer 11.13 ug/ml (0.0-0.57) H* 09/04/21 19:45 Sodium 135 mmol/L (136-145) L 09/17/21 05:08 Corrected Sodium TNP 09/17/21 05:08 Potassium 4.2 mmol/L (3.5-5.1) 09/17/21 05:08 Chloride 100 mmol/L (98-107) 09/17/21 05:08 Carbon Dioxide 24.9 mmol/L (21-32) 09/17/21 05:08 BUN 16 mg/dL (7-18) 09/17/21 05:08 Creatinine 0.88 mg/dL (0.55-1.02) 09/17/21 05:08 Est GFR (MDRD) Af Amer > 60 (>60) 09/17/21 05:08 Est GFR (MDRD) Non-Af > 60 (>60) 09/17/21 05:08 Glucose 105 mg/dL (65-99) H 09/17/21 05:08 Lactic Acid 1.9 mmol/L (0.4-2.0) 09/17/21 05:08 Calcium 9.5 mg/dL (8.5-10.1) 09/17/21 05:08 Corrected Calcium TNP 09/17/21 05:08 Magnesium 1.9 mg/dL (1.7-2.9) 09/16/21 05:08 Total Bilirubin 5.20 mg/dL (0.2-1.0) H 09/17/21 05:08 AST 36 Units/L (15-37) 09/17/21 05:08 ALT 9 Units/L (12-78) L 09/17/21 05:08 Alkaline Phosphatase 92 Units/L (46-116) 09/17/21 05:08 Ammonia 41 umol/L (11-32) H 09/17/21 05:08 Creatine Kinase 59 Units/L (26-192) 09/04/21 17:46 CK-MB (CK-2) < 1.0 ng/mL (0-4.0) 09/04/21 17:46 CK/CKMB % Calc 1.7 % (<4) 09/04/21 17:46 Troponin I High Sens 12.6 ng/L (4.0-60.0) 09/04/21 17:46 C-Reactive Protein 15.40 mg/L (0-3.0) H 09/17/21 05:08 B-Natriuretic Peptide 385 pg/mL (0-79) H 09/17/21 05:08 Total Protein 6.6 g/dL (6.4-8.2) 09/17/21 05:08 Albumin 4.4 g/dL (3.4-5.0) 09/17/21 05:08 Globulin 2.2 g/dL (2.5-4.5) L 09/17/21 05:08 Albumin/Globulin Ratio 2.0 Ratio (1.1-2.1) 09/17/21 05:08 Specimen Type Clean catch urine 09/17/21 21:30 Urine Color Yellow (YELLOW) 09/17/21 21:30 Urine Appearance Clear (CLEAR) 09/17/21 21:30 Urine pH 6.5 (5.0 - 8.0) 09/17/21 21:30 Ur Specific [place] 1.010 (1.000-1.030) 09/17/21 21:30 Urine Protein 3+ (NEGATIVE) 09/17/21 21:30 Urine Glucose (UA) Negative (NEGATIVE) 09/17/21 21: Urine Ketones Negative (NEGATIVE) 09/17/21 21: Urine Blood 1+ (NEGATIVE) 09/17/21 21: Urine Nitrite Negative (NEGATIVE) 09/17/21 21: Urine Bilirubin Negative (NEGATIVE) 09/17/21 21: Urine Urobilinogen 1+ (NORMAL) 09/17/21 21:30 Ur Leukocyte Esterase Negative (NEGATIVE) 09/17/21 21:30 Urine RBC 3-5 /HPF (0-3) A 09/17/21 21:30 Urine WBC 3-5 /HPF (0-5) 09/17/21 21:30 Ur Squamous Epith Cells Moderate /HPF (NEGATIVE) 09/17/21 21:30 Urine Bacteria Trace /HPF (NEGATIVE) 09/17/21 21:30 Ur Culture Indicated? No/not indicated 09/17/21 21:30 SARS CoV-2 RNA Rapid PRAVEENA Positive (NEGATIVE) A 09/04/21 18:05 Blood Type O POSITIVE 09/09/21 09:23 Antibody Screen Negative 09/09/21 09:23 Crossmatch See Detail 09/09/21 09:23 - Plan (1) CHF (congestive heart failure) Status: Acute Qualifiers: Heart failure type: unspecified Heart failure chronicity: acute on chronic Qualified Code(s): I50.9 - Heart failure, unspecified Plan: FUROSEMIDE 40MG IV BID, ALDACTONE 25MG PO DAILY, ALBUMIN 25% IV BID, LACTULOSE 30ML PO BID, ASCORBIC ACID 1000MG PO Q6H, TESSALON PERLES 200MG PO TID, SULFATE 220MG PO BID, PROMETHAZINE 25MG IM Q6H PRN, ZOFRAN 4MG IV Q4H PRN, CONTINUE TO MONITOR. (2) Anasarca Status: Acute (3) Cirrhosis of liver Status: Acute Qualifiers: Hepatic cirrhosis type: unspecified hepatic cirrhosis Ascites presence: with ascites Qualified Code(s): K74.60 - Unspecified cirrhosis of liver; R18.8 - Other ascites (4) Thrombocytopenia Status: Acute (5) Hypoalbuminemia Status: Acute (6) Hyperbilirubinemia Status: Acute (7) COVID-19 Status: Acute (8) Anemia Status: Chronic Qualifiers: Anemia type: unspecified type Qualified Code(s): D64.9 - Anemia, unspecified Plan: TRANSFUSE 2 UNITS PRBC (9) GERD (gastroesophageal reflux disease) Status: Chronic Qualifiers: Esophagitis presence: esophagitis presence not specified Qualified Code(s): K21.9 - Gastro-esophageal reflux disease without esophagitis
[2021-09-17] MEDS ORDERED: ROCEPHIN VIAL 1 GRAM 1 G in NS 100 ML IV 100 ML IV SCH (23:00)
--- NOTE | 2021-09-17 23:10 | PCM.PROG ---
Progress Note - Progress Note for Day of Date of Exam: 09/14/21 - Subjective Subjective: WAS ADMITTED FOR TREATMENT OF CHF, CIRRHOSIS OF LIVER, ANASARCA, THROMBOCYTOPENIA, HYPOALBUMINEMIA, COVID-19, ANEMIA, AND GERD. SHE FIRST TESTED POSITIVE FOR COVID APPROXIMATELY 3 WEEKS AGO. SHE RECEIVED TWO UNITS OF PACKED RED BLOOD CELLS ON 09/09/21. SHE CONTINUES WITH COMPLAINTS OF SHORTNESS OF BREATH, WEAKNESS, AND GENERALIZED SWELLING TODAY. SWELLING HAS DECREASED. ON EXAMINATION, HEART IS REGULAR IN RATE AND RHYTHM. BILATERAL LUNGS NOTED WITH DIMINISHED LUNG SOUNDS THROUGHOUT. ABDOMEN IS ROUND, SOFT, AND NOTED WITH MILD DIFFUSE TENDERNESS. DIFFUSE 1+ PITTING EDEMA TO UPPER AND LOWER EXTREMITIES NOTED. CENTRAL LINE NOTED TO RIGHT CHEST WALL. HER VITALS THIS MORNING ARE: 98.5-76-20-94%-130/60. LABS WERE OBTAINED. ABNORMAL LAB VALUES INCLUDE THE FOLLOWING: WBC 2.9, RBC 2.73, HGB 8.6, HCT 24.6, PLT COUNT 31, TOTAL BILI 3.90, ALT 6, AMMONIA 78, CRP 13.60, BNP 150, TOTAL PROTEIN 6.2, GLOBULIN 2.3. SHE IS CURRENTLY RECEIVING FUROSEMIDE 40MG IV BID, ALBUMIN 25% IV BID, AL DACTONE 25MG PO DAILY, ASCORBIC ACID 1000MG PO Q6H, TESSALON PERLES 200MG PO TID, AND ZINC SULFATE 220MG PO BID. HER HOME MEDICATIONS OF LACTULOSE, XIFAXAN, TRAMADOL, ROPINIROLE, MEGACE, PROTONIX, POTASSIUM CHLORIDE, FLONASE WERE RESUMED. WE WILL CONTINUE WITH CURRENT PLAN OF CARE TODAY AND ADD THE MAGNESIUM PROTOCOL. OTHERWISE, WE PLAN TO FOLLOW UP WITH AM LABS AND CONTINUE TO MONITOR. TIME SPENT ON CLINICAL ASSESSMENT, REVIEWING LABS AND IMAGING, DECISION MAKING, AND DOCUMENTATION GREATER THAN 45 MINUTES. - Past Medical Family Social History Past Med/Fam/Surg Hx: No changes since H&P Allergies: Allergies codeine Allergy (Verified 03/01/17 23:55) levofloxacin [From Levaquin] Allergy (Verified 03/01/17 23:55) Penicillins Allergy (Verified 03/01/17 23:55) Sulfa (Sulfonamide Antibiotics) [SULFA] Allergy (Verified 03/01/17 23:55) - Review of Systems ROS: No change since H&P - Vital Signs and I&O's Vital Signs: Temperature 101.9 F Pulse Rate [Left Brachial] 127 Pulse Rate [Right Brachial] 97 Respiratory Rate 20 Blood Pressure [Right Arm] 124/58 Blood Pressure [Left Arm] 124/59 O2 Sat by Pulse Oximetry 91 Intake and Output: Intake & Output 09/15/21 09/16/21 09/17/21 09/18/21 11:59 11:59 11:59 11:59 Intake Total 1931 2355 / 2355 260 / 260 Output Total 1100 / 1100 Balance 1931 1255 / 1255 260 / 260 - Physical Exam Oriented: Normal Eyes: Normal Ear: Normal Nose: Normal Throat: Normal Respiratory: Generalized, Diminished Cardiovascular: Edema (GENERALIZED EDEMA, 1+ PITTING EDEMA TO UPPER AND LOWER EXTREMITIES) : Normal Auscultation: Bowel Sounds: Normal Palpation: Normal Tenderness: Normal Skin: Normal Musculoskeletal: Right, Left, Arm, Leg, Swelling Psychiatric: Normal Mood Description: Calm Affect: Normal Speech Pattern: Clear, Appropriate - Laboratory and Diagnostics Result Diagrams: 09/17/21 05:08 09/17/21 05:08 Labs: Laboratory WBC 5.7 X10^3/uL (3.6-10.0) 09/17/21 05:08 RBC 2.56 X10^6/uL (3.5-5.4) L 09/17/21 05:08 Hgb 7.9 g/dL (12.0-16.0) L 09/17/21 05:08 Hct 22.8 % (36.0-47.0) L 09/17/21 05:08 MCV 89.0 fL (80.0-100.0) 09/17/21 05:08 MCH 30.7 pg (27.0-34.0) 09/17/21 05:08 MCHC 34.5 g/dL (33.0-35.0) 09/17/21 05:08 RDW 17.3 % (11.6-16.5) H 09/17/21 05:08 Plt Count 28 X10^3/uL (150.0-450.0) L 09/17/21 05:08 Plt Count Comment Decreased (ADEQUATE) A 09/04/21 17:46 MPV 10.4 fL (7.4-11.0) 09/17/21 05:08 Neut % (Auto) 85.4 % (42.0-75.0) H 09/17/21 05:08 Lymph % (Auto) 5.5 % (21.0-51.0) L 09/17/21 05:08 [place] % (Auto) 8.6 % (0.0-13.0) 09/17/21 05:08 Eos % (Auto) 0.3 % (0.9-2.9) L 09/17/21 05:08 Baso % (Auto) 0.2 % (0.2-1.0) 09/17/21 05:08 Neut # (Auto) 4.9 x10^3/uL (2.2-4.8) H 09/17/21 05:08 Lymph # (Auto) 0.3 X10^3/uL (1.3-2.9) L 09/17/21 05:08 [place] # (Auto) 0.5 x10^3/uL (0.3-0.8) 09/17/21 05:08 Eos # (Auto) 0.0 x10^3/uL (0.0-0.2) 09/17/21 05:08 Baso # (Auto) 0.0 X10^3/uL (0.0-0.1) 09/17/21 05:08 Absolute Nucleated RBC 0.0 /100WBC 09/17/21 05:08 Plt Morphology Comment Normal (NORMAL) 09/04/21 17:46 RBC Morphology Normal (NORMAL) 09/04/21 17:46 PT 27.4 SECONDS (11.8-14.3) 09/16/21 19:43 INR Target Range - 09/16/21 19:43 INR 2.69 (0.8-1.3) H 09/16/21 19:43 D-Dimer 11.13 ug/ml (0.0-0.57) H* 09/04/21 19:45 Sodium 135 mmol/L (136-145) L 09/17/21 05:08 Corrected Sodium TNP 09/17/21 05:08 Potassium 4.2 mmol/L (3.5-5.1) 09/17/21 05:08 Chloride 100 mmol/L (98-107) 09/17/21 05:08 Carbon Dioxide 24.9 mmol/L (21-32) 09/17/21 05:08 BUN 16 mg/dL (7-18) 09/17/21 05:08 Creatinine 0.88 mg/dL (0.55-1.02) 09/17/21 05:08 Est GFR (MDRD) Af Amer > 60 (>60) 09/17/21 05:08 Est GFR (MDRD) Non-Af > 60 (>60) 09/17/21 05:08 Glucose 105 mg/dL (65-99) H 09/17/21 05:08 Lactic Acid 1.9 mmol/L (0.4-2.0) 09/17/21 05:08 Calcium 9.5 mg/dL (8.5-10.1) 09/17/21 05:08 Corrected Calcium TNP 09/17/21 05:08 Magnesium 1.9 mg/dL (1.7-2.9) 09/16/21 05:08 Total Bilirubin 5.20 mg/dL (0.2-1.0) H 09/17/21 05:08 AST 36 Units/L (15-37) 09/17/21 05:08 ALT 9 Units/L (12-78) L 09/17/21 05:08 Alkaline Phosphatase 92 Units/L (46-116) 09/17/21 05:08 Ammonia 41 umol/L (11-32) H 09/17/21 05:08 Creatine Kinase 59 Units/L (26-192) 09/04/21 17:46 CK-MB (CK-2) < 1.0 ng/mL (0-4.0) 09/04/21 17:46 CK/CKMB % Calc 1.7 % (<4) 09/04/21 17:46 Troponin I High Sens 12.6 ng/L (4.0-60.0) 09/04/21 17:46 C-Reactive Protein 15.40 mg/L (0-3.0) H 09/17/21 05:08 B-Natriuretic Peptide 385 pg/mL (0-79) H 09/17/21 05:08 Total Protein 6.6 g/dL (6.4-8.2) 09/17/21 05:08 Albumin 4.4 g/dL (3.4-5.0) 09/17/21 05:08 Globulin 2.2 g/dL (2.5-4.5) L 09/17/21 05:08 Albumin/Globulin Ratio 2.0 Ratio (1.1-2.1) 09/17/21 05:08 Specimen Type Clean catch urine 09/17/21 21:30 Urine Color Yellow (YELLOW) 09/17/21 21:30 Urine Appearance Clear (CLEAR) 09/17/21 21: Urine pH 6.5 (5.0 - 8.0) 09/17/21 21:30 Ur Specific [place] 1.010 (1.000-1.030) 09/17/21 21:30 Urine Protein 3+ (NEGATIVE) 09/17/21 21: Urine Glucose (UA) Negative (NEGATIVE) 09/17/21 21: Urine Ketones Negative (NEGATIVE) 09/17/21 21:30 Urine Blood 1+ (NEGATIVE) 09/17/21 21: Urine Nitrite Negative (NEGATIVE) 09/17/21 21: Urine Bilirubin Negative (NEGATIVE) 09/17/21 21:30 Urine Urobilinogen 1+ (NORMAL) 09/17/21 21:30 Ur Leukocyte Esterase Negative (NEGATIVE) 09/17/21 21:30 Urine RBC 3-5 /HPF (0-3) A 09/17/21 21:30 Urine WBC 3-5 /HPF (0-5) 09/17/21 21:30 Ur Squamous Epith Cells Moderate /HPF (NEGATIVE) 09/17/21 21:30 Urine Bacteria Trace /HPF (NEGATIVE) 09/17/21 21:30 Ur Culture Indicated? No/not indicated 09/17/21 21:30 SARS CoV-2 RNA Rapid PRAVEENA Positive (NEGATIVE) A 09/04/21 18:05 Blood Type O POSITIVE 09/09/21 09:23 Antibody Screen Negative 09/09/21 09:23 Crossmatch See Detail 09/09/21 09:23 - Plan (1) CHF (congestive heart failure) Status: Acute Qualifiers: Heart failure type: unspecified Heart failure chronicity: acute on chronic Qualified Code(s): I50.9 - Heart failure, unspecified Plan: FUROSEMIDE 40MG IV BID, ALDACTONE 25MG PO DAILY, ALBUMIN 25% IV BID, LACTULOSE 30ML PO BID, ASCORBIC ACID 1000MG PO Q6H, TESSALON PERLES 200MG PO TID, SULFATE 220MG PO BID, PROMETHAZINE 25MG IM Q6H PRN, ZOFRAN 4MG IV Q4H PRN, CONTINUE TO MONITOR. (2) Anasarca Status: Acute (3) Cirrhosis of liver Status: Acute Qualifiers: Hepatic cirrhosis type: unspecified hepatic cirrhosis Ascites presence: with ascites Qualified Code(s): K74.60 - Unspecified cirrhosis of liver; R18.8 - Other ascites (4) Thrombocytopenia Status: Acute (5) Hypoalbuminemia Status: Acute (6) Hyperbilirubinemia Status: Acute (7) COVID-19 Status: Acute (8) Anemia Status: Chronic Qualifiers: Anemia type: unspecified type Qualified Code(s): D64.9 - Anemia, unspecified Plan: TRANSFUSE 2 UNITS PRBC (9) GERD (gastroesophageal reflux disease) Status: Chronic Qualifiers: Esophagitis presence: esophagitis presence not specified Qualified Code(s): K21.9 - Gastro-esophageal reflux disease without esophagitis
--- NOTE | 2021-09-17 23:18 | PCM.PROG ---
Progress Note - Progress Note for Day of Date of Exam: 09/15/21 - Subjective Subjective: WAS ADMITTED FOR TREATMENT OF CHF, CIRRHOSIS OF LIVER, ANASARCA, THROMBOCYTOPENIA, HYPOALBUMINEMIA, COVID-19, ANEMIA, AND GERD. SHE FIRST TESTED POSITIVE FOR COVID APPROXIMATELY 3 WEEKS AGO. SHE RECEIVED TWO UNITS OF PACKED RED BLOOD CELLS ON 09/09/21. SHE CONTINUES WITH COMPLAINTS OF SHORTNESS OF BREATH, WEAKNESS, AND GENERALIZED SWELLING TODAY. SHE ALSO REPORTS NAUSEA THIS MORNING. SWELLING HAS DECREASED SINCE ADMISSION. SHE IS ABLE TO AMBULATE TO BATHROOM WITH ASSISTANCE. ON EXAMINATION, HEART IS REGULAR IN RATE AND RHYTHM. BILATERAL LUNGS NOTED WITH DIMINISHED LUNG SOUNDS THROUGHOUT. ABDOMEN IS ROUND, SOFT, AND NOTED WITH MILD DIFFUSE TENDERNESS. TRACE EDEMA NOTED TO UPPER AND LOWER EXTREMITIES NOTED. CENTRAL LINE NOTED TO RIGHT CHEST WALL. HER VITALS THIS MORNING ARE: 98.8-78-20-98%-119/54. LABS WERE OBTAINED. ABNORMAL LAB VALUES INCLUDE THE FOLLOWING: WBC 3.0, RBC 2.67, HGB 8.2, HCT 23.5, PLT COUNT 33, TOTAL BILI 4.10, ALT 7, AMMONIA 56, CRP 12.00, BNP 146, TOTAL PROTEIN 6.2. SHE IS CURRENTLY RECEIVING FUROSEMIDE 40MG IV BID, ALBUMIN 25% IV BID, MAGNESIUM PROTOCOL, ALDACTONE 25MG PO DAILY, ASCORBIC ACID 1000MG PO Q6H, TESSALON PERLES 200MG PO TID, AND ZINC SULFATE 220MG PO BID. HER HOME MEDICATIONS OF LACTULOSE, XIFAXAN, TRAMADOL, ROPINIROLE, MEGACE, PROTONIX, POTASSIUM CHLORIDE, FLONASE WERE RESUMED. SHE HAS BEEN COMPLIANT WITH LACTULOSE. WE WILL CONTINUE WITH CURRENT PLAN OF CARE TODAY. OTHERWISE, WE PLAN TO FOLLOW UP WITH AM LABS AND CONTINUE TO MONITOR. TIME SPENT ON CLINICAL ASSESSMENT, REVIEWING LABS AND IMAGING, DECISION MAKING, AND DOCUMENTATION GREATER THAN 45 MINUTES. - Past Medical Family Social History Past Med/Fam/Surg Hx: No changes since H&P Allergies: Allergies codeine Allergy (Verified 03/01/17 23:55) levofloxacin [From Levaquin] Allergy (Verified 03/01/17 23:55) Penicillins Allergy (Verified 03/01/17 23:55) Sulfa (Sulfonamide Antibiotics) [SULFA] Allergy (Verified 03/01/17 23:55) - Review of Systems ROS: No change since H&P - Vital Signs and I&O's Vital Signs: Temperature 101.9 F Pulse Rate [Left Brachial] 127 Pulse Rate [Right Brachial] 97 Respiratory Rate 20 Blood Pressure [Right Arm] 124/58 Blood Pressure [Left Arm] 124/59 O2 Sat by Pulse Oximetry 91 Intake and Output: Intake & Output 09/15/21 09/16/21 09/17/21 09/18/21 11:59 11:59 11:59 11:59 Intake Total 1931 2355 / 2355 260 / 260 Output Total 1100 / 1100 Balance 1931 1255 / 1255 260 / 260 - Physical Exam Oriented: Normal Eyes: Normal Ear: Normal Nose: Normal Throat: Normal Respiratory: Generalized, Diminished Cardiovascular: Edema (GENERALIZED EDEMA, 1+ PITTING EDEMA TO UPPER AND LOWER EXTREMITIES) : Normal Auscultation: Bowel Sounds: Normal Tenderness: Normal Skin: Normal Musculoskeletal: Right, Left, Arm, Leg, Swelling Psychiatric: Normal Mood Description: Calm Affect: Normal Speech Pattern: Clear, Appropriate - Laboratory and Diagnostics Result Diagrams: 09/17/21 05:08 09/17/21 05:08 Labs: Laboratory WBC 5.7 X10^3/uL (3.6-10.0) 09/17/21 05:08 RBC 2.56 X10^6/uL (3.5-5.4) L 09/17/21 05:08 Hgb 7.9 g/dL (12.0-16.0) L 09/17/21 05:08 Hct 22.8 % (36.0-47.0) L 09/17/21 05:08 MCV 89.0 fL (80.0-100.0) 09/17/21 05:08 MCH 30.7 pg (27.0-34.0) 09/17/21 05:08 MCHC 34.5 g/dL (33.0-35.0) 09/17/21 05:08 RDW 17.3 % (11.6-16.5) H 09/17/21 05:08 Plt Count 28 X10^3/uL (150.0-450.0) L 09/17/21 05:08 Plt Count Comment Decreased (ADEQUATE) A 09/04/21 17:46 MPV 10.4 fL (7.4-11.0) 09/17/21 05:08 Neut % (Auto) 85.4 % (42.0-75.0) H 09/17/21 05:08 Lymph % (Auto) 5.5 % (21.0-51.0) L 09/17/21 05:08 Carbon % (Auto) 8.6 % (0.0-13.0) 09/17/21 05:08 Eos % (Auto) 0.3 % (0.9-2.9) L 09/17/21 05:08 Baso % (Auto) 0.2 % (0.2-1.0) 09/17/21 05:08 Neut # (Auto) 4.9 x10^3/uL (2.2-4.8) H 09/17/21 05:08 Lymph # (Auto) 0.3 X10^3/uL (1.3-2.9) L 09/17/21 05:08 Carbon # (Auto) 0.5 x10^3/uL (0.3-0.8) 09/17/21 05:08 Eos # (Auto) 0.0 x10^3/uL (0.0-0.2) 09/17/21 05:08 Baso # (Auto) 0.0 X10^3/uL (0.0-0.1) 09/17/21 05:08 Absolute Nucleated RBC 0.0 /100WBC 09/17/21 05:08 Plt Morphology Comment Normal (NORMAL) 09/04/21 17:46 RBC Morphology Normal (NORMAL) 09/04/21 17:46 PT 27.4 SECONDS (11.8-14.3) 09/16/21 19:43 INR Target Range - 09/16/21 19:43 INR 2.69 (0.8-1.3) H 09/16/21 19:43 D-Dimer 11.13 ug/ml (0.0-0.57) H* 09/04/21 19:45 Sodium 135 mmol/L (136-145) L 09/17/21 05:08 Corrected Sodium TNP 09/17/21 05:08 Potassium 4.2 mmol/L (3.5-5.1) 09/17/21 05:08 Chloride 100 mmol/L (98-107) 09/17/21 05:08 Carbon Dioxide 24.9 mmol/L (21-32) 09/17/21 05:08 BUN 16 mg/dL (7-18) 09/17/21 05:08 Creatinine 0.88 mg/dL (0.55-1.02) 09/17/21 05:08 Est GFR (MDRD) Af Amer > 60 (>60) 09/17/21 05:08 Est GFR (MDRD) Non-Af > 60 (>60) 09/17/21 05:08 Glucose 105 mg/dL (65-99) H 09/17/21 05:08 Lactic Acid 1.9 mmol/L (0.4-2.0) 09/17/21 05:08 Calcium 9.5 mg/dL (8.5-10.1) 09/17/21 05:08 Corrected Calcium TNP 09/17/21 05:08 Magnesium 1.9 mg/dL (1.7-2.9) 09/16/21 05:08 Total Bilirubin 5.20 mg/dL (0.2-1.0) H 09/17/21 05:08 AST 36 Units/L (15-37) 09/17/21 05:08 ALT 9 Units/L (12-78) L 09/17/21 05:08 Alkaline Phosphatase 92 Units/L (46-116) 09/17/21 05:08 Ammonia 41 umol/L (11-32) H 09/17/21 05:08 Creatine Kinase 59 Units/L (26-192) 09/04/21 17:46 CK-MB (CK-2) < 1.0 ng/mL (0-4.0) 09/04/21 17:46 CK/CKMB % Calc 1.7 % (<4) 09/04/21 17:46 Troponin I High Sens 12.6 ng/L (4.0-60.0) 09/04/21 17:46 C-Reactive Protein 15.40 mg/L (0-3.0) H 09/17/21 05:08 B-Natriuretic Peptide 385 pg/mL (0-79) H 09/17/21 05:08 Total Protein 6.6 g/dL (6.4-8.2) 09/17/21 05:08 Albumin 4.4 g/dL (3.4-5.0) 09/17/21 05:08 Globulin 2.2 g/dL (2.5-4.5) L 09/17/21 05:08 Albumin/Globulin Ratio 2.0 Ratio (1.1-2.1) 09/17/21 05:08 Specimen Type Clean catch urine 09/17/21 21:30 Urine Color Yellow (YELLOW) 09/17/21 21: Urine Appearance Clear (CLEAR) 09/17/21 21:30 Urine pH 6.5 (5.0 - 8.0) 09/17/21 21:30 Ur Specific [place] 1.010 (1.000-1.030) 09/17/21 21:30 Urine Protein 3+ (NEGATIVE) 09/17/21 21:30 Urine Glucose (UA) Negative (NEGATIVE) 09/17/21 21:30 Urine Ketones Negative (NEGATIVE) 09/17/21 21:30 Urine Blood 1+ (NEGATIVE) 09/17/21 21:30 Urine Nitrite Negative (NEGATIVE) 09/17/21 21:30 Urine Bilirubin Negative (NEGATIVE) 09/17/21 21:30 Urine Urobilinogen 1+ (NORMAL) 09/17/21 21:30 Ur Leukocyte Esterase Negative (NEGATIVE) 09/17/21 21:30 Urine RBC 3-5 /HPF (0-3) A 09/17/21 21:30 Urine WBC 3-5 /HPF (0-5) 09/17/21 21:30 Ur Squamous Epith Cells Moderate /HPF (NEGATIVE) 09/17/21 21:30 Urine Bacteria Trace /HPF (NEGATIVE) 09/17/21 21:30 Ur Culture Indicated? No/not indicated 09/17/21 21:30 SARS CoV-2 RNA Rapid PRAVEENA Positive (NEGATIVE) A 09/04/21 18:05 Blood Type O POSITIVE 09/09/21 09:23 Antibody Screen Negative 09/09/21 09:23 Crossmatch See Detail 09/09/21 09:23 - Plan (1) CHF (congestive heart failure) Status: Acute Qualifiers: Heart failure type: unspecified Heart failure chronicity: acute on chronic Qualified Code(s): I50.9 - Heart failure, unspecified Plan: FUROSEMIDE 40MG IV BID, ALDACTONE 25MG PO DAILY, ALBUMIN 25% IV BID, LACTULOSE 30ML PO BID, ASCORBIC ACID 1000MG PO Q6H, TESSALON PERLES 200MG PO T ID, SULFATE 220MG PO BID, PROMETHAZINE 25MG IM Q6H PRN, ZOFRAN 4MG IV Q4H PRN, CONTINUE TO MONITOR. (2) Anasarca Status: Acute (3) Cirrhosis of liver Status: Acute Qualifiers: Hepatic cirrhosis type: unspecified hepatic cirrhosis Ascites presence: with ascites Qualified Code(s): K74.60 - Unspecified cirrhosis of liver; R18.8 - Other ascites (4) Thrombocytopenia Status: Acute (5) Hypoalbuminemia Status: Acute (6) Hyperbilirubinemia Status: Acute (7) COVID-19 Status: Acute (8) Anemia Status: Chronic Qualifiers: Anemia type: unspecified type Qualified Code(s): D64.9 - Anemia, unspecified Plan: TRANSFUSE 2 UNITS PRBC (9) GERD (gastroesophageal reflux disease) Status: Chronic Qualifiers: Esophagitis presence: esophagitis presence not specified Qualified Code(s): K21.9 - Gastro-esophageal reflux disease without esophagitis
[2021-09-17] MEDS ORDERED: LASIX IVP ONE (23:49)
[2021-09-18] MEDS: TYLENOL 325 MG TAB PO PRN ×2 (00:17→13:36)
[2021-09-18] MEDS: VITAMIN C PO SCH ×4 (02:14→20:39)
[2021-09-18 03:46] LABS: BILIRUBIN,URINE NEGATIVE (NEGATIVE); BLOOD/HEMOGLOBIN,URINE 2+ (NEGATIVE); GLUCOSE, URINE NEGATIVE (NEGATIVE); KETONES,URINE 1+ (NEGATIVE); LEUKOCYTE ESTERASE ,URINE NEGATIVE (NEGATIVE); NITRITES,URINE NEGATIVE (NEGATIVE); PROTEIN,URINE 3+ (NEGATIVE); UROBILINOGEN,URINE 1+ (NORMAL)
[2021-09-18 03:47] LABS: APPEARANCE,URINE CLEAR (CLEAR); COLOR,URINE YELLOW (YELLOW)
[2021-09-18] MEDS: TESSALON PERLES PO SCH ×3 (05:33→21:25)
[2021-09-18 06:11] LABS: BASOPHILS % (AUTO) 0.1 % (0.2-1.0); HEMATOCRIT 20.6 % (36.0-47.0); HEMOGLOBIN 7.2 g/dL (12.0-16.0); LYMPHOCYTES # (AUTO) 0.3 X10^3/uL (1.3-2.9); LYMPHOCYTES % (AUTO) 2.9 % (21.0-51.0); MEAN CORPUSCULAR HEMOGLOBIN 31.3 pg (27.0-34.0); MEAN CORPUSCULAR HGB CONC 34.9 g/dL (33.0-35.0); MEAN CORPUSCULAR VOLUME 89.6 fL (80.0-100.0); MEAN PLATELET VOLUME 9.7 fL (7.4-11.0); MONOCYTES # (AUTO) 0.7 x10^3/uL (0.3-0.8); MONOCYTES % (AUTO) 6.7 % (0.0-13.0); NEUTROPHILS # (AUTO) 8.9 x10^3/uL (2.2-4.8); NEUTROPHILS % (AUTO) 90.3 % (42.0-75.0); RED CELL DISTRIBUTION WIDTH 17.8 % (11.6-16.5); WHITE BLOOD COUNT 9.8 X10^3/uL (3.6-10.0)
[2021-09-18 06:17] LABS: AMMONIA 33 umol/L (11-32)
[2021-09-18 06:42] LABS: ALANINE AMINOTRANSFERASE 8 Units/L (12-78); ALBUMIN 4.5 g/dL (3.4-5.0); ALKALINE PHOSPHATASE 85 Units/L (46-116); ASPARTATE AMINO TRANSFERASE 36 Units/L (15-37); BLOOD UREA NITROGEN 24 mg/dL (7-18); CALCIUM 9.4 mg/dL (8.5-10.1); CARBON DIOXIDE 27.2 mmol/L (21-32); CHLORIDE 100 mmol/L (98-107); CREATININE 1.31 mg/dL (0.55-1.02); SODIUM 137 mmol/L (136-145); TOTAL PROTEIN 6.7 g/dL (6.4-8.2); eGFR NON BLACK RACES 43 (>60)
[2021-09-18 06:51] LABS: PLATELET MORPHOLOGY COMMENT NORMAL (NORMAL)
[2021-09-18] MEDS: MEGACE PO SCH ×2 (08:41→20:38)
[2021-09-18] MEDS: ALBUMIN HUMAN 25%- 100 ML 100 ML IV SCH ×2 (08:41→21:05)
--- NOTE | 2021-09-18 10:22 | RAD ---
HISTORYCHF fever SOBSTUDYAP chestCOMPARISONApril 2021FINDINGSHeart size normal. Increasing pulmonary vascular congestion. Continued elevation right diaphragm with mild basal atelectasis. No consolidation or pleural effusion. Right subclavian line extends to right atrium.IMPRESSIONIncreasing pulmonary vascular congestion since prior exam. The findings are suggestive of developing CHF.Electronically signed by: MG CARRIZALES (Sep 18, 2021 10:21:32)
[2021-09-18] MEDS: ALDACTONE TAB 25 MG PO SCH (10:38)
[2021-09-18] MEDS: FLONASE NASAL SPRAY ENOSTRIL SCH ×2 (10:38→20:38)
[2021-09-18] MEDS: MICRO K EXTEN CAP 10 MEQ PO SCH (10:38)
[2021-09-18] MEDS: CHRONULAC PO SCH ×2 (10:38→20:38)
[2021-09-18] MEDS: XIFAXAN PO SCH ×2 (10:39→20:39)
[2021-09-18] MEDS: PROTONIX TAB 40 MG PO SCH (10:39)
[2021-09-18] MEDS: ZINC SULFATE PO SCH ×2 (10:39→20:39)
[2021-09-18] MEDS ORDERED: LASIX IVP PRN (11:01)
[2021-09-18] MEDS: LASIX IVP SCH ×3 (11:14→19:08)
[2021-09-18] MEDS: FORTAZ or TAZICEF VIAL INJ 2 G in NS 100 ML IV 100 ML IV SCH ×2 (12:01→20:38)
[2021-09-18] MEDS: PHENERGAN INJ 25 MG IM PRN (13:18)
[2021-09-18] MEDS ORDERED: NS 250 ML IV 250 ML IV ONE ×2 (13:32→23:52)
[2021-09-18] MEDS: BENADRYL INJ 50 MG VIAL IVP PRN (13:39)
[2021-09-18] MEDS: INVanz INJ 1 GRAM VIAL 1 G in NS 100 ML IV 100 ML IV SCH (14:19)
--- NOTE | 2021-09-18 16:23 | RAD ---
HISTORYSOB, HYPOXIA Relevant Clinical InformationSTUDYCHEST, 1 [id number]/11/2022.FINDINGSThere is a right subclavian catheter with tip near the caval atrial junction. Heart size is normal. Pulmonary blood flow is congested. 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 There is a small right effusion. There is some nonspecific bibasilar opacity and right upper lobe opacity.IMPRESSION1. Nonspecific opacities in the right lung which are probably atelectasis given the elevated right hemidiaphragm and small right effusion. 2. Left base opacity could be atelectasis or infiltrate..Electronically signed by: Bihn Cortes (Sep 18, 2021 16:22:38)
[2021-09-18 20:15] LABS: HEMATOCRIT 22.5 % (36.0-47.0); HEMOGLOBIN 7.8 g/dL (12.0-16.0)
[2021-09-18] MEDS: REQUIP PO SCH (20:39)
--- NOTE | 2021-09-18 23:16 | PCM.PROG ---
Progress Note - Progress Note for Day of Date of Exam: 09/16/21 - Subjective Subjective: WAS ADMITTED FOR TREATMENT OF CHF, CIRRHOSIS OF LIVER, ANASARCA, THROMBOCYTOPENIA, HYPOALBUMINEMIA, COVID-19, ANEMIA, AND GERD. SHE FIRST TESTED POSITIVE FOR COVID APPROXIMATELY 3 WEEKS AGO. SHE RECEIVED TWO UNITS OF PACKED RED BLOOD CELLS ON 09/09/21. SHE CONTINUES WITH COMPLAINTS OF SHORTNESS OF BREATH, WEAKNESS, AND GENERALIZED SWELLING TODAY. SHORTNESS OF BREATH IS SLIGHTLY WORSE TODAY. SHE ALSO REPORTS HAVING SOME NAUSEA THROUGHOUT THE NIGHT. SWELLING HAS DECREASED SINCE ADMISSION. SHE IS ABLE TO AMBULATE TO BATHROOM WITH ASSISTANCE. ON EXAMINATION, HEART IS REGULAR IN RATE AND RHYTHM. BILATERAL LUNGS NOTED WITH DIMINISHED LUNG SOUNDS THROUGHOUT. ABDOMEN IS ROUND, SOFT, AND NOTED WITH MILD DIFFUSE TENDERNESS. TRACE EDEMA NOTED TO UPPER AND LOWER EXTREMITIES NOTED. CENTRAL LINE NOTED TO RIGHT CHEST WALL. HER VITALS THIS MORNING ARE: 98.5-82-20-96%-140/64. LABS WERE OBTAINED. ABNORMAL LAB VALUES INCLUDE THE FOLLOWING: WBC 3.0, RBC 2.61, HGB 8.0, HCT 23.1, PLT COUNT 31, INR 2.69, TOTAL BILI 4.00, ALT 7, AMMONIA 54. SHE IS CURRENTLY RECEIVING FUROSEMIDE 40MG IV BID, ALBUMIN 25% IV BID, MAGNESIUM PROTOCOL, ALDACTONE 25MG PO DAILY, ASCORBIC ACID 1000MG PO Q6H, TESSALON PERLES 200MG PO TID, AND ZINC SULFATE 220MG PO BID. HER HOME MEDICATIONS OF LACTULOSE, XIFAXAN, TRAMADOL, ROPINIROLE, MEGACE, PROTONIX, POTASSIUM CHLORIDE, FLONASE WERE RESUMED. SHE HAS BEEN COMPLI ANT WITH LACTULOSE. WE WILL CONTINUE WITH CURRENT PLAN OF CARE TODAY AND ADD THE POTASSIUM AND MAGNESIUM PROTOCOLS. WE ENCOURAGED THE USE OF INCENTIVES SPIROMETER. OTHERWISE, WE PLAN TO FOLLOW UP WITH AM LABS AND CONTINUE TO MONITOR. TIME SPENT ON CLINICAL ASSESSMENT, REVIEWING LABS AND IMAGING, DECISION MAKING, AND DOCUMENTATION GREATER THAN 45 MINUTES. - Past Medical Family Social History Past Med/Fam/Surg Hx: No changes since H&P Allergies: Allergies codeine Allergy (Verified 03/01/17 23:55) levofloxacin [From Levaquin] Allergy (Verified 03/01/17 23:55) Penicillins Allergy (Verified 03/01/17 23:55) Sulfa (Sulfonamide Antibiotics) [SULFA] Allergy (Verified 03/01/17 23:55) - Review of Systems ROS: No change since H&P - Vital Signs and I&O's Vital Signs: Temperature 98.4 F Pulse Rate [Left Brachial] 80 Pulse Rate [Right Brachial] 84 Respiratory Rate 18 Blood Pressure [Right Arm] 104/55 Blood Pressure [Left Arm] 113/56 O2 Sat by Pulse Oximetry 98 Intake and Output: Intake & Output 09/16/21 09/17/21 09/18/21 09/19/21 11:59 11:59 11:59 11:59 Intake Total 215 / 2158 2355 / 2355 1055 / 1055 1192 / 1192 Output Total 1100 / 1100 100 / 100 Balance 215 / 2157 1255 / 1255 1055 / 1055 1092 / 1092 - Physical Exam Oriented: Normal Eyes: Normal Ear: Normal Nose: Normal Throat: Normal Respiratory: Generalized, Diminished Cardiovascular: Edema (TRACE EDEMA TO UPPER AND LOWER EXTREMITIES) : Normal Auscultation: Bowel Sounds: Normal Palpation: Normal Tenderness: Normal Skin: Normal Musculoskeletal: Right, Left, Arm, Leg, Swelling Psychiatric: Normal Mood Description: Calm Affect: Normal Speech Pattern: Clear, Appropriate - Laboratory and Diagnostics Result Diagrams: 09/18/21 19:52 09/18/21 05:30 Labs: 09/18/21 14:27 Chest Wound Gram Stain - Final 09/17/21 21:30 Urine,Clean Catch Urine Culture - Preliminary 09/17/21 12:18 Blood Blood Culture - Preliminary Laboratory WBC 9.8 X10^3/uL (3.6-10.0) 09/18/21 05:30 RBC 2.30 X10^6/uL (3.5-5.4) L 09/18/21 05:30 Hgb 7.8 g/dL (12.0-16.0) L 09/18/21 19:52 Hct 22.5 % (36.0-47.0) L 09/18/21 19:52 MCV 89.6 fL (80.0-100.0) 09/18/21 05:30 MCH 31.3 pg (27.0-34.0) 09/18/21 05:30 MCHC 34.9 g/dL (33.0-35.0) 09/18/21 05:30 RDW 17.8 % (11.6-16.5) H 09/18/21 05:30 Plt Count 22 X10^3/uL (150.0-450.0) L 09/18/21 05:30 Plt Count Comment Decreased (ADEQUATE) A 09/18/21 05:30 MPV 9.7 fL (7.4-11.0) 09/18/21 05:30 Neut % (Auto) 90.3 % (42.0-75.0) H 09/18/21 05:30 Lymph % (Auto) 2.9 % (21.0-51.0) L 09/18/21 05:30 [place] % (Auto) 6.7 % (0.0-13.0) 09/18/21 05:30 Eos % (Auto) 0.0 % (0.9-2.9) L 09/18/21 05:30 Baso % (Auto) 0.1 % (0.2-1.0) L 09/18/21 05:30 Neut # (Auto) 8.9 x10^3/uL (2.2-4.8) H 09/18/21 05:30 Lymph # (Auto) 0.3 X10^3/uL (1.3-2.9) L 09/18/21 05:30 [place] # (Auto) 0.7 x10^3/uL (0.3-0.8) 09/18/21 05:30 Eos # (Auto) 0.0 x10^3/uL (0.0-0.2) 09/18/21 05:30 Baso # (Auto) 0.0 X10^3/uL (0.0-0.1) 09/18/21 05:30 Absolute Nucleated RBC 0.0 /100WBC 09/18/21 05:30 Total Counted 100 09/18/21 05:30 Neutrophils % (Manual) 94 % (39-76) H 09/18/21 05:30 Lymphocytes % (Manual) 3 % (13-43) L 09/18/21 05:30 Monocytes % (Manual) 3 % (4-9) L 09/18/21 05:30 Plt Morphology Comment Normal (NORMAL) 09/18/21 05:30 RBC Morphology Normal (NORMAL) 09/18/21 05:30 PT 30.7 SECONDS (11.8-14.3) 09/18/21 11:20 INR Target Range - 09/18/21 11:20 INR 3.12 (0.8-1.3) H 09/18/21 11:20 D-Dimer 11.13 ug/ml (0.0-0.57) H* 09/04/21 19:45 Sodium 137 mmol/L (136-145) 09/18/21 05:30 Corrected Sodium TNP 09/18/21 05:30 Potassium 4.0 mmol/L (3.5-5.1) 09/18/21 05:30 Chloride 100 mmol/L (98-107) 09/18/21 05:30 Carbon Dioxide 27.2 mmol/L (21-32) 09/18/21 05:30 BUN 24 mg/dL (7-18) H 09/18/21 05:30 Creatinine 1.31 mg/dL (0.55-1.02) H 09/18/21 05:30 Est GFR (MDRD) Af Amer 52 (>60) L 09/18/21 05:30 Est GFR (MDRD) Non-Af 43 (>60) L 09/18/21 05:30 Glucose 110 mg/dL (65-99) H 09/18/21 05:30 Lactic Acid 1.9 mmol/L (0.4-2.0) 09/17/21 05:08 Calcium 9.4 mg/dL (8.5-10.1) 09/18/21 05:30 Corrected Calcium TNP 09/18/21 05:30 Magnesium 1.9 mg/dL (1.7-2.9) 09/16/21 05:08 Total Bilirubin 5.90 mg/dL (0.2-1.0) H 09/18/21 05:30 AST 36 Units/L (15-37) 09/18/21 05:30 ALT 8 Units/L (12-78) L 09/18/21 05:30 Alkaline Phosphatase 85 Units/L (46-116) 09/18/21 05:30 Ammonia 33 umol/L (11-32) H 09/18/21 05:30 Creatine Kinase 59 Units/L (26-192) 09/04/21 17:46 CK-MB (CK-2) < 1.0 ng/mL (0-4.0) 09/04/21 17:46 CK/CKMB % Calc 1.7 % (<4) 09/04/21 17:46 Troponin I High Sens 12.6 ng/L (4.0-60.0) 09/04/21 17:46 C-Reactive Protein 35.00 mg/L (0-3.0) H 09/18/21 05:30 B-Natriuretic Peptide 723 pg/mL (0-79) H* 09/18/21 05:30 Total Protein 6.7 g/dL (6.4-8.2) 09/18/21 05:30 Albumin 4.5 g/dL (3.4-5.0) 09/18/21 05:30 Globulin 2.2 g/dL (2.5-4.5) L 09/18/21 05:30 Albumin/Globulin Ratio 2.0 Ratio (1.1-2.1) 09/18/21 05:30 Specimen Type Catherized urine 09/18/21 03:32 Urine Color Yellow (YELLOW) 09/18/21 03:32 Urine Appearance Clear (CLEAR) 09/18/21 03:32 Urine pH 5.0 (5.0 - 8.0) 09/18/21 03:32 Ur Specific [place] 1.025 (1.000-1.030) 09/18/21 03:32 Urine Protein 3+ (NEGATIVE) 09/18/21 03:32 Urine Glucose (UA) Negative (NEGATIVE) 09/18/21 03:32 Urine Ketones 1+ (NEGATIVE) 09/18/21 03:32 Urine Blood 2+ (NEGATIVE) 09/18/21 03:32 Urine Nitrite Negative (NEGATIVE) 09/18/21 03:32 Urine Bilirubin Negative (NEGATIVE) 09/18/21 03:32 Urine Urobilinogen 1+ (NORMAL) 09/18/21 03:32 Ur Leukocyte Esterase Negative (NEGATIVE) 09/18/21 03:32 Urine RBC 3-5 /HPF (0-3) A 09/17/21 21:30 Urine WBC 3-5 /HPF (0-5) 09/17/21 21:30 Ur Squamous Epith Cells Moderate /HPF (NEGATIVE) 09/17/21 21:30 Urine Bacteria Trace /HPF (NEGATIVE) 09/17/21 21:30 Ur Culture Indicated? No/not indicated 09/17/21 21:30 SARS CoV-2 RNA Rapid PRAVEENA Positive (NEGATIVE) A 09/04/21 18:05 Blood Type O POSITIVE 09/18/21 11:20 Antibody Screen Negative 09/18/21 11:20 Crossmatch See Detail 09/18/21 11:20 - Plan (1) CHF (congestive heart failure) Status: Acute Qualifiers: Heart failure type: unspecified Heart failure chronicity: acute on chronic Qualified Code(s): I50.9 - Heart failure, unspecified Plan: FUROSEMIDE 40MG IV BID, ALDACTONE 25MG PO DAILY, ALBUMIN 25% IV BID, LACTULOSE 30ML PO BID, ASCORBIC ACID 1000MG PO Q6H, TESSALON PERLES 200MG PO TID, SULFATE 220MG PO BID, PROMETHAZINE 25MG IM Q6H PRN, ZOFRAN 4MG IV Q4H PRN, CONTINUE TO MONITOR. (2) Anasarca Status: Acute (3) Cirrhosis of liver Status: Acute Qualifiers: Hepatic cirrhosis type: unspecified hepatic cirrhosis Ascites presence: with ascites Qualified Code(s): K74.60 - Unspecified cirrhosis of liver; R18.8 - Other ascites (4) Thrombocytopenia Status: Acute (5) Hypoalbuminemia Status: Acute (6) Hyperbilirubinemia Status: Acute (7) COVID-19 Status: Acute (8) Anemia Status: Chronic Qualifiers: Anemia type: unspecified type Qualified Code(s): D64.9 - Anemia, unspecified Plan: TRANSFUSE 2 UNITS PRBC (9) GERD (gastroesophageal reflux disease) Status: Chronic Qualifiers: Esophagitis presence: esophagitis presence not specified Qualified Code(s): K21.9 - Gastro-esophageal reflux disease without esophagitis
--- NOTE | 2021-09-18 23:31 | PCM.PROG ---
Progress Note - Progress Note for Day of Date of Exam: 09/17/21 - Subjective Subjective: WAS ADMITTED FOR TREATMENT OF CHF, CIRRHOSIS OF LIVER, ANASARCA, THROMBOCYTOPENIA, HYPOALBUMINEMIA, COVID-19, ANEMIA, AND GERD. SHE FIRST TESTED POSITIVE FOR COVID APPROXIMATELY 3 WEEKS AGO. SHE RECEIVED TWO UNITS OF PACKED RED BLOOD CELLS ON 09/09/21. SHE CONTINUES WITH COMPLAINTS OF SHORTNESS OF BREATH AND WEAKNESS TODAY. SHORTNESS OF BREATH IS SLIGHTLY WORSE TODAY. SHE ALSO REPORTS HAVING SOME NAUSEA THROUGHOUT THE NIGHT. SWELLING HAS DECREASED SINCE ADMISSION. APPARENTLY, SHE BEGAN HAVING INCREASED BLEEDING FROM SITE OF CENTRAL LINE, GUMS, AND NOSE THROUGHOUT THE NIGHT. SHE WAS GIVEN A DOSE OF VITAMIN K 5MG SQ X 1 DOSE LAST NIGHT. SHE ALSO HAD FEVER THROUGHOUT THE NIGHT. SHE IS ABLE TO AMBULATE TO BATHROOM WITH ASSISTANCE. ON EXAMINATION, HEART IS REGULAR IN RATE AND RHYTHM. BILATERAL LUNGS NOTED WITH DIMINISHED LUNG SOUNDS THROUGHOUT. ABDOMEN IS ROUND, SOFT, AND NOTED WITH MILD DIFFUSE TENDERNESS. TRACE EDEMA NOTED TO UPPER AND LOWER EXTREMITIES NOTED. CENTRAL LINE NOTED TO RIGHT CHEST WALL. HER VITALS THIS MORNING ARE: 98.9-88-20-95%-124/54. LABS WERE OBTAINED. ABNORMAL LAB VALUES INCLUDE THE FOLLOWING: RBC 2.56, HGB 7.9, HCT 22.8, PLT COUNT 28, SODIUM 135, GLUCOSE 105, TOTAL BILI 5.20, ALT 9, AMMONIA 41, CRP 15.40, BNP 385. SHE IS CURRENTLY RECEIVING FUROSEMIDE 40MG IV BID, ALBUMIN 25% IV BID, MAGNESIUM PROTOCOL, POTASSIUM PROTOCOL, ALDACTONE 25MG PO DAILY, ASCORBIC ACID 1000MG PO Q6H, TESSALON PERLES 200MG PO TID, AND ZINC SULFATE 220MG PO BID. HER HOME MEDICATIONS OF LACTULOSE, XIFAXAN, TRAMADOL, ROPINIROLE, MEGACE, PROTONIX, POTASSIUM CHLORIDE, FLONASE WERE RESUMED. SHE HAS BEEN COMPLIANT WITH LACTULOSE. WE WILL CONTINUE WITH CURRENT PLAN OF CARE TODAY AND OBTAIN A CHEST XRAY. WE WILL ADMINISTER 2 PACKS OF PLATELETS, CHECK A BNP, CHECK BLOOD CULTURES, AND OBTAIN A URINALYSIS. OTHERWISE, WE PLAN TO FOLLOW UP WITH AM LABS AND CONTINUE TO MONITOR. TIME SPENT ON CLINICAL ASSESSMENT, REVIEWING LABS AND IMAGING, DECISION MAKING, AND DOCUMENTATION GREATER THAN 45 MINUTES. - Past Medical Family Social History Past Med/Fam/Surg Hx: No changes since H&P Allergies: Allergies codeine Allergy (Verified 03/01/17 23:55) levofloxacin [From Levaquin] Allergy (Verified 03/01/17 23:55) Penicillins Allergy (Verified 03/01/17 23:55) Sulfa (Sulfonamide Antibiotics) [SULFA] Allergy (Verified 03/01/17 23:55) - Review of Systems ROS: No change since H&P - Vital Signs and I&O's Vital Signs: Temperature 98.4 F Pulse Rate [Left Brachial] 80 Pulse Rate [Right Brachial] 84 Respiratory Rate 18 Blood Pressure [Right Arm] 104/55 Blood Pressure [Left Arm] 113/56 O2 Sat by Pulse Oximetry 98 Intake and Output: Intake & Output 09/16/21 09/17/21 09/18/21 09/19/21 11:59 11:59 11:59 11:59 Intake Total 2158 / 2158 2355 / 2355 1055 / 1055 1192 / 1192 Output Total 1100 / 1100 100 / 100 Balance 2158 / 2158 1255 / 1255 1055 / 1055 1092 / 1092 - Physical Exam Oriented: Normal Eyes: Normal Ear: Normal Nose: Normal Throat: Normal Respiratory: Generalized, Diminished Cardiovascular: Edema (TRACE EDEMA TO UPPER AND LOWER EXTREMITIES) : Normal Auscultation: Bowel Sounds: Normal Palpation: Normal Tenderness: Normal Skin: Normal Musculoskeletal: Right, Left, Arm, Leg, Swelling Psychiatric: Normal Mood Description: Calm Affect: Normal Speech Pattern: Clear, Appropriate - Laboratory and Diagnostics Result Diagrams: 09/18/21 19:52 09/18/21 05:30 Labs: 09/18/21 14:27 Chest Wound Gram Stain - Final 09/17/21 21:30 Urine,Clean Catch Urine Culture - Preliminary 09/17/21 12:18 Blood Blood Culture - Preliminary Laboratory WBC 9.8 X10^3/uL (3.6-10.0) 09/18/21 05:30 RBC 2.30 X10^6/uL (3.5-5.4) L 09/18/21 05:30 Hgb 7.8 g/dL (12.0-16.0) L 09/18/21 19:52 Hct 22.5 % (36.0-47.0) L 09/18/21 19:52 MCV 89.6 fL (80.0-100.0) 09/18/21 05:30 MCH 31.3 pg (27.0-34.0) 09/18/21 05:30 MCHC 34.9 g/dL (33.0-35.0) 09/18/21 05:30 RDW 17.8 % (11.6-16.5) H 09/18/21 05:30 Plt Count 22 X10^3/uL (150.0-450.0) L 09/18/21 05:30 Plt Count Comment Decreased (ADEQUATE) A 09/18/21 05:30 MPV 9.7 fL (7.4-11.0) 09/18/21 05:30 Neut % (Auto) 90.3 % (42.0-75.0) H 09/18/21 05:30 Lymph % (Auto) 2.9 % (21.0-51.0) L 09/18/21 05:30 [place] % (Auto) 6.7 % (0.0-13.0) 09/18/21 05:30 Eos % (Auto) 0.0 % (0.9-2.9) L 09/18/21 05:30 Baso % (Auto) 0.1 % (0.2-1.0) L 09/18/21 05:30 Neut # (Auto) 8.9 x10^3/uL (2.2-4.8) H 09/18/21 05:30 Lymph # (Auto) 0.3 X10^3/uL (1.3-2.9) L 09/18/21 05:30 [place] # (Auto) 0.7 x10^3/uL (0.3-0.8) 09/18/21 05:30 Eos # (Auto) 0.0 x10^3/uL (0.0-0.2) 09/18/21 05:30 Baso # (Auto) 0.0 X10^3/uL (0.0-0.1) 09/18/21 05:30 Absolute Nucleated RBC 0.0 /100WBC 09/18/21 05:30 Total Counted 100 09/18/21 05:30 Neutrophils % (Manual) 94 % (39-76) H 09/18/21 05:30 Lymphocytes % (Manual) 3 % (13-43) L 09/18/21 05:30 Monocytes % (Manual) 3 % (4-9) L 09/18/21 05:30 Plt Morphology Comment Normal (NORMAL) 09/18/21 05:30 RBC Morphology Normal (NORMAL) 09/18/21 05:30 PT 30.7 SECONDS (11.8-14.3) 09/18/21 11:20 INR Target Range - 09/18/21 11:20 INR 3.12 (0.8-1.3) H 09/18/21 11:20 D-Dimer 11.13 ug/ml (0.0-0.57) H* 09/04/21 19:45 Sodium 137 mmol/L (136-145) 09/18/21 05:30 Corrected Sodium TNP 09/18/21 05:30 Potassium 4.0 mmol/L (3.5-5.1) 09/18/21 05:30 Chloride 100 mmol/L (98-107) 09/18/21 05:30 Carbon Dioxide 27.2 mmol/L (21-32) 09/18/21 05:30 BUN 24 mg/dL (7-18) H 09/18/21 05:30 Creatinine 1.31 mg/dL (0.55-1.02) H 09/18/21 05:30 Est GFR (MDRD) Af Amer 52 (>60) L 09/18/21 05:30 Est GFR (MDRD) Non-Af 43 (>60) L 09/18/21 05:30 Glucose 110 mg/dL (65-99) H 09/18/21 05:30 Lactic Acid 1.9 mmol/L (0.4-2.0) 09/17/21 05:08 Calcium 9.4 mg/dL (8.5-10.1) 09/18/21 05:30 Corrected Calcium TNP 09/18/21 05:30 Magnesium 1.9 mg/dL (1.7-2.9) 09/16/21 05:08 Total Bilirubin 5.90 mg/dL (0.2-1.0) H 09/18/21 05:30 AST 36 Units/L (15-37) 09/18/21 05:30 ALT 8 Units/L (12-78) L 09/18/21 05:30 Alkaline Phosphatase 85 Units/L (46-116) 09/18/21 05:30 Ammonia 33 umol/L (11-32) H 09/18/21 05:30 Creatine Kinase 59 Units/L (26-192) 09/04/21 17:46 CK-MB (CK-2) < 1.0 ng/mL (0-4.0) 09/04/21 17:46 CK/CKMB % Calc 1.7 % (<4) 09/04/21 17:46 Troponin I High Sens 12.6 ng/L (4.0-60.0) 09/04/21 17:46 C-Reactive Protein 35.00 mg/L (0-3.0) H 09/18/21 05:30 B-Natriuretic Peptide 723 pg/mL (0-79) H* 09/18/21 05:30 Total Protein 6.7 g/dL (6.4-8.2) 09/18/21 05:30 Albumin 4.5 g/dL (3.4-5.0) 09/18/21 05:30 Globulin 2.2 g/dL (2.5-4.5) L 09/18/21 05:30 Albumin/Globulin Ratio 2.0 Ratio (1.1-2.1) 09/18/21 05:30 Specimen Type Catherized urine 09/18/21 03:32 Urine Color Yellow (YELLOW) 09/18/21 03:32 Urine Appearance Clear (CLEAR) 09/18/21 03:32 Urine pH 5.0 (5.0 - 8.0) 09/18/21 03:32 Ur Specific [place] 1.025 (1.000-1.030) 09/18/21 03:32 Urine Protein 3+ (NEGATIVE) 09/18/21 03:32 Urine Glucose (UA) Negative (NEGATIVE) 09/18/21 03:32 Urine Ketones 1+ (NEGATIVE) 09/18/21 03:32 Urine Blood 2+ (NEGATIVE) 09/18/21 03:32 Urine Nitrite Negative (NEGATIVE) 09/18/21 03:32 Urine Bilirubin Negative (NEGATIVE) 09/18/21 03:32 Urine Urobilinogen 1+ (NORMAL) 09/18/21 03:32 Ur Leukocyte Esterase Negative (NEGATIVE) 09/18/21 03:32 Urine RBC 3-5 /HPF (0-3) A 09/17/21 21:30 Urine WBC 3-5 /HPF (0-5) 09/17/21 21:30 Ur Squamous Epith Cells Moderate /HPF (NEGATIVE) 09/17/21 21:30 Urine Bacteria Trace /HPF (NEGATIVE) 09/17/21 21:30 Ur Culture Indicated? No/not indicated 09/17/21 21:30 SARS CoV-2 RNA Rapid PRAVEENA Positive (NEGATIVE) A 09/04/21 18:05 Blood Type O POSITIVE 09/18/21 11:20 Antibody Screen Negative 09/18/21 11:20 Crossmatch See Detail 09/18/21 11:20 - Plan (1) CHF (congestive heart failure) Status: Acute Qualifiers: Heart failure type: unspecified Heart failure chronicity: acute on chronic Qualified Code(s): I50.9 - Heart failure, unspecified Plan: TRANSFUSE PLATELETS, FUROSEMIDE 40MG IV BID, ALDACTONE 25MG PO DAILY, ALBUMIN 25% IV BID, LACTULOSE 30ML PO BID, ASCORBIC ACID 1000MG PO Q6H, TESSALON PERLES 200MG PO TID, SULFATE 220MG PO BID, PROMETHAZINE 25MG IM Q6H PRN, ZOFRAN 4MG IV Q4H PRN, CONTINUE TO MONITOR. (2) Anasarca Status: Acute (3) Cirrhosis of liver Status: Acute Qualifiers: Hepatic cirrhosis type: unspecified hepatic cirrhosis Ascites presence: with ascites Qualified Code(s): K74.60 - Unspecified cirrhosis of liver; R18.8 - Other ascites (4) Thrombocytopenia Status: Acute (5) Hypoalbuminemia Status: Acute (6) Hyperbilirubinemia Status: Acute (7) COVID-19 Status: Acute (8) Anemia Status: Chronic Qualifiers: Anemia type: unspecified type Qualified Code(s): D64.9 - Anemia, unspecified Plan: TRANSFUSE 2 UNITS PRBC (9) GERD (gastroesophageal reflux disease) Status: Chronic Qualifiers: Esophagitis presence: esophagitis presence not specified Qualified Code(s): K21.9 - Gastro-esophageal reflux disease without esophagitis
[2021-09-19] MEDS: VITAMIN C PO SCH ×4 (05:01→21:23)
[2021-09-19] MEDS: TESSALON PERLES PO SCH ×3 (05:02→21:24)
[2021-09-19] MEDS: ZOFRAN INJ 4 MG VIAL IVP PRN ×2 (05:39→20:00)
[2021-09-19 06:08] LABS: BASOPHILS % (AUTO) 0.4 % (0.2-1.0); EOSINOPHILS # (AUTO) 0.1 x10^3/uL (0.0-0.2); EOSINOPHILS % (AUTO) 1.7 % (0.9-2.9); HEMATOCRIT 27.2 % (36.0-47.0); HEMOGLOBIN 9.6 g/dL (12.0-16.0); LYMPHOCYTES # (AUTO) 0.7 X10^3/uL (1.3-2.9); LYMPHOCYTES % (AUTO) 12.6 % (21.0-51.0); MEAN CORPUSCULAR HEMOGLOBIN 31.6 pg (27.0-34.0); MEAN CORPUSCULAR HGB CONC 35.2 g/dL (33.0-35.0); MEAN CORPUSCULAR VOLUME 89.7 fL (80.0-100.0); MEAN PLATELET VOLUME 10.5 fL (7.4-11.0); MONOCYTES # (AUTO) 0.8 x10^3/uL (0.3-0.8); MONOCYTES % (AUTO) 14.5 % (0.0-13.0); NEUTROPHILS # (AUTO) 3.8 x10^3/uL (2.2-4.8); NEUTROPHILS % (AUTO) 70.8 % (42.0-75.0); RED BLOOD COUNT 3.03 X10^6/uL (3.5-5.4); WHITE BLOOD COUNT 5.4 X10^3/uL (3.6-10.0)
--- NOTE | 2021-09-19 06:19 | RAD ---
HISTORYShortness of breathSTUDYChest AP [id number] e is a right subclavian line with its tip near the cavoatrial junction/proximal right atrium. Heart is upper limits normal in size. No congestive heart failure is noted. No acute alveolar infiltrates are identified peer small right pleural effusion may be present. Right hemidiaphragm remains elevated. No left pleural effusions identified. Bony thorax is unremarkable.IMPRESSIONHeart size upper limits normalNo definite congestive heart failure or acute infiltratesChronically elevated right hemidiaphragmCannot exclude small right pleural effusionElectronically signed by: BEN SPENCER (Sep 19, 2021 06:19:07)
[2021-09-19 06:21] LABS: ALANINE AMINOTRANSFERASE 7 Units/L (12-78); ALBUMIN 4.5 g/dL (3.4-5.0); ALKALINE PHOSPHATASE 84 Units/L (46-116); ASPARTATE AMINO TRANSFERASE 31 Units/L (15-37); BLOOD UREA NITROGEN 35 mg/dL (7-18); CALCIUM 9.6 mg/dL (8.5-10.1); CARBON DIOXIDE 26.4 mmol/L (21-32); CHLORIDE 100 mmol/L (98-107); CREATININE 1.55 mg/dL (0.55-1.02); SODIUM 136 mmol/L (136-145); TOTAL PROTEIN 6.8 g/dL (6.4-8.2); eGFR NON BLACK RACES 35 (>60)
[2021-09-19 07:01] LABS: BAND NEUTROPHILS % 1 % (0-10); METAMYELOCYTES % 2; PLATELET MORPHOLOGY COMMENT NORMAL (NORMAL)
[2021-09-19] MEDS: INVanz INJ 1 GRAM VIAL 1 G in NS 100 ML IV 100 ML IV SCH (08:28)
[2021-09-19] MEDS: FORTAZ or TAZICEF VIAL INJ 2 G in NS 100 ML IV 100 ML IV SCH ×2 (08:29→20:30)
[2021-09-19] MEDS: ALBUMIN HUMAN 25%- 100 ML 100 ML IV SCH ×2 (08:29→21:22)
[2021-09-19] MEDS: LASIX IVP SCH ×2 (08:29→16:56)
[2021-09-19] MEDS: MEGACE PO SCH ×2 (08:30→21:23)
[2021-09-19] MEDS: CHRONULAC PO SCH ×2 (08:30→21:22)
[2021-09-19] MEDS: ALDACTONE TAB 25 MG PO SCH (08:31)
[2021-09-19] MEDS: PROTONIX TAB 40 MG PO SCH (08:31)
[2021-09-19] MEDS: MICRO K EXTEN CAP 10 MEQ PO SCH (08:31)
[2021-09-19] MEDS: ZINC SULFATE PO SCH ×2 (08:31→21:23)
[2021-09-19] MEDS: XIFAXAN PO SCH ×2 (08:31→21:23)
[2021-09-19] MEDS: FLONASE NASAL SPRAY ENOSTRIL SCH ×2 (08:32→21:22)
[2021-09-19] MEDS: PHENERGAN INJ 25 MG IM PRN (08:44)
[2021-09-19] MEDS ORDERED: NS 1,000 ML IV 1,000 ML ONE (09:45)
[2021-09-19] MEDS: ULTRAM PO PRN (11:59)
[2021-09-19] MEDS: BENADRYL INJ 50 MG VIAL IVP PRN (15:12)
[2021-09-19] MEDS: REQUIP PO SCH (21:23)
[2021-09-20] MEDS: VITAMIN C PO SCH ×4 (04:32→20:25)
[2021-09-20 06:14] LABS: BASOPHILS % (AUTO) 0.8 % (0.2-1.0); EOSINOPHILS # (AUTO) 0.1 x10^3/uL (0.0-0.2); EOSINOPHILS % (AUTO) 2.9 % (0.9-2.9); HEMATOCRIT 25.2 % (36.0-47.0); HEMOGLOBIN 8.9 g/dL (12.0-16.0); LYMPHOCYTES # (AUTO) 0.6 X10^3/uL (1.3-2.9); LYMPHOCYTES % (AUTO) 13.9 % (21.0-51.0); MEAN CORPUSCULAR HEMOGLOBIN 31.5 pg (27.0-34.0); MEAN CORPUSCULAR HGB CONC 35.1 g/dL (33.0-35.0); MEAN CORPUSCULAR VOLUME 89.6 fL (80.0-100.0); MEAN PLATELET VOLUME 11.1 fL (7.4-11.0); MONOCYTES # (AUTO) 0.4 x10^3/uL (0.3-0.8); MONOCYTES % (AUTO) 10.8 % (0.0-13.0); NEUTROPHILS # (AUTO) 2.9 x10^3/uL (2.2-4.8); NEUTROPHILS % (AUTO) 71.6 % (42.0-75.0); RED BLOOD COUNT 2.82 X10^6/uL (3.5-5.4)
[2021-09-20] MEDS: BENADRYL INJ 50 MG VIAL IVP PRN ×2 (06:32→15:19)
[2021-09-20] MEDS: TESSALON PERLES PO SCH ×3 (06:32→21:32)
[2021-09-20 06:33] LABS: ALANINE AMINOTRANSFERASE 6 Units/L (12-78); ALKALINE PHOSPHATASE 79 Units/L (46-116); ASPARTATE AMINO TRANSFERASE 26 Units/L (15-37); BLOOD UREA NITROGEN 34 mg/dL (7-18); CALCIUM 9.1 mg/dL (8.5-10.1); CARBON DIOXIDE 28.6 mmol/L (21-32); CHLORIDE 101 mmol/L (98-107); CREATININE 1.02 mg/dL (0.55-1.02); SODIUM 137 mmol/L (136-145); TOTAL PROTEIN 6.2 g/dL (6.4-8.2); eGFR NON BLACK RACES 57 (>60)
[2021-09-20 07:01] LABS: BAND NEUTROPHILS % 16 % (0-10); PLATELET MORPHOLOGY COMMENT NORMAL (NORMAL)
[2021-09-20] MEDS: PHENERGAN INJ 25 MG IM PRN (07:04)
--- NOTE | 2021-09-20 08:22 | RAD ---
HISTORYShortness of breathSTUDYChest AP [id number] e is a right subclavian line with its tip in the superior vena cava near the cavoatrial junction/proximal right atrium. Heart remains upper limits normal in size. No congestive heart failure is noted. No acute alveolar infiltrates are identified. Small right pleural effusion may be present. Right hemidiaphragm remains mildly elevated. Bony thorax is unremarkable.IMPRESSIONNo significant change from the prior examinationElectronically signed by: BEN SPENCER (Sep 20, 2021 08:21:29)
[2021-09-20] MEDS ORDERED: AQUA-MEPHYTON ADULT INJ SC ONE (09:08)
[2021-09-20] MEDS: ALBUMIN HUMAN 25%- 100 ML 100 ML IV SCH ×2 (09:26→21:31)
[2021-09-20] MEDS: PROTONIX TAB 40 MG PO SCH (09:28)
[2021-09-20] MEDS: FLONASE NASAL SPRAY ENOSTRIL SCH ×2 (09:30→20:24)
[2021-09-20] MEDS: CHRONULAC PO SCH ×2 (09:30→20:24)
[2021-09-20] MEDS: LASIX IVP SCH ×2 (09:30→17:17)
[2021-09-20] MEDS: ALDACTONE TAB 25 MG PO SCH (09:30)
[2021-09-20] MEDS: INVanz INJ 1 GRAM VIAL 1 G in NS 100 ML IV 100 ML IV SCH (09:30)
[2021-09-20] MEDS: MEGACE PO SCH ×2 (09:31→20:25)
[2021-09-20] MEDS: MICRO K EXTEN CAP 10 MEQ PO SCH (09:33)
[2021-09-20] MEDS: XIFAXAN PO SCH ×2 (09:35→20:25)
[2021-09-20] MEDS: ZINC SULFATE PO SCH ×2 (09:36→20:24)
[2021-09-20] MEDS ORDERED: PHARMACY CONSULT - VANCOMYCIN XX SCH (10:00)
--- NOTE | 2021-09-20 10:39 | PCM.PROG ---
Progress Note - Progress Note for Day of Date of Exam: 09/18/21 - Subjective Subjective: WAS ADMITTED FOR TREATMENT OF CHF, CIRRHOSIS OF LIVER, ANASARCA, THROMBOCYTOPENIA, HYPOALBUMINEMIA, COVID-19, ANEMIA, AND GERD. SHE FIRST TESTED POSITIVE FOR COVID APPROXIMATELY 3 WEEKS AGO. SHE RECEIVED TWO UNITS OF PACKED RED BLOOD CELLS ON 09/09/21. SHE RECEIVED TWO PACKS OF PLATELETS THROUGHOUT THE NIGHT. SHE REPORTS INCREASED SHORTNESS OF BREATH AND WEAKNESS TODAY. SHE CONTINUES WITH NAUSEA AND HAS HAD FEVER THROUGHOUT THE NIGHT. SHE IS ABLE TO AMBULATE TO BATHROOM WITH ASSISTANCE. ON EXAMINATION, HEART IS REGULAR IN RATE AND RHYTHM. BILATERAL LUNGS NOTED WITH DIMINISHED LUNG SOUNDS THROUGHOUT. ABDOMEN IS ROUND, SOFT, AND NOTED WITH MILD DIFFUSE TENDERNESS. TRACE EDEMA NOTED TO UPPER AND LOWER EXTREMITIES NOTED. CENTRAL LINE NOTED TO RIGHT CHEST WALL. THERE DOES APPEAR TO BE SOME DRAINAGE FROM AROUND THE CENTRAL LINE. HER VITALS THIS MORNING ARE: 98.4-82-20-98%-113/56. LABS WERE OBTAINED. ABNORMAL LAB VALUES INCLUDE THE FOLLOWING: RBC 2.30, HGB 7.2, HCT 20.6, PLT C OUNT 22, BUN 22, CREATININE 1.31, GLUCOSE 110, TOTAL BILI 5.90, ALT 8, AMMONIA 33, CRP 35, BNP 723, GLOBULIN 2.2. BLOOD AND URINE CULTURES ARE PENDING. A CHEST XRAY WAS OBTAINED AND REVEALED: 1. Nonspecific opacities in the right lung which are probably atelectasis given the elevated right hemidiaphragm and small right effusion. 2. Left base opacity could be atelectasis or infiltrate. SHE IS CURRE NTLY RECEIVING ROCEPHIN 1G IV DAILY, FUROSEMIDE 40MG IV BID, ALBUMIN 25% IV BID, MAGNESIUM PROTOCOL, POTASSIUM PROTOCOL, ALDACTONE 25MG PO DAILY, ASCORBIC ACID 1000MG PO Q6H, TESSALON PERLES 200MG PO TID, AND ZINC SULFATE 220MG PO BID. HER HOME MEDICATIONS OF LACTULOSE, XIFAXAN, TRAMADOL, ROPINIROLE, MEGACE, PROTONIX, POTASSIUM CHLORIDE, FLONASE WERE RESUMED. SHE HAS BEEN COMPLIANT WITH LACTULOSE. WE WILL OBTAIN A CULTURE OF DRAINAGE FROM CENTRAL LINE. WE WILL ADMINISTER 2 PACKS OF PACKED RED BLOOD CELLS, 2 PACKS OF PLATELETS, AND WILL ADD INVANZ 1G IV DAILY. OTHERWISE, WE PLAN TO FOLLOW UP WITH AM LABS AND CONTINUE TO MONITOR. TIME SPENT ON CLINICAL ASSESSMENT, REVIEWING LABS AND IMAGING, DECISION MAKING, AND DOCUMENTATION GREATER THAN 45 MINUTES. - Past Medical Family Social History Past Med/Fam/Surg Hx: No changes since H&P Allergies: Allergies codeine Allergy (Verified 03/01/17 23:55) levofloxacin [From Levaquin] Allergy (Verified 03/01/17 23:55) Penicillins Allergy (Verified 03/01/17 23:55) Sulfa (Sulfonamide Antibiotics) [SULFA] Allergy (Verified 03/01/17 23:55) - Review of Systems ROS: No change since H&P - Vital Signs and I&O's Vital Signs: Temperature 98.6 F Pulse Rate [Left Brachial] 79 Pulse Rate [Right Brachial] 71 Respiratory Rate 18 Blood Pressure [Right Arm] 118/53 Blood Pressure [Left Arm] 113/56 O2 Sat by Pulse Oximetry 95 Intake and Output: Intake & Output 09/17/21 09/18/21 09/19/21 09/20/21 11:59 11:59 11:59 11:59 Intake Total 2355 / 2355 1055 / 1055 2109 / 2109 1143 / 1143 Output Total 1100 / 1100 725 / 725 Balance 1255 / 1255 1055 / 1055 1384 / 1384 1143 / 1143 - Physical Exam Oriented: Normal Eyes: Normal Ear: Normal Nose: Normal Throat: Normal Respiratory: Generalized, Diminished Cardiovascular: Edema (TRACE EDEMA TO UPPER AND LOWER EXTREMITIES) : Normal Auscultation: Bowel Sounds: Normal Palpation: Normal Tenderness: Normal Skin: Normal Musculoskeletal: Right, Left, Arm, Leg, Swelling Psychiatric: Normal Mood Description: Calm Affect: Normal Speech Pattern: Clear, Appropriate - Laboratory and Diagnostics Result Diagrams: 09/20/21 05:37 09/20/21 05:37 Labs: 09/18/21 14:27 Chest Wound Gram Stain - Final 09/18/21 14:27 Chest Wound Culture - Final Staphylococcus Haemolyticus 09/17/21 21:30 Urine,Clean Catch Urine Culture - Final Escherichia Coli Proteus Mirabilis 09/17/21 12:14 Blood Blood Culture - Preliminary 09/17/21 12:18 Blood Blood Culture - Final Klebsiella Pneumoniae Laboratory WBC 4.0 X10^3/uL (3.6-10.0) 09/20/21 05:37 RBC 2.82 X10^6/uL (3.5-5.4) L 09/20/21 05:37 Hgb 8.9 g/dL (12.0-16.0) L 09/20/21 05:37 Hct 25.2 % (36.0-47.0) L 09/20/21 05:37 MCV 89.6 fL (80.0-100.0) 09/20/21 05:37 MCH 31.5 pg (27.0-34.0) 09/20/21 05:37 MCHC 35.1 g/dL (33.0-35.0) H 09/20/21 05:37 RDW 17.0 % (11.6-16.5) H 09/20/21 05:37 Plt Count 23 X10^3/uL (150.0-450.0) L 09/20/21 05:37 Plt Count Comment Decreased (ADEQUATE) A 09/20/21 05:37 MPV 11.1 fL (7.4-11.0) H 09/20/21 05:37 Neut % (Auto) 71.6 % (42.0-75.0) 09/20/21 05:37 Lymph % (Auto) 13.9 % (21.0-51.0) L 09/20/21 05:37 [place] % (Auto) 10.8 % (0.0-13.0) 09/20/21 05:37 Eos % (Auto) 2.9 % (0.9-2.9) 09/20/21 05:37 Baso % (Auto) 0.8 % (0.2-1.0) 09/20/21 05:37 Neut # (Auto) 2.9 x10^3/uL (2.2-4.8) 09/20/21 05:37 Lymph # (Auto) 0.6 X10^3/uL (1.3-2.9) L 09/20/21 05:37 [place] # (Auto) 0.4 x10^3/uL (0.3-0.8) 09/20/21 05:37 Eos # (Auto) 0.1 x10^3/uL (0.0-0.2) 09/20/21 05:37 Baso # (Auto) 0.0 X10^3/uL (0.0-0.1) 09/20/21 05:37 Absolute Nucleated RBC 0.1 /100WBC 09/20/21 05:37 Total Counted 100 09/20/21 05:37 Neutrophils % (Manual) 79 % (39-76) H 09/20/21 05:37 Band Neutrophils % 16 % (0-10) H 09/20/21 05:37 Lymphocytes % (Manual) 3 % (13-43) L 09/20/21 05:37 Monocytes % (Manual) 9 % (4-9) 09/19/21 05:43 Eosinophils % (Manual) 2 % (0-6) 09/20/21 05:37 Metamyelocytes % 2 09/19/21 05:43 Plt Morphology Comment Normal (NORMAL) 09/20/21 05:37 RBC Morphology Normal (NORMAL) 09/20/21 05:37 PT 25.7 SECONDS (11.8-14.3) 09/20/21 05:37 INR Target Range - 09/20/21 05:37 INR 2.47 (0.8-1.3) H 09/20/21 05:37 APTT 56.8 SECONDS (22.9-36.5) H 09/20/21 05:37 PTT Comment - 09/20/21 05:37 D-Dimer 11.13 ug/ml (0.0-0.57) H* 09/04/21 19:45 Sodium 137 mmol/L (136-145) 09/20/21 05:37 Corrected Sodium TNP 09/20/21 05:37 Potassium 3.4 mmol/L (3.5-5.1) L 09/20/21 05:37 Chloride 101 mmol/L (98-107) 09/20/21 05:37 Carbon Dioxide 28.6 mmol/L (21-32) 09/20/21 05:37 BUN 34 mg/dL (7-18) H 09/20/21 05:37 Creatinine 1.02 mg/dL (0.55-1.02) 09/20/21 05:37 Est GFR (MDRD) Af Amer > 60 (>60) 09/20/21 05:37 Est GFR (MDRD) Non-Af 57 (>60) L 09/20/21 05:37 Glucose 90 mg/dL (65-99) 09/20/21 05:37 Lactic Acid 1.9 mmol/L (0.4-2.0) 09/17/21 05:08 Calcium 9.1 mg/dL (8.5-10.1) 09/20/21 05:37 Corrected Calcium TNP 09/20/21 05:37 Magnesium 2.1 mg/dL (1.7-2.9) 09/20/21 05:37 Total Bilirubin 6.60 mg/dL (0.2-1.0) H 09/20/21 05:37 AST 26 Units/L (15-37) 09/20/21 05:37 ALT 6 Units/L (12-78) L 09/20/21 05:37 Alkaline Phosphatase 79 Units/L (46-116) 09/20/21 05:37 Ammonia 33 umol/L (11-32) H 09/18/21 05:30 Creatine Kinase 59 Units/L (26-192) 09/04/21 17:46 CK-MB (CK-2) < 1.0 ng/mL (0-4.0) 09/04/21 17:46 CK/CKMB % Calc 1.7 % (<4) 09/04/21 17:46 Troponin I High Sens 12.6 ng/L (4.0-60.0) 09/04/21 17:46 C-Reactive Protein 63.30 mg/L (0-3.0) H 09/20/21 05:37 B-Natriuretic Peptide 608 pg/mL (0-79) H* 09/20/21 05:37 Total Protein 6.2 g/dL (6.4-8.2) L 09/20/21 05:37 Albumin 4.0 g/dL (3.4-5.0) 09/20/21 05:37 Globulin 2.2 g/dL (2.5-4.5) L 09/20/21 05:37 Albumin/Globulin Ratio 1.8 Ratio (1.1-2.1) 09/20/21 05:37 Specimen Type Catherized urine 09/18/21 03:32 Urine Color Yellow (YELLOW) 09/18/21 03:32 Urine Appearance Clear (CLEAR) 09/18/21 03:32 Urine pH 5.0 (5.0 - 8.0) 09/18/21 03:32 Ur Specific [place] 1.025 (1.000-1.030) 09/18/21 03:32 Urine Protein 3+ (NEGATIVE) 09/18/21 03:32 Urine Glucose (UA) Negative (NEGATIVE) 09/18/21 03:32 Urine Ketones 1+ (NEGATIVE) 09/18/21 03:32 Urine Blood 2+ (NEGATIVE) 09/18/21 03:32 Urine Nitrite Negative (NEGATIVE) 09/18/21 03:32 Urine Bilirubin Negative (NEGATIVE) 09/18/21 03:32 Urine Urobilinogen 1+ (NORMAL) 09/18/21 03:32 Ur Leukocyte Esterase Negative (NEGATIVE) 09/18/21 03:32 Urine RBC 3-5 /HPF (0-3) A 09/17/21 21:30 Urine WBC 3-5 /HPF (0-5) 09/17/21 21:30 Ur Squamous Epith Cells Moderate /HPF (NEGATIVE) 09/17/21 21:30 Urine Bacteria Trace /HPF (NEGATIVE) 09/17/21 21:30 Ur Culture Indicated? No/not indicated 09/17/21 21:30 SARS CoV-2 RNA Rapid PRAVEENA Positive (NEGATIVE) A 09/04/21 18:05 Blood Type O POSITIVE 09/18/21 11:20 Antibody Screen Negative 09/18/21 11:20 Crossmatch See Detail 09/18/21 11:20 - Plan (1) CHF (congestive heart failure) Status: Acute Qualifiers: Heart failure type: unspecified Heart failure chronicity: acute on chronic Qualified Code(s): I50.9 - Heart failure, unspecified Plan: TRANSFUSE PLATELETS, TRANSFUSE PRBC, INVANZ 1G IV DAILY, FUROSEMIDE 40MG IV BID, ALDACTONE 25MG PO DAILY, ALBUMIN 25% IV BID, LACTULOSE 30ML PO BID, CORBIC ACID 1000MG PO Q6H, TESSALON PERLES 200MG PO TID, SULFATE 220MG PO BID, PROMETHAZINE 25MG IM Q6H PRN, ZOFRAN 4MG IV Q4H PRN, CONTINUE TO MONITOR. (2) Anasarca Status: Acute (3) Cirrhosis of liver Status: Acute Qualifiers: Hepatic cirrhosis type: unspecified hepatic cirrhosis Ascites presence: with ascites Qualified Code(s): K74.60 - Unspecified cirrhosis of liver; R18.8 - Other ascites (4) Thrombocytopenia Status: Acute (5) Hypoalbuminemia Status: Acute (6) Hyperbilirubinemia Status: Acute (7) COVID-19 Status: Acute (8) Anemia Status: Chronic Qualifiers: Anemia type: unspecified type Qualified Code(s): D64.9 - Anemia, unspecified Plan: TRANSFUSE 2 UNITS PRBC (9) GERD (gastroesophageal reflux disease) Status: Chronic Qualifiers: Esophagitis presence: esophagitis presence not specified Qualified Code(s): K21.9 - Gastro-esophageal reflux disease without esophagitis
[2021-09-20] MEDS: VANCOMYCIN IV *PREMIX 1 G/200 ML BAG 1 G/200 ML PIGGYBACK IV SCH ×2 (10:59→20:25)
--- NOTE | 2021-09-20 11:18 | PCM.PROG ---
Progress Note - Progress Note for Day of Date of Exam: 09/19/21 - Subjective Subjective: WAS ADMITTED FOR TREATMENT OF CHF, CIRRHOSIS OF LIVER, ANASARCA, THROMBOCYTOPENIA, HYPOALBUMINEMIA, COVID-19, ANEMIA, AND GERD. SHE FIRST TESTED POSITIVE FOR COVID APPROXIMATELY 3 WEEKS AGO. SHE HAS RECEIVED FOUR UNITS OF PACKED RED BLOOD CELLS SINCE ADMISSION. SHE RECEIVED TWO PACKS OF PLATELETS SO FAR AND WILL RECEIVE TWO ADDITIONAL PACKS TODAY. SHE DENIES SIGNIFICANT IMPROVEMENT IN SYMPTOMS SINCE YESTERDAY. SHE CONTINUES WITH NAUSEA AND HAS HAD A FEW EPISODES OF VOMITING THROUGHOUT THE NIGHT. SHE IS CURRENTLY UTILIZING OXYGEN VIA NASAL CANNULA AT 2 LPM. ON EXAMINATION, HEART IS REGULAR IN RATE AND RHYTHM. BILATERAL LUNGS NOTED WITH DIMINISHED LUNG SOUNDS THROUGHOUT. ABDOMEN IS ROUND, SOFT, AND NOTED WITH MILD DIFFUSE TENDERNESS. TRACE EDEMA NOTED TO UPPER AND LOWER EXTREMITIES NOTED. CENTRAL LINE NOTED TO RIGHT CHEST WALL. HER VITALS THIS MORNING ARE: 99.0-77-20-100%-107/52. LABS WERE OBTAINED. ABNORMAL LAB VALUES INCLUDE THE FOLLOWING: RBC 2.82, HGB 8.9, HCT 25.2, PLT COUNT 23, INR 2.80, PTT 57.4, BUN 35, CREATININE 1.55, GLUCOSE 105, TOTAL BILI 6.50, ALT 7, CRP 67.30, BNP 578, GLOBULIN 2.3. BLOOD CULTURES ARE POSITIVE FOR KLEBSIELLA PNEUMONIAE. URINE CULTURE IS POSITIVE FOR GROWTH OF E.COLI AND PROTEUS MIRABILIS. A CHEST XRAY WAS REPEATED AND REVEALED: Heart size upper limits normal. No definite congestive heart failure or acute infiltrates. Chronically elevated right hemidiaphragm. Cannot exclude small right pleural effusion. SHE IS CURRENTLY RECEIVING INVANZ 1G IV DAILY, FORTAZ 1G IV Q8H, FUROSEMIDE 40MG IV BID, ALBUMIN 25% IV BID, MAGNESIUM PROTOCOL, POTASSIUM PROTOCOL, ALDACTONE 25MG PO DAILY, ASCORBIC ACID 1000MG PO Q6H, TESSALON PERLES 200MG PO TID, AND ZINC SULFATE 220MG PO BID. HER HOME MEDICATIONS OF LACTULOSE, XIFAXAN, TRAMADOL, ROPINIROLE, MEGACE, PROTONIX, POTASSIUM CHLORIDE, FLONASE WERE RESUMED. WE WILL ADMINISTER 2 PACKS OF PLATELETS THIS MORNING. OTHERWISE, WE PLAN TO FOLLOW UP WITH AM LABS AND CONTINUE TO MONITOR. TIME SPENT ON CLINICAL ASSESSMENT, REVIEWING LABS AND IMAGING, DECISION MAKING, AND DOCUMENTATION GREATER THAN 45 MINUTES. - Past Medical Family Social History Past Med/Fam/Surg Hx: No changes since H&P Allergies: Allergies codeine Allergy (Verified 03/01/17 23:55) levofloxacin [From Levaquin] Allergy (Verified 03/01/17 23:55) Penicillins Allergy (Verified 03/01/17 23:55) Sulfa (Sulfonamide Antibiotics) [SULFA] Allergy (Verified 03/01/17 23:55) - Review of Systems ROS: No change since H&P - Vital Signs and I&O's Vital Signs: Temperature 98.3 F Pulse Rate [Left Brachial] 79 Pulse Rate [Right Brachial] 73 Respiratory Rate 18 Blood Pressure [Right Arm] 121/59 Blood Pressure [Left Arm] 113/56 O2 Sat by Pulse Oximetry 100 Intake and Output: Intake & Output 09/17/21 09/18/21 09/19/21 09/20/21 11:59 11:59 11:59 11:59 Intake Total 2355 / 2355 1055 / 1055 2109 / 2109 1143 / 1143 Output Total 1100 / 1100 725 / 725 Balance 1255 / 1255 1055 / 1055 1384 / 1384 1143 / 1143 - Physical Exam Oriented: Normal Eyes: Normal Ear: Normal Nose: Normal Throat: Normal Respiratory: Generalized, Diminished Cardiovascular: Edema (TRACE EDEMA TO UPPER AND LOWER EXTREMITIES) : Normal Auscultation: Bowel Sounds: Normal Tenderness: Normal Skin: Normal Musculoskeletal: Right, Left, Arm, Leg, Swelling Psychiatric: Normal Mood Description: Calm Affect: Normal Speech Pattern: Clear, Appropriate - Laboratory and Diagnostics Result Diagrams: 09/20/21 05:37 09/20/21 05:37 Labs: 09/18/21 14:27 Chest Wound Gram Stain - Final 09/18/21 14:27 Chest Wound Culture - Final Staphylococcus Haemolyticus 09/17/21 21:30 Urine,Clean Catch Urine Culture - Final Escherichia Coli Proteus Mirabilis 09/17/21 12:14 Blood Blood Culture - Preliminary 09/17/21 12:18 Blood Blood Culture - Final Klebsiella Pneumoniae Laboratory WBC 4.0 X10^3/uL (3.6-10.0) 09/20/21 05:37 RBC 2.82 X10^6/uL (3.5-5.4) L 09/20/21 05:37 Hgb 8.9 g/dL (12.0-16.0) L 09/20/21 05:37 Hct 25.2 % (36.0-47.0) L 09/20/21 05:37 MCV 89.6 fL (80.0-100.0) 09/20/21 05:37 MCH 31.5 pg (27.0-34.0) 09/20/21 05:37 MCHC 35.1 g/dL (33.0-35.0) H 09/20/21 05:37 RDW 17.0 % (11.6-16.5) H 09/20/21 05:37 Plt Count 23 X10^3/uL (150.0-450.0) L 09/20/21 05:37 Plt Count Comment Decreased (ADEQUATE) A 09/20/21 05:37 MPV 11.1 fL (7.4-11.0) H 09/20/21 05:37 Neut % (Auto) 71.6 % (42.0-75.0) 09/20/21 05:37 Lymph % (Auto) 13.9 % (21.0-51.0) L 09/20/21 05:37 [place] % (Auto) 10.8 % (0.0-13.0) 09/20/21 05:37 Eos % (Auto) 2.9 % (0.9-2.9) 09/20/21 05:37 Baso % (Auto) 0.8 % (0.2-1.0) 09/20/21 05:37 Neut # (Auto) 2.9 x10^3/uL (2.2-4.8) 09/20/21 05:37 Lymph # (Auto) 0.6 X10^3/uL (1.3-2.9) L 09/20/21 05:37 [place] # (Auto) 0.4 x10^3/uL (0.3-0.8) 09/20/21 05:37 Eos # (Auto) 0.1 x10^3/uL (0.0-0.2) 09/20/21 05:37 Baso # (Auto) 0.0 X10^3/uL (0.0-0.1) 09/20/21 05:37 Absolute Nucleated RBC 0.1 /100WBC 09/20/21 05:37 Total Counted 100 09/20/21 05:37 Neutrophils % (Manual) 79 % (39-76) H 09/20/21 05:37 Band Neutrophils % 16 % (0-10) H 09/20/21 05:37 Lymphocytes % (Manual) 3 % (13-43) L 09/20/21 05:37 Monocytes % (Manual) 9 % (4-9) 09/19/21 05:43 Eosinophils % (Manual) 2 % (0-6) 09/20/21 05:37 Metamyelocytes % 2 09/19/21 05:43 Plt Morphology Comment Normal (NORMAL) 09/20/21 05:37 RBC Morphology Normal (NORMAL) 09/20/21 05:37 PT 25.7 SECONDS (11.8-14.3) 09/20/21 05:37 INR Target Range - 09/20/21 05:37 INR 2.47 (0.8-1.3) H 09/20/21 05:37 APTT 56.8 SECONDS (22.9-36.5) H 09/20/21 05:37 PTT Comment - 09/20/21 05:37 D-Dimer 11.13 ug/ml (0.0-0.57) H* 09/04/21 19:45 Sodium 137 mmol/L (136-145) 09/20/21 05:37 Corrected Sodium TNP 09/20/21 05:37 Potassium 3.4 mmol/L (3.5-5.1) L 09/20/21 05:37 Chloride 101 mmol/L (98-107) 09/20/21 05:37 Carbon Dioxide 28.6 mmol/L (21-32) 09/20/21 05:37 BUN 34 mg/dL (7-18) H 09/20/21 05:37 Creatinine 1.02 mg/dL (0.55-1.02) 09/20/21 05:37 Est GFR (MDRD) Af Amer > 60 (>60) 09/20/21 05:37 Est GFR (MDRD) Non-Af 57 (>60) L 09/20/21 05:37 Glucose 90 mg/dL (65-99) 09/20/21 05:37 Lactic Acid 1.9 mmol/L (0.4-2.0) 09/17/21 05:08 Calcium 9.1 mg/dL (8.5-10.1) 09/20/21 05:37 Corrected Calcium TNP 09/20/21 05:37 Magnesium 2.1 mg/dL (1.7-2.9) 09/20/21 05:37 Total Bilirubin 6.60 mg/dL (0.2-1.0) H 09/20/21 05:37 AST 26 Units/L (15-37) 09/20/21 05:37 ALT 6 Units/L (12-78) L 09/20/21 05:37 Alkaline Phosphatase 79 Units/L (46-116) 09/20/21 05:37 Ammonia 33 umol/L (11-32) H 09/18/21 05:30 Creatine Kinase 59 Units/L (26-192) 09/04/21 17:46 CK-MB (CK-2) < 1.0 ng/mL (0-4.0) 09/04/21 17:46 CK/CKMB % Calc 1.7 % (<4) 09/04/21 17:46 Troponin I High Sens 12.6 ng/L (4.0-60.0) 09/04/21 17:46 C-Reactive Protein 63.30 mg/L (0-3.0) H 09/20/21 05:37 B-Natriuretic Peptide 608 pg/mL (0-79) H* 09/20/21 05:37 Total Protein 6.2 g/dL (6.4-8.2) L 09/20/21 05:37 Albumin 4.0 g/dL (3.4-5.0) 09/20/21 05:37 Globulin 2.2 g/dL (2.5-4.5) L 09/20/21 05:37 Albumin/Globulin Ratio 1.8 Ratio (1.1-2.1) 09/20/21 05:37 Specimen Type Catherized urine 09/18/21 03:32 Urine Color Yellow (YELLOW) 09/18/21 03:32 Urine Appearance Clear (CLEAR) 09/18/21 03:32 Urine pH 5.0 (5.0 - 8.0) 09/18/21 03:32 Ur Specific [place] 1.025 (1.000-1.030) 09/18/21 03:32 Urine Protein 3+ (NEGATIVE) 09/18/21 03:32 Urine Glucose (UA) Negative (NEGATIVE) 09/18/21 03:32 Urine Ketones 1+ (NEGATIVE) 09/18/21 03:32 Urine Blood 2+ (NEGATIVE) 09/18/21 03:32 Urine Nitrite Negative (NEGATIVE) 09/18/21 03:32 Urine Bilirubin Negative (NEGATIVE) 09/18/21 03:32 Urine Urobilinogen 1+ (NORMAL) 09/18/21 03:32 Ur Leukocyte Esterase Negative (NEGATIVE) 09/18/21 03:32 Urine RBC 3-5 /HPF (0-3) A 09/17/21 21:30 Urine WBC 3-5 /HPF (0-5) 09/17/21 21:30 Ur Squamous Epith Cells Moderate /HPF (NEGATIVE) 09/17/21 21:30 Urine Bacteria Trace /HPF (NEGATIVE) 09/17/21 21:30 Ur Culture Indicated? No/not indicated 09/17/21 21:30 SARS CoV-2 RNA Rapid PRAVEENA Positive (NEGATIVE) A 09/04/21 18:05 Blood Type O POSITIVE 09/18/21 11:20 Antibody Screen Negative 09/18/21 11:20 Crossmatch See Detail 09/18/21 11:20 - Plan (1) CHF (congestive heart failure) Status: Acute Qualifiers: Heart failure type: unspecified Heart failure chronicity: acute on chronic Qualified Code(s): I50.9 - Heart failure, unspecified Plan: TRANSFUSE PLATELETS, INVANZ 1G IV DAILY, FORTAZ 1G IV Q8H, FUROSEMIDE 40MG IV BID, ALDACTONE 25MG PO DAILY, ALBUMIN 25% IV BID, LACTULOSE 30ML PO BID, ASCORBIC ACID 1000MG PO Q6H, TESSALON PERLES 200MG PO TID, SULFATE 220MG PO BID, PROMETHAZINE 25MG IM Q6H PRN, ZOFRAN 4MG IV Q4H PRN, CONTINUE TO MONITOR. (2) Anasarca Status: Acute (3) Cirrhosis of liver Status: Acute Qualifiers: Hepatic cirrhosis type: unspecified hepatic cirrhosis Ascites presence: with ascites Qualified Code(s): K74.60 - Unspecified cirrhosis of liver; R18.8 - Other ascites (4) Thrombocytopenia Status: Acute (5) Hypoalbuminemia Status: Acute (6) Hyperbilirubinemia Status: Acute (7) COVID-19 Status: Acute (8) Anemia Status: Chronic Qualifiers: Anemia type: unspecified type Qualified Code(s): D64.9 - Anemia, unspecified Plan: TRANSFUSE 2 UNITS PRBC (9) GERD (gastroesophageal reflux disease) Status: Chronic Qualifiers: Esophagitis presence: esophagitis presence not specified Qualified Code(s): K21.9 - Gastro-esophageal reflux disease without esophagitis
[2021-09-20] MEDS: REQUIP PO SCH (20:25)
[2021-09-21 05:22] LABS: AMMONIA 29 umol/L (11-32)
[2021-09-21 05:38] LABS: ALANINE AMINOTRANSFERASE 8 Units/L (12-78); ALBUMIN 4.3 g/dL (3.4-5.0); ALKALINE PHOSPHATASE 87 Units/L (46-116); ASPARTATE AMINO TRANSFERASE 31 Units/L (15-37); BLOOD UREA NITROGEN 27 mg/dL (7-18); CALCIUM 9.2 mg/dL (8.5-10.1); CARBON DIOXIDE 30.3 mmol/L (21-32); CHLORIDE 101 mmol/L (98-107); CREATININE 0.77 mg/dL (0.55-1.02); SODIUM 139 mmol/L (136-145); TOTAL PROTEIN 6.6 g/dL (6.4-8.2); eGFR NON BLACK RACES > 60 (>60)
[2021-09-21 05:41] LABS: BASOPHILS % (AUTO) 0.7 % (0.2-1.0); EOSINOPHILS # (AUTO) 0.2 x10^3/uL (0.0-0.2); EOSINOPHILS % (AUTO) 5.1 % (0.9-2.9); HEMATOCRIT 27.4 % (36.0-47.0); HEMOGLOBIN 9.5 g/dL (12.0-16.0); LYMPHOCYTES # (AUTO) 0.6 X10^3/uL (1.3-2.9); LYMPHOCYTES % (AUTO) 15.8 % (21.0-51.0); MEAN CORPUSCULAR HEMOGLOBIN 31.3 pg (27.0-34.0); MEAN CORPUSCULAR HGB CONC 34.7 g/dL (33.0-35.0); MEAN CORPUSCULAR VOLUME 90.3 fL (80.0-100.0); MEAN PLATELET VOLUME 10.8 fL (7.4-11.0); MONOCYTES # (AUTO) 0.4 x10^3/uL (0.3-0.8); MONOCYTES % (AUTO) 11.5 % (0.0-13.0); NEUTROPHILS # (AUTO) 2.4 x10^3/uL (2.2-4.8); NEUTROPHILS % (AUTO) 66.9 % (42.0-75.0); RED BLOOD COUNT 3.04 X10^6/uL (3.5-5.4); RED CELL DISTRIBUTION WIDTH 17.5 % (11.6-16.5); WHITE BLOOD COUNT 3.5 X10^3/uL (3.6-10.0)
[2021-09-21] MEDS: VITAMIN C PO SCH ×4 (05:47→20:50)
[2021-09-21] MEDS: TESSALON PERLES PO SCH ×3 (05:48→21:35)
[2021-09-21] MEDS: K-RIDER 10 MEQ/NS 100 ML 10 MEQ/100 ML BAG IV PRN ×4 (06:02→15:30)
--- NOTE | 2021-09-21 06:20 | RAD ---
HISTORYShortness of breathSTUDYChest AP [id number]/14/2022FINDINGSTher e is a right subclavian line with its tip near the cavoatrial junction/proximal right atrium. Heart is upper limits normal in size. No definite congestive heart failure identified. No acute alveolar infiltrates are identified. Right hemidiaphragm remains elevated. A subpulmonic right pleural effusion may be present. No left pleural effusion is identified. No pneumothorax is identified. Bony thorax is unremarkable.IMPRESSIONNo definite acute infiltratesPossible subpulmonic right pleural effusionMildly elevated right hemidiaphragmElectronically signed by: BEN SPENCER (Sep 21, 2021 06:19:18)
[2021-09-21 06:21] LABS: ANISOCYTOSIS SLIGHT; PLATELET MORPHOLOGY COMMENT NORMAL (NORMAL); SCHISTOCYTES PRESENT
[2021-09-21] MEDS: LASIX IVP SCH ×2 (08:55→17:17)
--- NOTE | 2021-09-21 08:59 | PCM.PROG ---
Progress Note - Progress Note for Day of Date of Exam: 09/20/21 - Subjective Subjective: WAS ADMITTED FOR TREATMENT OF CHF, CIRRHOSIS OF LIVER, ANASARCA, THROMBOCYTOPENIA, HYPOALBUMINEMIA, COVID-19, ANEMIA, AND GERD. SHE FIRST TESTED POSITIVE FOR COVID APPROXIMATELY 3 WEEKS AGO. SHE HAS RECEIVED FOUR UNITS OF PACKED RED BLOOD CELLS SINCE ADMISSION. SHE HAS RECEIVED A TOTAL OF 6 SUPERPACKS OF PLATELETS. SHE CONTINUES WITH NAUSEA AND WEAKNESS THIS MORNING. SHE REPORTS BEING ABLE TO HOLD MORE FOOD DOWN TODAY. SHE IS CURRENTLY UTILIZING OXYGEN VIA NASAL CANNULA AT 3 LPM. ON EXAMINATION, HEART IS REGULAR IN RATE AND RHYTHM. BILATERAL LUNGS NOTED WITH DIMINISHED LUNG SOUNDS THROUGHOUT. ABDOMEN IS ROUND, SOFT, AND NOTED WITH MILD DIFFUSE TENDERNESS. TRACE EDEMA NOTED TO UPPER AND LOWER EXTREMITIES NOTED. CENTRAL LINE NOTED TO RIGHT CHEST WALL. HER VITALS THIS MORNING ARE: 98.3-73-18-100%-121/59. LABS WERE OBTAINED. ABNORMAL LAB VALUES INCLUDE THE FOLLOWING: RBC 2.82, HGB 8.9, HCT 25.2, PLT COUNT 23, INR 2.47, PTT 56.8, POTASSIUM, 3.4, BUN 34, TOTAL BILI 6.60, ALT 6, CRP 63.30, BNP 608, TOTAL PROTEIN 6.2. BLOOD CULTURES ARE POSITIVE FOR KLEBSIELLA PNEUMONIAE. URINE CULTURE IS POSITIVE FOR GROWTH OF E.COLI AND PROTEUS MIRABILIS. A CHEST XRAY WAS REPEATED AND REVEALED: There is a right subclavian line with its tip in the superior vena cava near the cavoatrial junction/proximal right atrium. Heart remains upper limits normal in size. No congestive heart failure is noted. No acute alveolar infiltrates are identified. Small right pleural effusion may be present. Right hemidiaphragm remains mildly elevated. Bony thorax is unremarkable. SHE IS CURRENTLY RECEIVING INVANZ 1G IV DAILY, FORTAZ 1G IV Q8H, FUROSEMIDE 40MG IV BID, ALBUMIN 25% IV BID, MAGNESIUM PROTOCOL, POTASSIUM PROTOCOL, ALDACTONE 25MG PO DAILY, ASCORBIC ACID 1000MG PO Q6H, TESSALON PERLES 200MG PO TID, AND ZINC SULFATE 220MG PO BID. HER HOME MEDICATIONS OF LACTULOSE, XIFAXAN, TRAMADOL, ROPINIROLE, MEGACE, PROTONIX, POTASSIUM CHLORIDE, FLONASE WERE RESUMED. TODAY, WE WILL DISCONTINUE THE FORTAZ AND ADD VANCOMYCIN. WE WILL ALSO ADMINISTER VITAMIN K 5MG SC X 1 DOSE. OTHERWISE, WE PLAN TO FOLLOW UP WITH AM LABS AND CONTINUE TO MONITOR. TIME SPENT ON CLINICAL ASSESSMENT, REVIEWING LABS AND IMAGING, DECISION MAKING, AND DOCUMENTATION GREATER THAN 45 MINUTES. - Past Medical Family Social History Past Med/Fam/Surg Hx: No changes since H&P Allergies: Allergies codeine Allergy (Verified 03/01/17 23:55) levofloxacin [From Levaquin] Allergy (Verified 03/01/17 23:55) Penicillins Allergy (Verified 03/01/17 23:55) Sulfa (Sulfonamide Antibiotics) [SULFA] Allergy (Verified 03/01/17 23:55) - Review of Systems ROS: No change since H&P - Vital Signs and I&O's Vital Signs: Temperature 97.6 F Pulse Rate [Left Brachial] 73 Pulse Rate [Right Brachial] 76 Respiratory Rate 24 Blood Pressure [Right Arm] 124/60 Blood Pressure [Left Arm] 113/56 O2 Sat by Pulse Oximetry 96 Intake and Output: Intake & Output 09/18/21 09/19/21 09/20/21 09/21/21 11:59 11:59 11:59 11:59 Intake Total 1055 / 1055 2109 / 2109 1143 / 1143 1183 / 1183 Output Total 725 / 725 Balance 1055 / 1055 1384 / 1384 1143 / 1143 1183 / 1183 - Physical Exam Oriented: Normal Eyes: Normal Ear: Normal Nose: Normal Throat: Normal Respiratory: Generalized, Diminished Cardiovascular: Edema (TRACE EDEMA TO UPPER AND LOWER EXTREMITIES) : Normal Auscultation: Bowel Sounds: Normal Palpation: Normal Tenderness: Normal Skin: Normal Musculoskeletal: Right, Left, Arm, Leg, Swelling Psychiatric: Normal Mood Description: Calm Affect: Normal Speech Pattern: Clear, Inappropriate - Laboratory and Diagnostics Result Diagrams: 09/21/21 05:00 09/21/21 05:00 Labs: 09/18/21 14:27 Chest Wound Gram Stain - Final 09/18/21 14:27 Chest Wound Culture - Final Staphylococcus Haemolyticus 09/17/21 21:30 Urine,Clean Catch Urine Culture - Final Escherichia Coli Proteus Mirabilis 09/17/21 12:14 Blood Blood Culture - Preliminary 09/17/21 12:18 Blood Blood Culture - Final Klebsiella Pneumoniae Laboratory WBC 3.5 X10^3/uL (3.6-10.0) L 09/21/21 05:00 RBC 3.04 X10^6/uL (3.5-5.4) L 09/21/21 05:00 Hgb 9.5 g/dL (12.0-16.0) L 09/21/21 05:00 Hct 27.4 % (36.0-47.0) L 09/21/21 05:00 MCV 90.3 fL (80.0-100.0) 09/21/21 05:00 MCH 31.3 pg (27.0-34.0) 09/21/21 05:00 MCHC 34.7 g/dL (33.0-35.0) 09/21/21 05:00 RDW 17.5 % (11.6-16.5) H 09/21/21 05:00 Plt Count 25 X10^3/uL (150.0-450.0) L 09/21/21 05:00 Plt Count Comment Decreased (ADEQUATE) A 09/21/21 05:00 MPV 10.8 fL (7.4-11.0) 09/21/21 05:00 Neut % (Auto) 66.9 % (42.0-75.0) 09/21/21 05:00 Lymph % (Auto) 15.8 % (21.0-51.0) L 09/21/21 05:00 [place] % (Auto) 11.5 % (0.0-13.0) 09/21/21 05:00 Eos % (Auto) 5.1 % (0.9-2.9) H 09/21/21 05:00 Baso % (Auto) 0.7 % (0.2-1.0) 09/21/21 05:00 Neut # (Auto) 2.4 x10^3/uL (2.2-4.8) 09/21/21 05:00 Lymph # (Auto) 0.6 X10^3/uL (1.3-2.9) L 09/21/21 05:00 [place] # (Auto) 0.4 x10^3/uL (0.3-0.8) 09/21/21 05:00 Eos # (Auto) 0.2 x10^3/uL (0.0-0.2) 09/21/21 05:00 Baso # (Auto) 0.0 X10^3/uL (0.0-0.1) 09/21/21 05:00 Absolute Nucleated RBC 0.1 /100WBC 09/21/21 05:00 Total Counted 100 09/20/21 05:37 Neutrophils % (Manual) 79 % (39-76) H 09/20/21 05:37 Band Neutrophils % 16 % (0-10) H 09/20/21 05:37 Lymphocytes % (Manual) 3 % (13-43) L 09/20/21 05:37 Monocytes % (Manual) 9 % (4-9) 09/19/21 05:43 Eosinophils % (Manual) 2 % (0-6) 09/20/21 05:37 Metamyelocytes % 2 09/19/21 05:43 Plt Morphology Comment Normal (NORMAL) 09/21/21 05:00 RBC Morphology Abnormal (NORMAL) A 09/21/21 05:00 Anisocytosis Slight A 09/21/21 05:00 Schistocytes Present 09/21/21 05:00 PT 24.3 SECONDS (11.8-14.3) 09/21/21 05:00 INR Target Range - 09/21/21 05:00 INR 2.29 (0.8-1.3) H 09/21/21 05:00 APTT 52.0 SECONDS (22.9-36.5) H 09/21/21 05:00 PTT Comment - 09/21/21 05:00 D-Dimer 11.13 ug/ml (0.0-0.57) H* 09/04/21 19:45 Sodium 139 mmol/L (136-145) 09/21/21 05:00 Corrected Sodium TNP 09/21/21 05:00 Potassium 3.2 mmol/L (3.5-5.1) L 09/21/21 05:00 Chloride 101 mmol/L (98-107) 09/21/21 05:00 Carbon Dioxide 30.3 mmol/L (21-32) 09/21/21 05:00 BUN 27 mg/dL (7-18) H 09/21/21 05:00 Creatinine 0.77 mg/dL (0.55-1.02) 09/21/21 05:00 Est GFR (MDRD) Af Amer > 60 (>60) 09/21/21 05:00 Est GFR (MDRD) Non-Af > 60 (>60) 09/21/21 05:00 Glucose 91 mg/dL (65-99) 09/21/21 05:00 Lactic Acid 1.9 mmol/L (0.4-2.0) 09/17/21 05:08 Calcium 9.2 mg/dL (8.5-10.1) 09/21/21 05:00 Corrected Calcium TNP 09/21/21 05:00 Magnesium 2.1 mg/dL (1.7-2.9) 09/20/21 05:37 Total Bilirubin 6.70 mg/dL (0.2-1.0) H 09/21/21 05:00 AST 31 Units/L (15-37) 09/21/21 05:00 ALT 8 Units/L (12-78) L 09/21/21 05:00 Alkaline Phosphatase 87 Units/L (46-116) 09/21/21 05:00 Ammonia 29 umol/L (11-32) 09/21/21 05:00 Creatine Kinase 59 Units/L (26-192) 09/04/21 17:46 CK-MB (CK-2) < 1.0 ng/mL (0-4.0) 09/04/21 17:46 CK/CKMB % Calc 1.7 % (<4) 09/04/21 17:46 Troponin I High Sens 12.6 ng/L (4.0-60.0) 09/04/21 17:46 C-Reactive Protein 51.80 mg/L (0-3.0) H 09/21/21 05:00 B-Natriuretic Peptide 610 pg/mL (0-79) H* 09/21/21 05:00 Total Protein 6.6 g/dL (6.4-8.2) 09/21/21 05:00 Albumin 4.3 g/dL (3.4-5.0) 09/21/21 05:00 Globulin 2.3 g/dL (2.5-4.5) L 09/21/21 05:00 Albumin/Globulin Ratio 1.9 Ratio (1.1-2.1) 09/21/21 05:00 Specimen Type Catherized urine 09/18/21 03:32 Urine Color Yellow (YELLOW) 09/18/21 03:32 Urine Appearance Clear (CLEAR) 09/18/21 03:32 Urine pH 5.0 (5.0 - 8.0) 09/18/21 03:32 Ur Specific [place] 1.025 (1.000-1.030) 09/18/21 03:32 Urine Protein 3+ (NEGATIVE) 09/18/21 03:32 Urine Glucose (UA) Negative (NEGATIVE) 09/18/21 03:32 Urine Ketones 1+ (NEGATIVE) 09/18/21 03:32 Urine Blood 2+ (NEGATIVE) 09/18/21 03:32 Urine Nitrite Negative (NEGATIVE) 09/18/21 03:32 Urine Bilirubin Negative (NEGATIVE) 09/18/21 03:32 Urine Urobilinogen 1+ (NORMAL) 09/18/21 03:32 Ur Leukocyte Esterase Negative (NEGATIVE) 09/18/21 03:32 Urine RBC 3-5 /HPF (0-3) A 09/17/21 21:30 Urine WBC 3-5 /HPF (0-5) 09/17/21 21:30 Ur Squamous Epith Cells Moderate /HPF (NEGATIVE) 09/17/21 21:30 Urine Bacteria Trace /HPF (NEGATIVE) 09/17/21 21:30 Ur Culture Indicated? No/not indicated 09/17/21 21:30 SARS CoV-2 RNA Rapid PRAVEENA Positive (NEGATIVE) A 09/04/21 18:05 Blood Type O POSITIVE 09/18/21 11:20 Antibody Screen Negative 09/18/21 11:20 Crossmatch See Detail 09/18/21 11:20 - Plan (1) CHF (congestive heart failure) Status: Acute Qualifiers: Heart failure type: unspecified Heart failure chronicity: acute on chronic Qualified Code(s): I50.9 - Heart failure, unspecified Plan: INVANZ 1G IV DAILY, VANCOMYCIN, FUROSEMIDE 40MG IV BID, ALDACTONE 25MG PO DAILY, ALBUMIN 25% IV BID, LACTULOSE 30ML PO BID, ASCORBIC ACID 1000MG PO Q6H, T ESSALON PERLES 200MG PO TID, SULFATE 220MG PO BID, PROMETHAZINE 25MG IM Q6H PRN, ZOFRAN 4MG IV Q4H PRN, CONTINUE TO MONITOR. (2) Anasarca Status: Acute (3) Cirrhosis of liver Status: Acute Qualifiers: Hepatic cirrhosis type: unspecified hepatic cirrhosis Ascites presence: with ascites Qualified Code(s): K74.60 - Unspecified cirrhosis of liver; R18.8 - Other ascites (4) Thrombocytopenia Status: Acute (5) Hypoalbuminemia Status: Acute (6) Hyperbilirubinemia Status: Acute (7) COVID-19 Status: Acute (8) Anemia Status: Chronic Qualifiers: Anemia type: unspecified type Qualified Code(s): D64.9 - Anemia, unspecified (9) GERD (gastroesophageal reflux disease) Status: Chronic Qualifiers: Esophagitis presence: esophagitis presence not specified Qualified Code(s): K21.9 - Gastro-esophageal reflux disease without esophagitis
[2021-09-21] MEDS: ALBUMIN HUMAN 25%- 100 ML 100 ML IV SCH ×2 (09:00→20:48)
[2021-09-21] MEDS: INVanz INJ 1 GRAM VIAL 1 G in NS 100 ML IV 100 ML IV SCH (09:03)
[2021-09-21] MEDS: VANCOMYCIN IV *PREMIX 1 G/200 ML BAG 1 G/200 ML PIGGYBACK IV SCH ×2 (09:04→21:43)
[2021-09-21] MEDS: ZOFRAN INJ 4 MG VIAL IVP PRN ×2 (09:06→18:28)
[2021-09-21] MEDS: ALDACTONE TAB 25 MG PO SCH (09:25)
[2021-09-21] MEDS: FLONASE NASAL SPRAY ENOSTRIL SCH ×2 (09:25→20:50)
[2021-09-21] MEDS: PROTONIX TAB 40 MG PO SCH (09:25)
[2021-09-21] MEDS: MEGACE PO SCH ×2 (09:25→20:50)
[2021-09-21] MEDS: CHRONULAC PO SCH ×2 (09:25→20:51)
[2021-09-21] MEDS: MICRO K EXTEN CAP 10 MEQ PO SCH (09:25)
[2021-09-21] MEDS: ZINC SULFATE PO SCH ×2 (09:26→20:49)
[2021-09-21] MEDS: XIFAXAN PO SCH ×2 (09:26→20:49)
--- NOTE | 2021-09-21 10:33 | PCM.PROG ---
Progress Note - Progress Note for Day of Date of Exam: 09/21/21 - Subjective Subjective: IS CURRENTLY BEING TREATED FOR SEPSIS, CHF, CIRRHOSIS OF LIVER, UTI, THROMBOCYTOPENIA, COVID-19, ANEMIA, AND GERD. SHE FIRST TESTED POSITIVE FOR COVID APPROXIMATELY 3 WEEKS AGO. SHE HAS RECEIVED FOUR UNITS OF PACKED RED BLOOD CELLS SINCE ADMISSION. SHE HAS RECEIVED A TOTAL OF 6 SUPERPACKS OF PLATELETS. SHE CONTINUES WITH NAUSEA AND WEAKNESS THIS MORNING, BUT DOES ADMIT TO SLIGHT IMPROVEMENT. SHE REPORTS BEING ABLE TO HOLD MORE FOOD DOWN TODAY. SHE IS CURRENTLY UTILIZING OXYGEN VIA NASAL CANNULA AT 3 LPM. ON EXAMINATION, HEART IS REGULAR IN RATE AND RHYTHM. BILATERAL LUNGS NOTED WITH DIMINISHED LUNG SOUNDS THROUGHOUT. ABDOMEN IS ROUND, SOFT, AND NOTED WITH MILD DIFFUSE TENDERNESS. TRACE EDEMA NOTED TO UPPER AND LOWER EXTREMITIES NOTED. CENTRAL LINE NOTED TO RIGHT CHEST WALL. HER VITALS THIS MORNING ARE: 97.6-73-24-96%-124/60. LABS WERE OBTAINED. ABNORMAL LAB VALUES INCLUDE THE FOLLOWING: WBC 3.5, RBC 3.04, HGB 9.5, HCT 27.4, PLT COUNT 25, INR 2.29, PTT 52.0, POTASSIUM 3.2, BUN 27, TOTAL BILI 6.70, ALT 8, CRP 51.80, BNP 610, GLOBULIN 2.3. BLOOD CULTURES ARE POSITIVE FOR KLEBSIELLA PNEUMONIAE. URINE CULTURE IS POSITIVE FOR GROWTH OF E.COLI AND PROTEUS MIRABILIS. CULTURE OF DRAINAGE FROM CENTRAL LINE REVEALED GROWTH OF STAPHYLOCOCCUS HAEMOLYTICUS. A CHEST XRAY WAS REPEATED AND REVEALED: There is a right subclavian line with its tip in the superior vena cava near the cavoatrial junction/proximal right atrium. Heart remains upper limits normal in size. No congestive heart failure is noted. No acute alveolar infiltrates are identified. Small right pleural effusion may be present. Right hemidiaphragm remains mildly elevated. Bony thorax is unremarkable. SHE IS CURRENTLY RECEIVING INVANZ 1G IV DAILY, VANCOMYCIN 1G IV Q12H, FUROSEMIDE 40MG IV BID, ALBUMIN 25% IV BID, MAGNESIUM PROTOCOL, POTASSIUM PROTOCOL, ALDACTONE 25MG PO DAILY, ASCORBIC ACID 1000MG PO Q6H, TESSALON PERLES 200MG PO TID, AND ZINC SULFATE 220MG PO BID. HER HOME MEDICATIONS OF LACTULOSE, XIFAXAN, TRAMADOL, ROPINIROLE, MEGACE, PROTONIX, POTASSIUM CHLORIDE, FLONASE WERE RESUMED. WE WILL CONTINUE WITH CURRENT PLAN OF CARE TODAY AND ADD MAGIC MOUTHWASH QID DUE TO IRRITATION TO TONGUE. OTHERWISE, WE PLAN TO FOLLOW UP WITH AM LABS AND CONTINUE TO MONITOR. FOLLOWING DISCHARGE, PATIENT WILL GO HOME ON HOSPICE CARE. TIME SPENT ON CLINICAL ASSESSMENT, REVIEWING LABS AND IMAGING, DECISION MAKING, AND DOCUMENTATION GREATER THAN 45 MINUTES. - Past Medical Family Social History Past Med/Fam/Surg Hx: No changes since H&P Allergies: Allergies codeine Allergy (Verified 03/01/17 23:55) levofloxacin [From Levaquin] Allergy (Verified 03/01/17 23:55) Penicillins Allergy (Verified 03/01/17 23:55) Sulfa (Sulfonamide Antibiotics) [SULFA] Allergy (Verified 03/01/17 23:55) - Review of Systems ROS: No change since H&P - Vital Signs and I&O's Vital Signs: Temperature 97.6 F Pulse Rate [Left Brachial] 73 Pulse Rate [Right Brachial] 76 Respiratory Rate 24 Blood Pressure [Right Arm] 124/60 Blood Pressure [Left Arm] 113/56 O2 Sat by Pulse Oximetry 96 Intake and Output: Intake & Output 09/18/21 09/19/21 09/20/21 09/21/21 11:59 11:59 11:59 11:59 Intake Total 1055 / 1055 2109 / 2109 1143 / 1143 1183 / 1183 Output Total 725 / 725 Balance 1055 / 1055 1384 / 1384 1143 / 1143 1183 / 1183 - Physical Exam Oriented: Normal Eyes: Normal Ear: Normal Nose: Normal Throat: Red Respiratory: Generalized, Diminished Cardiovascular: Edema (TRACE EDEMA TO UPPER AND LOWER EXTREMITIES) : Normal Auscultation: Bowel Sounds: Normal Tenderness: Normal Skin: Normal Musculoskeletal: Right, Left, Arm, Leg, Swelling Psychiatric: Normal Mood Description: Calm Affect: Normal Speech Pattern: Clear, Inappropriate - Laboratory and Diagnostics Result Diagrams: 09/21/21 05:00 09/21/21 05:00 Labs: 09/18/21 14:27 Chest Wound Gram Stain - Final 09/18/21 14:27 Chest Wound Culture - Final Staphylococcus Haemolyticus 09/17/21 21:30 Urine,Clean Catch Urine Culture - Final Escherichia Coli Proteus Mirabilis 09/17/21 12:14 Blood Blood Culture - Preliminary 09/17/21 12:18 Blood Blood Culture - Final Klebsiella Pneumoniae Laboratory WBC 3.5 X10^3/uL (3.6-10.0) L 09/21/21 05:00 RBC 3.04 X10^6/uL (3.5-5.4) L 09/21/21 05:00 Hgb 9.5 g/dL (12.0-16.0) L 09/21/21 05:00 Hct 27.4 % (36.0-47.0) L 09/21/21 05:00 MCV 90.3 fL (80.0-100.0) 09/21/21 05:00 MCH 31.3 pg (27.0-34.0) 09/21/21 05:00 MCHC 34.7 g/dL (33.0-35.0) 09/21/21 05:00 RDW 17.5 % (11.6-16.5) H 09/21/21 05:00 Plt Count 25 X10^3/uL (150.0-450.0) L 09/21/21 05:00 Plt Count Comment Decreased (ADEQUATE) A 09/21/21 05:00 MPV 10.8 fL (7.4-11.0) 09/21/21 05:00 Neut % (Auto) 66.9 % (42.0-75.0) 09/21/21 05:00 Lymph % (Auto) 15.8 % (21.0-51.0) L 09/21/21 05:00 [place] % (Auto) 11.5 % (0.0-13.0) 09/21/21 05:00 Eos % (Auto) 5.1 % (0.9-2.9) H 09/21/21 05:00 Baso % (Auto) 0.7 % (0.2-1.0) 09/21/21 05:00 Neut # (Auto) 2.4 x10^3/uL (2.2-4.8) 09/21/21 05:00 Lymph # (Auto) 0.6 X10^3/uL (1.3-2.9) L 09/21/21 05:00 [place] # (Auto) 0.4 x10^3/uL (0.3-0.8) 09/21/21 05:00 Eos # (Auto) 0.2 x10^3/uL (0.0-0.2) 09/21/21 05:00 Baso # (Auto) 0.0 X10^3/uL (0.0-0.1) 09/21/21 05:00 Absolute Nucleated RBC 0.1 /100WBC 09/21/21 05:00 Total Counted 100 09/20/21 05:37 Neutrophils % (Manual) 79 % (39-76) H 09/20/21 05:37 Band Neutrophils % 16 % (0-10) H 09/20/21 05:37 Lymphocytes % (Manual) 3 % (13-43) L 09/20/21 05:37 Monocytes % (Manual) 9 % (4-9) 09/19/21 05:43 Eosinophils % (Manual) 2 % (0-6) 09/20/21 05:37 Metamyelocytes % 2 09/19/21 05:43 Plt Morphology Comment Normal (NORMAL) 09/21/21 05:00 RBC Morphology Abnormal (NORMAL) A 09/21/21 05:00 Anisocytosis Slight A 09/21/21 05:00 Schistocytes Present 09/21/21 05:00 PT 24.3 SECONDS (11.8-14.3) 09/21/21 05:00 INR Target Range - 09/21/21 05:00 INR 2.29 (0.8-1.3) H 09/21/21 05:00 APTT 52.0 SECONDS (22.9-36.5) H 09/21/21 05:00 PTT Comment - 09/21/21 05:00 D-Dimer 11.13 ug/ml (0.0-0.57) H* 09/04/21 19:45 Sodium 139 mmol/L (136-145) 09/21/21 05:00 Corrected Sodium TNP 09/21/21 05:00 Potassium 3.2 mmol/L (3.5-5.1) L 09/21/21 05:00 Chloride 101 mmol/L (98-107) 09/21/21 05:00 Carbon Dioxide 30.3 mmol/L (21-32) 09/21/21 05:00 BUN 27 mg/dL (7-18) H 09/21/21 05:00 Creatinine 0.77 mg/dL (0.55-1.02) 09/21/21 05:00 Est GFR (MDRD) Af Amer > 60 (>60) 09/21/21 05:00 Est GFR (MDRD) Non-Af > 60 (>60) 09/21/21 05:00 Glucose 91 mg/dL (65-99) 09/21/21 05:00 Lactic Acid 1.9 mmol/L (0.4-2.0) 09/17/21 05:08 Calcium 9.2 mg/dL (8.5-10.1) 09/21/21 05:00 Corrected Calcium TNP 09/21/21 05:00 Magnesium 2.1 mg/dL (1.7-2.9) 09/20/21 05:37 Total Bilirubin 6.70 mg/dL (0.2-1.0) H 09/21/21 05:00 AST 31 Units/L (15-37) 09/21/21 05:00 ALT 8 Units/L (12-78) L 09/21/21 05:00 Alkaline Phosphatase 87 Units/L (46-116) 09/21/21 05:00 Ammonia 29 umol/L (11-32) 09/21/21 05:00 Creatine Kinase 59 Units/L (26-192) 09/04/21 17:46 CK-MB (CK-2) < 1.0 ng/mL (0-4.0) 09/04/21 17:46 CK/CKMB % Calc 1.7 % (<4) 09/04/21 17:46 Troponin I High Sens 12.6 ng/L (4.0-60.0) 09/04/21 17:46 C-Reactive Protein 51.80 mg/L (0-3.0) H 09/21/21 05:00 B-Natriuretic Peptide 610 pg/mL (0-79) H* 09/21/21 05:00 Total Protein 6.6 g/dL (6.4-8.2) 09/21/21 05:00 Albumin 4.3 g/dL (3.4-5.0) 09/21/21 05:00 Globulin 2.3 g/dL (2.5-4.5) L 09/21/21 05:00 Albumin/Globulin Ratio 1.9 Ratio (1.1-2.1) 09/21/21 05:00 Specimen Type Catherized urine 09/18/21 03:32 Urine Color Yellow (YELLOW) 09/18/21 03:32 Urine Appearance Clear (CLEAR) 09/18/21 03:32 Urine pH 5.0 (5.0 - 8.0) 09/18/21 03:32 Ur Specific [place] 1.025 (1.000-1.030) 09/18/21 03:32 Urine Protein 3+ (NEGATIVE) 09/18/21 03:32 Urine Glucose (UA) Negative (NEGATIVE) 09/18/21 03:32 Urine Ketones 1+ (NEGATIVE) 09/18/21 03:32 Urine Blood 2+ (NEGATIVE) 09/18/21 03:32 Urine Nitrite Negative (NEGATIVE) 09/18/21 03:32 Urine Bilirubin Negative (NEGATIVE) 09/18/21 03:32 Urine Urobilinogen 1+ (NORMAL) 09/18/21 03:32 Ur Leukocyte Esterase Negative (NEGATIVE) 09/18/21 03:32 Urine RBC 3-5 /HPF (0-3) A 09/17/21 21:30 Urine WBC 3-5 /HPF (0-5) 09/17/21 21:30 Ur Squamous Epith Cells Moderate /HPF (NEGATIVE) 09/17/21 21:30 Urine Bacteria Trace /HPF (NEGATIVE) 09/17/21 21:30 Ur Culture Indicated? No/not indicated 09/17/21 21:30 SARS CoV-2 RNA Rapid PRAVEENA Positive (NEGATIVE) A 09/04/21 18:05 Blood Type O POSITIVE 09/18/21 11:20 Antibody Screen Negative 09/18/21 11:20 Crossmatch See Detail 09/18/21 11:20 - Plan (1) Sepsis Status: Acute Qualifiers: Sepsis type: sepsis due to unspecified organism Sepsis acute organ dysfunction status: with acute organ dysfunction Severe sepsis acute organ dysfunction type: unspecified Severe sepsis shock status: unspecified Qualified Code(s): A41.9 - Sepsis, unspecified organism; R65.20 - Severe sepsis without septic shock Plan: INVANZ 1G IV DAILY, VANCOMYCIN 1G IV Q12H, FUROSEMIDE 40MG IV BID, ALDACTONE 25MG PO DAILY, ALBUMIN 25% IV BID, LACTULOSE 30ML PO BID, ASCORBIC ACID 1000MG PO Q6H, TESSALON PERLES 200MG PO TID, SULFATE 220MG PO BID, PROMETHAZINE 25MG IM Q6H PRN, ZOFRAN 4MG IV Q4H PRN, CONTINUE TO MONITOR. (2) CHF (congestive heart failure) Status: Acute Qualifiers: Heart failure type: unspecified Heart failure chronicity: acute on chronic Qualified Code(s): I50.9 - Heart failure, unspecified (3) Urinary tract infection Status: Acute Qualifiers: Urinary tract infection type: acute cystitis Hematuria presence: without hematuria Qualified Code(s): N30.00 - Acute cystitis without hematuria (4) Anasarca Status: Acute (5) Cirrhosis of liver Status: Acute Qualifiers: Hepatic cirrhosis type: unspecified hepatic cirrhosis Ascites presence: with ascites Qualified Code(s): K74.60 - Unspecified cirrhosis of liver; R18.8 - Other ascites (6) Thrombocytopenia Status: Acute (7) Hyperbilirubinemia Status: Acute (8) COVID-19 Status: Acute (9) Anemia Status: Chronic Qualifiers: Anemia type: unspecified type Qualified Code(s): D64.9 - Anemia, unspecified (10) GERD (gastroesophageal reflux disease) Status: Chronic Qualifiers: Esophagitis presence: esophagitis presence not specified Qualified Code(s): K21.9 - Gastro-esophageal reflux disease without esophagitis
[2021-09-21] MEDS: MAGIC MOUTHWASH (Orig. Formula) MT SCH ×4 (11:04→22:30)
[2021-09-21] MEDS ORDERED: SODIUM BICARBONATE 8.4% INJ ADULT ONE (17:28)
[2021-09-21 20:25] LABS: CREATININE 0.72 mg/dL (0.55-1.02); VANCOMYCIN,TROUGH 16.1 ug/mL (15-20)
[2021-09-21] MEDS ORDERED: PHARMACY COMMENT IV ONE (20:30)
[2021-09-21] MEDS: REQUIP PO SCH (20:50)
[2021-09-22 05:04] LABS: BASOPHILS % (AUTO) 0.9 % (0.2-1.0); EOSINOPHILS # (AUTO) 0.2 x10^3/uL (0.0-0.2); LYMPHOCYTES # (AUTO) 0.5 X10^3/uL (1.3-2.9); MONOCYTES # (AUTO) 0.4 x10^3/uL (0.3-0.8); NEUTROPHILS # (AUTO) 1.9 x10^3/uL (2.2-4.8)
[2021-09-22 05:10] LABS: EOSINOPHILS % (AUTO) 5.8 % (0.9-2.9); HEMATOCRIT 25.8 % (36.0-47.0); LYMPHOCYTES % (AUTO) 16.7 % (21.0-51.0); MEAN CORPUSCULAR HEMOGLOBIN 31.6 pg (27.0-34.0); MEAN CORPUSCULAR HGB CONC 34.9 g/dL (33.0-35.0); MEAN CORPUSCULAR VOLUME 90.7 fL (80.0-100.0); MEAN PLATELET VOLUME 10.8 fL (7.4-11.0); MONOCYTES % (AUTO) 13.9 % (0.0-13.0); NEUTROPHILS % (AUTO) 62.7 % (42.0-75.0); RED BLOOD COUNT 2.85 X10^6/uL (3.5-5.4); RED CELL DISTRIBUTION WIDTH 17.7 % (11.6-16.5)
[2021-09-22 05:12] LABS: AMMONIA 21 umol/L (11-32)
[2021-09-22] MEDS: VITAMIN C PO SCH ×4 (05:18→20:46)
[2021-09-22] MEDS: TESSALON PERLES PO SCH ×3 (05:18→21:00)
[2021-09-22 05:27] LABS: ALANINE AMINOTRANSFERASE 8 Units/L (12-78); ALBUMIN 4.4 g/dL (3.4-5.0); ALKALINE PHOSPHATASE 83 Units/L (46-116); ASPARTATE AMINO TRANSFERASE 33 Units/L (15-37); BLOOD UREA NITROGEN 22 mg/dL (7-18); CALCIUM 9.1 mg/dL (8.5-10.1); CARBON DIOXIDE 27.7 mmol/L (21-32); CHLORIDE 102 mmol/L (98-107); CREATININE 0.65 mg/dL (0.55-1.02); SODIUM 137 mmol/L (136-145); TOTAL PROTEIN 6.6 g/dL (6.4-8.2); eGFR NON BLACK RACES > 60 (>60)
--- NOTE | 2021-09-22 09:04 | RAD ---
HISTORYsob HX: hypotension, cirrhosis.brsx: appendectomy, hysterectomy, colon resectionSTUDYCHEST, 1 VIEWCOMPARISONApril 2021.FINDINGSThe trachea is midline. There is a stable cardiac silhouette. There is a right-sided CVL seen in place whose tip overlies the right atrium. Diffusely increased interstitial disease throughout the lung chavarria are seen, worse compared to the prior examination. There is also worsening parenchymal disease in the right midlung zone right lower lobe. These findings are most concerning for worsening pneumonia versus atypical edema. Pneumonia would be favored in the right lung. The right hemidiaphragm remains elevated. No pneumothorax is seen. The bones are stable.IMPRESSIONAs above.Electronically signed by: SYDNEE BURRIS III (Sep 22, 2021 09:02:51)
[2021-09-22] MEDS: MEGACE PO SCH ×2 (09:45→20:45)
[2021-09-22] MEDS: ALBUMIN HUMAN 25%- 100 ML 100 ML IV SCH ×2 (09:45→20:39)
[2021-09-22] MEDS: MICRO K EXTEN CAP 10 MEQ PO SCH (09:50)
[2021-09-22] MEDS: XIFAXAN PO SCH ×2 (09:51→20:46)
[2021-09-22] MEDS: ALDACTONE TAB 25 MG PO SCH (09:51)
[2021-09-22] MEDS: ZINC SULFATE PO SCH ×2 (09:51→20:45)
[2021-09-22] MEDS: PROTONIX TAB 40 MG PO SCH (09:51)
[2021-09-22] MEDS: INVanz INJ 1 GRAM VIAL 1 G in NS 100 ML IV 100 ML IV SCH (10:04)
[2021-09-22] MEDS: CHRONULAC PO SCH ×2 (10:58→21:00)
[2021-09-22] MEDS: FLONASE NASAL SPRAY ENOSTRIL SCH ×2 (10:58→20:48)
[2021-09-22] MEDS: LASIX IVP SCH ×2 (10:59→16:22)
[2021-09-22] MEDS: MAGIC MOUTHWASH (Orig. Formula) MT SCH ×4 (11:00→21:02)
[2021-09-22] MEDS: VANCOMYCIN IV *PREMIX 1 G/200 ML BAG 1 G/200 ML PIGGYBACK IV SCH ×2 (11:00→20:40)
[2021-09-22] MEDS: BENADRYL INJ 50 MG VIAL IVP PRN (12:58)
[2021-09-22] MEDS: ULTRAM PO PRN ×2 (13:10→20:45)
[2021-09-22] MEDS: K-DUR TAB 20 MEQ PO PRN (16:23)
[2021-09-22] MEDS ORDERED: SALINE 3% 15 ML NEB TX NEB ONE (19:06)
[2021-09-22] MEDS: REQUIP PO SCH (20:44)
[2021-09-22] MEDS: PULMICORT NEB TX 0.5 MG NEB SCH (20:52)
[2021-09-22] MEDS: DUONEB 0.5 MG/3 MG (3 mL) NEB SCH (20:52)
[2021-09-23] MEDS: VITAMIN C PO SCH ×4 (03:07→20:05)
[2021-09-23] MEDS: TESSALON PERLES PO SCH ×3 (05:33→21:49)
--- NOTE | 2021-09-23 06:55 | RAD ---
HISTORYsob HX: hypotension, cirrhosis.brsx: appendectomy, hysterectomy, colon resectionSTUDYCHEST, 1 VIEWCOMPARISONApril 2021.FINDINGSThe trachea is midline. There is a stable cardiac silhouette. There is a right-sided CVL seen in place whose tip overlies the right atrium. Diffusely increased interstitial disease throughout the lung chavarria are seen, stable compared to the prior examination. There is also stable parenchymal disease in the right midlung zone right lower lobe. These findings are most concerning for pneumonia versus atypical edema. Pneumonia would be favored in the right lung. The right hemidiaphragm remains elevated. No pneumothorax is seen. The bones are stable.IMPRESSIONStable chest without acute cardiopulmonary changes.Electronically signed by: SYDNEE BURRIS III (Sep 23, 2021 06:54:00)
[2021-09-23] MEDS: ALBUMIN HUMAN 25%- 100 ML 100 ML IV SCH ×2 (08:29→20:03)
[2021-09-23] MEDS: INVanz INJ 1 GRAM VIAL 1 G in NS 100 ML IV 100 ML IV SCH (08:29)
[2021-09-23] MEDS: ALDACTONE TAB 25 MG PO SCH (08:43)
[2021-09-23] MEDS: CHRONULAC PO SCH ×2 (08:45→20:04)
[2021-09-23] MEDS: FLONASE NASAL SPRAY ENOSTRIL SCH ×2 (08:46→20:04)
[2021-09-23] MEDS: XIFAXAN PO SCH ×2 (08:46→20:06)
[2021-09-23] MEDS: MAGIC MOUTHWASH (Orig. Formula) MT SCH ×4 (08:46→20:05)
[2021-09-23] MEDS: MEGACE PO SCH ×2 (08:47→20:05)
[2021-09-23] MEDS: PROTONIX TAB 40 MG PO SCH (08:47)
[2021-09-23] MEDS: VANCOMYCIN IV *PREMIX 1 G/200 ML BAG 1 G/200 ML PIGGYBACK IV SCH ×3 (08:47→20:55)
[2021-09-23] MEDS: ZINC SULFATE PO SCH ×2 (08:47→20:06)
[2021-09-23] MEDS: MICRO K EXTEN CAP 10 MEQ PO SCH (08:48)
[2021-09-23] MEDS: LASIX IVP SCH ×2 (08:58→19:30)
[2021-09-23] MEDS: DUONEB 0.5 MG/3 MG (3 mL) NEB SCH ×4 (09:00→21:03)
[2021-09-23] MEDS: PULMICORT NEB TX 0.5 MG NEB SCH ×2 (09:00→21:03)
[2021-09-23] MEDS: MAGNESIUM SULFATE 1 GRAM/100 mL PREMIX 1 G/100 ML BAG IV PRN (14:06)
[2021-09-23] MEDS: K-RIDER 10 MEQ/NS 100 ML 10 MEQ/100 ML BAG IV PRN (14:06)
[2021-09-23] MEDS: REQUIP PO SCH (20:05)
[2021-09-23 20:47] LABS: CREATININE 0.75 mg/dL (0.55-1.02)
[2021-09-23 20:48] LABS: VANCOMYCIN,TROUGH 22.6 ug/mL (15-20)
[2021-09-23] MEDS ORDERED: PHARMACY CONSULT - VANCOMYCIN XX SCH (21:00)
[2021-09-24 04:49] LABS: BASOPHILS % (AUTO) 1.2 % (0.2-1.0); EOSINOPHILS # (AUTO) 0.1 x10^3/uL (0.0-0.2); EOSINOPHILS % (AUTO) 4.3 % (0.9-2.9); HEMATOCRIT 24.3 % (36.0-47.0); HEMOGLOBIN 8.4 g/dL (12.0-16.0); LYMPHOCYTES # (AUTO) 0.4 X10^3/uL (1.3-2.9); LYMPHOCYTES % (AUTO) 12.6 % (21.0-51.0); MEAN CORPUSCULAR HEMOGLOBIN 31.3 pg (27.0-34.0); MEAN CORPUSCULAR HGB CONC 34.5 g/dL (33.0-35.0); MEAN CORPUSCULAR VOLUME 90.8 fL (80.0-100.0); MEAN PLATELET VOLUME 11.5 fL (7.4-11.0); MONOCYTES # (AUTO) 0.4 x10^3/uL (0.3-0.8); MONOCYTES % (AUTO) 12.4 % (0.0-13.0); NEUTROPHILS # (AUTO) 2.3 x10^3/uL (2.2-4.8); NEUTROPHILS % (AUTO) 69.5 % (42.0-75.0); RED BLOOD COUNT 2.67 X10^6/uL (3.5-5.4); RED CELL DISTRIBUTION WIDTH 17.6 % (11.6-16.5); WHITE BLOOD COUNT 3.4 X10^3/uL (3.6-10.0)
[2021-09-24 04:53] LABS: AMMONIA 37 umol/L (11-32)
[2021-09-24 05:02] LABS: ALANINE AMINOTRANSFERASE < 6 Units/L (12-78); ALBUMIN 4.5 g/dL (3.4-5.0); ALKALINE PHOSPHATASE 79 Units/L (46-116); ASPARTATE AMINO TRANSFERASE 35 Units/L (15-37); BLOOD UREA NITROGEN 22 mg/dL (7-18); CALCIUM 9.3 mg/dL (8.5-10.1); CARBON DIOXIDE 28.2 mmol/L (21-32); CHLORIDE 103 mmol/L (98-107); SODIUM 139 mmol/L (136-145); TOTAL PROTEIN 6.7 g/dL (6.4-8.2); eGFR NON BLACK RACES > 60 (>60)
[2021-09-24] MEDS: VITAMIN C PO SCH ×2 (05:34→08:51)
[2021-09-24] MEDS: TESSALON PERLES PO SCH (05:34)
[2021-09-24] MEDS ORDERED: VANCOMYCIN IV *PREMIX 750 mg/150 ML BAG 750 MG/150 ML PIGGYBACK IV SCH ×2 (06:00→21:00)
[2021-09-24] MEDS: PULMICORT NEB TX 0.5 MG NEB SCH (08:19)
[2021-09-24] MEDS: DUONEB 0.5 MG/3 MG (3 mL) NEB SCH (08:19)
[2021-09-24] MEDS: ALBUMIN HUMAN 25%- 100 ML 100 ML IV SCH (08:47)
[2021-09-24] MEDS: PROTONIX TAB 40 MG PO SCH (08:47)
[2021-09-24] MEDS: K-DUR TAB 20 MEQ PO PRN (08:48)
[2021-09-24] MEDS: ZINC SULFATE PO SCH (08:48)
[2021-09-24] MEDS: MEGACE PO SCH (08:48)
[2021-09-24] MEDS: ALDACTONE TAB 25 MG PO SCH (08:51)
[2021-09-24] MEDS: MICRO K EXTEN CAP 10 MEQ PO SCH (08:51)
[2021-09-24] MEDS: MAGIC MOUTHWASH (Orig. Formula) MT SCH (08:52)
[2021-09-24] MEDS: XIFAXAN PO SCH (08:52)
[2021-09-24] MEDS: FLONASE NASAL SPRAY ENOSTRIL SCH (08:52)
[2021-09-24] MEDS: LASIX IVP SCH (08:59)
[2021-09-24] MEDS: CHRONULAC PO SCH (09:11)
[2021-09-24] MEDS: INVanz INJ 1 GRAM VIAL 1 G in NS 100 ML IV 100 ML IV SCH (09:58)
[2021-09-24 12:29] VITALS: BP 125/60
[2021-09-25] MEDS ORDERED: PHARMACY COMMENT IV ONE (20:30)
== END 2021-09-24 13:30 | disposition hospice, home (50) | DRG 291 ==
LOC: MED/SURG
PROVIDERS: ADMIT Internal Medicine; ATTEND Internal Medicine
DX: R60.1 Generalized edema; I50.9 Heart failure, unspecified; N30.00 Acute cystitis without hematuria; Z66 Do not resuscitate; R65.20 Severe sepsis without septic shock; U07.1 COVID-19; R53.1 Weakness; D69.6 Thrombocytopenia, unspecified; T81.44XA Sepsis following a procedure, initial encounter; B96.29 Other Escherichia coli [E. coli] as the cause of diseases classified elsewhere; R06.02 Shortness of breath; I87.2 Venous insufficiency (chronic) (peripheral); R13.11 Dysphagia, oral phase; A41.89 Other specified sepsis; E78.2 Mixed hyperlipidemia; K72.90 Hepatic failure, unspecified without coma; D64.89 Other specified anemias; R79.82 Elevated C-reactive protein (CRP); K74.69 Other cirrhosis of liver; B96.4 Proteus (mirabilis) (morganii) as the cause of diseases classified elsewhere; K21.9 Gastro-esophageal reflux disease without esophagitis

== ENCOUNTER 2021-12-17 16:30 | Inpatient (IN) ==
[2021-12-17 16:44] VITALS: BMI 29.9
--- NOTE | 2021-12-17 16:47 | ED.ABDFE ---
HPI Time Seen Time Seen by Provider: 12/17/21 16:46 PCP Primary Care Physician: DR SWENSON Complaint Chief Complaint:: "UTI SYMPTOMS AND PAINFUL URINATION X 3-4 WEEKS WITH NO IMPROVEMENT." Source History Provided: Family Member Mode of arrival Mode of Arrival: EMS Timing Onset of Chief Complaint: 11/26/21 PMH PMH Past Medical History: Yes Past Medical History: Anemia, Anxiety, Arthritis, CHF, Depression, Dyslipidemia and GERD Past Medical History Comment: END STAGE LIVER FAILURE, WALKER, BLADDER PROPLASE, IRON DEF ANEMIA, ABD ASCITES, ESOPHAGEAL VARICES Past Surgical History: Yes Surgical History: Hysterectomy and Joint Replacement Family History History of Family Medical Conditions: No Family Medical History: Diabetes Mellitus and Coronary Artery Disease Social History Does patient currently use any type of tobacco product: No Have you used tobacco products in the last 12 months: No Type of Tobacco Use: None Does any household member use tobacco: No Alcohol Use: None Do you use any recreational Drugs:: No Lives With: Family Lives Where: Home Infectious screening In the last 2 months have you had wt loss of >10#?: NO Have you had fever, night sweats or hemotysis?: No Have you traveled outside the country in the last 6 months?: No Isolation: Standard PE Vital Signs Vitals: Temperature 98.2 F Pulse Rate 80 Respiratory Rate 20 Blood Pressure [Right Arm] 125/60 Blood Pressure 116/58 O2 Sat by Pulse Oximetry 95 ROR Labs Reviewed Result Diagrams: 12/19/21 05:30 12/19/21 05:30 Laboratory: 12/17/21 18:10 Blood Blood Culture - Preliminary 12/17/21 17:23 Blood Blood Culture - Preliminary 12/17/21 18:26 Urine,Catheterized Urine Culture - Final Proteus Mirabilis WBC 3.4 X10^3/uL (3.6-10.0) L 12/17/21 18:10 RBC 2.77 X10^6/uL (3.5-5.4) L 12/17/21 18:10 Hgb 9.0 g/dL (12.0-16.0) L 12/17/21 18:10 Hct 25.2 % (36.0-47.0) L 12/17/21 18:10 MCV 90.8 fL (80.0-100.0) 12/17/21 18:10 MCH 32.5 pg (27.0-34.0) 12/17/21 18:10 MCHC 35.8 g/dL (33.0-35.0) H 12/17/21 18:10 RDW 13.7 % (11.6-16.5) 12/17/21 18:10 Plt Count 39 X10^3/uL (150.0-450.0) L 12/17/21 18:10 MPV 8.4 fL (7.4-11.0) 12/17/21 18:10 Neut % (Auto) 58.4 % (42.0-75.0) 12/17/21 18:10 Lymph % (Auto) 23.4 % (21.0-51.0) 12/17/21 18:10 Butler % (Auto) 11.0 % (0.0-13.0) 12/17/21 18:10 Eos % (Auto) 6.2 % (0.9-2.9) H 12/17/21 18:10 Baso % (Auto) 1.0 % (0.2-1.0) 12/17/21 18:10 Neut # (Auto) 2.0 x10^3/uL (2.2-4.8) L 12/17/21 18:10 Lymph # (Auto) 0.8 X10^3/uL (1.3-2.9) L 12/17/21 18:10 Butler # (Auto) 0.4 x10^3/uL (0.3-0.8) 12/17/21 18:10 Eos # (Auto) 0.2 x10^3/uL (0.0-0.2) 12/17/21 18:10 Baso # (Auto) 0.0 X10^3/uL (0.0-0.1) 12/17/21 18:10 Absolute Nucleated RBC 0.1 /100WBC 12/17/21 18:10 PT 20.7 SECONDS (11.8-14.3) 12/17/21 18:10 INR Target Range - 12/17/21 18:10 INR 1.86 (0.8-1.3) H 12/17/21 18:10 APTT 43.6 SECONDS (22.9-36.5) H 12/17/21 18:10 PTT Comment - 12/17/21 18:10 Sodium 134 mmol/L (136-145) L 12/17/21 18:10 Corrected Sodium TNP 12/17/21 18:10 Potassium 4.3 mmol/L (3.5-5.1) 12/17/21 18:10 Chloride 102 mmol/L (98-107) 12/17/21 18:10 Carbon Dioxide 27.9 mmol/L (21-32) 12/17/21 18:10 BUN 11 mg/dL (7-18) 12/17/21 18:10 Creatinine 0.93 mg/dL (0.55-1.02) 12/17/21 18:10 Est GFR (MDRD) Af Amer > 60 (>60) 12/17/21 18:10 Est GFR (MDRD) Non-Af > 60 (>60) 12/17/21 18:10 Glucose 96 mg/dL (65-99) 12/17/21 18:10 Lactic Acid 1.5 mmol/L (0.4-2.0) 12/17/21 18:10 Calcium 8.6 mg/dL (8.5-10.1) 12/17/21 18:10 Corrected Calcium 10.0 mg/dL (8.5-10.1) 12/17/21 18:10 Total Bilirubin 2.80 mg/dL (0.2-1.0) H 12/17/21 18:10 AST 46 Units/L (15-37) H 12/17/21 18:10 ALT 14 Units/L (12-78) 12/17/21 18:10 Alkaline Phosphatase 118 Units/L (46-116) H 12/17/21 18:10 Ammonia 99 umol/L (11-32) H 12/17/21 18:10 Total Protein 6.4 g/dL (6.4-8.2) 12/17/21 18:10 Albumin 2.3 g/dL (3.4-5.0) L 12/17/21 18:10 Globulin 4.1 g/dL (2.5-4.5) 12/17/21 18:10 Albumin/Globulin Ratio 0.6 Ratio (1.1-2.1) L 12/17/21 18:10 Amylase 14 Units/L (25-115) L 12/17/21 18:10 Lipase 74 Units/L (73-393) 12/17/21 18:10 Specimen Type Catherized urine 12/17/21 18:26 Urine Color Maricel (YELLOW) 12/17/21 18:26 Urine Appearance Cloudy (CLEAR) 12/17/21 18:26 Urine pH 6.0 (5.0 - 8.0) 12/17/21 18:26 Ur Specific [place] 1.015 (1.000-1.030) 12/17/21 18:26 Urine Protein 2+ (NEGATIVE) 12/17/21 18:26 Urine Glucose (UA) Negative (NEGATIVE) 12/17/21 18: Urine Ketones Negative (NEGATIVE) 12/17/21 18: Urine Blood 3+ (NEGATIVE) 12/17/21 18: Urine Nitrite Positive (NEGATIVE) 12/17/21 18: Urine Bilirubin 1+ (NEGATIVE) 12/17/21 18:26 Urine Urobilinogen 3+ (NORMAL) 12/17/21 18:26 Ur Leukocyte Esterase 3+ (NEGATIVE) 12/17/21 18:26 Urine RBC Tntc /HPF (0-3) A 12/17/21 18:26 Urine WBC Tntc /HPF (0-5) A 12/17/21 18:26 Ur Squamous Epith Cells Rare /HPF (NEGATIVE) 12/17/21 18:26 Amorphous Sediment Trace /HPF (NEGATIVE) 12/17/21 18:26 Urine Bacteria 1+ /HPF (NEGATIVE) 12/17/21 18:26 Ur Culture Indicated? Yes/culture set up 12/17/21 18:26 SARS-CoV-2 (PCR) Negative (NEGATIVE) 12/17/21 20:42 Influenza Type A (PCR) Negative (NEGATIVE) 12/17/21 20:42 Influenza Type B (PCR) Negative (NEGATIVE) 12/17/21 20:42 RSV (PCR) Negative (NEGATIVE) 12/17/21 20:42 Opioid Opioid Risk Tool Age (Grupo box if 16-45): No History of Preadolescent Sexual Abuse: No Total: 0 Total Score Risk Category: Low Risk Copyright: John SIMON predicting aberrant behaviors Discharge Plan Diagnosis Discharge Problem: Altered mental status, Cirrhosis of liver, Thrombocytopenia, UTI (urinary tract infection), Hyperammonemia, Hypercoagulable state Discharge Plan Patient Disposition: ADMITTED INPATIENT Condition: Stable
--- NOTE | 2021-12-17 18:23 | CT ---
HISTORY"UTI SYMPTOMS AND PAINFUL URINATION X 3-4 WEEKS WITH NO IMPROVEMENT."STUDYABDOMEN/PELVIS W/O CONCOMPARISONNone.TECHNIQUESerial axial images were obtained from the lung bases to the pubic symphysis without the administration of intravenous contrast. Soft tissue, lung windows and bone window images were interpreted. Dose reduction techniques were utilized.FINDINGSThe heart is not enlarged. There is atherosclerotic disease of the coronary vasculature involving the left anterior descending artery, left circumflex and right left main coronary arteries. A heavily calcified mitral valve is seen. The lung bases require a small right pleural effusion which also extends into the major fissure. There is a calcified granuloma of the right anterior lung base..There is significant perihepatic and perisplenic ascites. There is splenomegaly. The liver is normal in size and reveals no focal lesions. There is no intrahepatic biliary ductal dilatation or obvious common bile duct dilatation. The gallbladder is unremarkable. The gallbladder reveals no radiopaque gallstones. The spleen reveals no focal lesions. The pancreas and adrenal glands are unremarkable.The aorta and inferior vena cava are unremarkable. No significant para-aortic or retroperitoneal lymphadenopathy is identified.The kidneys reveal no radiopaque renal, ureteric or urinary bladder calculi. There is no hydronephrosis. There is no obstructive uropathy.Examination of the bowel, greater omentum and mesentery reveals edema throughout the mesenteric, omental and subcutaneous fat. There is fecal impaction noted. There is bilateral paracolic edema/ascites. There are anastomotic suture clips of the sigmoid colon. The appendix is unremarkable with no evidence for acute appendicitis. There is evidence for fecal impaction involving the rectal vault. There is a duodenal diverticulum of the descending duodenum within air-fluid level noted. Examination of the pelvis reveals no pathologic masses or fluid collections. The urinary bladder is unremarkable. There are pelvic phleboliths. There are bilateral inguinal hernias with only herniation of fat through the defects. There is a right paraumbilical hernia with herniation of omental fat and ascites through the defect. An umbilical hernia is also seen with only herniation of omental fat. Several supraumbilical hernias with herniation of omental fat and edema is also noted. Significant subcutaneous edema is seen throughout the flank areas bilaterally, right greater than left.At T12 there is an anterior wedge deformity with sclerosis of the superior endplate in collapse into a superior endplate Schmorl's node. There is vacuum phenomenon and narrowing of the disc space at L5-S1 with a mild broad-based disc herniation and osteophyte complex.IMPRESSION1. Prominent duodenal diverticulum of the sigmoid colon.2. Perihepatic and perisplenic ascites with splenomegaly, edema within the mesenteric, omental and subcutaneous fat.3. Umbilical, paraumbilical and supraumbilical omental hernias. The right paraumbilical hernia also contains a small amount of ascites fluid.4. Evidence for 3rd spacing with significant subcutaneous edema throughout the torso including the lower mid back and right greater than left flank areas. A small right pleural effusion is also noted.Electronically signed by: Naomie Knowles (Dec 17, 2021 18:21:51)
[2021-12-17 18:42] LABS: BILIRUBIN,URINE 1+ (NEGATIVE); BLOOD/HEMOGLOBIN,URINE 3+ (NEGATIVE); GLUCOSE, URINE NEGATIVE (NEGATIVE); KETONES,URINE NEGATIVE (NEGATIVE); LEUKOCYTE ESTERASE ,URINE 3+ (NEGATIVE); NITRITES,URINE POSITIVE (NEGATIVE); PROTEIN,URINE 2+ (NEGATIVE); UROBILINOGEN,URINE 3+ (NORMAL)
[2021-12-17 18:43] LABS: EOSINOPHILS # (AUTO) 0.2 x10^3/uL (0.0-0.2); EOSINOPHILS % (AUTO) 6.2 % (0.9-2.9); HEMATOCRIT 25.2 % (36.0-47.0); LYMPHOCYTES # (AUTO) 0.8 X10^3/uL (1.3-2.9); LYMPHOCYTES % (AUTO) 23.4 % (21.0-51.0); MEAN CORPUSCULAR HEMOGLOBIN 32.5 pg (27.0-34.0); MEAN CORPUSCULAR HGB CONC 35.8 g/dL (33.0-35.0); MEAN CORPUSCULAR VOLUME 90.8 fL (80.0-100.0); MEAN PLATELET VOLUME 8.4 fL (7.4-11.0); MONOCYTES # (AUTO) 0.4 x10^3/uL (0.3-0.8); NEUTROPHILS % (AUTO) 58.4 % (42.0-75.0); RED BLOOD COUNT 2.77 X10^6/uL (3.5-5.4); RED CELL DISTRIBUTION WIDTH 13.7 % (11.6-16.5); WHITE BLOOD COUNT 3.4 X10^3/uL (3.6-10.0)
[2021-12-17 18:44] LABS: ALANINE AMINOTRANSFERASE 14 Units/L (12-78); ALBUMIN 2.3 g/dL (3.4-5.0); ALKALINE PHOSPHATASE 118 Units/L (46-116); AMYLASE 14 Units/L (25-115); ASPARTATE AMINO TRANSFERASE 46 Units/L (15-37); BLOOD UREA NITROGEN 11 mg/dL (7-18); CALCIUM 8.6 mg/dL (8.5-10.1); CARBON DIOXIDE 27.9 mmol/L (21-32); CHLORIDE 102 mmol/L (98-107); CREATININE 0.93 mg/dL (0.55-1.02); LIPASE 74 Units/L (73-393); SODIUM 134 mmol/L (136-145); TOTAL PROTEIN 6.4 g/dL (6.4-8.2); eGFR NON BLACK RACES > 60 (>60)
[2021-12-17 18:46] LABS: LACTIC ACID 1.5 mmol/L (0.4-2.0)
[2021-12-17 18:52] LABS: AMMONIA 99 umol/L (11-32)
[2021-12-17 18:59] LABS: APPEARANCE,URINE CLOUDY (CLEAR); BACTERIA,URINE 1+ /HPF (NEGATIVE); COLOR,URINE AMBER (YELLOW); RBC,URINE TNTC /HPF (0-3); SQUAMOUS EPITHELIAL CELL,UR RARE /HPF (NEGATIVE)
[2021-12-17] MEDS ORDERED: ROCEPHIN 1 GRAM IV PREMIX 1 G/50 ML IV.SOLN. IV ONE (19:31)
[2021-12-17] MEDS ORDERED: CHRONULAC PO ONE (19:40)
[2021-12-17] MEDS ORDERED: CHRONULAC ONE (19:44)
[2021-12-17] MEDS ORDERED: ROCEPHIN VIAL 1 GRAM ONE (19:44)
[2021-12-17] MEDS ORDERED: NS 50 ML IV 50 ML IV ONE (19:44)
[2021-12-18 06:10] LABS: AMMONIA 116 umol/L (11-32)
[2021-12-18 06:13] LABS: BASOPHILS % (AUTO) 0.9 % (0.2-1.0); EOSINOPHILS # (AUTO) 0.1 x10^3/uL (0.0-0.2); HEMATOCRIT 23.2 % (36.0-47.0); HEMOGLOBIN 8.3 g/dL (12.0-16.0); LYMPHOCYTES # (AUTO) 0.6 X10^3/uL (1.3-2.9); LYMPHOCYTES % (AUTO) 19.8 % (21.0-51.0); MEAN CORPUSCULAR HEMOGLOBIN 32.7 pg (27.0-34.0); MEAN CORPUSCULAR HGB CONC 35.9 g/dL (33.0-35.0); MEAN CORPUSCULAR VOLUME 91.1 fL (80.0-100.0); MEAN PLATELET VOLUME 8.7 fL (7.4-11.0); MONOCYTES # (AUTO) 0.3 x10^3/uL (0.3-0.8); MONOCYTES % (AUTO) 10.7 % (0.0-13.0); NEUTROPHILS # (AUTO) 1.9 x10^3/uL (2.2-4.8); NEUTROPHILS % (AUTO) 63.6 % (42.0-75.0); RED BLOOD COUNT 2.55 X10^6/uL (3.5-5.4); RED CELL DISTRIBUTION WIDTH 13.7 % (11.6-16.5); WHITE BLOOD COUNT 2.9 X10^3/uL (3.6-10.0)
[2021-12-18 06:16] LABS: ALANINE AMINOTRANSFERASE 10 Units/L (12-78); ALBUMIN 2.1 g/dL (3.4-5.0); ALKALINE PHOSPHATASE 105 Units/L (46-116); ASPARTATE AMINO TRANSFERASE 42 Units/L (15-37); BLOOD UREA NITROGEN 11 mg/dL (7-18); CALCIUM 8.7 mg/dL (8.5-10.1); CARBON DIOXIDE 27.3 mmol/L (21-32); CHLORIDE 103 mmol/L (98-107); COR CA(FOR HYPOALB) 10.2 mg/dL (8.5-10.1); CREATININE 0.82 mg/dL (0.55-1.02); SODIUM 133 mmol/L (136-145); eGFR NON BLACK RACES > 60 (>60)
[2021-12-18] MEDS ORDERED: ATARAX TAB 25 MG PO PRN (08:40)
[2021-12-18] MEDS ORDERED: DUONEB 0.5 MG/3 MG (3 mL) NEB SCH (09:00)
[2021-12-18] MEDS ORDERED: NS 500 ML IV 500 ML IV PRN (09:26)
[2021-12-18] MEDS ORDERED: ROCEPHIN VIAL 1 GRAM ONE (09:28)
[2021-12-18] MEDS ORDERED: NS 500 ML IV 500 ML IV ONE (09:29)
[2021-12-18] MEDS ORDERED: ULTRAM ONE (09:30)
[2021-12-18] MEDS ORDERED: MICRO K EXTEN CAP 10 MEQ PO ONE (09:30)
[2021-12-18] MEDS ORDERED: ALBUMIN HUMAN 25%- 100 ML 100 ML ONE (09:31)
[2021-12-18] MEDS ORDERED: PROTONIX TAB 40 MG PO ONE (09:31)
[2021-12-18] MEDS ORDERED: CHRONULAC ONE (09:31)
[2021-12-18] MEDS ORDERED: MEGACE PO ONE (09:31)
[2021-12-18] MEDS ORDERED: NS 100 ML IV 100 ML ONE (09:32)
[2021-12-18] MEDS: ALBUMIN HUMAN 25%- 100 ML 100 ML IV SCH (09:44)
[2021-12-18] MEDS: MEGACE PO SCH ×2 (09:50→21:05)
[2021-12-18] MEDS: PROTONIX TAB 40 MG PO SCH (09:51)
[2021-12-18] MEDS: MICRO K EXTEN CAP 10 MEQ PO SCH (09:51)
[2021-12-18] MEDS: CHRONULAC PO SCH ×3 (09:53→21:08)
[2021-12-18] MEDS: ULTRAM PO SCH ×2 (09:53→21:06)
[2021-12-18] MEDS: ROCEPHIN VIAL 1 GRAM 1 G in NS 100 ML IV 100 ML IV SCH ×2 (09:57→09:58)
[2021-12-18] MEDS: ALDACTONE TAB 25 MG PO SCH (10:07)
[2021-12-18] MEDS: DUONEB 0.5 MG/3 MG (3 mL) NEB SCH ×2 (12:15→21:00)
[2021-12-18] MEDS: LASIX IVP SCH (17:03)
--- NOTE | 2021-12-18 19:47 | DR.H&P ---
H&P - History & Physical for Day of: H&P Date: 12/17/21 - Chief Complaint Chief Complaint: PAINFUL URINATION, URGENCY, WEAKNESS - History of Present Illness History of Present Illness: IS A 71 YEAR OLD PATIENT OF OURS. SHE PRESENTED TO THE ER WITH COMPLAINTS OF PAINFUL URINATION, URINARY URGENCY, AND WEAKNESS. SYMPTOMS STARTED 3-4 WEEKS AGO AND HAVE PROGRESSIVELY GOTTEN WORSE. PATIENT DOES HAVE A PMH OF CHF, CIRRHOSIS, END STAGE LIVER FAILURE, WALKER, BLADDER PROPLASE, IRON DEF ANEMIA, ABD ASCITES, ESOPHAGEAL VARICES, GERD, GI BLEED, DEPRESSION, APPENDECTOMY, HYSTERECTOMY, AND BOWEL RESECTION. EXAMINATION REVEALED DIFFUSE SWELLING OF UPPER AND LOWER EXTREMITIES AND ABDOMEN. ON ARRIVAL, VITALS WERE: 98.3-821-72-100%-121/58. LABS WERE OBTAINED. WBC 3.4, RBC 2.77, HGB 9.0, HCT 25.2, PLT COUNT 39, INR 1.86, PTT 43.6, SODIUM 134, POTASSIUM 4.3, CHLORIDE 102, BUN 11, CREATININE 0.93, GLUCOSE 96, LACTIC ACID 1.5, CALCIUM 8.6, TOTAL BILI 2.80, AST 46, ALT 14, ALK PHOS 118, AMMONIA 99, TOTAL PROTEIN 6.4, ALBUMIN 2.3, GLOBULIN 4.1, AMYLASE 14. EKG REVEALED: SINUS RHYTHM WITH HR 82. COVID-19, RSV, AND INFLUENZA NEGATIVE. A URINALYSIS WAS OBTAINED AND REVEALED: WBC TNTC, RBC TNTC, LEUKOCYTES 3+, BACTERIA 1+, BLOOD 3+, NITRITE POSITIVE. URINE AND BLOOD CULTURES WERE SET UP. AN ABDOMEN/PELVIS CT WITHOUT CONTRAST WAS OBTAINED AND REVEALED: 1. Prominent duodenal diverticulum of the sigmoid colon. 2. Perihepatic and perisplenic ascites with splenomegaly, edema within the mesenteric, omental and subcutaneous fat. 3. Umbilical, paraumbilical and supraumbilical omental hernias. The right paraumbilical hernia also contains a small amount of ascites fluid. 4. Evidence for 3rd spacing with significant subcutaneous edema throughout the torso including the lower mid back and right greater than left flank areas. A small right pleural effusion is also noted. SHE WAS ADMITTED TO THE HOSPITAL FOR FURTHER EVALUATION AND TREATMENT OF AMS, UTI, HYPERAMMONEMIA, THROMBOCYTOPENIA, AND CIRRHOSIS. IN THE ER, SHE WAS GIVEN ROCEPHIN 1G IV X 1 AND CHRONULAC 30ML PO X 1. SHE WAS STARTED ON NORMAL SALINE AT KVO, ROCEPHIN 1G IV DAILY, ALBUMIN 25% IV DAILY, LASIX 20MG IV BID, ALDACTONE 25MG PO DAILY, LACTULOSE 30ML PO TID, ALBUTEROL NEB TX TID, ZOFRAN 4MG IV Q4H PRN, DURAGESIC 25MCG/HR PATCH, ATARAX 25MG PO Q4-6H PRN, MEGACE 40MG PO BID, PROTONIX 40MG PO DAILY, REQUIP 0.5MG PO HS, AND ULTRAM 50MG PO BID. OTHERWISE, WE PLAN TO FOLLOW UP WITH AM LABS AND CONTINUE TO MONITOR. TIME SPENT ON CLINICAL ASSESSMENT, REVIEWING LABS AND IMAGING, DECISION MAKING, AND DOCUMENTATION GREATER THAN 75 MINUTES. - Past Medical History Past Medical History: Dyslipidemia, Depression, Anxiety, Anemia, GERD, Arthritis, CHF Additional Medical History: CIRRHOSIS, Fatty liver, Diverticulitis - Past Surgical History Surgical History: Appendectomy, Bowel Resection, Hysterectomy Additional Surgical History: Colon resection, Partial hysterectomy - Family History Family Medical History: Diabetes Mellitus, Coronary Artery Disease - Social History Does patient currently use any type of tobacco product: No Have you used tobacco products in the last 12 months: No Type of Tobacco Use: None Does any household member use tobacco: No Alcohol Use: None Drug Use: None - Medications Home Medications: codeine Allergy (Verified 03/01/17 23:55) levofloxacin [From Levaquin] Allergy (Verified 03/01/17 23:55) Penicillins Allergy (Verified 03/01/17 23:55) Sulfa (Sulfonamide Antibiotics) [SULFA] Allergy (Verified 03/01/17 23:55) CONTINUE taking the following medications fentanyl 25 mcg/hr transdermal patch 1 patch transdermal Q72H 12/17/21 [History] hydroxyzine HCl 25 mg tablet 25 mg PO Q4-6H PRN 12/17/21 [History] hyoscyamine sulfate 0.125 mg sublingual tablet 0.125 mg sublingual Q4H PRN 12/17/21 [History] - Review of Systems Constitutional: Weakness Eyes: No Symptoms Reported ENT: No Symptoms Reported Respiratory: No Symptoms Reported Cardiovascular: Edema (ABDOMEN, UPPER AND LOWER EXTREMITIES ) Gastrointestinal: Nausea Genitourinary: See HPI, Dysuria, Frequency Musculoskeletal: No Symptoms Reported Skin: No Symptoms Reported Neurological: Weakness - Physical Exam Vital Signs: Temperature 98.5 F Pulse Rate [Left Brachial] 94 Pulse Rate [Right Brachial] 89 Pulse Rate 80 Respiratory Rate 16 Blood Pressure [Left Arm] 117/56 Blood Pressure [Right Arm] 141/63 Blood Pressure 116/58 O2 Sat by Pulse Oximetry 97 Oriented: Normal Eyes: Normal Ear: Normal Nose: Normal Throat: Normal Respiratory: Diminished Throughout Cardiovascular: Edema (UPPER AND LOWER EXTREMITY 1+ PITTING EDEMA ) : Normal Auscultation: Bowel Sounds: Normal Palpation: Normal Tenderness: Normal, Other (ABDOMINAL DISTENTION ) Skin: Normal Musculoskeletal: Normal Psychiatric: Normal Mood Description: Calm Affect: Normal Speech Pattern: Clear - Assessment/Plan (1) UTI (urinary tract infection) Qualifiers: Urinary tract infection type: acute cystitis Hematuria presence: with hematuria Qualified Code(s): N30.01 - Acute cystitis with hematuria Status: Acute Plan: ADMIT, NORMAL SALINE AT KVO, ROCEPHIN 1G IV DAILY, ALBUMIN 25% IV DAILY, LASIX 20MG IV BID, ALDACTONE 25MG PO DAILY, LACTULOSE 30ML PO TID, ALBUTEROL NEB TX TID, ZOFRAN 4MG IV Q4H PRN, DURAGESIC 25MCG/HR PATCH, ATARAX 25MG PO Q4-6H PRN, MEGACE 40MG PO BID, PROTONIX 40MG PO DAILY, REQUIP 0.5MG PO HS, AND ULTRAM 50MG PO BID. (2) Hyperammonemia Status: Acute (3) Altered mental status Qualifiers: Altered mental status type: transient alteration of awareness Qualified Code(s): R40.4 - Transient alteration of awareness Status: Acute (4) Cirrhosis of liver Qualifiers: Hepatic cirrhosis type: unspecified hepatic cirrhosis Ascites presence: with ascites Qualified Code(s): K74.60 - Unspecified cirrhosis of liver; R18.8 - Other ascites Status: Acute (5) Thrombocytopenia Status: Acute - Allergies Allergies/Adverse Reactions: Allergies Allergy/AdvReac Type Severity Reaction Status Date / Time codeine Allergy Verified 03/01/17 23:55 levofloxacin [From Levaquin] Allergy Verified 03/01/17 23:55 Penicillins Allergy Verified 03/01/17 23:55 Sulfa (Sulfonamide Allergy Verified 03/01/17 23:55 Antibiotics) [SULFA]
[2021-12-18] MEDS: REQUIP PO SCH (21:05)
[2021-12-19] MEDS: CHRONULAC PO SCH ×3 (05:42→22:00)
[2021-12-19 05:54] LABS: BASOPHILS % (AUTO) 0.6 % (0.2-1.0); EOSINOPHILS # (AUTO) 0.1 x10^3/uL (0.0-0.2); EOSINOPHILS % (AUTO) 3.6 % (0.9-2.9); HEMATOCRIT 22.1 % (36.0-47.0); LYMPHOCYTES # (AUTO) 0.7 X10^3/uL (1.3-2.9); LYMPHOCYTES % (AUTO) 23.4 % (21.0-51.0); MEAN CORPUSCULAR HEMOGLOBIN 32.6 pg (27.0-34.0); MEAN CORPUSCULAR HGB CONC 36.2 g/dL (33.0-35.0); MEAN CORPUSCULAR VOLUME 89.9 fL (80.0-100.0); MEAN PLATELET VOLUME 8.8 fL (7.4-11.0); MONOCYTES # (AUTO) 0.4 x10^3/uL (0.3-0.8); NEUTROPHILS # (AUTO) 1.9 x10^3/uL (2.2-4.8); NEUTROPHILS % (AUTO) 60.4 % (42.0-75.0); RED BLOOD COUNT 2.46 X10^6/uL (3.5-5.4); RED CELL DISTRIBUTION WIDTH 13.5 % (11.6-16.5); WHITE BLOOD COUNT 3.1 X10^3/uL (3.6-10.0)
[2021-12-19 05:55] LABS: AMMONIA 54 umol/L (11-32)
[2021-12-19 06:02] LABS: ALANINE AMINOTRANSFERASE 12 Units/L (12-78); ALBUMIN 2.4 g/dL (3.4-5.0); ALKALINE PHOSPHATASE 99 Units/L (46-116); ASPARTATE AMINO TRANSFERASE 37 Units/L (15-37); BLOOD UREA NITROGEN 9 mg/dL (7-18); CALCIUM 8.8 mg/dL (8.5-10.1); CHLORIDE 103 mmol/L (98-107); COR CA(FOR HYPOALB) 10.1 mg/dL (8.5-10.1); CREATININE 0.82 mg/dL (0.55-1.02); SODIUM 136 mmol/L (136-145); TOTAL PROTEIN 5.9 g/dL (6.4-8.2); eGFR NON BLACK RACES > 60 (>60)
--- NOTE | 2021-12-19 06:03 | RAD ---
PROCEDURE: Acute Abdomen Series .HISTORY: Dyspnea and ascites.TECHNIQUE: AP supine and upright abdomen with AP chest x-ray views .COMPARISON: 09/23/2021 chest x-ray.TECHNICAL QUALITY: Satisfactory .FINDINGS:Moderate feces descending and rectosigmoid colon consistent with constipation. Some gases distension of the proximal colon related to constipation. No findings suggesting obstruction.No pneumoperitoneum.No organomegaly.No abnormal calcifications.Chest x-ray shows unchanged elevated right hemidiaphragm. Improved consolidation right base. Some mild consolidation left base could represent pneumonia.Normal size heart.IMPRESSION:1. Constipation.2. Possible mild pneumonia left base in follow-up films may be helpful.Electronically signed by: Dhruv Monreal (Dec 19, 2021 06:01:42)
[2021-12-19] MEDS: DUONEB 0.5 MG/3 MG (3 mL) NEB SCH ×4 (06:09→20:25)
[2021-12-19] MEDS: ALBUMIN HUMAN 25%- 100 ML 100 ML IV SCH (09:02)
[2021-12-19] MEDS: PROTONIX TAB 40 MG PO SCH (09:03)
[2021-12-19] MEDS: ALDACTONE TAB 25 MG PO SCH (09:03)
[2021-12-19] MEDS: MEGACE PO SCH ×2 (09:03→22:00)
[2021-12-19] MEDS: MICRO K EXTEN CAP 10 MEQ PO SCH (09:04)
[2021-12-19] MEDS: ULTRAM PO SCH ×2 (09:04→22:00)
[2021-12-19] MEDS: ROCEPHIN VIAL 1 GRAM 1 G in NS 100 ML IV 100 ML IV SCH (09:07)
[2021-12-19] MEDS: LASIX IVP SCH ×2 (09:07→17:13)
[2021-12-19] MEDS: INVanz INJ 1 GRAM VIAL 1 G in NS 100 ML IV 100 ML IV SCH (11:09)
[2021-12-19] MEDS ORDERED: MORPHINE SULFATE INJ 2 MG INJ IVP PRN (12:32)
[2021-12-19] MEDS ORDERED: BUTT CREAM (COMPOUND) TOP PRN (19:00)
[2021-12-19] MEDS: REQUIP PO SCH (22:00)
[2021-12-20] MEDS: CHRONULAC PO SCH ×3 (05:16→22:14)
[2021-12-20] MEDS: DUONEB 0.5 MG/3 MG (3 mL) NEB SCH ×3 (06:00→21:32)
[2021-12-20 06:35] LABS: BASOPHILS % (AUTO) 0.9 % (0.2-1.0); EOSINOPHILS # (AUTO) 0.2 x10^3/uL (0.0-0.2); EOSINOPHILS % (AUTO) 5.3 % (0.9-2.9); HEMATOCRIT 21.7 % (36.0-47.0); HEMOGLOBIN 7.9 g/dL (12.0-16.0); LYMPHOCYTES # (AUTO) 0.6 X10^3/uL (1.3-2.9); LYMPHOCYTES % (AUTO) 20.3 % (21.0-51.0); MEAN CORPUSCULAR HEMOGLOBIN 32.8 pg (27.0-34.0); MEAN CORPUSCULAR HGB CONC 36.4 g/dL (33.0-35.0); MEAN PLATELET VOLUME 8.6 fL (7.4-11.0); MONOCYTES # (AUTO) 0.3 x10^3/uL (0.3-0.8); MONOCYTES % (AUTO) 9.4 % (0.0-13.0); NEUTROPHILS % (AUTO) 64.1 % (42.0-75.0); RED BLOOD COUNT 2.41 X10^6/uL (3.5-5.4); RED CELL DISTRIBUTION WIDTH 13.5 % (11.6-16.5); WHITE BLOOD COUNT 3.1 X10^3/uL (3.6-10.0)
--- NOTE | 2021-12-20 06:36 | RAD ---
HISTORYShortness of breathSTUDYChest AP [id number]/17/2022, 12/19/2021FINDINGSHypo inflation accentuates the heart size. It is normal. Nat are normal. Right hemidiaphragm is elevated. Lung chavarria are clear. No pleural effusions are identified. Bony thorax is unremarkable.IMPRESSIONLungs clearElectronically signed by: BEN SPENCER (Dec 20, 2021 06:35:00)
[2021-12-20 06:39] LABS: AMMONIA 63 umol/L (11-32)
[2021-12-20 06:52] LABS: ALANINE AMINOTRANSFERASE 10 Units/L (12-78); ALBUMIN 2.5 g/dL (3.4-5.0); ALKALINE PHOSPHATASE 99 Units/L (46-116); ASPARTATE AMINO TRANSFERASE 36 Units/L (15-37); BLOOD UREA NITROGEN 8 mg/dL (7-18); CALCIUM 8.7 mg/dL (8.5-10.1); CHLORIDE 101 mmol/L (98-107); COR CA(FOR HYPOALB) 9.9 mg/dL (8.5-10.1); CREATININE 0.68 mg/dL (0.55-1.02); SODIUM 134 mmol/L (136-145); TOTAL PROTEIN 5.9 g/dL (6.4-8.2); eGFR NON BLACK RACES > 60 (>60)
[2021-12-20 07:05] LABS: PLATELET MORPHOLOGY COMMENT NORMAL (NORMAL)
[2021-12-20] MEDS: INVanz INJ 1 GRAM VIAL 1 G in NS 100 ML IV 100 ML IV SCH (10:19)
[2021-12-20] MEDS: ALDACTONE TAB 25 MG PO SCH (10:19)
[2021-12-20] MEDS: PROTONIX TAB 40 MG PO SCH (10:20)
[2021-12-20] MEDS: MICRO K EXTEN CAP 10 MEQ PO SCH (10:20)
[2021-12-20] MEDS: MEGACE PO SCH ×2 (10:20→20:46)
[2021-12-20] MEDS: ULTRAM PO SCH ×2 (10:21→20:47)
[2021-12-20] MEDS: LASIX IVP SCH ×2 (10:23→20:47)
[2021-12-20] MEDS: ALBUMIN HUMAN 25%- 100 ML 100 ML IV SCH (11:23)
--- NOTE | 2021-12-20 20:16 | PCM.PROG ---
Progress Note - Progress Note for Day of Date of Exam: 12/19/21 - Subjective Subjective: WAS ADMITTED FOR TREATMENT OF UTI, HYPERAMMONEMIA, AMS, CIRRHOSIS OF LIVER, ASCITES, AND THROMBOCYTOPENIA. SHE IS CURRENTLY INPATIENT STATUS. TODAY, SHE IS ALERT AND ORIENTED, LYING IN BED ON MORNING ROUNDS. SHE CONTINUES WITH COMPLAINTS OF GENERALIZED WEAKNESS AND PAINFUL URINATION. SHE DENIES SIGNIFICANT IMPROVEMENT IN SYMPTOMS SINCE ADMISSION. ON EXAMINATION, HEART IS REGULAR IN RATE AND RHYTHM. BILATERAL LUNGS ARE NOTED WITH DIMINISHED LUNG SOUNDS THROUGHOUT. ABDOMEN IS ROUND, SOFT, AND NOTED WITH MILD, DIFFUSE TENDERNESS. NORMAL BOWEL SOUNDS NOTED IN ALL QUADRANTS. HER VITALS THIS MORNING ARE: 99.0-88-18-97%-103/50. LABS WERE OBTAINED. WBC 3.1, RBC 2.46, HGB 8.0, HCT 22.1, PLT COUNT 35, SODIUM 136, POTASSIUM 3.9, BUN 9, CREATININE 0.82, GLUCOSE 85, CALCIUM 8.8, TOTAL BILI 3.00, AST 37, ALT 12, ALK PHOS 99, AMMONIA 54, BNP 139, TOTAL PROTEIN 5.9, ALBUMIN 2.4. URINE CULTURE REVEALED GROWTH OF PROTEUS MIRABILIS. BLOOD CULTURES ARE PENDING. AN ABDOMINAL SERIES WAS OBTAINED THIS MORNING AND REVEALED: 1. Constipation.2. Possible mild pneumonia left base in follow-up films may be helpful. SHE IS CURRENTLY RECEIVING NORMAL SALINE AT [facility], ROCEPHIN 1G IV DAILY, ALBUMIN 25% IV DAILY, LASIX 20MG IV BID, ALDACTONE 25MG PO DAILY, LACTULOSE 30ML PO TID, DUONEB TX TID, ZOFRAN 4MG IV Q4H PRN, DURAGESIC 25MCG/HR PATCH, ATARAX 25MG PO Q4-6H PRN, MORPHINE 2MG IV Q4H PRN, MEGACE 40MG PO BID, PROTONIX 40MG PO DAILY, REQUIP 0.5MG PO HS, AND ULTRAM 50MG PO BID. WE WILL DISCONTINUE THE ROCEPHIN AND ADD INVANZ 1G IV DAILY. OTHERWISE, WE PLAN TO FOLLOW-UP WITH AM LABS AND CONTINUE TO MONITOR. - Past Medical Family Social History Past Med/Fam/Surg Hx: No changes since H&P Allergies: Allergies codeine Allergy (Verified 03/01/17 23:55) levofloxacin [From Levaquin] Allergy (Verified 03/01/17 23:55) Penicillins Allergy (Verified 03/01/17 23:55) Sulfa (Sulfonamide Antibiotics) [SULFA] Allergy (Verified 03/01/17 23:55) - Review of Systems ROS: No change since H&P - Vital Signs and I&O's Vital Signs: Temperature 98.7 F Pulse Rate [Left Brachial] 98 Pulse Rate [Right Brachial] 93 Pulse Rate 89 Respiratory Rate 18 Blood Pressure [Left Arm] 115/58 Blood Pressure [Right Arm] 145/69 Blood Pressure 116/58 O2 Sat by Pulse Oximetry 98 Intake and Output: Intake & Output 12/18/21 12/19/21 12/20/21 12/21/21 11:59 11:59 11:59 11:59 Intake Total 50 / 50 1073 / 1073 1263 / 1263 682 / 682 Balance 50 50 1073 / 1073 1263 / 1263 682 / 682 - Physical Exam Oriented: Normal Eyes: Normal Ear: Normal Nose: Normal Throat: Normal Respiratory: Generalized Cardiovascular: Edema (MILD UPPER AND LOWER EXTREMITY EDEMA) : Normal Auscultation: Bowel Sounds: Normal Palpation: Normal Tenderness: Normal, Other (ABDOMINAL DISTENTION ) Skin: Normal Musculoskeletal: Normal Psychiatric: Normal Mood Description: Calm Affect: Normal Speech Pattern: Clear - Laboratory and Diagnostics Result Diagrams: 12/20/21 05:55 12/20/21 05:55 Labs: 12/17/21 18:10 Blood Blood Culture - Preliminary 12/17/21 17:23 Blood Blood Culture - Preliminary 12/17/21 18:26 Urine,Catheterized Urine Culture - Final [facility] WBC 3.1 X10^3/uL (3.6-10.0) L 12/20/21 05:55 RBC 2.41 X10^6/uL (3.5-5.4) L 12/20/21 05:55 Hgb 7.9 g/dL (12.0-16.0) L 12/20/21 05:55 Hct 21.7 % (36.0-47.0) L 12/20/21 05:55 MCV 90.0 fL (80.0-100.0) 12/20/21 05:55 MCH 32.8 pg (27.0-34.0) 12/20/21 05:55 MCHC 36.4 g/dL (33.0-35.0) H 12/20/21 05:55 RDW 13.5 % (11.6-16.5) 12/20/21 05:55 Plt Count 32 X10^3/uL (150.0-450.0) L 12/20/21 05:55 Plt Count Comment Decreased (ADEQUATE) A 12/20/21 05:55 MPV 8.6 fL (7.4-11.0) 12/20/21 05:55 Neut % (Auto) 64.1 % (42.0-75.0) 12/20/21 05:55 Lymph % (Auto) 20.3 % (21.0-51.0) L 12/20/21 05:55 [place] % (Auto) 9.4 % (0.0-13.0) 12/20/21 05:55 Eos % (Auto) 5.3 % (0.9-2.9) H 12/20/21 05:55 Baso % (Auto) 0.9 % (0.2-1.0) 12/20/21 05:55 Neut # (Auto) 2.0 x10^3/uL (2.2-4.8) L 12/20/21 05:55 Lymph # (Auto) 0.6 X10^3/uL (1.3-2.9) L 12/20/21 05:55 [place] # (Auto) 0.3 x10^3/uL (0.3-0.8) 12/20/21 05:55 Eos # (Auto) 0.2 x10^3/uL (0.0-0.2) 12/20/21 05:55 Baso # (Auto) 0.0 X10^3/uL (0.0-0.1) 12/20/21 05:55 Absolute Nucleated RBC 0.1 /100WBC 12/20/21 05:55 Plt Morphology Comment Normal (NORMAL) 12/20/21 05:55 RBC Morphology Normal (NORMAL) 12/20/21 05:55 PT 20.7 SECONDS (11.8-14.3) 12/17/21 18:10 INR Target Range - 12/17/21 18:10 INR 1.86 (0.8-1.3) H 12/17/21 18:10 APTT 43.6 SECONDS (22.9-36.5) H 12/17/21 18:10 PTT Comment - 12/17/21 18:10 Sodium 134 mmol/L (136-145) L 12/20/21 05:55 Corrected Sodium TNP 12/20/21 05:55 Potassium 3.9 mmol/L (3.5-5.1) 12/20/21 05:55 Chloride 101 mmol/L (98-107) 12/20/21 05:55 Carbon Dioxide 28.0 mmol/L (21-32) 12/20/21 05:55 BUN 8 mg/dL (7-18) 12/20/21 05:55 Creatinine 0.68 mg/dL (0.55-1.02) 12/20/21 05:55 Est GFR (MDRD) Af Amer > 60 (>60) 12/20/21 05:55 Est GFR (MDRD) Non-Af > 60 (>60) 12/20/21 05:55 Glucose 101 mg/dL (65-99) H 12/20/21 05:55 Lactic Acid 1.5 mmol/L (0.4-2.0) 12/17/21 18:10 Calcium 8.7 mg/dL (8.5-10.1) 12/20/21 05:55 Corrected Calcium 9.9 mg/dL (8.5-10.1) 12/20/21 05:55 Total Bilirubin 3.50 mg/dL (0.2-1.0) H 12/20/21 05:55 AST 36 Units/L (15-37) 12/20/21 05:55 ALT 10 Units/L (12-78) L 12/20/21 05:55 Alkaline Phosphatase 99 Units/L (46-116) 12/20/21 05:55 Ammonia 63 umol/L (11-32) H 12/20/21 05:55 B-Natriuretic Peptide 87.5 pg/mL (0-79) H 12/20/21 05:55 Total Protein 5.9 g/dL (6.4-8.2) L 12/20/21 05:55 Albumin 2.5 g/dL (3.4-5.0) L 12/20/21 05:55 Globulin 3.4 g/dL (2.5-4.5) 12/20/21 05:55 Albumin/Globulin Ratio 0.7 Ratio (1.1-2.1) L 12/20/21 05:55 Amylase 14 Units/L (25-115) L 12/17/21 18:10 Lipase 74 Units/L (73-393) 12/17/21 18:10 Specimen Type Catherized urine 12/17/21 18:26 Urine Color [place] (YELLOW) 12/17/21 18: Urine Appearance Cloudy (CLEAR) 12/17/21 18:26 Urine pH 6.0 (5.0 - 8.0) 12/17/21 18:26 Ur Specific [place] 1.015 (1.000-1.030) 12/17/21 18: Urine Protein 2+ (NEGATIVE) 12/17/21 18: Urine Glucose (UA) Negative (NEGATIVE) 12/17/21 18: Urine Ketones Negative (NEGATIVE) 12/17/21 18:26 Urine Blood 3+ (NEGATIVE) 12/17/21 18: Urine Nitrite Positive (NEGATIVE) 12/17/21 18:26 Urine Bilirubin 1+ (NEGATIVE) 12/17/21 18:26 Urine Urobilinogen 3+ (NORMAL) 12/17/21 18:26 Ur Leukocyte Esterase 3+ (NEGATIVE) 12/17/21 18:26 Urine RBC Tntc /HPF (0-3) A 12/17/21 18:26 Urine WBC Tntc /HPF (0-5) A 12/17/21 18:26 Ur Squamous Epith Cells Rare /HPF (NEGATIVE) 12/17/21 18:26 Amorphous Sediment Trace /HPF (NEGATIVE) 12/17/21 18:26 Urine Bacteria 1+ /HPF (NEGATIVE) 12/17/21 18:26 Ur Culture Indicated? Yes/culture set up 12/17/21 18:26 SARS-CoV-2 (PCR) Negative (NEGATIVE) 12/17/21 20:42 Influenza Type A (PCR) Negative (NEGATIVE) 12/17/21 20:42 Influenza Type B (PCR) Negative (NEGATIVE) 12/17/21 20:42 RSV (PCR) Negative (NEGATIVE) 12/17/21 20:42 - Plan (1) UTI (urinary tract infection) Status: Acute Qualifiers: Urinary tract infection type: acute cystitis Hematuria presence: with hematuria Qualified Code(s): N30.01 - Acute cystitis with hematuria Plan: NORMAL SALINE AT [facility], INVANZ 1G IV DAILY, ALBUMIN 25% IV DAILY, LASIX 20MG IV BID, ALDACTONE 25MG PO DAILY, LACTULOSE 30ML PO TID, DUONEBS TID, ZOFRAN 4MG IV Q4H PRN, DURAGESIC 25MCG/HR PATCH, ATARAX 25MG PO Q4-6H PRN, MEGACE 40MG PO BID, PROTONIX 40MG PO DAILY, REQUIP 0.5MG PO HS, AND ULTRAM 50MG PO BID. (2) Pneumonia Status: Acute Qualifiers: Pneumonia type: due to unspecified organism Laterality: left Lung location: lower lobe of lung Qualified Code(s): J18.9 - Pneumonia, unspecified organism (3) Hyperammonemia Status: Acute (4) Altered mental status Status: Acute Qualifiers: Altered mental status type: transient alteration of awareness Qualified Code(s): R40.4 - Transient alteration of awareness (5) Cirrhosis of liver Status: Acute Qualifiers: Hepatic cirrhosis type: unspecified hepatic cirrhosis Ascites presence: with ascites Qualified Code(s): K74.60 - Unspecified cirrhosis of liver; R18.8 - Other ascites (6) Thrombocytopenia Status: Acute
--- NOTE | 2021-12-20 20:21 | PCM.PROG ---
Progress Note - Progress Note for Day of Date of Exam: 12/20/21 - Subjective Subjective: IS CURRENTLY BEING TREATED FOR UTI, PNEUMONIA, HYPERAMMONEMIA, AMS, CIRRHOSIS OF LIVER, ASCITES, AND THROMBOCYTOPENIA. SHE IS CURRENTLY INPATIENT STATUS. TODAY, SHE IS ALERT AND ORIENTED, LYING IN BED ON MORNING ROUNDS. SHE CONTINUES WITH COMPLAINTS OF GENERALIZED WEAKNESS AND PAIN FUL URINATION. SHE DOES REPORT SLIGHT IMPROVEMENT IN SYMPTOMS TODAY. ON EXAMINATION, HEART IS REGULAR IN RATE AND RHYTHM. BILATERAL LUNGS ARE NOTED WITH DIMINISHED LUNG SOUNDS THROUGHOUT. ABDOMEN IS ROUND, SOFT, AND NOTED WITH MILD, DIFFUSE TENDERNESS. NORMAL BOWEL SOUNDS NOTED IN ALL QUADRANTS. TRACE EDEMA NOTED TO UPPER AND LOWER EXTREMITIES. HER VITALS THIS MORNING ARE: 99.1-92-20-96%-99/55. LABS WERE OBTAINED. WBC 3.1, RBC 2.41, HGB 7.9, HCT 21.7, PLT COUNT 32, SODIUM 134, POTASSIUM 3.9, CHLORIDE 101, BUN 8, CREATININE 0.68, GLUCOSE 101, TOTAL BILI 3.50, AST 36, ALT 10, ALK PHOS 99, AMMONIA 63, BNP 87.5, TOTAL PROTEIN 5.9, ALBUMIN 2.5. URINE CULTURE REVEALED GROWTH OF PROTEUS MIRABILIS. BLOOD CULTURES ARE PENDING. A CHEST XRAY WAS OBTAINED THIS MORNING AND REVEALED: Hypo inflation accentuates the heart size. It is normal. Nat are normal. Right hemidiaphragm is elevated. Lung chavarria are clear. No pleural effusions are identified. Bony thorax is unremarkable. SHE IS CURRENTLY RECEIV ING [facility]AL [facility] AT [facility], INVANZ 1G IV DAILY, ALBUMIN 25% IV DAILY, LASIX 20MG IV BID, ALDACTONE 25MG PO DAILY, LACTULOSE 30ML PO TID, DUONEB TX TID, ZOFRAN 4MG IV Q4H PRN, DURAGESIC 25MCG/HR PATCH, ATARAX 25MG PO Q4-6H PRN, MORPHINE 2MG IV Q4H PRN, MEGACE 40MG PO BID, PROTONIX 40MG PO DAILY, REQUIP 0.5MG PO HS, AND ULTRAM 50MG PO BID. WE WILL CONTINUE WITH CURRENT PLAN OF CARE TODAY. OTHERWISE, WE PLAN TO FOLLOW-UP WITH AM LABS AND CONTINUE TO MONITOR. TIME SPENT ON CLINICAL ASSESSMENT, REVIEWING LABS AND IMAGING, DECISION MAKING, AND DOCUMENTATION GREATER THAN 45 MINUTES. - Past Medical Family Social History Past Med/Fam/Surg Hx: No changes since H&P Allergies: Allergies codeine Allergy (Verified 03/01/17 23:55) levofloxacin [From Levaquin] Allergy (Verified 03/01/17 23:55) Penicillins Allergy (Verified 03/01/17 23:55) Sulfa (Sulfonamide Antibiotics) [SULFA] Allergy (Verified 03/01/17 23:55) - Review of Systems ROS: No change since H&P - Vital Signs and I&O's Vital Signs: Temperature 98.7 F Pulse Rate [Left Brachial] 98 Pulse Rate [Right Brachial] 93 Pulse Rate 89 Respiratory Rate 18 Blood Pressure [Left Arm] 115/58 Blood Pressure [Right Arm] 145/69 Blood Pressure 116/58 O2 Sat by Pulse Oximetry 98 Intake and Output: Intake & Output 12/18/21 12/19/21 12/20/21 12/21/21 11:59 11:59 11:59 11:59 Intake Total 50 / 50 1073 / 1073 1263 / 1263 682 / 682 Balance 50 / 50 1073 / 1073 1263 / 1263 682 / 682 - Physical Exam Oriented: Normal Eyes: Normal Ear: Normal Nose: Normal Throat: Normal Respiratory: Generalized Cardiovascular: Edema (MILD UPPER AND LOWER EXTREMITY EDEMA) : Normal Auscultation: Bowel Sounds: Normal Palpation: Normal Tenderness: Normal, Other (ABDOMINAL DISTENTION ) Skin: Normal Musculoskeletal: Normal Psychiatric: Normal Mood Description: Calm Affect: Normal Speech Pattern: Clear - Laboratory and Diagnostics Result Diagrams: 12/20/21 05:55 12/20/21 05:55 Labs: 12/17/21 18:10 Blood Blood Culture - Preliminary 12/17/21 17:23 Blood Blood Culture - Preliminary 12/17/21 18:26 Urine,Catheterized Urine Culture - Final [facility] WBC 3.1 X10^3/uL (3.6-10.0) L 12/20/21 05:55 RBC 2.41 X10^6/uL (3.5-5.4) L 12/20/21 05:55 Hgb 7.9 g/dL (12.0-16.0) L 12/20/21 05:55 Hct 21.7 % (36.0-47.0) L 12/20/21 05:55 MCV 90.0 fL (80.0-100.0) 12/20/21 05:55 MCH 32.8 pg (27.0-34.0) 12/20/21 05:55 MCHC 36.4 g/dL (33.0-35.0) H 12/20/21 05:55 RDW 13.5 % (11.6-16.5) 12/20/21 05:55 Plt Count 32 X10^3/uL (150.0-450.0) L 12/20/21 05:55 Plt Count Comment Decreased (ADEQUATE) A 12/20/21 05:55 MPV 8.6 fL (7.4-11.0) 12/20/21 05:55 Neut % (Auto) 64.1 % (42.0-75.0) 12/20/21 05:55 Lymph % (Auto) 20.3 % (21.0-51.0) L 12/20/21 05:55 [place] % (Auto) 9.4 % (0.0-13.0) 12/20/21 05:55 Eos % (Auto) 5.3 % (0.9-2.9) H 12/20/21 05:55 Baso % (Auto) 0.9 % (0.2-1.0) 12/20/21 05:55 Neut # (Auto) 2.0 x10^3/uL (2.2-4.8) L 12/20/21 05:55 Lymph # (Auto) 0.6 X10^3/uL (1.3-2.9) L 12/20/21 05:55 [place] # (Auto) 0.3 x10^3/uL (0.3-0.8) 12/20/21 05:55 Eos # (Auto) 0.2 x10^3/uL (0.0-0.2) 12/20/21 05:55 Baso # (Auto) 0.0 X10^3/uL (0.0-0.1) 12/20/21 05:55 Absolute Nucleated RBC 0.1 /100WBC 12/20/21 05:55 Plt Morphology Comment Normal (NORMAL) 12/20/21 05:55 RBC Morphology Normal (NORMAL) 12/20/21 05:55 PT 20.7 SECONDS (11.8-14.3) 12/17/21 18:10 INR Target Range - 12/17/21 18:10 INR 1.86 (0.8-1.3) H 12/17/21 18:10 APTT 43.6 SECONDS (22.9-36.5) H 12/17/21 18:10 PTT Comment - 12/17/21 18:10 Sodium 134 mmol/L (136-145) L 12/20/21 05:55 Corrected Sodium TNP 12/20/21 05:55 Potassium 3.9 mmol/L (3.5-5.1) 12/20/21 05:55 Chloride 101 mmol/L (98-107) 12/20/21 05:55 Carbon Dioxide 28.0 mmol/L (21-32) 12/20/21 05:55 BUN 8 mg/dL (7-18) 12/20/21 05:55 Creatinine 0.68 mg/dL (0.55-1.02) 12/20/21 05:55 Est GFR (MDRD) Af Amer > 60 (>60) 12/20/21 05:55 Est GFR (MDRD) Non-Af > 60 (>60) 12/20/21 05:55 Glucose 101 mg/dL (65-99) H 12/20/21 05:55 Lactic Acid 1.5 mmol/L (0.4-2.0) 12/17/21 18:10 Calcium 8.7 mg/dL (8.5-10.1) 12/20/21 05:55 Corrected Calcium 9.9 mg/dL (8.5-10.1) 12/20/21 05:55 Total Bilirubin 3.50 mg/dL (0.2-1.0) H 12/20/21 05:55 AST 36 Units/L (15-37) 12/20/21 05:55 ALT 10 Units/L (12-78) L 12/20/21 05:55 Alkaline Phosphatase 99 Units/L (46-116) 12/20/21 05:55 Ammonia 63 umol/L (11-32) H 12/20/21 05:55 B-Natriuretic Peptide 87.5 pg/mL (0-79) H 12/20/21 05:55 Total Protein 5.9 g/dL (6.4-8.2) L 12/20/21 05:55 Albumin 2.5 g/dL (3.4-5.0) L 12/20/21 05:55 Globulin 3.4 g/dL (2.5-4.5) 12/20/21 05:55 Albumin/Globulin Ratio 0.7 Ratio (1.1-2.1) L 12/20/21 05:55 Amylase 14 Units/L (25-115) L 12/17/21 18:10 Lipase 74 Units/L (73-393) 12/17/21 18:10 Specimen Type Catherized urine 12/17/21 18:26 Urine Color [place] (YELLOW) 12/17/21 18: Urine Appearance Cloudy (CLEAR) 12/17/21 18: Urine pH 6.0 (5.0 - 8.0) 12/17/21 18:26 Ur Specific [place] 1.015 (1.000-1.030) 12/17/21 18:26 Urine Protein 2+ (NEGATIVE) 12/17/21 18: Urine Glucose (UA) Negative (NEGATIVE) 12/17/21 18: Urine Ketones Negative (NEGATIVE) 12/17/21 18:26 Urine Blood 3+ (NEGATIVE) 12/17/21 18: Urine Nitrite Positive (NEGATIVE) 12/17/21 18: Urine Bilirubin 1+ (NEGATIVE) 12/17/21 18:26 Urine Urobilinogen 3+ (NORMAL) 12/17/21 18:26 Ur Leukocyte Esterase 3+ (NEGATIVE) 12/17/21 18:26 Urine RBC Tntc /HPF (0-3) A 12/17/21 18: Urine WBC Tntc /HPF (0-5) A 12/17/21 18:26 Ur Squamous Epith Cells Rare /HPF (NEGATIVE) 12/17/21 18:26 Amorphous Sediment Trace /HPF (NEGATIVE) 12/17/21 18:26 Urine Bacteria 1+ /HPF (NEGATIVE) 12/17/21 18:26 Ur Culture Indicated? Yes/culture set up 12/17/21 18:26 SARS-CoV-2 (PCR) Negative (NEGATIVE) 12/17/21 20:42 Influenza Type A (PCR) Negative (NEGATIVE) 12/17/21 20:42 Influenza Type B (PCR) Negative (NEGATIVE) 12/17/21 20:42 RSV (PCR) Negative (NEGATIVE) 12/17/21 20:42 - Plan (1) UTI (urinary tract infection) Status: Acute Qualifiers: Urinary tract infection type: acute cystitis Hematuria presence: with hematuria Qualified Code(s): N30.01 - Acute cystitis with hematuria Plan: NORMAL SALINE AT [facility], INVANZ 1G IV DAILY, ALBUMIN 25% IV DAILY, LASIX 20MG IV BID, ALDACTONE 25MG PO DAILY, LACTULOSE 30ML PO TID, DUONEBS TID, ZOFRAN 4MG IV Q4H PRN, DURAGESIC 25MCG/HR PATCH, ATARAX 25MG PO Q4-6H PRN, MEGACE 40MG PO BID, PROTONIX 40MG PO DAILY, REQUIP 0.5MG PO HS, AND ULTRAM 50MG PO BID. (2) Pneumonia Status: Acute Qualifiers: Pneumonia type: due to unspecified organism Laterality: left Lung location: lower lobe of lung Qualified Code(s): J18.9 - Pneumonia, unspecified organism (3) Hyperammonemia Status: Acute (4) Altered mental status Status: Acute Qualifiers: Altered mental status type: transient alteration of awareness Qualified Code(s): R40.4 - Transient alteration of awareness (5) Cirrhosis of liver Status: Acute Qualifiers: Hepatic cirrhosis type: unspecified hepatic cirrhosis Ascites presence: with ascites Qualified Code(s): K74.60 - Unspecified cirrhosis of liver; R18.8 - Other ascites (6) Thrombocytopenia Status: Acute
[2021-12-20] MEDS: REQUIP PO SCH (20:46)
[2021-12-21] MEDS: CHRONULAC PO SCH ×3 (05:27→21:16)
[2021-12-21 05:36] LABS: AMMONIA 42 umol/L (11-32)
[2021-12-21 05:39] LABS: BASOPHILS % (AUTO) 0.9 % (0.2-1.0); EOSINOPHILS # (AUTO) 0.2 x10^3/uL (0.0-0.2); EOSINOPHILS % (AUTO) 6.1 % (0.9-2.9); HEMATOCRIT 20.4 % (36.0-47.0); HEMOGLOBIN 7.2 g/dL (12.0-16.0); LYMPHOCYTES # (AUTO) 0.6 X10^3/uL (1.3-2.9); MEAN CORPUSCULAR HGB CONC 35.3 g/dL (33.0-35.0); MEAN CORPUSCULAR VOLUME 90.5 fL (80.0-100.0); MONOCYTES # (AUTO) 0.3 x10^3/uL (0.3-0.8); MONOCYTES % (AUTO) 10.7 % (0.0-13.0); NEUTROPHILS # (AUTO) 1.4 x10^3/uL (2.2-4.8); NEUTROPHILS % (AUTO) 58.3 % (42.0-75.0); RED BLOOD COUNT 2.25 X10^6/uL (3.5-5.4); RED CELL DISTRIBUTION WIDTH 13.7 % (11.6-16.5); WHITE BLOOD COUNT 2.4 X10^3/uL (3.6-10.0)
[2021-12-21 05:52] LABS: ALANINE AMINOTRANSFERASE 10 Units/L (12-78); ALBUMIN 2.8 g/dL (3.4-5.0); ALKALINE PHOSPHATASE 96 Units/L (46-116); ASPARTATE AMINO TRANSFERASE 31 Units/L (15-37); BLOOD UREA NITROGEN 9 mg/dL (7-18); CALCIUM 9.1 mg/dL (8.5-10.1); CHLORIDE 102 mmol/L (98-107); COR CA(FOR HYPOALB) 10.1 mg/dL (8.5-10.1); CREATININE 0.64 mg/dL (0.55-1.02); SODIUM 138 mmol/L (136-145); TOTAL PROTEIN 5.8 g/dL (6.4-8.2); eGFR NON BLACK RACES > 60 (>60)
[2021-12-21 06:06] LABS: PLATELET MORPHOLOGY COMMENT NORMAL (NORMAL)
[2021-12-21 06:07] LABS: HYPOCHROMASIA SLIGHT
[2021-12-21] MEDS: DUONEB 0.5 MG/3 MG (3 mL) NEB SCH ×3 (06:24→21:26)
--- NOTE | 2021-12-21 06:56 | RAD ---
HISTORYShortness of breathSTUDYChest AP [id number]/14/2022FINDINGSHear t size is normal. Nat are normal. Lung chavarria are clear. Right hemidiaphragm is elevated. No pleural effusion or pneumothorax is identified. Bony thorax is unremarkable.IMPRESSIONLungs remain clearElectronically signed by: BEN SPENCER (Dec 21, 2021 06:55:00)
[2021-12-21] MEDS: ALBUMIN HUMAN 25%- 100 ML 100 ML IV SCH (10:27)
[2021-12-21] MEDS: MEGACE PO SCH ×2 (10:30→20:09)
[2021-12-21] MEDS: ALDACTONE TAB 25 MG PO SCH (10:30)
[2021-12-21] MEDS: PROTONIX TAB 40 MG PO SCH (10:31)
[2021-12-21] MEDS: ULTRAM PO SCH ×2 (10:31→20:09)
[2021-12-21] MEDS: MICRO K EXTEN CAP 10 MEQ PO SCH (10:32)
[2021-12-21] MEDS: LASIX IVP SCH ×2 (10:36→16:24)
[2021-12-21] MEDS: INVanz INJ 1 GRAM VIAL 1 G in NS 100 ML IV 100 ML IV SCH (13:47)
[2021-12-21] MEDS: MORPHINE SULFATE INJ 2 MG INJ IVP PRN (16:24)
[2021-12-21] MEDS: REQUIP PO SCH (20:09)
[2021-12-22] MEDS: DUONEB 0.5 MG/3 MG (3 mL) NEB SCH ×3 (05:05→20:17)
[2021-12-22] MEDS: CHRONULAC PO SCH ×3 (05:48→21:53)
[2021-12-22 06:31] LABS: NEUTROPHILS # (AUTO) 1.3 x10^3/uL (2.2-4.8)
[2021-12-22 06:35] LABS: EOSINOPHILS # (AUTO) 0.2 x10^3/uL (0.0-0.2); EOSINOPHILS % (AUTO) 6.8 % (0.9-2.9); LYMPHOCYTES # (AUTO) 0.5 X10^3/uL (1.3-2.9); LYMPHOCYTES % (AUTO) 24.2 % (21.0-51.0); MEAN CORPUSCULAR HEMOGLOBIN 32.2 pg (27.0-34.0); MEAN CORPUSCULAR HGB CONC 36.1 g/dL (33.0-35.0); MEAN CORPUSCULAR VOLUME 89.2 fL (80.0-100.0); MEAN PLATELET VOLUME 9.4 fL (7.4-11.0); MONOCYTES # (AUTO) 0.2 x10^3/uL (0.3-0.8); MONOCYTES % (AUTO) 10.6 % (0.0-13.0); NEUTROPHILS % (AUTO) 57.4 % (42.0-75.0); RED BLOOD COUNT 2.13 X10^6/uL (3.5-5.4); RED CELL DISTRIBUTION WIDTH 13.4 % (11.6-16.5); WHITE BLOOD COUNT 2.2 X10^3/uL (3.6-10.0)
[2021-12-22 06:38] LABS: BLOOD UREA NITROGEN 9 mg/dL (7-18); CALCIUM 9.3 mg/dL (8.5-10.1); CARBON DIOXIDE 29.6 mmol/L (21-32); CHLORIDE 100 mmol/L (98-107); CREATININE 0.74 mg/dL (0.55-1.02); SODIUM 135 mmol/L (136-145); eGFR NON BLACK RACES > 60 (>60)
[2021-12-22 06:39] LABS: AMMONIA 40 umol/L (11-32)
[2021-12-22 06:49] LABS: HEMOGLOBIN 6.9 g/dL (12.0-16.0)
[2021-12-22 07:05] LABS: ALANINE AMINOTRANSFERASE 12 Units/L (12-78); ALBUMIN 2.7 g/dL (3.4-5.0); ALKALINE PHOSPHATASE 94 Units/L (46-116); ASPARTATE AMINO TRANSFERASE 30 Units/L (15-37); COR CA(FOR HYPOALB) 10.3 mg/dL (8.5-10.1); TOTAL PROTEIN 5.8 g/dL (6.4-8.2)
--- NOTE | 2021-12-22 07:19 | RAD ---
HISTORYSOBSTUDYAP [id number]/2022FINDINGSThere is increasing atelectasis at the right base above slightly elevated right diaphragm. Heart size remains normal with clear left chest.IMPRESSIONDeveloping atelectasis right base.Electronically signed by: MG CARRIZALES (Dec 22, 2021 07:17:21)
[2021-12-22 08:02] LABS: PLATELET MORPHOLOGY COMMENT NORMAL (NORMAL)
[2021-12-22 08:09] LABS: BURR CELLS SLIGHT
[2021-12-22] MEDS ORDERED: AFRIN NASAL SPRAY PRN (08:52)
[2021-12-22 09:22] LABS: BASOPHILS % (AUTO) 0.5 % (0.2-1.0); EOSINOPHILS # (AUTO) 0.2 x10^3/uL (0.0-0.2); EOSINOPHILS % (AUTO) 7.2 % (0.9-2.9); HEMATOCRIT 20.3 % (36.0-47.0); HEMOGLOBIN 7.3 g/dL (12.0-16.0); LYMPHOCYTES # (AUTO) 0.6 X10^3/uL (1.3-2.9); LYMPHOCYTES % (AUTO) 22.1 % (21.0-51.0); MEAN CORPUSCULAR HEMOGLOBIN 32.2 pg (27.0-34.0); MEAN CORPUSCULAR HGB CONC 35.8 g/dL (33.0-35.0); MEAN CORPUSCULAR VOLUME 90.1 fL (80.0-100.0); MONOCYTES # (AUTO) 0.3 x10^3/uL (0.3-0.8); MONOCYTES % (AUTO) 11.1 % (0.0-13.0); NEUTROPHILS # (AUTO) 1.6 x10^3/uL (2.2-4.8); NEUTROPHILS % (AUTO) 59.1 % (42.0-75.0); RED BLOOD COUNT 2.26 X10^6/uL (3.5-5.4); WHITE BLOOD COUNT 2.7 X10^3/uL (3.6-10.0)
[2021-12-22] MEDS ORDERED: AQUA-MEPHYTON ADULT INJ IV ONE (10:00)
[2021-12-22] MEDS: ALBUMIN HUMAN 25%- 100 ML 100 ML IV SCH (10:02)
[2021-12-22] MEDS: LASIX IVP SCH ×2 (10:04→16:15)
[2021-12-22] MEDS: ULTRAM PO SCH ×2 (10:09→21:54)
[2021-12-22] MEDS: ALDACTONE TAB 25 MG PO SCH (10:09)
[2021-12-22] MEDS: MEGACE PO SCH ×2 (10:10→21:54)
[2021-12-22] MEDS: PROTONIX TAB 40 MG PO SCH (10:10)
[2021-12-22] MEDS: MICRO K EXTEN CAP 10 MEQ PO SCH (10:11)
[2021-12-22] MEDS: INVanz INJ 1 GRAM VIAL 1 G in NS 100 ML IV 100 ML IV SCH (11:26)
[2021-12-22] MEDS ORDERED: BENADRYL INJ 50 MG VIAL IVP ONE (12:15)
[2021-12-22] MEDS ORDERED: LASIX IVP ONE (12:15)
[2021-12-22] MEDS: AQUA-MEPHYTON ADULT INJ SC SCH ×3 (12:29→21:55)
[2021-12-22] MEDS ORDERED: CATAPRES TAB 0.1 MG PO ONE (20:14)
[2021-12-22 20:42] LABS: HEMATOCRIT 22.8 % (36.0-47.0); HEMOGLOBIN 8.2 g/dL (12.0-16.0)
[2021-12-22] MEDS: REQUIP PO SCH (21:53)
[2021-12-23] MEDS: CHRONULAC PO SCH ×3 (05:36→21:21)
[2021-12-23] MEDS: DUONEB 0.5 MG/3 MG (3 mL) NEB SCH ×3 (05:39→21:19)
[2021-12-23 06:43] LABS: BASOPHILS % (AUTO) 1.4 % (0.2-1.0); EOSINOPHILS # (AUTO) 0.2 x10^3/uL (0.0-0.2); EOSINOPHILS % (AUTO) 6.6 % (0.9-2.9); HEMATOCRIT 22.6 % (36.0-47.0); HEMOGLOBIN 8.2 g/dL (12.0-16.0); LYMPHOCYTES # (AUTO) 0.7 X10^3/uL (1.3-2.9); LYMPHOCYTES % (AUTO) 25.1 % (21.0-51.0); MEAN CORPUSCULAR HEMOGLOBIN 32.1 pg (27.0-34.0); MEAN CORPUSCULAR HGB CONC 36.4 g/dL (33.0-35.0); MEAN CORPUSCULAR VOLUME 88.2 fL (80.0-100.0); MONOCYTES # (AUTO) 0.3 x10^3/uL (0.3-0.8); NEUTROPHILS # (AUTO) 1.5 x10^3/uL (2.2-4.8); NEUTROPHILS % (AUTO) 55.9 % (42.0-75.0); RED BLOOD COUNT 2.57 X10^6/uL (3.5-5.4); RED CELL DISTRIBUTION WIDTH 14.3 % (11.6-16.5); WHITE BLOOD COUNT 2.8 X10^3/uL (3.6-10.0)
--- NOTE | 2021-12-23 06:43 | RAD ---
HISTORYSOBSTUDYAP [id number]/16/2022FINDINGSStable normal heart size with no change in extent or distribution of the atelectatic changes at the right base, accentuated by mild diaphragm elevation. There is no pneumonic consolidation, pulmonary edema or pleural effusion.IMPRESSIONNo change.Electronically signed by: MG CARRIZALES (Dec 23, 2021 06:42:20)
[2021-12-23 06:56] LABS: ALANINE AMINOTRANSFERASE 9 Units/L (12-78); ALBUMIN 3.1 g/dL (3.4-5.0); ALKALINE PHOSPHATASE 99 Units/L (46-116); ASPARTATE AMINO TRANSFERASE 31 Units/L (15-37); BLOOD UREA NITROGEN 10 mg/dL (7-18); CARBON DIOXIDE 30.2 mmol/L (21-32); CHLORIDE 99 mmol/L (98-107); COR CA(FOR HYPOALB) 9.7 mg/dL (8.5-10.1); CREATININE 0.86 mg/dL (0.55-1.02); SODIUM 136 mmol/L (136-145); TOTAL PROTEIN 6.2 g/dL (6.4-8.2); eGFR NON BLACK RACES > 60 (>60)
[2021-12-23] MEDS: ALBUMIN HUMAN 25%- 100 ML 100 ML IV SCH (09:44)
[2021-12-23] MEDS: LASIX IVP SCH ×2 (09:45→17:07)
[2021-12-23] MEDS: ALDACTONE TAB 25 MG PO SCH (09:45)
[2021-12-23] MEDS: INVanz INJ 1 GRAM VIAL 1 G in NS 100 ML IV 100 ML IV SCH (09:45)
[2021-12-23] MEDS: PROTONIX TAB 40 MG PO SCH (09:46)
[2021-12-23] MEDS: MICRO K EXTEN CAP 10 MEQ PO SCH (09:46)
[2021-12-23] MEDS: MEGACE PO SCH ×2 (09:46→21:22)
[2021-12-23] MEDS: ULTRAM PO SCH ×2 (09:46→21:21)
[2021-12-23] MEDS: MORPHINE SULFATE INJ 2 MG INJ IVP PRN (17:20)
[2021-12-23] MEDS: ZOFRAN INJ 4 MG VIAL IVP PRN (17:33)
[2021-12-23] MEDS: REQUIP PO SCH (21:22)
[2021-12-24] MEDS: CHRONULAC PO SCH (05:15)
[2021-12-24] MEDS: DUONEB 0.5 MG/3 MG (3 mL) NEB SCH (06:00)
[2021-12-24 06:23] LABS: EOSINOPHILS # (AUTO) 0.2 x10^3/uL (0.0-0.2); EOSINOPHILS % (AUTO) 7.8 % (0.9-2.9); HEMATOCRIT 22.3 % (36.0-47.0); HEMOGLOBIN 8.2 g/dL (12.0-16.0); LYMPHOCYTES # (AUTO) 0.5 X10^3/uL (1.3-2.9); LYMPHOCYTES % (AUTO) 21.2 % (21.0-51.0); MEAN CORPUSCULAR HEMOGLOBIN 32.1 pg (27.0-34.0); MEAN CORPUSCULAR HGB CONC 36.6 g/dL (33.0-35.0); MEAN CORPUSCULAR VOLUME 87.7 fL (80.0-100.0); MEAN PLATELET VOLUME 8.8 fL (7.4-11.0); MONOCYTES # (AUTO) 0.3 x10^3/uL (0.3-0.8); MONOCYTES % (AUTO) 11.5 % (0.0-13.0); NEUTROPHILS # (AUTO) 1.5 x10^3/uL (2.2-4.8); NEUTROPHILS % (AUTO) 58.5 % (42.0-75.0); RED BLOOD COUNT 2.55 X10^6/uL (3.5-5.4); RED CELL DISTRIBUTION WIDTH 13.9 % (11.6-16.5); WHITE BLOOD COUNT 2.5 X10^3/uL (3.6-10.0)
[2021-12-24 06:31] LABS: AMMONIA 33 umol/L (11-32)
[2021-12-24 06:36] LABS: ALANINE AMINOTRANSFERASE 9 Units/L (12-78); ALBUMIN 3.1 g/dL (3.4-5.0); ALKALINE PHOSPHATASE 97 Units/L (46-116); ASPARTATE AMINO TRANSFERASE 32 Units/L (15-37); BLOOD UREA NITROGEN 11 mg/dL (7-18); CALCIUM 9.2 mg/dL (8.5-10.1); CARBON DIOXIDE 30.2 mmol/L (21-32); CHLORIDE 100 mmol/L (98-107); COR CA(FOR HYPOALB) 9.9 mg/dL (8.5-10.1); CREATININE 0.87 mg/dL (0.55-1.02); SODIUM 135 mmol/L (136-145); TOTAL PROTEIN 6.2 g/dL (6.4-8.2); eGFR NON BLACK RACES > 60 (>60)
--- NOTE | 2021-12-24 07:29 | RAD ---
HISTORYShortness of breathSTUDYChest AP [id number]/17/2022FINDINGSHear t size remains normal. No congestive heart failure is noted. Lungs remain hypoinflated. There is slight improvement in the right basilar subsegmental atelectasis identified. No acute alveolar infiltrates or pleural effusions are identified. Bony thorax is unremarkable.IMPRESSIONPersistent hypo inflationImproved right basilar subsegmental atelectasisNo acute alveolar infiltrates or areas of consolidation identifiedElectronically signed by: BEN SPENCER (Dec 24, 2021 07:28:15)
[2021-12-24] MEDS: MORPHINE SULFATE INJ 2 MG INJ IVP PRN (08:31)
[2021-12-24] MEDS: ZOFRAN INJ 4 MG VIAL IVP PRN (08:32)
[2021-12-24] MEDS: ALBUMIN HUMAN 25%- 100 ML 100 ML IV SCH (09:27)
[2021-12-24] MEDS: ALDACTONE TAB 25 MG PO SCH (09:29)
[2021-12-24] MEDS: INVanz INJ 1 GRAM VIAL 1 G in NS 100 ML IV 100 ML IV SCH (09:30)
[2021-12-24] MEDS: LASIX IVP SCH (09:30)
[2021-12-24] MEDS: MEGACE PO SCH (09:30)
[2021-12-24] MEDS: MICRO K EXTEN CAP 10 MEQ PO SCH (09:31)
[2021-12-24] MEDS: ULTRAM PO SCH (09:31)
[2021-12-24] MEDS: PROTONIX TAB 40 MG PO SCH (09:31)
[2021-12-24 09:58] VITALS: BP 126/82
== END 2021-12-24 12:02 | disposition hospice, inpatient (51) | DRG 441 ==
LOC: ER 16:30 → MED/SURG 22:35
PROVIDERS: ADMIT Family Medicine; ATTEND Internal Medicine
DX: D69.6 Thrombocytopenia, unspecified; E72.20 Disorder of urea cycle metabolism, unspecified; R18.8 Other ascites; N30.01 Acute cystitis with hematuria; E78.2 Mixed hyperlipidemia; L89.159 Pressure ulcer of sacral region, unspecified stage; F41.8 Other specified anxiety disorders; Z20.822 Contact with and (suspected) exposure to COVID-19; K74.60 Unspecified cirrhosis of liver; K72.10 Chronic hepatic failure without coma; R06.02 Shortness of breath; D61.818 Other pancytopenia; J18.8 Other pneumonia, unspecified organism; B96.4 Proteus (mirabilis) (morganii) as the cause of diseases classified elsewhere; R04.0 Epistaxis; K21.9 Gastro-esophageal reflux disease without esophagitis; Z66 Do not resuscitate; L89.329 Pressure ulcer of left buttock, unspecified stage